=== PATIENT | male | born 1940 | race Caucasian/White ===

== ENCOUNTER → 2016-06-14 | Outpatient (CLI) | payer OTHER, BC ==
[~2016-06-14] MED LIST: ACET-749 PO; AFRIN; APIX1TAB3 PO; ATOR-22 PO; ATV5 PO; CHOL1000 PO; CLC100 PO; CRD60 PO; DILT-113 PO; DILT120C68 PO; FLEC100T21 PO; FURO-85 PO; GABA-112 PO; GEMF600T3 PO; HMLIS SC; INSDGI SQ; MAGNCAP3 PO; METO100T44 PO; MULT-1093 PO; MULTCAP33 PO; MULTTAB58 PO; POTA-331 PO; TMB100 PO; diltiazem PO
[2016-06-14 11:06] LABS: HEMATOCRIT 39.8 % (42-52); MEAN CELL VOLUME 96.6 fL (80-100); MEAN CORPUSCULAR HEMOGLOBIN 31.1 pg (25-34); MEAN CORPUSCULAR HGB CONC 32.2 g/dl (32-36); MEAN PLATELET VOLUME 11.5 fL (7.4-10.4); PLATELET COUNT 308 K/uL (130-400); RED BLOOD COUNT 4.12 M/uL (4.7-6.1)
[2016-06-14 11:14] LABS: URINE APPEARANCE CLEAR (CLEAR); URINE BILIRUBIN NEG (NEG); URINE COLOR YELLOW; URINE NITRITE NEG (NEG); URINE SPECIFIC GRAVITY 1.009 (1.000-1.030); UROBILINOGEN NEG (NEG)
[2016-06-14 11:17] LABS: MANUAL MICROSCOPIC REQUIRED? NO; REVIEW REQ? NO
[2016-06-14 11:19] LABS: ALT/SGPT 14 U/L (12-78); BLOOD UREA NITROGEN 36 mg/dl (7-18); BUN/CREATININE RATIO 17.1 (10-20); CALCIUM 9.1 mg/dl (8.5-10.1); CARBON DIOXIDE 27 mmol/L (21-32); CHLORIDE 107 mmol/L (98-107); GLUCOSE 161 mg/dl (70-99); POTASSIUM 4.6 mmol/L (3.5-5.1); SODIUM 144 mmol/L (136-145)
[2016-06-14 11:22] LABS: ALB/GLOB RATIO 0.8 (0.9-2); ALKALINE PHOSPHATASE 157 U/L (45-117); AST/SGOT 13 U/L (15-37)
[2016-06-14 11:32] LABS: URINE PROTIEN/CREAT RATIO 0.2 (0-0.2); URINE TOTAL PROTEIN 12.6 mg/dl (0-11.9)
== END | disposition home or self-care (01) ==
LOC: C.LAB1850 09:45
PROVIDERS: ATTEND Internal Medicine Nephrology
DX: I10 Essential (primary) hypertension (principal); E55.9 Vitamin D deficiency, unspecified; N18.3 Chronic kidney disease, stage 3 (moderate)

== ENCOUNTER → 2016-09-30 | Outpatient (CLI) | payer OTHER, BC ==
[~2016-09-30] MED LIST changes: -AFRIN; -DILT-113 PO; -DILT120C68 PO; -FLEC100T21 PO; -FURO-85 PO; -GABA-112 PO; -MULT-1093 PO; -diltiazem PO
[2016-09-30 10:46] LABS: HEMATOCRIT 42.7 % (42-52); MEAN CELL VOLUME 97.3 fL (80-100); MEAN CORPUSCULAR HEMOGLOBIN 31.7 pg (25-34); MEAN CORPUSCULAR HGB CONC 32.6 g/dl (32-36); MEAN PLATELET VOLUME 11.5 fL (7.4-10.4); PLATELET COUNT 295 K/uL (130-400); RED BLOOD COUNT 4.39 M/uL (4.7-6.1); WHITE BLOOD COUNT 6.18 K/uL (4.8-10.8)
[2016-09-30 10:56] LABS: URINE APPEARANCE CLEAR (CLEAR); URINE BILIRUBIN NEG (NEG); URINE COLOR YELLOW; URINE EPITHELIAL CELL AUTO 0-5 /lpf (0-5); URINE NITRITE NEG (NEG); URINE SPECIFIC GRAVITY 1.012 (1.000-1.030); UROBILINOGEN NEG (NEG)
[2016-09-30 11:20] LABS: ALT/SGPT 25 U/L (12-78); AST/SGOT 24 U/L (15-37); BLOOD UREA NITROGEN 39 mg/dl (7-18); BUN/CREATININE RATIO 19.7 (10-20); CALCIUM 8.8 mg/dl (8.5-10.1); CARBON DIOXIDE 29 mmol/L (21-32); CHLORIDE 106 mmol/L (98-107); GLUCOSE 191 mg/dl (70-99); POTASSIUM 4.5 mmol/L (3.5-5.1); SODIUM 142 mmol/L (136-145)
[2016-09-30 11:22] LABS: ESTIMATED AVERAGE GLUCOSE 157 mg/dl; HA1C FLAG Normal (Normal)
[2016-09-30 11:25] LABS: ALKALINE PHOSPHATASE 141 U/L (45-117); CHOLESTEROL 117 mg/dl (0-200); CHOLESTEROL/HDL RATIO 2.9; HDL CHOLESTEROL 40 mg/dl; LDL CHOLESTEROL CALCULATED 31 mg/dl; PHOSPHORUS 3.1 mg/dl (2.5-4.9); TRIGLYCERIDES 231 mg/dl (0-150); URINE PROTIEN/CREAT RATIO 0.2 (0-0.2); URINE TOTAL PROTEIN 12.4 mg/dl (0-11.9); VERY LOW DENSITY LIPOPROT CALC 46 mg/dl
[2016-09-30 11:27] LABS: MANUAL MICROSCOPIC REQUIRED? NO; REVIEW REQ? NO
== END | disposition home or self-care (01) ==
LOC: C.LAB1850 09:32
PROVIDERS: ATTEND Internal Medicine Nephrology
DX: E11.8 Type 2 diabetes mellitus with unspecified complications (principal); I10 Essential (primary) hypertension; E55.9 Vitamin D deficiency, unspecified; N18.3 Chronic kidney disease, stage 3 (moderate); E78.5 Hyperlipidemia, unspecified

== ENCOUNTER → 2016-10-12 | Outpatient (CLI) | payer OTHER, BC ==
[2016-10-12 14:48] LABS: URINE APPEARANCE CLEAR (CLEAR); URINE BILIRUBIN NEG (NEG); URINE COLOR YELLOW; URINE NITRITE NEG (NEG); URINE SPECIFIC GRAVITY 1.018 (1.000-1.030); UROBILINOGEN NEG (NEG)
[2016-10-12 14:54] LABS: MANUAL MICROSCOPIC REQUIRED? NO; REVIEW REQ? NO
== END | disposition home or self-care (01) ==
LOC: C.LAB 13:51
PROVIDERS: ATTEND Nurse Practitioner Family
DX: R31.9 Hematuria, unspecified (principal)

== ENCOUNTER → 2016-10-26 | Outpatient (CLI) | payer OTHER, BC ==
--- NOTE | 2016-10-26 11:39 | DIAGNOSTIC IMAGING REPORT ---
CHEST 2 VIEWS ROUTINE CLINICAL HISTORY: Acquired renal cyst, Dyspnea on exertion COMPARISON STUDY: 05/29/2016 FINDINGS: The heart is mildly enlarged. There is no failure. There is no focal pulmonary consolidation. There are no pleural effusions. Degenerative changes are present within the dorsal spine.[ IMPRESSION: No active disease in the chest. Electronically signed by: Aidan Lovell M.D. 10/26/2016 11:38 AM Dictated Date/Time: 10/26/2016 11:37 AM
== END | disposition home or self-care (01) ==
LOC: C.LABBC 11:09
PROVIDERS: ATTEND Physician Assistant Medical
DX: N28.1 Cyst of kidney, acquired (principal); R06.09 Other forms of dyspnea

== ENCOUNTER → 2016-11-21 | Outpatient (CLI) | payer OTHER, BC ==
[2016-11-21 10:55] LABS: ALT/SGPT 42 U/L (12-78); BLOOD UREA NITROGEN 34 mg/dl (7-18); BUN/CREATININE RATIO 16.8 (10-20); CARBON DIOXIDE 27 mmol/L (21-32); CHLORIDE 104 mmol/L (98-107); GLUCOSE 201 mg/dl (70-99); POTASSIUM 4.6 mmol/L (3.5-5.1); SODIUM 142 mmol/L (136-145)
[2016-11-21 11:00] LABS: ALB/GLOB RATIO 0.9 (0.9-2); ALKALINE PHOSPHATASE 130 U/L (45-117); AST/SGOT 37 U/L (15-37); PROSTATE SPECIFIC ANTIGEN 0.827 ng/ml (0.000-4.000)
[2016-11-21 11:12] LABS: CALCIUM 8.6 mg/dl (8.5-10.1)
--- NOTE | 2016-11-25 10:10 | CODING QUERY MEDICAL NECESSITY ---
SUPPORTING DIAGNOSIS NEEDED Dr. Laguerre, A supporting diagnosis is required for the test/procedure performed on this patient in order for us to be reimbursed by the patient's insurance. Please provide a supporting diagnosis for the following test/procedure listed below next to the test name along with your signature. *If there is no additional diagnosis for this patient that would support the following test/procedure please document that below next to the test/procedure. Test(s)/Procedure(s) that require a supporting diagnosis: * [id number] PSA DIAGNOSIS: DATE OF SERVICE: 11/21/16 Provider Signature: Date: Thank you Reggie Saini [facility] Information Management Once completed, please kindly fax back to [phone] For questions please call [phone]
== END | disposition home or self-care (01) ==
LOC: C.LAB 10:02
PROVIDERS: ATTEND Urology
DX: C64.9 Malignant neoplasm of unspecified kidney, except renal pelvis (principal); N40.0 Benign prostatic hyperplasia without lower urinary tract symptoms

== ENCOUNTER → 2016-12-05 | Outpatient (CLI) | payer OTHER, BC ==
[~2016-12-05] MED LIST changes: -ACET-749 PO
--- NOTE | 2016-12-05 13:36 | DIAGNOSTIC IMAGING REPORT ---
CT OF THE ABDOMEN AND PELVIS WITHOUT CONTRAST CLINICAL HISTORY: Clear cell carcinoma of kidney. COMPARISON STUDY: CT of the abdomen April 12, 2016 and MRI of the abdomen April 27, 2016. TECHNIQUE: Axial images of the abdomen and pelvis were obtained without IV contrast given renal insufficiency. Images were reviewed in the axial, sagittal, and coronal planes. FINDINGS: Evaluation of the abdomen and pelvis is suboptimal given the lack of IV contrast. Unenhanced images of liver, spleen, adrenal glands and pancreas are normal. A few small gallstones are noted. Several water attenuation left renal lesions are suboptimally assessed on this exam but were shown to represent cysts on prior MRI of April 27, 2016. There is also a 7.2 cm cyst arising from the upper pole of the right kidney. There are postsurgical findings within the mid to lower pole of the right kidney suggestive of a partial nephrectomy. There is a 4.2 x 3.9 cm hyperdense abnormality at the level of the partial nephrectomy with adjacent suture material. This is at the site of tumor shown on exam of April 27, 2016. The additional 1.7 cm lesion arising from the midpole the right kidney shown on prior exam is not visualized and is likely been resected. There is no lymphadenopathy. There is no bowel obstruction. There is a fat-containing right inguinal hernia. No suspicious osseous lesions are present. IMPRESSION: 1. 4.2 x 3.9 cm hyperdense round abnormality within the right partial nephrectomy bed, at site of tumor shown on MRI of April 27, 2016. This is suboptimally assessed on this unenhanced exam and could reflect postsurgical change with hemorrhage or recurrent tumor. 2. Nonvisualization of the additional 1.7 cm right renal lesion shown on prior exam which has likely been resected. 3. Numerous additional water attenuation bilateral renal lesions which were shown to represent cysts on prior MRI. Electronically signed by: Hawk Rodriguez M.D. 12/05/2016 1:35 PM Dictated Date/Time: 12/05/2016 11:21 AM
== END | disposition home or self-care (01) ==
LOC: C.CTS 10:04
PROVIDERS: ATTEND Urology
DX: C64.9 Malignant neoplasm of unspecified kidney, except renal pelvis (principal)

== ENCOUNTER → 2016-12-28 | Outpatient (CLI) | payer OTHER, BC ==
[~2016-12-28] MED LIST changes: -METO100T44 PO; +METO1TAB69 PO
[2016-12-28 16:37] LABS: HEMATOCRIT 37.3 % (42-52); MEAN CELL VOLUME 96.9 fL (80-100); MEAN CORPUSCULAR HEMOGLOBIN 31.7 pg (25-34); MEAN CORPUSCULAR HGB CONC 32.7 g/dl (32-36); MEAN PLATELET VOLUME 11.2 fL (7.4-10.4); PLATELET COUNT 237 K/uL (130-400); RED BLOOD COUNT 3.85 M/uL (4.7-6.1); WHITE BLOOD COUNT 7.35 K/uL (4.8-10.8)
[2016-12-28 16:40] LABS: URINE APPEARANCE CLEAR (CLEAR); URINE BILIRUBIN NEG (NEG); URINE COLOR YELLOW; URINE NITRITE NEG (NEG); URINE SPECIFIC GRAVITY 1.024 (1.000-1.030); UROBILINOGEN NEG (NEG)
[2016-12-28 16:41] LABS: MANUAL MICROSCOPIC REQUIRED? NO; REVIEW REQ? NO
[2016-12-28 16:56] LABS: URINE PROTIEN/CREAT RATIO 0.1 (0-0.2); URINE TOTAL PROTEIN 23.1 mg/dl (0-11.9)
[2016-12-28 16:56] LABS: BLOOD UREA NITROGEN 33 mg/dl (7-18); BUN/CREATININE RATIO 16.3 (10-20); CALCIUM 8.7 mg/dl (8.5-10.1); CARBON DIOXIDE 29 mmol/L (21-32); CHLORIDE 110 mmol/L (98-107); GLUCOSE 170 mg/dl (70-99); POTASSIUM 4.2 mmol/L (3.5-5.1); SODIUM 146 mmol/L (136-145)
[2016-12-28 16:58] LABS: PHOSPHORUS 3.7 mg/dl (2.5-4.9)
[2016-12-29 07:47] LABS: ESTIMATED AVERAGE GLUCOSE 157 mg/dl; HA1C FLAG Normal (Normal)
== END | disposition home or self-care (01) ==
LOC: C.LAB1850 15:06
PROVIDERS: ATTEND Internal Medicine Nephrology
DX: I10 Essential (primary) hypertension (principal); C67.9 Malignant neoplasm of bladder, unspecified; E55.9 Vitamin D deficiency, unspecified; N18.3 Chronic kidney disease, stage 3 (moderate); N40.0 Benign prostatic hyperplasia without lower urinary tract symptoms; E11.9 Type 2 diabetes mellitus without complications

== ENCOUNTER → 2017-02-01 | Outpatient (CLI) | payer OTHER, BC ==
[2017-02-01 13:55] LABS: ALT/SGPT 39 U/L (12-78); AST/SGOT 21 U/L (15-37); BLOOD UREA NITROGEN 33 mg/dl (7-18); BUN/CREATININE RATIO 16.3 (10-20); CALCIUM 8.7 mg/dl (8.5-10.1); CARBON DIOXIDE 29 mmol/L (21-32); CHLORIDE 108 mmol/L (98-107); GLUCOSE 170 mg/dl (70-99); POTASSIUM 4.5 mmol/L (3.5-5.1); SODIUM 141 mmol/L (136-145)
[2017-02-01 13:58] LABS: ALB/GLOB RATIO 0.9 (0.9-2); ALKALINE PHOSPHATASE 145 U/L (45-117)
== END | disposition home or self-care (01) ==
LOC: C.LABBC 10:29
PROVIDERS: ATTEND Urology
DX: C67.9 Malignant neoplasm of bladder, unspecified (principal); N28.89 Other specified disorders of kidney and ureter

== ENCOUNTER → 2017-02-27 | Outpatient (CLI) | payer OTHER, BC ==
[2017-02-27 13:13] LABS: HEMATOCRIT 40.7 % (42-52); MEAN CELL VOLUME 98.3 fL (80-100); MEAN CORPUSCULAR HEMOGLOBIN 31.4 pg (25-34); MEAN CORPUSCULAR HGB CONC 31.9 g/dl (32-36); MEAN PLATELET VOLUME 11.7 fL (7.4-10.4); PLATELET COUNT 263 K/uL (130-400); RED BLOOD COUNT 4.14 M/uL (4.7-6.1); WHITE BLOOD COUNT 7.98 K/uL (4.8-10.8)
[2017-02-27 13:50] LABS: BLOOD UREA NITROGEN 33 mg/dl (7-18); BUN/CREATININE RATIO 16.3 (10-20); CALCIUM 8.5 mg/dl (8.5-10.1); CARBON DIOXIDE 31 mmol/L (21-32); CHLORIDE 107 mmol/L (98-107); GLUCOSE 189 mg/dl (70-99); POTASSIUM 4.4 mmol/L (3.5-5.1); SODIUM 143 mmol/L (136-145)
[2017-02-27 14:53] LABS: URINE PROTIEN/CREAT RATIO 0.1 (0-0.2); URINE TOTAL PROTEIN 5.3 mg/dl (0-11.9)
[2017-02-27 15:10] LABS: URINE APPEARANCE CLEAR (CLEAR); URINE BILIRUBIN NEG (NEG); URINE COLOR YELLOW; URINE EPITHELIAL CELL AUTO 0-5 /lpf (0-5); URINE NITRITE NEG (NEG); URINE SPECIFIC GRAVITY 1.018 (1.000-1.030); UROBILINOGEN NEG (NEG)
[2017-02-27 15:11] LABS: MANUAL MICROSCOPIC REQUIRED? NO; REVIEW REQ? NO
== END | disposition home or self-care (01) ==
LOC: C.LAB1850 11:37
PROVIDERS: ATTEND Internal Medicine Nephrology
DX: I12.9 Hypertensive chronic kidney disease with stage 1 through stage 4 chronic kidney disease, or unspecified chronic kidney disease (principal); E55.9 Vitamin D deficiency, unspecified; N18.3 Chronic kidney disease, stage 3 (moderate); R31.9 Hematuria, unspecified; C64.9 Malignant neoplasm of unspecified kidney, except renal pelvis

== ENCOUNTER → 2017-03-09 | Outpatient (CLI) | payer OTHER, BC ==
--- NOTE | 2017-03-09 11:51 | DIAGNOSTIC IMAGING REPORT ---
(CHEST) THORAX WITHOUT CLINICAL HISTORY: Z87.891 Former [id number] Mixed restrictive and obstructive lung disease. COMPARISON STUDY: Chest x-ray dated 10/26/2016 CT DOSE: 584.25 mGycm TECHNIQUE: CT of the thorax was performed from the thoracic inlet to the lung bases. Images are reviewed in the axial, sagittal, and coronal planes. IV contrast was not administered for this examination. A dose lowering technique was utilized adhering to the principles of ALARA. FINDINGS: Thyroid: Imaged portions of the thyroid gland are normal in appearance. Thoracic aorta: The thoracic aorta is normal in course and caliber, noting standard 3 vessel arch anatomy. Heart: There are coronary artery calcifications present. Lungs and pleural spaces: No pleural effusions are visualized. There are mild dependent atelectatic changes. There is underlying pulmonary emphysema. There is no focal pulmonary consolidation. No pulmonary masses are evident. Mediastinum: There is no mediastinal lymphadenopathy. Norma: Clear. Axilla: Clear. Upper abdomen: Partially visualized upper abdominal viscera is within normal limits. Skeletal structures: There are no lytic or blastic osseous lesions. IMPRESSION: 1. Pulmonary emphysema 2. No evidence of pathologic adenopathy 3. No suspicious pulmonary masses Electronically signed by: Aidan Lovell M.D. 03/09/2017 11:49 AM Dictated Date/Time: 03/09/2017 11:44 AM
== END | disposition home or self-care (01) ==
LOC: C.CTS 11:06
PROVIDERS: ATTEND Physician Assistant
DX: J98.4 Other disorders of lung (principal); R09.02 Hypoxemia; Z87.891 Personal history of nicotine dependence; J43.9 Emphysema, unspecified

== ENCOUNTER 2017-05-22 23:09 | Observation (INO) | payer OTHER, BC ==
[~2017-05-22] VITALS: Ht 175.3 cm; Wt 117.0 kg
[~2017-05-22 23:09] MED LIST changes: -AFRIN; -DILT-113 PO; -DILT120C68 PO; -FLEC100T21 PO; -FURO-85 PO; -GABA-112 PO; -MULT-1093 PO; -diltiazem PO
[2017-05-22] MEDS ORDERED: OXYMETAZOLINE HCL 0.05% NA SPR 15 ML BTL ONE (23:22)
[2017-05-22] MEDS ORDERED: diltiazem PO (23:49)
--- NOTE | 2017-05-22 23:50 | EMERGENCY ROOM VISIT NOTE ---
History Report prepared by Patrick: Tara Marie Under the Supervision of: Dr. Apolinar Guerra M.D. First contact with patient: 23:15 Chief Complaint: NOSE BLEED (MINOR) Stated Complaint: SEVERE BLOODY NOSE History of Present Illness The patient is a 77 year old male who presents to the Emergency Room with complaints of an episode of a nose bleed starting this morning. The patient states that he normally wear oxygen at home, 2.5 L at rest and 4 L on exertion. He states that this morning he woke up and felt full of blood. He reports that when he sat up he had blood run out of his mouth and down his shirt. His states that she called the ambulance. She reports that he went to the doctor and they got it to stop. He reports shortly after getting home, it started again. He notes that he is on Eliquis for atrial fibrillation. The patient complains of chest pain on the left side. He reports that it was worse earlier this morning. The patient denies nausea, back pain, abdominal pain, and hematochezia. Source of History: patient, spouse/significant other Onset: this morning Position: nose Quality: other (bleeding) Timing: other (episode) Associated Symptoms: + chest pain, No nausea, No abdominal pain, No back pain, No hematochezia Review of Systems See HPI for pertinent positives & negatives. A total of 10 systems reviewed and were otherwise negative. Past Medical & Surgical Medical Problems: (1) Acute on chronic renal insufficiency (2) Asthma (3) Atrial flutter (4) Bladder cancer (5) CKD (chronic kidney disease), stage III (6) Diabetes (7) Hypertension (8) Ileus (9) Kidney disease (10) Renal mass, right Family History Diabetes mellitus FHx: stroke Heart disease Hypertension Social History Smoking Status: Never Smoker Smokeless Tobacco Use: No Alcohol Use: none Drug Use: none Marital Status: Housing Status: lives with family Occupation Status: retired Current/Historical Medications Scheduled Apixaban (Eliquis), 5 MG PO BID Atorvastatin (Lipitor), 20 MG PO QPM Cholecalciferol (Vitamin D3), 1 TAB PO QPM Diltiazem Hcl Ext Rel (Tiazac), 180 MG PO DAILY Flecainide (Tambocor), 100 MG PO BID Furosemide (Lasix), 20 MG PO DAILY Gabapentin (Neurontin), 100-200 MG PO HS Gemfibrozil (Lopid), 600 MG PO BID Insulin Glargine (Lantus), 40 UNITS SQ HS Insulin Glargine (Lantus), 35 UNIT SQ QAM Insulin Human Lispro (Humalog Kwikpen), SC UD Metoprolol Succ (Toprol Xl) (Toprol-Xl ), 100 MG PO QAM Multiple Vitamins W/ Minerals (Centrum Silver 50+Men), 1 TAB PO DAILY Allergies Coded Allergies: Adhesives (Verified Allergy, Unknown, PLASTIC TAPE-SKIN BLISTERS,RASH, IRRITATION, 05/23/17) Physical Exam Vital Signs Date Time Temp Pulse Resp B/P (MAP) Pulse Ox O2 Delivery O2 Flow Rate FiO2 05/23/17 00:06 60 18 139/65 94 Nasal Cannula 4.0 Humidified Oxygen 05/22/17 23:37 67 05/22/17 23:10 36.7 63 20 134/68 87 Room Air Physical Exam GENERAL: Patient is chronically unwell appearing and in minimal distress. HEENT: No acute trauma, normocephalic atraumatic, mucous membranes moist, no nasal congestion, no scleral icterus. Copious watery bleeding from the right nares. Bleed appears to be just out of reach of the anterior nose. NECK: No stridor, no adenopathy, no meningismus, trachea is midline. LUNGS: No dyspnea. Clear to auscultation and equal bilaterally. No wheeze, no rhonchi. HEART: Regular rate and rhythm. No murmurs, rubs, gallops appreciated. ABDOMEN: Soft, nontender, bowel sounds positive, no masses appreciated, no peritonitis. BACK: No midline tenderness, no CVA tenderness EXTREMITIES: Normal motion all extremities, no cyanosis, no edema. NEUROLOGIC: Alert and oriented, no acute motor or sensory deficits, no focal weakness, cranial nerves grossly intact. SKIN: No rash, no jaundice, no diaphoresis. Medical Decision & Procedures ER Provider Diagnostic Interpretation: Chest X-Ray 1 View: The results were interpreted by me. Poor inspiratory effort. Appears to be a new right pleural effusion compared to previous chest x- rays and cat scans. Enlarged heart with findings of congestive failure. Laboratory Results 05/22/17 23:41 Red Blood Count 4.19, Mean Corpuscular Volume 97.4, Mean Corpuscular Hemoglobin 32.2, Mean Corpuscular Hemoglobin Concent 33.1, Mean Platelet Volume 11.4, Neutrophils (%) (Auto) 60.2, Lymphocytes (%) (Auto) 27.2, Monocytes (%) (Auto) 10.1, Eosinophils (%) (Auto) 1.7, Basophils (%) (Auto) 0.2, Neutrophils # (Auto ) 5.06, Lymphocytes # (Auto) 2.29, Monocytes # (Auto) 0.85, Eosinophils # (Auto ) 0.14, Basophils # (Auto) 0.02 05/22/17 23:41 Test 05/22/17 23:41 White Blood Count 8.41 K/uL (4.8-10.8) Red Blood Count 4.19 M/uL (4.7-6.1) Hemoglobin 13.5 g/dL (14.0-18.0) Hematocrit 40.8 % (42-52) Mean Corpuscular Volume 97.4 fL (80-100) Mean Corpuscular Hemoglobin 32.2 pg (25-34) Mean Corpuscular Hemoglobin Concent 33.1 g/dl (32-36) Platelet Count 226 K/uL (130-400) Mean Platelet Volume 11.4 fL (7.4-10.4) Neutrophils (%) (Auto) 60.2 % Lymphocytes (%) (Auto) 27.2 % Monocytes (%) (Auto) 10.1 % Eosinophils (%) (Auto) 1.7 % Basophils (%) (Auto) 0.2 % Neutrophils # (Auto) 5.06 K/uL (1.4-6.5) Lymphocytes # (Auto) 2.29 K/uL (1.2-3.4) Monocytes # (Auto) 0.85 K/uL (0.11-0.59) Eosinophils # (Auto) 0.14 K/uL (0-0.5) Basophils # (Auto) 0.02 K/uL (0-0.2) RDW Standard Deviation 48.5 fL (36.4-46.3) RDW Coefficient of Variation 13.6 % (11.5-14.5) Immature Granulocyte % (Auto) 0.6 % Immature Granulocyte # (Auto) 0.05 K/uL (0.00-0.02) Prothrombin Time 11.0 SECONDS (9.0-12.0) Prothromb Time International Ratio 1.0 (0.9-1.1) Activated Partial Thromboplast Time 28.1 SECONDS (21.0-31.0) Partial Thromboplastin Ratio 1.1 Anion Gap 6.0 mmol/L (3-11) Est Creatinine Clear Calc Drug Dose 35.8 ml/min Estimated GFR () 33.0 Estimated GFR (Non- 28.4 BUN/Creatinine Ratio 19.5 (10-20) Calcium Level 8.9 mg/dl (8.5-10.1) Total Creatine Kinase 78 U/L (39-308) Creatine Kinase MB 0.8 ng/ml (0.5-3.6) Creatine Kinase MB Ratio 1.0 (0-3.0) Troponin I < 0.015 ng/ml (0-0.045) Chemistry Specimen Hemolysis Laboratory results as reviewed by me. Medications Administered Medications (Trade) Dose Ordered Sig/Jermaine Route Start Time Stop Time Status Last Admin Dose Admin Oxymetazoline HCl (Afrin 0.05% Nasal Moore) 75 sprays STK-MED ONCE .ROUTE 05/22/17 23:22 05/22/17 23:23 DC 05/22/17 23:26 75 SPRAYS Cephalexin Monohydrate (Keflex Cap) 500 mg NOW ONCE PO 05/23/17 00:30 05/23/17 00:31 DC 05/23/17 00:45 500 MG ECG Indication: chest pain Rate (beats per minute): 63 Rhythm: normal sinus Findings: no acute ischemic change, no ectopy ED Course 2318: The patient was evaluated in room B4B. A complete history and physical exam was performed. 2323: Ordered Oxymetazoline HCl 4 sprays .ROUTE. 0008: I reevaluated the patient and his nosebleed has essentially stopped. He still has some periodic oozing. He denies any further chest pain. He his agreeable to a hospitalist evaluation. 0023: Discussed the patient's case with Dr. Osei. The patient will be evaluated for further treatment and disposition. 0030: Ordered Keflex Cap 500 mg PO. Medical Decision Differential: Cardiac Ischemia (STEMI, NSTEMI, Unstable Angina, etc), Aortic Dissection, Arrhythmia, Pulmonary Embolism, Pneumonia, Pneumothorax, MSK, Infectious, Pericarditis/Myocarditis, Esophageal Rupture, Gastrointestinal, amongst other pathologies entertained. Pleasant 77 yr old male arrives for evaluation of right epistaxis though admits episodic left CP over the last day. EKG without evidence acute ischemia. Trop negative. CXR with new right pleural effusion. Suspect he has some coronary disease for which he is at high risk given history thus will need cardiac rule out. As already on Eliquis and he is having active bleeding I feel given ASA dose is contraindicated at this time. He will need to come in for cardiac rule out. Epistaxis right nares likely secondary to chronic NC O2 use and dry air from heat in house. Unable to see clear source of bleeding given how quickly blood is flowing. Thus felt option was right rapid rhino. Tolerated 4.5cm with cessation of bleeding after inflation, other than some mild oozing which is to be expected. Give Keflex as indwelling packing. I did discuss fact that with increased pressure in nose there can be some issues with tissue break down but he makes clear it is not very uncomfortable, and on exam there is no pallor of skin nor evidence of over inflation at this time. Medication Reconcilliation Current Medication List: was personally reviewed by me Blood Pressure Screening Patient's blood pressure: Normal blood pressure Blood pressure disposition: Did not require urgent referral Consults Time Called: 18 Consulting Physician: Dr. Osei- [facility] [place] Returned Call: 0023 Discussed the patient's case with Dr. Osei. The patient will be evaluated for further treatment and disposition. Impression Primary Impression: Left sided chest pain Additional Impressions: Pleural effusion, right Epistaxis Scribe Attestation The scribe's documentation has been prepared under my direction and personally reviewed by me in its entirety. I confirm that the note above accurately reflects all work, treatment, procedures, and medical decision making performed by me. Departure Information Dispostion Being Evaluated By Hospitalist Referrals Ethel Palomares P.A. (PCP) Patient Instructions [facility] Problem Qualifiers
[2017-05-22] MEDS ORDERED: DILT120C68 PO (23:51)
[2017-05-22] MEDS ORDERED: APIX1TAB3 PO (23:52)
[2017-05-22] MEDS ORDERED: FLEC100T21 PO (23:53)
[2017-05-22 23:54] LABS: BASO % 0.2 %; BASO ABS # 0.02 K/uL (0-0.2); COMPLETE YES; EOS % 1.7 %; HEMATOCRIT 40.8 % (42-52); IG% 0.6 %; LYMPH % 27.2 %; LYMPH ABS # 2.29 K/uL (1.2-3.4); MEAN CELL VOLUME 97.4 fL (80-100); MEAN CORPUSCULAR HEMOGLOBIN 32.2 pg (25-34); MEAN CORPUSCULAR HGB CONC 33.1 g/dl (32-36); MEAN PLATELET VOLUME 11.4 fL (7.4-10.4); MONO % 10.1 %; NEUT % 60.2 %; PLATELET COUNT 226 K/uL (130-400); RED BLOOD COUNT 4.19 M/uL (4.7-6.1); WHITE BLOOD COUNT 8.41 K/uL (4.8-10.8)
[2017-05-22] MEDS ORDERED: FURO-85 PO (23:54)
[2017-05-22] MEDS ORDERED: GABA-112 PO (23:55)
[2017-05-22] MEDS ORDERED: MULT-1093 PO (23:58)
[2017-05-23] VITALS (7 sets, daily range): BP systolic 140–157; BP diastolic 62–76; PULSE 56–67; TEMP 36.4–36.7; O2SAT 90–94; Ht 175.3 cm; Wt 117.0 kg
[2017-05-23] MEDS ORDERED: DILT-113 PO (00:01)
[2017-05-23 00:04] LABS: PARTIAL THROMBOPLASTIN RATIO 1.1
[2017-05-23 00:11] LABS: BLOOD UREA NITROGEN 42 mg/dl (7-18); BUN/CREATININE RATIO 19.5 (10-20); CALCIUM 8.9 mg/dl (8.5-10.1); CARBON DIOXIDE 29 mmol/L (21-32); CHLORIDE 105 mmol/L (98-107); CREATININE 2.15 mg/dl (0.60-1.40); GLUCOSE 217 mg/dl (70-99); POTASSIUM 4.5 mmol/L (3.5-5.1); SODIUM 141 mmol/L (136-145)
[2017-05-23] MEDS ORDERED: CEPHALEXIN MONOHYDRATE 250 MG CAP PO ONE (00:30)
[2017-05-23] MEDS ORDERED: MAGNESIUM HYDROXIDE SUSP 30 ML UDC PO PRN (01:15)
[2017-05-23] MEDS ORDERED: ALUMINUM/MAGNESIUM/SIMETH (MAALOX MAX) 30 ML UDC PO PRN (01:15)
[2017-05-23] MEDS ORDERED: ONDANSETRON INJ 2 MG/ML 2 ML VIAL IV PRN (01:15)
[2017-05-23] MEDS ORDERED: ACETAMINOPHEN 325 MG TAB PO PRN (01:15)
[2017-05-23] MEDS ORDERED: MoRPHine SULFATE 2 MG/ML CARP IV PRN (01:15)
[2017-05-23] MEDS ORDERED: NITROGLYCERIN 0.4 MG SL PER TAB CHARGE SL PRN (01:15)
[2017-05-23] MEDS ORDERED: LORAZEPAM 1 MG TAB PO PRN (01:30)
[2017-05-23] MEDS ORDERED: GLUCOSE 40% GEL 15 GM TUBE PO PRN (02:00)
[2017-05-23] MEDS ORDERED: GLUCOSE 10 TABS/TUBE PO PRN (02:00)
[2017-05-23] MEDS ORDERED: DEXTROSE 50% 50 ML SYR IV PRN (02:00)
[2017-05-23] MEDS ORDERED: GLUCAGON FOR INJ 1 MG VIAL SQ PRN (02:00)
--- NOTE | 2017-05-23 02:08 | History and Physical ---
History & Physical Date & Time of Service: May 23, 2017 at 01:51 Chief Complaint: Left Sided Chest Pain Primary Care Physician: Ethel Palomares P.AJessie History of Present Illness Source: patient, hospital records This is a 77 yo m with a history of PAF, DMII and HTN that is presenting to us after having recurring epistaxis on Eliqius. The patient states that late last night the patient suffered from a self limiting epistaxis and went to his PCP for evaluation. This was a non traumatic epistaxis. He was recommended by his PCP that he come to the ED for evaluation if this were to occur again. Overnight tonight the patient had another episode of epistaxis requiring placement of a Rhinocort. While the patient was in the ED he had mentioned that he has been suffering from intermittent left sided non radiating chest pain with a lot of exertion. He notes that it will resolve with rest. He is unsure how often this will occur as he has not counted it but it is not on a daily basis. He also has some shortness of breath with it but no dizziness/ nausea or diaphoresis. He has no history of ND. He is currently pain free. Follows Dr Terrell for PAF. Past Medical/Surgical History Medical Problems: (1) Atrial flutter Status: Chronic (2) Bladder cancer Status: Resolved (3) Diabetes Status: Chronic Family History Diabetes mellitus FHx: stroke Heart disease Hypertension Social History Smoking Status: Never Smoker Smokeless Tobacco Use: No Alcohol Use: none Drug Use: none Marital Status: Housing status: lives with family Occupational Status: retired Immunizations History of Influenza Vaccine: Unknown History of Tetanus Vaccine?: Unknown History of Pneumococcal: Unknown History of Hepatitis B Vaccine: Unknown Multi-Drug Resistant Organisms History of MDRO: No Allergies Coded Allergies: Adhesives (Verified Allergy, Unknown, PLASTIC TAPE-SKIN BLISTERS,RASH, IRRITATION, 05/23/17) Home Medications Scheduled Apixaban (Eliquis), 5 MG PO BID Atorvastatin (Lipitor), 20 MG PO QPM Cholecalciferol (Vitamin D3), 1 TAB PO QPM Diltiazem Hcl Ext Rel (Tiazac), 180 MG PO DAILY Flecainide (Tambocor), 100 MG PO BID Furosemide (Lasix), 20 MG PO DAILY Gabapentin (Neurontin), 100-200 MG PO HS Gemfibrozil (Lopid), 600 MG PO BID Insulin Glargine (Lantus), 40 UNITS SQ HS Insulin Glargine (Lantus), 35 UNIT SQ QAM Insulin Human Lispro (Humalog Kwikpen), SC UD Metoprolol Succ (Toprol Xl) (Toprol-Xl ), 100 MG PO QAM Multiple Vitamins W/ Minerals (Centrum Silver 50+Men), 1 TAB PO DAILY Review of Systems Constitutional: No fever, No chills, No sweats Eyes: No worsening of vision ENT: No hearing loss Respiratory: + dyspnea on exertion, No cough, No sputum, No wheezing, No shortness of breath, No dyspnea at rest Cardiovascular: + chest pain, No palpitations Abdomen: No pain, No nausea, No vomiting, No diarrhea, No constipation Musculoskeletal: No joint pain Genitourinary - Male: No hematuria, No dysuria Neurologic: No weakness, No numbness/tingling, No balance problems Psychiatric: No depression symptoms Endocrine: No fatigue Hematologic / Lymphatic: No abnormal bleeding/bruising Integumentary: No rash Physical Exam Vital Signs Date Time Temp Pulse Resp B/P (MAP) Pulse Ox O2 Delivery O2 Flow Rate FiO2 05/23/17 01:30 36.7 58 18 127/66 94 05/23/17 00:06 60 18 139/65 94 Nasal Cannula 4.0 Humidified Oxygen 05/22/17 23:37 67 05/22/17 23:10 36.7 63 20 134/68 87 Room Air General Appearance: no apparent distress, + obese Head: normocephalic, atraumatic Eyes: normal inspection, + pertinent finding ENT: hearing grossly normal, + pertinent finding (rhinocort in place in right nostril) Neck: supple Respiratory/Chest: normal breath sounds, no respiratory distress, no accessory muscle use, + decreased breath sounds (bilat bases) Cardiovascular: regular rate, rhythm, no murmur, normal peripheral pulses, + bradycardia Abdomen/GI: normal bowel sounds, non tender, soft, + distended (slightly), + pertinent finding (central obesity) Back: normal inspection Extremities/Musculoskelatal: no calf tenderness, + pedal edema (+1 bilat pedal edema, BL for patient from venous insuff) Neurologic/Psych: alert, normal mood/affect, oriented x 3 Skin: normal color, warm/dry, no rash Lymphatic: no adenopathy Diagnostics Laboratory Results Results Past 24 Hours Test 05/22/17 23:41 Range/Units White Blood Count 8.41 4.8-10.8 K/uL Red Blood Count 4.19 4.7-6.1 M/uL Hemoglobin 13.5 14.0-18.0 g/dL Hematocrit 40.8 42-52 % Mean Corpuscular Volume 97.4 80-100 fL Mean Corpuscular Hemoglobin 32.2 25-34 pg Mean Corpuscular Hemoglobin Concent 33.1 32-36 g/dl Platelet Count 226 130-400 K/uL Mean Platelet Volume 11.4 7.4-10.4 fL Neutrophils (%) (Auto) 60.2 % Lymphocytes (%) (Auto) 27.2 % Monocytes (%) (Auto) 10.1 % Eosinophils (%) (Auto) 1.7 % Basophils (%) (Auto) 0.2 % Neutrophils # (Auto) 5.06 1.4-6.5 K/uL Lymphocytes # (Auto) 2.29 1.2-3.4 K/uL Monocytes # (Auto) 0.85 0.11-0.59 K/uL Eosinophils # (Auto) 0.14 0-0.5 K/uL Basophils # (Auto) 0.02 0-0.2 K/uL RDW Standard Deviation 48.5 36.4-46.3 fL RDW Coefficient of Variation 13.6 11.5-14.5 % Immature Granulocyte % (Auto) 0.6 % Immature Granulocyte # (Auto) 0.05 0.00-0.02 K/uL Prothrombin Time 11.0 9.0-12.0 SECONDS Prothromb Time International Ratio 1.0 0.9-1.1 Activated Partial Thromboplast Time 28.1 21.0-31.0 SECONDS Partial Thromboplastin Ratio 1.1 Sodium Level 141 136-145 mmol/L Potassium Level 4.5 3.5-5.1 mmol/L Chloride Level 105 98-107 mmol/L Carbon Dioxide Level 29 21-32 mmol/L Anion Gap 6.0 3-11 mmol/L Blood Urea Nitrogen 42 7-18 mg/dl Creatinine 2.15 0.60-1.40 mg/dl Est Creatinine Clear Calc Drug Dose 35.8 ml/min Estimated GFR () 33.0 Estimated GFR (Non- 28.4 BUN/Creatinine Ratio 19.5 10-20 Random Glucose 217 70-99 mg/dl Calcium Level 8.9 8.5-10.1 mg/dl Total Creatine Kinase 78 39-308 U/L Creatine Kinase MB 0.8 0.5-3.6 ng/ml Creatine Kinase MB Ratio 1.0 0-3.0 Troponin I < 0.015 0-0.045 ng/ml Chemistry Specimen Hemolysis Diagnostic Radiology difficult to assess secondary to central obesity, possible bilat pleural effusions vs atelectasis, hypoventilation EKG NSR, sebastian, no acute ischemic changes or ectopy noted Impression Assessment and Plan This is a 77 yo m with a history of DMII, HTN, PAF suffering from severe, recurring epistaxis as well as intermittent left sided chest pain concerning for UA/ stable angina Chest pain NYD with a Heart score of 4 - Tele obs - NPO - troponin repeat in am, if negative patient may benefit from stress echo vs echo complete vs cath - repeat CXR PA/ lat upright for an improved view of the bases - echo 2016: * 1. Normal LV size. Mild concentric LVH. * 2. Normal LV function. LVEF 50-55%. Abnormal septal motion. * 3. Mildly dilated RV with mild RV dysfunction. Mild RA dilation. * 4. Grade II diastolic dysfunction * 5. Moderate PH. Estimated PASP 50-55mmHg, RA 8mmHg. * 6. No prior studies available for comparison. - patient may benefit from outpt sleep study based on body habitus/ pul htn and RV dil Epistaxis, recurrent; severe - consult ENT - monitor for S&S of bleeding PAF - NSR currently, with recent severe epistaxis will hold the am dose of Eliquis - cont Diltiazem 180 mg, Flecanide 100 mg bid, Toprol 100 mg qam HTN/ hyperlipidemia - Atorvastatin 20 mg and Gemfibrozil cont'd - antihypertensive as above DMII - continue home lantus regimen with insulin ISS DVT Prophylaxis SCD considering epistaxis Attending addendum: I have physically seen this patient, have supervised the medical residents activities, and agree with the H&P unless as otherwise noted. Assessment and Plan: Paroxysmal atrial fibrillation/hypertension/exertional chest pain-- The patient will be admitted to telemetry for serial cardiac enzymes, serial EKGs, cardiac rhythm monitoring and a 2-D echocardiogram with Dopplers. Continue current dosing of diltiazem, flecainide and metoprolol succinate. Hold Eliquis due to epistaxis Chest x-ray appearance due to posture Epistaxis/Rhino Rocket in right nares-- Consult ENT for treatment, as patient needs to be on anticoagulation due to A. fib Hyperlipidemia-- Continue atorvastatin and gemfibrozil Diabetes mellitus-- Continue Lantus insulin Place on Accu-Cheks before meals and at bedtime with NovoLog coverage per scale Level of Care Telemetry Advanced Directives Existing Advance Directive: No Existing Living Will: No Existing Power of Graphic Art Technician: No Resuscitation Status FULL RESUSCITATION VTE Prophylaxis VTE Risk Assessment Done? Y/N: Yes Risk Level: Moderate Given or contraindicated: Other Anticoagulation, SCD's Social Service Consult None Apply Note Total Time: Critical Care 30 - 74 minutes Additional Copies To Ethel PalomaresPJessieA.
--- NOTE | 2017-05-23 06:44 | DIAGNOSTIC IMAGING REPORT ---
CHEST ONE VIEW PORTABLE CLINICAL HISTORY: 77 years-old Male presenting with Chest Pain. TECHNIQUE: Portable upright AP view of the chest was obtained. COMPARISON: 10/26/2016. FINDINGS: Atherosclerosis of aortic arch. Cardiac silhouette is enlarged as on prior exam. Increased vague bibasilar opacities with slight decreased lung aeration. Prominence of the pulmonary vasculature. No pneumothorax. Pleural effusions may be present. Degenerative changes of the thoracic spine. Upper abdomen normal. IMPRESSION: 1. Cardiomegaly with pulmonary vascular prominence and vague bibasilar opacities. This could suggest early pulmonary edema. Less likely atelectasis or aspiration. Electronically signed by: Mario Patrick M.D. 05/23/2017 6:43 AM Dictated Date/Time: 05/23/2017 6:41 AM
--- NOTE | 2017-05-23 08:11 | DIAGNOSTIC IMAGING REPORT ---
CHEST 2 VIEWS ROUTINE HISTORY: 77 years-old Male improved view acute left-sided atypical chest pain COMPARISON: Chest radiograph 05/22/2017, CT chest 03/09/2017 TECHNIQUE: Portable PA view of the chest FINDINGS: Cardiac silhouette is again mildly enlarged, unchanged. Atherosclerosis of the aorta. Prominent epicardial fat pad again noted with minimal linear subsegmental opacities in seen suggesting areas of atelectasis/scarring. Mild hyperinflation with emphysema. Improved aeration of the lung bases from prior. No pneumothorax or pleural effusion. Bones of the chest appear grossly intact. IMPRESSION: 1. Cardiomegaly without overt pulmonary edema. 2. Prominent epicardial fat pad with minimal subsegmental bibasilar atelectasis/scarring. 3. Emphysema. The above report was generated using voice recognition software. It may contain grammatical, syntax or spelling errors. Electronically signed by: Tylor Carbajal M.D. 05/23/2017 8:09 AM Dictated Date/Time: 05/23/2017 8:06 AM
[2017-05-23] MEDS ORDERED: IV FLUIDS COMPLETED PRN (08:15)
[2017-05-23] MEDS: INSULIN ASPART 100 UNITS/ML 3 ML PEN SC SCH ×2 (08:22→11:00)
[2017-05-23] MEDS ORDERED: INSULIN GLARGINE SOLOSTAR 100 UNITS/ML 3 ML PEN SQ SCH ×2 (09:00→21:00)
[2017-05-23] MEDS ORDERED: DILTIAZEM HCL (TIAzac) 180 MG CAPCR PO SCH (09:00)
[2017-05-23] MEDS ORDERED: FUROSEMIDE 20 MG TAB PO SCH (09:00)
[2017-05-23] MEDS ORDERED: FLECAINIDE ACETATE 100 MG TAB PO SCH (09:00)
[2017-05-23] MEDS ORDERED: GEMFIBROZIL 600 MG TAB PO SCH (09:00)
[2017-05-23] MEDS ORDERED: METOPROLOL SUCC 50MG EXT REL TAB PO SCH (09:00)
[2017-05-23] MEDS ORDERED: CEROVITE ADV FORMULA TAB PO SCH (09:00)
[2017-05-23] MEDS ORDERED: DOBUTamine HCL 12.5 MG/ML 20 ML VIAL ONE (09:28)
[2017-05-23] MEDS ORDERED: ATROPINE SULFATE 0.1 MG/ML 5ML SYR ONE (09:29)
[2017-05-23] MEDS ORDERED: METOPROLOL TARTRATE 1 MG/ML VIAL ONE (09:29)
[2017-05-23 11:47] LABS: HEMATOCRIT 38.9 % (42-52); MEAN CORPUSCULAR HEMOGLOBIN 31.4 pg (25-34); MEAN CORPUSCULAR HGB CONC 32.4 g/dl (32-36); MEAN PLATELET VOLUME 11.4 fL (7.4-10.4); PLATELET COUNT 214 K/uL (130-400); RED BLOOD COUNT 4.01 M/uL (4.7-6.1); WHITE BLOOD COUNT 7.84 K/uL (4.8-10.8)
--- NOTE | 2017-05-23 13:55 | EXERCISE STRESS ECHO ---
*NOTICE TO RECEIVING [employer] This information is strictly Confidential and protected under [place] law. [place] law prohibits you from making any further disclosure of this information unless further disclosure is expressly permitted by the written consent of the person to whom it pertains or is authorized by law. A general authorization for the release of medical or other information is not sufficient for this purpose. Hospital accepts no responsibility if the information is made available to any other person, INCLUDING THE PATIENT. Interpretation Summary * Name: SHERIF QUILES Study Date: 05/23/2017 09:26 AM * Patient Location: .2T\S\S230\S\1 HR: 64 * : 1940 (M/d/yyyy) Gender: Male Height: 69 in * Age: 77 yrs Ethnicity: [place] Weight: 257 lb * Ordering Physician: Deandra Healy * Referring Physician: Self, Referred * Performed By: Jacinta Medel RDCS * * Reason For Study: Chest Pain * BSA: 2.3 m2 * -- Conclusions -- * Left ventricular systolic function is normal. * No regional wall motion abnormalities noted. * Ejection Fraction = 55-60%. * There is moderate concentric left ventricular hypertrophy. * Grade I diastolic dysfunction, (abnormal relaxation pattern). * There is mild tricuspid regurgitation. Procedure Details * ECHO DOPPLER, CPT #58618 * ECHO COLOR FLOW, CPT #13537 * The study was technically difficult with many images being suboptimal in quality. * A contrast injection of Definity was performed to improve assessment of LV function. * Contrast was injected into an intravenous site in the right arm. * One vial of Definity ultrasound contrast was diluted in normal saline to a total volume of 10 ml. A total of '2' ml of solution was administered during imaging. * Lot # [id number] of Definity utilized for procedure. * Expiration date . * The attending nurse who injected the contrast agent was BERNABE Pereyra. Left Ventricle * The left ventricle is grossly normal size. * There is moderate concentric left ventricular hypertrophy. * Ejection Fraction = 55-60%. * Left ventricular systolic function is normal. * No regional wall motion abnormalities noted. Right Ventricle * The right ventricle is grossly normal size. * The right ventricular systolic function is normal as assessed by tricuspid annular plane systolic excursion (TAPSE) (normal >1.5 cm). Atria * The left atrium is mildly dilated. * The right atrium is mildly dilated. * Interatrial septum not well visualized. Mitral Valve * The mitral valve is grossly normal. * There is no mitral valve stenosis. * Significant mitral regurgitation is absent. Tricuspid Valve * The tricuspid valve is not well visualized, but is grossly normal. * There is no tricuspid stenosis. * There is mild tricuspid regurgitation. Aortic Valve * The aortic valve is trileaflet. * The aortic valve opens well. * No hemodynamically significant valvular aortic stenosis. * No aortic regurgitation is present. Pulmonic Valve * The pulmonary valve is not well seen, but the Doppler examination is normal without significant regurgitation or stenosis. Great Vessels * Borderline aortic root dilatation. * The pulmonary is not well visualized. Pericardium * There is no pericardial effusion. Left Ventricular Diastolic Function * Grade I diastolic dysfunction, (abnormal relaxation pattern). MMode 2D Measurements and Calculations IVSd 1.2 cm IVSs 1.6 cm LVIDd 4.6 cm LVIDs 3.3 cm LVPWd 1.2 cm LVPWs 1.6 cm IVS/LVPW 1.0 FS 29.2 % EDV(Teich) 98.1 ml ESV(Teich) 43.1 ml EF(Teich) 56.1 % EDV(cubed) 98.3 ml ESV(cubed) 34.9 ml EF(cubed) 64.5 % % IVS thick 32.4 % % LVPW thick 31.3 % LV mass(C)d 208.1 grams LV mass(C)dI 90.6 grams/m\S\2 LV mass(C)s 195.3 grams LV mass(C)sI 85.0 grams/m\S\2 SV(Teich) 55.0 ml SI(Teich) 23.9 ml/m\S\2 SV(cubed) 63.4 ml SI(cubed) 27.6 ml/m\S\2 Ao root diam 3.2 cm Ao root area 8.1 cm\S\2 ACS 2.0 cm LA dimension 3.0 cm LA/Ao 0.95 LVAd ap4 27.0 cm\S\2 LVLd ap4 7.2 cm EDV(MOD-sp4) 85.6 ml EDV(sp4-el) 86.3 ml LVAs ap4 19.2 cm\S\2 LVLs ap4 7.5 cm ESV(MOD-sp4) 42.7 ml ESV(sp4-el) 41.7 ml EF(MOD-sp4) 50.1 % EF(sp4-el) 51.6 % LVAd ap2 29.1 cm\S\2 LVLd ap2 7.5 cm EDV(MOD-sp2) 96.0 ml EDV(sp2-el) 95.8 ml LVAs ap2 18.4 cm\S\2 LVLs ap2 7.2 cm ESV(MOD-sp2) 40.3 ml ESV(sp2-el) 40.1 ml EF(MOD-sp2) 58.0 % EF(sp2-el) 58.1 % LVLd %diff 4.2 % EDV(MOD-bp) 92.4 ml LVLs %diff -4.24 % ESV(MOD-bp) 41.6 ml EF(MOD-bp) 54.9 % SV(MOD-sp4) 42.9 ml SI(MOD-sp4) 18.7 ml/m\S\2 SV(MOD-sp2) 55.7 ml SI(MOD-sp2) 24.2 ml/m\S\2 SV(MOD-bp) 50.7 ml SI(MOD-bp) 22.1 ml/m\S\2 SV(sp4-el) 44.5 ml SI(sp4-el) 19.4 ml/m\S\2 SV(sp2-el) 55.7 ml SI(sp2-el) 24.2 ml/m\S\2 Doppler Measurements and Calculations MV E max jaime 69.4 cm/sec MV A max jaime 104.8 cm/sec MV E/A 0.66 MV dec time 0.19 sec Ao V2 max 131.5 cm/sec Ao max PG 6.9 mmHg Ao max PG (full) 4.5 mmHg LV V1 max PG 2.4 mmHg LV V1 max 77.1 cm/sec PA V2 max 108.6 cm/sec PA max PG 4.7 mmHg TR max jaime 256.5 cm/sec
[2017-05-23] MEDS ORDERED: AFRIN (15:28)
--- NOTE | 2017-05-23 15:38 | Discharge Instructions ---
Discharge Instructions Date of Service May 23, 2017. Admission Reason for Admission: Left Sided Chest Pain Discharge Discharge Diagnosis / Problem: Nosebleed and Chest Pain Discharge Goals Goal(s): Decrease discomfort, Improve function Activity Recommendations Activity Limitations: resume your previous activity . Instructions / Follow-Up Instructions / Follow-Up Mr. Severino, anish were admitted to [facility] due to recurrent nosebleeds as well as chest pain. Below are the medical problems that were addressed during your admission: Chest pain - your troponin level, which measures damage to your heart, was normal - your EKG (electrical tracing of your heart) was also normal - you also had an ECHO - ultrasound of the heart, which did not show any abnormalities in your heart's pumping function - we held your eliquis and advise you follow up with your PCP and Dr. Terrell to discuss restarting it or considering an alternative anticoagulant - please follow up with Dr. Terrell in the clinic to further discuss these episodes of chest pain Nosebleeds - You had a packing placed in your right nostril which should be removed after 3 -4 days. Please have a physician remove it and do not try pulling it out yourself. - As per Dr. Fischer, please also use the Afrin spray every 12 hours in your left nostril, but do not exceed three days of use - You will follow up with Dr. Fischer in the office to further discuss your nosebleeds Please continue to take your other home medications as prescribed Current Hospital Diet Patient's current hospital diet: AHA Diet (Heart Healthy), Diabetes Type 2 Diet Discharge Diet Recommended Diet: AHA Diet (Heart Healthy), Diabetes Type 2 Diet Pending Studies Studies pending at discharge: no Laboratory Results Hemoglobin A1c Test 05/22/17 15:29 Range/Units Estimated Average Glucose 171 mg/dl Hemoglobin A1c 7.6 H 4.5-5.6 % Medical Emergencies . Who to Call and When: Medical Emergencies: If at any time you feel your situation is an emergency, please call 911 immediately. . Non-Emergent Contact Non-Emergency issues call your: Primary Care Provider . . "Provider Documentation" section prepared by Deandra Healy. . VTE Core Measure Inpt VTE Proph given/why not?: Other Anticoagulation, SCD's
--- NOTE | 2017-05-23 15:49 | Discharge Summary ---
Discharge Summary Date of Service May 23, 2017. 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 Atherosclerosis of the aorta. Prominent epicardial fat pad again noted with minimal linear subsegmental opacities in seen suggesting areas of atelectasis/scarring. Mild hyperinflation with emphysema. Improved aeration of the lung bases from prior. No pneumothorax or pleural effusion. Bones of the chest appear grossly intact. IMPRESSION: 1. Cardiomegaly without overt pulmonary edema. 2. Prominent epicardial fat pad with minimal subsegmental bibasilar atelectasis/scarring. 3. Emphysema. ECHO - Left ventricular systolic function is normal. - No regional wall motion abnormalities noted. - Ejection Fraction = 55-60%. - There is moderate concentric left ventricular hypertrophy. - Grade I diastolic dysfunction, (abnormal relaxation pattern). - There is mild tricuspid regurgitation. Consultations: ENT - Dr. Fischer Medication Reconciliation New Medications: Oxymetazoline HCl (Afrin Nasal Boyd) 75 Sprays/15 Ml Boyd 2 SPRAYS NA Q12 for 2 Days, #1 BTL 2 Sprays in Left Nostril every 12 hours. Do not use for more than 3 days. Continued Medications: Atorvastatin (Lipitor) 20 Mg Tab 20 MG PO QPM, TAB Cholecalciferol (Vitamin D3) 1,000 Unit Tab 1 TAB PO QPM for 90 Days, TAB 3 Refills Diltiazem Hcl Ext Rel (Tiazac) 180 Mg Capcr 180 MG PO DAILY, CAP Flecainide (Tambocor) 100 Mg Tab 100 MG PO BID, TAB Furosemide (Lasix) 20 Mg Tab 20 MG PO DAILY, TAB Gabapentin (Neurontin) 100 Mg Cap 100-200 MG PO HS, CAP Gemfibrozil (Lopid) 600 Mg Tab 600 MG PO BID Insulin Glargine (Lantus) 100 Unit/Ml Inj 40 UNITS SQ HS Insulin Glargine (Lantus) 100 Unit/Ml Inj 35 UNIT SQ QAM Insulin Human Lispro (Humalog Kwikpen) 100 Units/Ml Inj SC UD SLIDING SCALE Metoprolol Succ (Toprol Xl) (Toprol-Xl ) 100 Mg Tabcr 100 MG PO QAM, TAB Multiple Vitamins W/ Minerals (Centrum Silver 50+Men) 1 Tab Tab 1 TAB PO DAILY Discontinued Medications: Apixaban (Eliquis) 5 Mg Tab 5 MG PO BID, TAB Discharge Exam Mr. Severino states he feels well today. He reports his right nostril has been trickling with blood all night, despite being packed, and had worsened when he leaned over to pick something up. He reports the bleeding slowed down during the day. With regards to his chest pain, he states it is left sided, 5/10 in severity, dull, and occurs when he walks the 50 feet from his house to his car and goes away once he sits down in his car and rests. He denies radiation, associated shortness of breath, and states it does not occur every time he walks to his car. Review of Systems: Constitutional: No fever, No chills, No sweats Respiratory: No cough, No sputum, No wheezing Cardiovascular: + chest pain, No palpitations Abdomen: No pain, No nausea, No vomiting, No diarrhea Physical Exam: General Appearance: WD/WN, no apparent distress ENT: + pertinent finding (right sided rhinocort packing, no active trickling of blood) Respiratory/Chest: chest non-tender, lungs clear, normal breath sounds, no respiratory distress, no accessory muscle use Cardiovascular: regular rate, rhythm, no edema, no gallop, no JVD, no murmur , normal peripheral pulses Abdomen / GI: normal bowel sounds, non tender, soft, no organomegaly, no pulsatile mass Hospital Course Mr. Severino is a 77 year old gentleman with a history of DMII, HTN, PAF suffering from severe, recurring epistaxis as well as intermittent left sided chest pain. Below is an outline of the medical problems addressed during his stay: Chest pain, Atypical - troponin and EKG negative - ECHO with no regional wall motion abnormality. - patient did not want to have dobutamine echo as he was concerned he would go back into afib - will follow up with Dr. Terrell in outpatient setting Epistaxis - As per Dr. Fischer, keep nasal packing in for 3-4 more days, use Afrin q12h in left nostril and use humidified oxygen to decrease likelihood of further incidents of nosebleeds - he will follow up with Dr. Fischer in clinic - may require transfer to [facility] for embolization if this is a recurrent problem PAF - NSR currently, with recent severe epistaxis will hold Eliquis and defer decision to restart/choose another anticoagulant to PCP/Dr. Terrell Total Time Spent: Less than 30 minutes This includes examination of the patient, discharge planning, medication reconciliation, and communication with other providers. Discharge Instructions Please refer to the electronic Patient Visit Report (Discharge Instructions) for additional information. Additional Copies To Pernell Fischer M.D.; Mario Anaya M.D.; Ethel Palomares,P.A.; Darell Terrell M.D. Resident Tracking Resident Involvement: Resident Care Provided Care Provided: Adult Hospital Medicine Reviewed: Pt Seen/Exam by Me History no further chest pain, shortness of breath. no more nose bleeding Constitutional: denies: fever Respiratory: negative: short of breath Cardiovascular: denies chest pain General Appearance: no apparent distress Respiratory: lungs clear, no respiratory distress Cardiovascular: regular rate, rhythm Neurologic/Psychiatric: alert, oriented x 3 Skin Characteristics: warm/dry Assessment/Plan Resident Physician Supervision Note: I independently interviewed and examined the patient and verified the kate history and physical, reviewed labs and image studies, discussed the case with the resident Dr. Healy and agree with the findings and care plan. Time spent in discharge 35 min
[2017-05-23] MEDS ORDERED: ATORVASTATIN 20 MG TAB PO SCH (21:00)
[2017-05-23] MEDS ORDERED: GABAPENTIN 100 MG CAP PO SCH (21:00)
[2017-05-23] MEDS ORDERED: CHOLECALCIFEROL 1000 INTER.UNIT TAB PO SCH (21:00)
[2017-05-23] MEDS ORDERED: OXYMETAZOLINE HCL 0.05% NA SPR 15 ML BTL SCH (21:00)
== END 2017-05-23 16:46 | disposition home or self-care (01) ==
LOC: C.EDB 23:10 → C.2T 05-23 01:14 → ENRESERV 05-23 01:22
PROVIDERS: ADMIT Student in an Organized Health Care Education/Training Program; ATTEND Family Medicine
DX: R04.0 Epistaxis (principal); R07.9 Chest pain, unspecified; E11.9 Type 2 diabetes mellitus without complications; I48.91 Unspecified atrial fibrillation; I10 Essential (primary) hypertension; Z90.5 Acquired absence of kidney; Z85.51 Personal history of malignant neoplasm of bladder; Z83.3 Family history of diabetes mellitus; Z82.49 Family history of ischemic heart disease and other diseases of the circulatory system; Z82.3 Family history of stroke; Z79.4 Long term (current) use of insulin; Z79.899 Other long term (current) drug therapy

== ENCOUNTER → 2017-05-22 | Outpatient (CLI) | payer OTHER, BC ==
[~2017-05-22] MED LIST changes: +AFRIN; +DILT-113 PO; +DILT120C68 PO; +FLEC100T21 PO; +FURO-85 PO; +GABA-112 PO; +METO100T44 PO; -METO1TAB69 PO; +MULT-1093 PO; +diltiazem PO
[2017-05-22 17:06] LABS: BASO % 0.4 %; BASO ABS # 0.03 K/uL (0-0.2); COMPLETE YES; HEMATOCRIT 41.4 % (42-52); IG% 0.4 %; LYMPH % 26.5 %; LYMPH ABS # 2.27 K/uL (1.2-3.4); MEAN CELL VOLUME 98.1 fL (80-100); MEAN CORPUSCULAR HGB CONC 32.6 g/dl (32-36); MEAN PLATELET VOLUME 11.6 fL (7.4-10.4); NEUT % 61.7 %; PLATELET COUNT 230 K/uL (130-400); RED BLOOD COUNT 4.22 M/uL (4.7-6.1); WHITE BLOOD COUNT 8.55 K/uL (4.8-10.8)
[2017-05-22 17:25] LABS: BLOOD UREA NITROGEN 38 mg/dl (7-18); BUN/CREATININE RATIO 18.4 (10-20); CARBON DIOXIDE 30 mmol/L (21-32); CHLORIDE 106 mmol/L (98-107); CREATININE 2.05 mg/dl (0.60-1.40); GLUCOSE 112 mg/dl (70-99); POTASSIUM 4.6 mmol/L (3.5-5.1); SODIUM 142 mmol/L (136-145)
[2017-05-23 07:26] LABS: ESTIMATED AVERAGE GLUCOSE 171 mg/dl; HA1C FLAG Normal (Normal)
== END | disposition home or self-care (01) ==
LOC: C.LABBC 15:27
PROVIDERS: ATTEND Physician Assistant Medical
DX: E11.9 Type 2 diabetes mellitus without complications (principal); R04.0 Epistaxis; I10 Essential (primary) hypertension

== ENCOUNTER → 2017-05-29 | Outpatient (CLI) | payer OTHER, BC ==
[~2017-05-29] MED LIST changes: -APIX1TAB3 PO; -ATV5 PO; -CLC100 PO; -CRD60 PO; +DILT-113 PO; +FLEC100T21 PO; +FURO-85 PO; +GABA-112 PO; -MAGNCAP3 PO; +MULT-1093 PO; -MULTCAP33 PO; -MULTTAB58 PO; -POTA-331 PO; -TMB100 PO
--- NOTE | 2017-05-29 16:07 | DIAGNOSTIC IMAGING REPORT ---
CT ABDOMEN NO IV/ORAL CONT (CT) CT DOSE: 1025.61 mGy.cm CLINICAL HISTORY: RENAL CA TECHNIQUE: Unenhanced images were obtained in a helical fashion through the upper abdomen. A dose lowering technique was utilized adhering to the principles of ALARA. COMPARISON STUDY: 12/05/2016 FINDINGS: The visualized portions of the lung bases reveal pulmonary emphysema. There is mild hepatic steatosis. No hepatic masses are visualized on this noncontrast study. There is a gallstone present within the gallbladder. There is no gallbladder distention. No splenic masses are visualized in this noncontrast study. No pancreatic masses are visualized. No adrenal masses are visualized. There is an 8 cm left renal cyst. There are 2 separate 18 mm upper pole left renal cysts area There is a 7.5 cm upper pole right renal cyst. There is a 5.7 cm mid pole right renal mass containing both fat and soft tissue elements. There is peripheral calcification. 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 Without contrast, it is not possible to assess for residual tumor viability. There is no evidence of abdominal aortic dilatation. There is no evidence of pathologic adenopathy. No destructive skeletal lesions are visualized.. IMPRESSION: 1. Bilateral renal cysts 2. 5.7 cm mid pole right renal mass containing both fat and soft tissue elements. 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 Without contrast is not possible to assess for residual tumor viability Electronically signed by: Aidan Lovell M.D. 05/29/2017 4:05 PM Dictated Date/Time: 05/29/2017 3:59 PM
== END | disposition home or self-care (01) ==
LOC: C.CTS 15:09
PROVIDERS: ATTEND Urology
DX: C64.9 Malignant neoplasm of unspecified kidney, except renal pelvis (principal)

== ENCOUNTER → 2017-07-17 | Outpatient (CLI) | payer OTHER ==
[2017-07-17 17:16] LABS: BASO % 0.3 %; BASO ABS # 0.02 K/uL (0-0.2); EOS % 1.8 %; EOS ABS # 0.13 K/uL (0-0.5); HEMATOCRIT 40.1 % (42-52); HEMOGLOBIN 12.9 g/dL (14.0-18.0); IG# 0.03 K/uL (0.00-0.02); LYMPH % 27.6 %; MEAN CELL VOLUME 97.8 fL (80-100); MEAN CORPUSCULAR HEMOGLOBIN 31.5 pg (25-34); MEAN CORPUSCULAR HGB CONC 32.2 g/dl (32-36); MEAN PLATELET VOLUME 11.4 fL (7.4-10.4); MONO % 10.1 %; MONO ABS # 0.73 K/uL (0.11-0.59); NEUT % 59.8 %; NEUT ABS # 4.34 K/uL (1.4-6.5); PLATELET COUNT 235 K/uL (130-400); RED CELL DISTRIBUTION WIDTH CV 13.4 % (11.5-14.5); RED CELL DISTRIBUTION WIDTH SD 47.5 fL (36.4-46.3); WHITE BLOOD COUNT 7.25 K/uL (4.8-10.8)
[2017-07-17 17:41] LABS: ALBUMIN 3.3 gm/dl (3.4-5.0); ALT/SGPT 49 U/L (12-78); BLOOD UREA NITROGEN 32 mg/dl (7-18); CALCIUM 8.5 mg/dl (8.5-10.1); CARBON DIOXIDE 33 mmol/L (21-32); GLUCOSE 88 mg/dl (70-99); POTASSIUM 4.1 mmol/L (3.5-5.1); SODIUM 143 mmol/L (136-145)
[2017-07-17 17:46] LABS: ALKALINE PHOSPHATASE 117 U/L (45-117); AST/SGOT 31 U/L (15-37); TOTAL PROTEIN 7.1 gm/dl (6.4-8.2)
== END | disposition home or self-care (01) ==
LOC: C.LAB1850 16:37
PROVIDERS: ATTEND Internal Medicine Nephrology
DX: N18.3 Chronic kidney disease, stage 3 (moderate) (principal); N28.1 Cyst of kidney, acquired; E55.9 Vitamin D deficiency, unspecified

== ENCOUNTER → 2017-08-21 | Outpatient (CLI) | payer OTHER ==
[2017-08-22 06:24] LABS: HEMOGLOBIN A1C 7.4 % (4.5-5.6)
== END | disposition home or self-care (01) ==
LOC: C.LAB1850 15:53
PROVIDERS: ATTEND Nurse Practitioner Family
DX: E11.9 Type 2 diabetes mellitus without complications (principal)

== ENCOUNTER → 2017-12-29 | Outpatient (CLI) | payer OTHER ==
[~2017-12-29] MED LIST changes: -CHOL1000 PO; +CHOL200010 PO; +LEVA45AE INH; +LORA-741 PO; +MULT-190 PO; +NITR0.2D3 EX; +OMEG10007 PO; +OMEGCAP2 PO; +OXGN; +OXYC-57 PO; +RIVA1.5T PO; +SPRIN INH
[2017-12-29 12:52] LABS: BASO % 0.3 %; BASO ABS # 0.02 K/uL (0-0.2); EOS % 1.8 %; EOS ABS # 0.13 K/uL (0-0.5); HEMATOCRIT 39.9 % (42-52); HEMOGLOBIN 12.8 g/dL (14.0-18.0); IG# 0.02 K/uL (0.00-0.02); LYMPH % 24.2 %; LYMPH ABS # 1.76 K/uL (1.2-3.4); MEAN CELL VOLUME 96.6 fL (80-100); MEAN CORPUSCULAR HGB CONC 32.1 g/dl (32-36); MEAN PLATELET VOLUME 11.3 fL (7.4-10.4); MONO % 10.3 %; MONO ABS # 0.75 K/uL (0.11-0.59); NEUT % 63.1 %; NEUT ABS # 4.58 K/uL (1.4-6.5); PLATELET COUNT 239 K/uL (130-400); RED CELL DISTRIBUTION WIDTH CV 13.8 % (11.5-14.5); RED CELL DISTRIBUTION WIDTH SD 48.5 fL (36.4-46.3); WHITE BLOOD COUNT 7.26 K/uL (4.8-10.8)
[2017-12-29 13:01] LABS: BLOOD UREA NITROGEN 45 mg/dl (7-18); CALCIUM 8.9 mg/dl (8.5-10.1); CARBON DIOXIDE 29 mmol/L (21-32); GLUCOSE 83 mg/dl (70-99); POTASSIUM 4.8 mmol/L (3.5-5.1); SODIUM 143 mmol/L (136-145)
== END | disposition home or self-care (01) ==
LOC: C.CPL 11:55
PROVIDERS: ATTEND Urology
DX: Z01.812 Encounter for preprocedural laboratory examination (principal)

== ENCOUNTER → 2018-01-05 | Outpatient (CLI) | payer OTHER ==
--- NOTE | 2018-01-05 12:44 | DIAGNOSTIC IMAGING REPORT ---
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 The cardiomediastinal silhouette is normal. The lungs are clear. The pulmonary vasculature is normal. IMPRESSION: Mild cardiomegaly. Otherwise negative chest. The above report was generated using voice recognition software. It may contain grammatical, syntax or spelling errors. Electronically signed by: Syed Jacobson M.D. 01/05/2018 12:42 PM Dictated Date/Time: 01/05/2018 12:41 PM
== END | disposition home or self-care (01) ==
LOC: C.RAD 11:58
PROVIDERS: ATTEND Internal Medicine Pulmonary Disease
DX: J43.9 Emphysema, unspecified (principal); J44.9 Chronic obstructive pulmonary disease, unspecified; J98.4 Other disorders of lung

== ENCOUNTER → 2018-01-09 | Day surgery (SDC) | payer OTHER ==
[2017-12-27 09:26] VITALS: BMI 37.0
--- NOTE | 2017-12-29 11:30 | PAT Medication Instructions ---
Service Date Dec 29, 2017. Current Home Medication List Atorvastatin (Lipitor), 20 MG PO QPM Cholecalciferol (Vitamin D), 1 CAP PO QAM Diltiazem Hcl Ext Rel (Tiazac), 180 MG PO QAM Fish Oil ([place]mont-3), 1 CAP PO QAM Flecainide (Tambocor), 100 MG PO BID Furosemide (Lasix), 20 MG PO BID Gabapentin (Neurontin), 300 MG PO HS Gemfibrozil (Lopid), 600 MG PO QPM Home O2 Therapy (Oxygen), 3-4 LITERS NA QD Insulin Glargine (Lantus), 40 UNITS SQ BID Insulin Human Lispro (Humalog Kwikpen), SC UD Levalbuterol Tartrate (Levalbuterol Tartrate Hfa), 1 PUFF INH QD PRN for Shortness of Breath Lorazepam (Ativan), 0.5 MG PO Q6H PRN for Anxiety/Agitation Metoprolol Succ (Toprol Xl) (Toprol-Xl ), 100 MG PO QAM Multiple Vitamins W/ Minerals (Centrum Silver 50+Men), 1 TAB PO QAM Nitroglycerin (Nitroglycerin Transdermal), 1 PATCH EX QD PRN for Chest Pain Ocuvite Preservision (Ocuvite Preservision), 1 TAB PO BID Piedmont-3 Fatty Acids (Fish Oil), 2 CAP PO QPM Rivaroxaban (Xarelto), 15 MG PO QAM Tiotropium [place] (Spiriva Handihaler), 1 PUFF INH QAM Medication Instructions For Your Scheduled Surgery - Check with surgeon and prescribing physician for instructions: Rivaroxaban (Xarelto), 15 MG PO QAM - Hold the following medications starting 12/29/17: P[place]mont-3 Fatty Acids (Fish Oil), 2 CAP PO QPM Fish Oil (Piedmont-3), 1 CAP PO QAM - Continue as directed: Home O2 Therapy (Oxygen), 3-4 LITERS NA QD - Hold the following medications the morning of surgery: Ocuvite Preservision (Ocuvite Preservision), 1 TAB PO BID Furosemide (Lasix), 20 MG PO BID Multiple Vitamins W/ Minerals (Centrum Silver 50+Men), 1 TAB PO QAM Insulin Human Lispro (Humalog Kwikpen), SC UD Cholecalciferol (Vitamin D), 1 CAP PO QAM - Take the following medications the morning of surgery with a sip of water: Diltiazem Hcl Ext Rel (Tiazac), 180 MG PO QAM Flecainide (Tambocor), 100 MG PO BID Levalbuterol Tartrate (Levalbuterol Tartrate Hfa), 1 PUFF INH QD PRN for Shortness of Breath (if needed) Lorazepam (Ativan), 0.5 MG PO Q6H PRN for Anxiety/Agitation (if needed) Metoprolol Succ (Toprol Xl) (Toprol-Xl ), 100 MG PO QAM Nitroglycerin (Nitroglycerin Transdermal), 1 PATCH EX QD PRN for Chest Pain (if needed) Tiotropium [place] (Spiriva Handihaler), 1 PUFF INH QAM - Hold the following medications the night prior to surgery: Gemfibrozil (Lopid), 600 MG PO QPM - Take the following medications as scheduled the night before surgery: Ocuvite Preservision (Ocuvite Preservision), 1 TAB PO BID Nitroglycerin (Nitroglycerin Transdermal), 1 PATCH EX QD PRN for Chest Pain (if needed) Levalbuterol Tartrate (Levalbuterol Tartrate Hfa), 1 PUFF INH QD PRN for Shortness of Breath (if needed) Lorazepam (Ativan), 0.5 MG PO Q6H PRN for Anxiety/Agitation (if needed) Insulin Human Lispro (Humalog Kwikpen), SC UD Insulin Glargine (Lantus), 40 UNITS SQ BID Furosemide (Lasix), 20 MG PO BID Gabapentin (Neurontin), 300 MG PO HS Flecainide (Tambocor), 100 MG PO BID Atorvastatin (Lipitor), 20 MG PO QPM - For Insulin Dependent Diabetic patients: Test blood sugar A.M. of surgery. - If Blood sugar greater than 150, take half of your regular dose of: Insulin Glargine (Lantus), take 20 units - If blood sugar less than 150, do not take any: Insulin Glargine (Lantus) If you have any questions please call us at [phone] or [phone] or [phone]
[2017-12-29 12:00] VITALS: BMI 38.0
[~2018-01-09] VITALS: Ht 175.3 cm; Wt 116.8 kg
[~2018-01-09] MED LIST changes: +ATROPINE SULFATE 0.1 MG/ML 5ML SYR IV PRN; +CIPROFLOXACIN / D5W 400 MG IV SCH; +DEXAMETHASONE SOD INJ 4 MG/ML VIAL ONE; +EpHEDrine SULFATE INJ 50 MG/ML AMP IV PRN; +FENTANYL CITRATE INJ 50 MCG/1 ML 2 ML VIAL IV PRN; +FENTANYL CITRATE INJ 50 MCG/1 ML 2 ML VIAL ONE; +LACTATED RINGER'S 1000ML 1,000 ML IV SCH; +LIDOCAINE HCL 2% 2 ML VIAL (20MG/ML) ONE; +MIDAZOLAM HCL 1 MG/ML 2ML VIAL ONE; +ONDANSETRON INJ 2 MG/ML 2 ML VIAL IV PRN; +ONDANSETRON INJ 2 MG/ML 2 ML VIAL ONE; +OXYCODONE/ACETAMINOPHEN 5-325 TAB PO PRN; +PHENYLEPHRINE HCL INJ 10 MG/ML VIAL ONE; +PROPOFOL IV EMULSION 10 MG/ML 20 ML VIAL ONE; +ROCURONIUM BROMIDE 10 MG/ML 5 ML VIAL ONE; +SUCCINYLCHOLINE CHLORIDE 20 MG/ML 10 ML VIAL IV ONE
--- NOTE | 2018-01-09 08:20 | History & Physical Bridge Note ---
H&P Re-Evaluation Bridge Note: I have examined the patient, reviewed the History & Physical and in the interval since the performance of the History & Physical I have noted the following changes of clinical significance: No changes noted
[2018-01-09 08:32] VITALS: BP 159/77; PULSE 76; TEMP 36.6; O2SAT 95; Ht 175.3 cm; Wt 116.8 kg
--- NOTE | 2018-01-09 09:38 | [facility] Operative Report ---
Operative Report Operative Date Jan 09, 2018. Pre-Operative Diagnosis Bladder Cancer Post-Operative Diagnosis Bladder Cancer Procedure(s) Performed Transurethral Resection Bladder Tumor Surgeon Dr. Ish Garcia Station Mechanic Surgeon(s) None Estimated Blood Loss 0 ml Findings Cystoscopic exam revealed a normal anterior urethra prostatic fossa was obstructing with kissing lateral lobes and a very elevated median lobe. Bladder showed a tumor at the bladder neck approximately 1:00 Specimens A: Bladder tumor Drains None Anesthesia Type General Complication(s) none Disposition yes Recovery Room / PACU Indications Patient is a 77-year-old white male who on routine surveillance cystoscopy for bladder cancer was found to have a recurrent tumor being brought in for resection Description of Procedure After the induction of an adequate general anesthetic and appropriate timeout patient was placed in the dorsolithotomy position. Lower abdomen and genitalia were prepped with Hibiclens draped in a sterile fashion. Using a 22 Congolese cystoscope routine cystoscopic exam was performed the above-noted findings with 30 and 70 lenses. Next using a 24 Congolese resection scope and bipolar loop the tumors resected the area was then fulgurated for hemostasis. Tumor fragments were then evacuated from the bladder. Bladder was reinspected there was no bleeding from the resection site. Patient's bladder was drained cystoscope and sheath removed. All needle sponge and instrument counts were correct at the end of the case. Patient tolerated the procedure well and was taken to the recovery room in stable condition I attest to the content of the Intraoperative Record and any orders documented therein. Any exceptions are noted below.
--- NOTE | 2018-01-09 09:40 | Discharge Instructions ---
Discharge Instructions Date of Service Jan 09, 2018. Visit Reason for Visit: Bladder Cancer Discharge Discharge Diagnosis / Problem: bladder tumor Discharge Goals Goal(s): Therapeutic intervention Activity Recommendations Activity Limitations: per Instructions/Follow-up section Exercise/Sports Limitations: rest today May Resume Sexual Activity: when tolerated Shower/Bathe: no limitations Driving or Machine Use: resume 1 day after discharge Anesthesia . Post Anesthesia Instructions: If you have had General Anesthesia or IV Sedation: * Do not drive today. * Resume driving when surgeon permits. * Do not make important decisions or sign legal documents today. * Call surgeon for: 1. Temperature elevations greater than 101 degrees F. 2. Uncontrollable pain. 3. Excessive bleeding. 4. Persistent nausea and vomiting. 5. Medication intolerance (nausea, vomiting or rash). * For nausea and vomiting use only clear liquids such as: tea, soda, bouillon until nausea subsides, then gradually increase diet as tolerated. * If you have any concerns or questions, call your surgeon's office. If physician is unavailable and it is an emergency, call 911 or go to the nearest emergency room. . Diet Recommendations Recommended Home Diet: resume previous diet Procedures Procedures Performed: Transurethral Resection Bladder Tumor Pending Studies Studies pending at discharge: no Medical Emergencies . Who to Call and When: Medical Emergencies: If at any time you feel your situation is an emergency, please call 911 immediately. . Non-Emergent Contact Non-Emergency issues call your: Urologist Call Non-Emergent contact if: temperature is above 101.5, your pain is not controlled . . "Provider Documentation" section prepared by Ish Garcia. . [place] Drug Monitoring Program Search Results: patient reviewed within database
--- NOTE | 2018-01-09 10:12 | Anesthesiology Progress Note ---
Anesthesia Post Op Note Date & Time Jan 09, 2018 at 10:12 Vital Signs Pain Intensity: 0 Vital Signs Past 12 Hours Date Time Temp Pulse Resp B/P (MAP) Pulse Ox O2 Delivery O2 Flow Rate FiO2 01/09/18 09:55 70 16 127/55 93 Nasal Cannula 4 Oxymask 01/09/18 09:50 73 14 139/62 93 Oxymask 10 01/09/18 09:45 74 19 124/62 92 Oxymask 10 01/09/18 09:35 73 22 128/54 93 Oxymask 10 01/09/18 09:29 36 73 14 155/71 93 Oxymask 10 01/09/18 08:32 36.6 76 20 159/77 (104) 95 Room Air 3 Notes Mental Status: alert / awake / arousable, participated in evaluation Pt Amnestic to Procedure: Yes Nausea / Vomiting: adequately controlled Pain: adequately controlled Airway Patency, RR, SpO2: stable & adequate BP & HR: stable & adequate Hydration State: stable & adequate Anesthetic Complications: no major complications apparent
[2018-01-09 10:30] VITALS: BP 122/58; PULSE 66; TEMP 37; O2SAT 97
[2018-01-09 11:00] VITALS: BP 140/71; PULSE 65; TEMP 37; O2SAT 94
== END | disposition home or self-care (01) ==
LOC: C.ACU 07:16
PROVIDERS: ATTEND Urology
DX: C67.9 Malignant neoplasm of bladder, unspecified (principal); J45.909 Unspecified asthma, uncomplicated; J44.9 Chronic obstructive pulmonary disease, unspecified; E11.22 Type 2 diabetes mellitus with diabetic chronic kidney disease; I48.0 Paroxysmal atrial fibrillation; I48.92 Unspecified atrial flutter; F41.9 Anxiety disorder, unspecified; E78.5 Hyperlipidemia, unspecified; I12.9 Hypertensive chronic kidney disease with stage 1 through stage 4 chronic kidney disease, or unspecified chronic kidney disease; N18.3 Chronic kidney disease, stage 3 (moderate); I25.10 Atherosclerotic heart disease of native coronary artery without angina pectoris; Z68.38 Body mass index [BMI] 38.0-38.9, adult; E66.9 Obesity, unspecified; Z87.891 Personal history of nicotine dependence; Z79.4 Long term (current) use of insulin; Z91.040 Latex allergy status; Z79.899 Other long term (current) drug therapy; Z79.01 Long term (current) use of anticoagulants

== ENCOUNTER → 2018-01-26 | Outpatient (CLI) | payer OTHER ==
[~2018-01-26] MED LIST changes: -ATROPINE SULFATE 0.1 MG/ML 5ML SYR IV PRN; -CIPROFLOXACIN / D5W 400 MG IV SCH; -DEXAMETHASONE SOD INJ 4 MG/ML VIAL ONE; -EpHEDrine SULFATE INJ 50 MG/ML AMP IV PRN; -FENTANYL CITRATE INJ 50 MCG/1 ML 2 ML VIAL IV PRN; -FENTANYL CITRATE INJ 50 MCG/1 ML 2 ML VIAL ONE; -GEMF600T3 PO; +GEMF600T5 PO; -LACTATED RINGER'S 1000ML 1,000 ML IV SCH; -LIDOCAINE HCL 2% 2 ML VIAL (20MG/ML) ONE; -MIDAZOLAM HCL 1 MG/ML 2ML VIAL ONE; -OMEGCAP2 PO; -ONDANSETRON INJ 2 MG/ML 2 ML VIAL IV PRN; -ONDANSETRON INJ 2 MG/ML 2 ML VIAL ONE; -OXYCODONE/ACETAMINOPHEN 5-325 TAB PO PRN; -PHENYLEPHRINE HCL INJ 10 MG/ML VIAL ONE; -PROPOFOL IV EMULSION 10 MG/ML 20 ML VIAL ONE; -ROCURONIUM BROMIDE 10 MG/ML 5 ML VIAL ONE; -SUCCINYLCHOLINE CHLORIDE 20 MG/ML 10 ML VIAL IV ONE
[2018-01-26 14:14] LABS: HEMATOCRIT 39.8 % (42-52); MEAN CELL VOLUME 95.4 fL (80-100); MEAN CORPUSCULAR HEMOGLOBIN 31.2 pg (25-34); MEAN CORPUSCULAR HGB CONC 32.7 g/dl (32-36); MEAN PLATELET VOLUME 11.4 fL (7.4-10.4); PLATELET COUNT 278 K/uL (130-400); RED CELL DISTRIBUTION WIDTH CV 13.6 % (11.5-14.5); RED CELL DISTRIBUTION WIDTH SD 47.5 fL (36.4-46.3); WHITE BLOOD COUNT 8.51 K/uL (4.8-10.8)
[2018-01-26 14:27] LABS: ALBUMIN 3.3 gm/dl (3.4-5.0); ALKALINE PHOSPHATASE 122 U/L (45-117); ALT/SGPT 39 U/L (12-78); AST/SGOT 29 U/L (15-37); BLOOD UREA NITROGEN 39 mg/dl (7-18); CALCIUM 8.9 mg/dl (8.5-10.1); CARBON DIOXIDE 31 mmol/L (21-32); CREATININE 1.97 mg/dl (0.60-1.40); GLUCOSE 117 mg/dl (70-99); POTASSIUM 4.5 mmol/L (3.5-5.1); SODIUM 141 mmol/L (136-145); TOTAL PROTEIN 7.6 gm/dl (6.4-8.2)
== END | disposition home or self-care (01) ==
LOC: C.LAB1850 12:19
PROVIDERS: ATTEND Internal Medicine Nephrology
DX: I12.9 Hypertensive chronic kidney disease with stage 1 through stage 4 chronic kidney disease, or unspecified chronic kidney disease (principal); N18.3 Chronic kidney disease, stage 3 (moderate); C64.9 Malignant neoplasm of unspecified kidney, except renal pelvis; R31.9 Hematuria, unspecified; R60.0 Localized edema

== ENCOUNTER 2022-06-05 15:12 | Observation (INO) ==
--- NOTE | 2022-06-05 15:29 | Emergency Department Note ---
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 Reports has been ill this past week with cough and cold symptoms. Did a 5-day course of antibiotic ( reports doxycycline) with initially some improvement but then declined. States he got very short of breath even walking to the bathroom today and noted his pulse ox dropped into the 80s on his normal 4 L of oxygen. Of his doctor who referred him here and ambulance was called. Reports a little bit of mid to right chest discomfort. Is on Xarelto for anticoagulation. Denies other chest pain. Reports feeling a bit shaky and chilled. Denies any abdominal pain or new swelling. Denies any nausea vomiting or diarrhea at this time. Reports some chronic sinus congestion maybe a bit worse with a good amount of phlegm coming up. was recently ill as well with cold symptoms. Patient thought he might be a little dry so skipped his dose of Lasix diuretic yesterday. Has some leg swelling. REVIEW OF SYSTEMS: A total of 10 review of systems was obtained and negative except as stated above in the HPI. PAST MEDICAL HISTORY: As noted above MEDICATIONS: Reviewed home medications SOCIAL HISTORY: and lives at home with PHYSICAL EXAM: GENERAL: alert and oriented in no acute distress on stretcher occasionally coughing, fatigued appearing Head: normocephalic and atraumatic EYES: No injection, discharge or icterus. NECK: Trachea midline. ENT: Mucous membranes pink and moist. LUNGS: Airway patent. No retractions. Breath sounds diminished particularly in the bases. Occasionally coughing HEART: Regular rate and rhythm. No chest wall tenderness ABDOMEN: Soft and non-tender, without guarding or rebound. SKIN: Acyanotic, warm, dry, without rashes EXTREMITIES: 2+ lower extremity edema. NEUROLOGICAL: No focal deficits. No aphasia. No facial droop or slurred speech. EK bpm normal sinus rhythm. Baseline artifact a left axis deviation is noted. No PVC or PAC. No acute ST segment elevation or depression of significance noted with a QTC of 427. CONTINUOUS CARDIAC MONITORING: was ordered and showed a heart rate of 70s-90s bpm in NSR Patient's laboratory studies and imaging reviewed. Differential includes Reactive airway disease, pneumonia, pneumothorax, COPD, CHF, infections, cardiac ischemia, pulmonary embolism, musculoskeletal, gastrointestinal, as well as other pathologies. IMPRESSION/MEDICAL DECISION MAKING: Patient with multiple medical morbidities but is on anticoagulation. This lowers my suspicion for acute VTE. Does have some leg swelling and again a history of CHF. Question with component of this could be infectious versus related to fluid overload. Has increased oxygen requirement compared to baseline particularly exertion. Reports some chills. Maybe a little bit of chest pain by report and EKG and troponin were sent lower suspicion for ACS. Stable to slightly improved moderate anemia. No leukocytosis on blood work. No severe electrolyte abnormalities with an elevated CO2 consistent with his underlying respiratory issue. Stable CKD. No transaminitis noted. Troponin not elevated. BNP not significantly elevated. Along with any chest discomfort and EKG with some artifact but no clear ST changes. Patient states his breathing is steady just above 4 L at rest now. X-ray not significantly changed with low lung volumes and atelectasis according to radiology report. Respiratory panel does return positive for COVID likely explaining symptomatologies. Given his worsening shortness of breath given a dose of dexamethasone. Discussed with him further care here at the hospital. DIAGNOSIS: Acute on chronic shortness of breath, COVID 19 DISPOSITION: Hospitalist will evaluate Patient was agreeable with this plan. Past Med/Surg History Medical History Acute on chronic renal insufficiency Bladder cancer Chronic hypoxemic respiratory failure CKD (chronic kidney disease), stage III Family history of transitional cell carcinoma of bladder Hemoptysis Hypertension Mixed restrictive and obstructive lung disease Pulmonary emphysema Renal mass, right Shortness of breath Shortness of breath Vitamin D deficiency Surgical History History of cystoscopy History of surgical removal of lesion History of umbilical hernia repair Family History Son Hodgkins disease Brother Throat cancer Other Diabetes Denies family history of Ovarian cancer Prostate cancer Kidney disease Myocardial infarction Breast cancer Lung cancer Colorectal cancer Stroke Social History Smoking Status: Former smoker Tobacco Type: Cigarettes Age Started Using Tobacco: 15; Age Quit Using Tobacco: 54; packs per day: 2; Second Hand Exposure: No; Hx Alcohol Use: No Hx Substance Use: No Preferred Language: [place] African Communication Ability: Effective Visual Impairment: Limited Hearing Ability: Use of Hearing Aid Web Publisher Required: No Beliefs That Will Affect Care: None marital status: Current Living Situation: Spouse current occupational status: retired How many Children do You have: 3 Feels Safe at Home: Yes Childhood Exposure to Second-Hand Smoke: No caffeine: No Dental Care, Regularly: No Physical Activity Frequency: Does not Exercise Physical Activity Frequency Comment: due to physical condition Seatbelt Use: sometimes Sunscreen Use: No (not in the sun) Assistive Devices: Denture - Upper, Denture - Lower, Glasses, Hearing Aid - Carlos ateral, Hearing Aid - Left, Hearing Aid - Right, Oxygen - Continuous and Walker Allergies Allergies Allergy/AdvReac Type Severity Reaction Status Date / Time adhesive Allergy Unknown PLASTIC Verified 05/19/22 11:06 TAPE-SKIN BLISTERS,RASH, IRRITATION latex Allergy Unknown Verified 05/19/22 11:06 sertraline AdvReac Intermediate palpitation Verified 05/19/22 11:06 s Home Meds Home Medications Medication Instructions Recorded Confirmed Oxygen Home #1 ea 01/18/19 05/19/22 lancets 30 gauge (OneTouch Delica #25 ea 01/18/19 05/19/22 Lancets) multivitamin (Daily Multi-Vitamin 1 tab PO DAILY 01/18/19 05/19/22 tablet) vitamins A,C,[id number]-[id number] 14,320 1 cap PO BID 01/18/19 05/19/22 unit-226 mg-200 unit capsule (PreserVision AREDS) blood sugar diagnostic (OneTouch #10 ea 05/29/19 05/19/22 Verio test strips) cholecalciferol (vitamin D3) 25 1,000 unit PO DAILY 01/27/20 05/19/22 mcg (1,000 unit) capsule docusate sodium [Stool Softener] 2 tab PO DAILY 01/27/20 05/19/22 omega-3 acid ethyl esters 1 gram 3 cap PO DAILY 12/08/20 05/19/22 capsule prednisone 5 mg tablet 5 mg PO DAILY 10/20/21 05/19/22 Oxygen Home 12/21/21 05/19/22 ferrous sulfate 325 mg (65 mg 325 mg PO DAILY 04/13/22 05/19/22 iron) tablet (FeroSul) mepolizumab 100 mg/mL subcutaneous mg subcut 04/13/22 05/19/22 auto-injector (Nucala) Previous Rx's Medication Instructions Recorded flash glucose sensor (FreeStyle #1 ea 05/28/20 Sharon 14 Day Sensor kit) levalbuterol HCl 0.63 mg/3 mL 0.63 mg (3 mL) inhalation Q4H PRN 09/07/20 solution for nebulization shortness of breath or wheezing #540 mL levalbuterol tartrate 45 2 inh inhalation Q4H PRN shortness 12/07/20 mcg/actuation aerosol inhaler of breath or wheezing #45 grams (Xopenex HFA) fluticasone fur. 100 mcg-umeclid 1 inh inhalation DAILY #3 Inhalers 03/22/21 62.5 mcg-vilant 25 mcg inhalat.powder (Trelegy Ellipta) gabapentin 100 mg capsule 100 - 300 mg PO HS PRN restless 06/25/21 leg(s) #270 caps rivaroxaban 15 mg tablet (Xarelto) See Rx Instructions .Route 07/19/21 .COMPLEX #90 tabs alfuzosin 10 mg tablet,extended 10 mg PO DAILY #90 tabs 10/19/21 release 24 hr cyanocobalamin (vitamin B-12) 2,500 mcg PO DAILY #30 tabs 10/21/21 2,500 mcg tablet Lantus Solostar U-100 Insulin 100 30 unit (0.3 mL) subcut DAILY 90 11/05/21 unit/mL (3 mL) subcutaneous pen days #30 mL (insulin glargine) Humalog KwikPen Insulin 100 30 unit (0.3 mL) subcut BID 12/24/21 unit/mL subcutaneous (insulin sliding scale 90 days #60 mL lispro) lorazepam 0.5 mg tablet 0.5 mg PO DAILY PRN anxiety #10 02/07/22 tabs BD Ultra-Fine Madhavi Pen Needle 32 #400 ea 02/10/22 gauge x 5/32" (pen needle, diabetic) atorvastatin 20 mg tablet 20 mg PO DAILY #90 tabs 03/28/22 diltiazem HCl 180 mg 180 mg PO DAILY #90 caps 03/28/22 capsule,extended release 24 hr furosemide 20 mg tablet 40 mg PO .COMPLEX edema #90 tabs 03/28/22 metoprolol succinate 100 mg 100 mg PO DAILY #90 tabs 03/28/22 tablet,extended release 24 hr semaglutide 0.25 mg or 0.5 mg (2 0.5 mg (0.4 mL) subcut Q7D #4.5 mL 05/02/22 mg/1.5 mL) subcutaneous pen injector (Ozempic) flecainide 100 mg tablet 100 mg PO Q12H #180 tabs 05/17/22 Results & Data (ED) Vital Signs Vital Signs - 24 hr 06/05/22 15:38 06/05/22 15:52 06/05/22 15:53 Temperature 37.4 C Temperature Source Oral Pulse Rate 80 Pulse Rate [Right Finger] Respiratory Rate 20 Blood Pressure 148/74 H Blood Pressure [Left Arm] Blood Pressure Mean 98 Blood Pressure Mean [Left Arm] Blood Pressure Position [Left Arm] Pulse Oximetry 94 94 Oxygen Delivery Method Nasal Cannula Nasal Cannula Nasal Cannula Oxygen Flow Rate 4 4 4 Sepsis Recent Fever Within 48 Hours No Sepsis New/Unexplained Change in Mental Status N/A Sepsis Action Taken by Nursing No Action Required 06/05/22 16:41 06/05/22 17:17 Temperature Temperature Source Pulse Rate 78 Pulse Rate [Right Finger] 78 Respiratory Rate 18 18 Blood Pressure Blood Pressure [Left Arm] 162/74 H Blood Pressure Mean Blood Pressure Mean [Left Arm] 103 Blood Pressure Position [Left Arm] Semi-fowlers Pulse Oximetry 95 96 Oxygen Delivery Method Nasal Cannula Nasal Cannula Oxygen Flow Rate 4 4 Sepsis Recent Fever Within 48 Hours Sepsis New/Unexplained Change in Mental Status Sepsis Action Taken by Nursing Laboratory Data Result diagrams: 06/05/22 15:30 06/05/22 15:30 Lab Results 06/05/22 06/05/22 06/05/22 Range/Units 15:18 15:30 15:30 WBC 9.88 (4.8-10.8) K/ul RBC 3.05 L (4.63-6.08) M/uL Hgb 10.1 L (14.0-18.0) g/dl Hct 31.6 L (40.1-51.0) % MCV 103.6 H (80.0-100.0) fL MCH 33.1 (25.0-34.0) pg MCHC 32.0 (32.0-36.0) g/dL RDW Std Deviation 48.3 H (36.4-46.3) fL RDW Coeff of Juancarlos 12.8 (11.5-14.5) % Plt Count 217 (130-400) K/uL MPV 11.2 (9.4-12.4) fL Immature Gran % (Auto) 0.7 % Neut % (Auto) 78.0 % Lymph % (Auto) 11.6 % [place] % (Auto) 9.4 % Eos % (Auto) 0.2 % Baso % (Auto) 0.1 % Neut # (Auto) 7.70 H (1.4-6.5) K/uL Lymph # (Auto) 1.15 L (1.2-3.4) K/uL [place] # (Auto) 0.93 H (0.24-0.82) K/uL Eos # (Auto) 0.02 (0-0.50) K/uL Baso # (Auto) 0.01 (0-0.2) K/uL Immature Gran # (Auto) 0.07 H (0.00-0.02) K/uL PT (9.0-12.0) Seconds INR (0.9-1.1) APTT (21.0-31.0) Seconds PTT Ratio Sodium (136-145) mmol/L Potassium (3.5-5.1) mmol/L Chloride (98-107) mmol/L Carbon Dioxide (21-32) mmol/L Anion Gap (3-11) BUN (6-23) mg/dl Creatinine (0.6-1.4) mg/dl Est Cr Clr Drug Dosing ml/min Est GFR ( Amer) ml/min Est GFR (Non-Af Amer) ml/min BUN/Creatinine Ratio (10-20) Glucose (70-99(Fasting)) mg/dl Calcium (8.5-10.1) mg/dl Magnesium (1.7-2.4) mg/dl Total Bilirubin (0.2-1.0) mg/dl AST (13-39) U/L ALT (7-52) U/L Alkaline Phosphatase (34-104) U/L Troponin I High Sens (0-20) pg/ml B-Natriuretic Peptide 87 (0-100) pg/ml Total Protein (6.0-8.3) gm/dl Albumin (3.4-5.0) gm/dl Globulin (2.5-4.0) gm/dl Albumin/Globulin Ratio (0.9-2) Urine Color Urine Appearance (Clear) Urine pH (4.5-7.5) Ur Specific [place] (1.000-1.030) Urine Protein (Negative) Urine Glucose (UA) (Negative) Urine Ketones (Negative) Urine Blood (Negative) Urine Nitrite (Negative) Urine Bilirubin (Negative) Urine Urobilinogen (Negative) Ur Leukocyte Esterase (Negative) Adenovirus (PCR) Not Detected (NotDetected) B. pertussis DNA (PCR) Not Detected (NotDetected) B.parapertussis DNA PCR Not Detected (NotDetected) C. pneumoniae DNA (PCR) Not Detected (NotDetected) Coronavirus OC43 (PCR) Not Detected (NotDetected) Coronavirus HKU1 (PCR) Not Detected (NotDetected) Coronavirus 229E (PCR) Not Detected (NotDetected) SARS-CoV-2 (PCR) DETECTED A* (NotDetected) Coronavirus NL63 (PCR) Not Detected (NotDetected) Human Metapneumovir PCR Not Detected (NotDetected) Influenza Type A (PCR) Not Detected (NotDetected) Influenza Type B (PCR) Not Detected (NotDetected) M. pneumoniae (PCR) Not Detected (NotDetected) Parainfluenza 1 (PCR) Not Detected (NotDetected) Parainfluenza 2 (PCR) Not Detected (NotDetected) Parainfluenza 3 (PCR) Not Detected (NotDetected) Parainfluenza 4 (PCR) Not Detected (NotDetected) RSV (PCR) Not Detected (NotDetected) Entero/Rhino (PCR) Not Detected (NotDetected) 06/05/22 06/05/22 06/05/22 Range/Units 15:30 15:30 16:35 WBC (4.8-10.8) K/ul RBC (4.63-6.08) M/uL Hgb (14.0-18.0) g/dl Hct (40.1-51.0) % MCV (80.0-100.0) fL MCH (25.0-34.0) pg MCHC (32.0-36.0) g/dL RDW Std Deviation (36.4-46.3) fL RDW Coeff of Juancarlos (11.5-14.5) % Plt Count (130-400) K/uL MPV (9.4-12.4) fL Immature Gran % (Auto) % Neut % (Auto) % Lymph % (Auto) % [place] % (Auto) % Eos % (Auto) % Baso % (Auto) % Neut # (Auto) (1.4-6.5) K/uL Lymph # (Auto) (1.2-3.4) K/uL [place] # (Auto) (0.24-0.82) K/uL Eos # (Auto) (0-0.50) K/uL Baso # (Auto) (0-0.2) K/uL Immature Gran # (Auto) (0.00-0.02) K/uL PT 11.5 (9.0-12.0) Seconds INR 1.1 (0.9-1.1) APTT 26.6 (21.0-31.0) Seconds PTT Ratio 1.0 Sodium 143 (136-145) mmol/L Potassium 4.4 (3.5-5.1) mmol/L Chloride 100 (98-107) mmol/L Carbon Dioxide 37 H (21-32) mmol/L Anion Gap 6 (3-11) BUN 35 H (6-23) mg/dl Creatinine 2.20 H (0.6-1.4) mg/dl Est Cr Clr Drug Dosing 31.3 ml/min Est GFR ( Amer) 31.0 ml/min Est GFR (Non-Af Amer) 26.7 ml/min BUN/Creatinine Ratio 15.9 (10-20) Glucose 169 H (70-99(Fasting)) mg/dl Calcium 9.4 (8.5-10.1) mg/dl Magnesium 2.1 (1.7-2.4) mg/dl Total Bilirubin 0.4 (0.2-1.0) mg/dl AST 14 (13-39) U/L ALT 12 (7-52) U/L Alkaline Phosphatase 76 (34-104) U/L Troponin I High Sens 18.2 (0-20) pg/ml B-Natriuretic Peptide (0-100) pg/ml Total Protein 6.9 (6.0-8.3) gm/dl Albumin 4.0 (3.4-5.0) gm/dl Globulin 2.9 (2.5-4.0) gm/dl Albumin/Globulin Ratio 1.4 (0.9-2) Urine Color Yellow Urine Appearance Clear (Clear) Urine pH 6.5 (4.5-7.5) Ur Specific [place] 1.011 (1.000-1.030) Urine Protein Negative (Negative) Urine Glucose (UA) Negative (Negative) Urine Ketones Negative (Negative) Urine Blood Negative (Negative) Urine Nitrite Negative (Negative) Urine Bilirubin Negative (Negative) Urine Urobilinogen Negative (Negative) Ur Leukocyte Esterase Negative (Negative) Adenovirus (PCR) (NotDetected) B. pertussis DNA (PCR) (NotDetected) B.parapertussis DNA PCR (NotDetected) C. pneumoniae DNA (PCR) (NotDetected) Coronavirus OC43 (PCR) (NotDetected) Coronavirus HKU1 (PCR) (NotDetected) Coronavirus 229E (PCR) (NotDetected) SARS-CoV-2 (PCR) (NotDetected) Coronavirus NL63 (PCR) (NotDetected) Human Metapneumovir PCR (NotDetected) Influenza Type A (PCR) (NotDetected) Influenza Type B (PCR) (NotDetected) M. pneumoniae (PCR) (NotDetected) Parainfluenza 1 (PCR) (NotDetected) Parainfluenza 2 (PCR) (NotDetected) Parainfluenza 3 (PCR) (NotDetected) Parainfluenza 4 (PCR) (NotDetected) RSV (PCR) (NotDetected) Entero/Rhino (PCR) (NotDetected) Administered Medications Discontinued Medications Dexamethasone Sodium Phosphate (DexamethasonePf 10 Mg/Ml Vial) 6 mg IV NOW ONE Stop: 06/05/22 16:58 Last Admin: 06/05/22 17:12 Dose: 6 mg Documented By: [facility] Imaging Data Radiologist's Impression: Chest X-Ray 06/05/22 15:23 XR chest 1V portable HISTORY: Dyspnea COMPARISON: Chest 01/17/2022. FINDINGS: No pneumothorax. No pleural effusions. The cardiac silhouette remains mildly enlarged. Left basilar linear densities persist and favor subsegmental atelectasis are scarring. Otherwise, no new focal lung consolidations to suggest a pneumonia. No evidence for pulmonary edema. There are low lung volumes again noted. IMPRESSION: No significant change compared to the prior study. No acute process. ACT 112: Negative or not required by law. Electronically signed by: Bin Mayfield M.D. 06/05/2022 4:30 PM Discharge Plan Visit Data Chief Complaint: Shortness of Breath/Dyspnea Stated Complaint: SOB, COLD SX ED Provider: William Andrew Discharge Problem: COVID-19, Chronic hypoxemic respiratory failure, CKD (chronic kidney disease), stage III, Breathlessness Patient Disposition: Being Evaluated by Hospitalist Forms Stand Alone Forms: My [facility] [address] [employer] Prescriptions Prescriptions: No Action levalbuterol HCl 0.63 mg/3 mL solution for nebulization 0.63 mg INH Q4H PRN (Reason: shortness of breath or wheezing) Qty: 540 1RF Trelegy Ellipta 100-62.5-25 mcg blister with device 1 inh inhalation DAILY Qty: 3 3RF gabapentin 100 mg capsule 100 - 300 mg PO HS PRN (Reason: restless leg(s)) Qty: 270 0RF Xarelto 15 mg tablet See Rx Instructions .ROUTE .COMPLEX Qty: 90 3RF Dose Instruction: TAKE 1 TABLET DAILY Rx Instructions: TAKE 1 TABLET DAILY alfuzosin 10 mg tablet extended release 24 hr 10 mg PO DAILY Qty: 90 3RF Rx Instructions: Take 1 tablet daily after supper. cyanocobalamin (vitamin B-12) 2,500 mcg tablet 2,500 mcg PO DAILY Qty: 30 8RF Lantus Solostar U-100 Insulin 100 unit/mL (3 mL) insulin pen 30 unit SQ DAILY 90 Days Qty: 30 1RF insulin lispro [Humalog KwikPen Insulin] 100 unit/mL insulin pen 30 unit subcut BID 90 Days Qty: 60 1RF lorazepam 0.5 mg tablet 0.5 mg PO DAILY PRN (Reason: anxiety) Qty: 10 0RF (DME) pen needle, diabetic [BD Ultra-Fine Madhavi Pen Needle] 32 gauge x 5/32" needle See Dose Instructions .ROUTE .MEDSUPPLY Qty: 400 3RF Dose Instruction: As directed Rx Instructions: Use 4 needles daily metoprolol succinate 100 mg tablet extended release 24 hr 100 mg PO DAILY Qty: 90 3RF diltiazem HCl 180 mg capsule,extended release 24hr 180 mg PO DAILY Qty: 90 3RF atorvastatin 20 mg tablet 20 mg PO DAILY Qty: 90 3RF furosemide 20 mg tablet 40 mg PO .COMPLEX Qty: 90 3RF Rx Instructions: 40 mg PO in am/20 mg pm; May increase to 40 mg BID as needed. Ozempic 0.25 mg or 0.5 mg(2 mg/1.5 mL) pen injector 0.5 mg subcut Q7D Qty: 4.5 1RF flecainide 100 mg tablet 100 mg PO Q12H Qty: 180 3RF (DME) lancets [OneTouch Delica Lancets] 30 gauge misc See Dose Instructions .ROUTE .MEDSUPPLY Qty: 25 Rx Instructions: As directed (DME) Oxygen Home Liters Per Minute See Dose Instructions .ROUTE .MEDSUPPLY Qty: 1 Rx Instructions: As directed multivitamin [Daily Multi-Vitamin] tablet 1 tab PO DAILY PreserVision AREDS [id number] [id number] capsule 1 cap PO BID omega-3 acid ethyl esters 1 gram capsule 3 cap PO DAILY (DME) OneTouch Verio test strips strip See Rx Instructions .ROUTE .MEDSUPPLY Qty: 10 Rx Instructions: test 1-2 times daily levalbuterol tartrate [Xopenex HFA] 45 mcg/actuation HFA aerosol inhaler 2 inh INH Q4H PRN (Reason: shortness of breath or wheezing) Qty: 45 3RF (DME) Oxygen Home Liters Per Minute See Rx Instructions .ROUTE .MEDSUPPLY Rx Instructions: INVOCARE PURFECTO 2 V5 CONCENTRATOR. 4L NC CONTINUOUS cholecalciferol (vitamin D3) 25 mcg (1,000 unit) capsule 1,000 unit PO DAILY docusate sodium 2 tab PO DAILY (DME) FreeStyle Sharon 14 Day Sensor Kit See Rx Instructions .ROUTE .MEDSUPPLY Qty: 1 0RF Rx Instructions: As directed Nucala 100 mg/mL auto-injector subcut ferrous sulfate [FeroSul] 325 mg (65 mg iron) tablet 325 mg PO DAILY prednisone 5 mg tablet 5 mg PO DAILY Referrals Referrals: Mario Anaya MD [Primary Care Provider] -
[2022-06-05 15:43] LABS: Basophils # (auto) 0.01 K/uL (0-0.2); Basophils % (auto) 0.1 %; Eosinophils # (auto) 0.02 K/uL (0-0.50); Eosinophils % (auto) 0.2 %; Hematocrit (blood only) 31.6 % (40.1-51.0); Hemoglobin 10.1 g/dl (14.0-18.0); Immature Granulocytes # (auto) 0.07 K/uL (0.00-0.02); Immature Granulocytes % (auto) 0.7 %; Lymphocytes # (auto) 1.15 K/uL (1.2-3.4); Lymphocytes % (auto) 11.6 %; Mean Corpuscular Hemoglobin 33.1 pg (25.0-34.0); Mean Corpuscular Volume 103.6 fL (80.0-100.0); Mean Platelet Volume 11.2 fL (9.4-12.4); Monocytes # (auto) 0.93 K/uL (0.24-0.82); Monocytes % (auto) 9.4 %; Platelet Count 217 K/uL (130-400); RDW Coefficient of Variation 12.8 % (11.5-14.5); RDW Standard Deviation 48.3 fL (36.4-46.3); Red Blood Count 3.05 M/uL (4.63-6.08); White Blood Count 9.88 K/ul (4.8-10.8)
[2022-06-05 15:54] LABS: INR 1.1 (0.9-1.1); Partial Thromboplastin Time 26.6 Seconds (21.0-31.0); Prothrombin Time 11.5 Seconds (9.0-12.0)
[2022-06-05 16:03] LABS: Albumin Globulin Ratio 1.4 (0.9-2); BUN Creatinine Ratio 15.9 (10-20); Bilirubin,Total 0.4 mg/dl (0.2-1.0); Calcium 9.4 mg/dl (8.5-10.1); Creatinine Clr Calc Pharmacy 31.3 ml/min; Est GFR (Non-African American) 26.7 ml/min; Globulin 2.9 gm/dl (2.5-4.0); Magnesium 2.1 mg/dl (1.7-2.4); Potassium 4.4 mmol/L (3.5-5.1); Total Protein 6.9 gm/dl (6.0-8.3)
[2022-06-05 16:09] LABS: Troponin I High Sensitivity 18.2 pg/ml (0-20)
--- NOTE | 2022-06-05 16:31 | XRay Report ---
XR chest 1V portable HISTORY: Dyspnea COMPARISON: Chest 01/17/2022. FINDINGS: No pneumothorax. No pleural effusions. The cardiac silhouette remains mildly enlarged. Left basilar linear densities persist and favor subsegmental atelectasis are scarring. Otherwise, no new focal lung consolidations to suggest a pneumonia. No evidence for pulmonary edema. There are low lung volumes again noted. IMPRESSION: No significant change compared to the prior study. No acute process. ACT 112: Negative or not required by law. Electronically signed by: Bin Mayfield M.D. 06/05/2022 4:30 PM
[2022-06-05 16:35] LABS: Adenovirus PCR Not Detected (NotDetected); Bordetella parapertussis PCR Not Detected (NotDetected); Bordetella pertussis PCR Not Detected (NotDetected); Chlamydia pneumoniae PCR Not Detected (NotDetected); Coronavirus 229E PCR Not Detected (NotDetected); Coronavirus HKU1 PCR Not Detected (NotDetected); Coronavirus NL63 PCR Not Detected (NotDetected); Coronavirus OC43PCR Not Detected (NotDetected); Human Metapneumovirus PCR Not Detected (NotDetected); Influenza A PCR Not Detected (NotDetected); Influenza B PCR Not Detected (NotDetected); Mycoplasma pneumoniae PCR Not Detected (NotDetected); Parainfluenza Virus 1 PCR Not Detected (NotDetected); Parainfluenza Virus 2 PCR Not Detected (NotDetected); Parainfluenza Virus 3 PCR Not Detected (NotDetected); Parainfluenza Virus 4 PCR Not Detected (NotDetected); Respiratory Syncytial VirusPCR Not Detected (NotDetected); Rhinovirus/Enterovirus PCR Not Detected (NotDetected)
[2022-06-05 16:38] LABS: Coronavirus CoV-2 (COVID19)PCR DETECTED (NotDetected)
[2022-06-05 16:55] LABS: Appearance Urine Clear (Clear); Bilirubin Urine Negative (Negative); Blood Urine Negative (Negative); Color Urine Yellow; Glucose Urine UA Negative (Negative); Ketones Urine Negative (Negative); Leukocyte Esterase Urine Negative (Negative); Nitrite Urine Negative (Negative); Protein Urine Negative (Negative); Specific Gravity Urine 1.011 (1.000-1.030); Urobilinogen Urine Negative (Negative); pH Urine 6.5 (4.5-7.5)
[2022-06-05] MEDS ORDERED: dexAMETHasone**PF** 10 MG/ML VIAL IV ONE (16:57)
--- NOTE | 2022-06-05 17:15 | History & Physical Report ---
Date of Service June 05, 2022 Assessment & Plan (1) COVID: Plan: Acute on chronic respiratory failure 2/2 COVID. History of steroid-dependent asthma with additional restriction 2/2 body habitus Patient with chronic restrictive lung disease followed by [facility]ology Continue xopenex, Trelegy. Patient on prednisone 5 mg p.o. daily at baseline, converted to dexamethasone for COVID increase to twice daily given underlying disease Baseline oxygen requirement 2-4 L, patient is on 4 L at rest but desaturates easily with exertion Due to CKD and duration of symptom remdesivir is not recommended/indicated at time of admissioncontinue dexamethasone 6 mg twice daily DuoNebs Oxygen titrate to goal greater than 88% No leukocytosis Pt on nucala fo runderlying severe steroid dependent asthma, q4w dosing Type II DM Hold home Ozempic/insulin Basal bolus based on 30 units baseline long-acting insulin Lantus 15 units twice daily, CF 25, carb ratio 9 Pharmacy glycemic consult placed for adjustments in the setting of steroid change Glucose checks AC/at bedtime, goal BSG [id number] No chest pain, BNP is not elevated, high-sensitivity troponin is normal on admission. UA negative PCR for COVID is positive CXR: No acute change, similar to prior CKD 3, 2/2 partial nephrectomy multifactorial 2/2 clear-cell CA, diabetic nephropathy, hypertension With history of renal cancer. 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 Continue metoprolol History of bladder cancer, status post TURBT 01/2018 Follows with urology as outpatient Further imaging of kidneys deferred due to patient not desiring surgical intervention further, claustrophobia limiting MRI, and CT avoided due to CKD Chronic anemia 2/2 CKD On iron supplement daily Pending follow-up iron studies prior to next nephrology visit Hemoglobin 10.1, MCV 103. Trend daily. No active bleeding CHF with preserved EF No volume overload on admitting exam Prefer slightly dry status, Lasix 20 mg as needed daily as needed to maintain slightly dry status Pulmonary hypertension group 2 Lasix adjusted for renal function, follows with cardiology DVT prophylaxis: Anticoagulated, continue doac Diet: DM 2, heart healthy Disposition: Medical telemetry CODE STATUS:Full (2) Chronic hypoxemic respiratory failure: (3) Kidney disease: (4) Restrictive lung disease: (5) Pulmonary hypertension: (6) Atrial flutter, paroxysmal: (7) CAD (coronary artery disease): (8) Chronic anticoagulation: (9) Type 2 diabetes mellitus with complications: (10) Hypertension: History of Present Illness Primary Care Provider: MD Ish Gaxiola Severino isz a 82yo chronically ill male hx afib on Xarelto, RLD followed in [facility] Pul[facility]ology on 3-4L baseline O2 who presents with 7-10 days of worsening shortness of breath on exertion and dry cough with COVID+ test who presents with AoC HRF and weakness. On 4L at rest which is his normal bas 1 day of chills, cough, shotness of breathness worsening overnight. Cough with clear/dark white mucous. No diarrhea or nausea. Appetite good. [place] e[place]ak 'could barely move' today after exertion due to SoB. No chest pain or chest pressure. Had nguyen dinner last night, had Iconfindery fried chicken bowls hommade version. Does not cook with extra salt at home, did not have extra salt in his dinner. Reports he does chronically have left greater than right leg swelling, legs appear normal/"actually pretty good "to him at time of assessment. At time of bedside assessment patient reports he feels 100% normal and not ill, but with exertion he quickly fatigues and becomes more short of breath than normal denies wheezing. Denies lightheadedness/dizziness. also has COVID - Does not know medications by heart well, gave a list to ER when he came in. Did take medications this morning. - Not on dupixent "made me feel terrible and nearly killed me". Taking nucala. Ozempic on Mondays. Medical History: Reviewed Medications: Reviewed Surgical History: Reviewed Allergies: Reviewed Social History: No tobacco, no alochol use. Code Status: Full code, discussed with patient family at bedside Allergies Allergy/AdvReac Type Severity Reaction Status Date / Time adhesive Allergy Unknown PLASTIC Verified 05/19/22 11:06 TAPE-SKIN BLISTERS,RASH, IRRITATION latex Allergy Unknown Verified 05/19/22 11:06 sertraline AdvReac Intermediate palpitation Verified 05/19/22 11:06 s Home Medications Medication Instructions Recorded Confirmed Type Oxygen Home #1 ea 01/18/19 05/19/22 History lancets 30 gauge (JaceyTouch Delica #25 ea 01/18/19 05/19/22 History Lancets) multivitamin (Daily Multi-Vitamin 1 tab PO DAILY 01/18/19 05/19/22 History tablet) vitamins A,C,D-lxyb-osuias 14,320 1 cap PO BID 01/18/19 05/19/22 History unit-226 mg-200 unit capsule (PreserVision AREDS) blood sugar diagnostic (JaceyTouch #10 ea 05/29/19 05/19/22 History Verio test strips) cholecalciferol (vitamin D3) 25 1,000 unit PO DAILY 01/27/20 05/19/22 History mcg (1,000 unit) capsule docusate sodium [Stool Softener] 2 tab PO DAILY 01/27/20 05/19/22 History flash glucose sensor (FreeStyle #1 ea 05/28/20 05/19/22 Rx Sharon 14 Day Sensor kit) levalbuterol HCl 0.63 mg/3 mL 0.63 mg (3 mL) inhalation Q4H PRN 09/07/20 05/19/22 Rx solution for nebulization shortness of breath or wheezing #540 mL levalbuterol tartrate 45 2 inh inhalation Q4H PRN shortness 12/07/20 05/19/22 Rx mcg/actuation aerosol inhaler of breath or wheezing #45 grams (Xopenex HFA) omega-3 acid ethyl esters 1 gram 3 cap PO DAILY 12/08/20 05/19/22 History capsule fluticasone fur. 100 mcg-umeclid 1 inh inhalation DAILY #3 Inhalers 03/22/21 05/19/22 Rx 62.5 mcg-vilant 25 mcg inhalat.powder (Trelegy Ellipta) gabapentin 100 mg capsule 100 - 300 mg PO HS PRN restless 06/25/21 05/19/22 Rx leg(s) #270 caps rivaroxaban 15 mg tablet (Xarelto) See Rx Instructions .Route 07/19/21 05/19/22 Rx .COMPLEX #90 tabs alfuzosin 10 mg tablet,extended 10 mg PO DAILY #90 tabs 10/19/21 05/19/22 Rx release 24 hr prednisone 5 mg tablet 5 mg PO DAILY 10/20/21 05/19/22 History cyanocobalamin (vitamin B-12) 2,500 mcg PO DAILY #30 tabs 10/21/21 05/19/22 Rx 2,500 mcg tablet Lantus Solostar U-100 Insulin 100 30 unit (0.3 mL) subcut DAILY 90 11/05/21 05/19/22 Rx unit/mL (3 mL) subcutaneous pen days #30 mL (insulin glargine) Oxygen Home 12/21/21 05/19/22 History Humalog KwikPen Insulin 100 30 unit (0.3 mL) subcut BID 12/24/21 05/19/22 Rx unit/mL subcutaneous (insulin sliding scale 90 days #60 mL lispro) lorazepam 0.5 mg tablet 0.5 mg PO DAILY PRN anxiety #10 02/07/22 05/19/22 Rx tabs BD Ultra-Fine Madhavi Pen Needle 32 #400 ea 02/10/22 05/19/22 Rx gauge x 5/32" (pen needle, diabetic) atorvastatin 20 mg tablet 20 mg PO DAILY #90 tabs 03/28/22 05/19/22 Rx diltiazem HCl 180 mg 180 mg PO DAILY #90 caps 03/28/22 05/19/22 Rx capsule,extended release 24 hr furosemide 20 mg tablet 40 mg PO .COMPLEX edema #90 tabs 03/28/22 05/19/22 Rx metoprolol succinate 100 mg 100 mg PO DAILY #90 tabs 03/28/22 05/19/22 Rx tablet,extended release 24 hr ferrous sulfate 325 mg (65 mg 325 mg PO DAILY 04/13/22 05/19/22 History iron) tablet (FeroSul) mepolizumab 100 mg/mL subcutaneous mg subcut 04/13/22 05/19/22 History auto-injector (Nucala) semaglutide 0.25 mg or 0.5 mg (2 0.5 mg (0.4 mL) subcut Q7D #4.5 mL 05/02/22 05/19/22 Rx mg/1.5 mL) subcutaneous pen injector (Ozempic) flecainide 100 mg tablet 100 mg PO Q12H #180 tabs 05/17/22 05/19/22 Rx Past Med/Surg History Medical History Acute on chronic renal insufficiency Bladder cancer Chronic hypoxemic respiratory failure CKD (chronic kidney disease), stage III Family history of transitional cell carcinoma of bladder Hemoptysis Hypertension Mixed restrictive and obstructive lung disease Pulmonary emphysema Renal mass, right Shortness of breath Shortness of breath Vitamin D deficiency Surgical History History of cystoscopy History of surgical removal of lesion History of umbilical hernia repair Family History Son Hodgkins disease Brother Throat cancer Other Diabetes Denies family history of Ovarian cancer Prostate cancer Kidney disease Myocardial infarction Breast cancer Lung cancer Colorectal cancer Stroke Social History Smoking Status: Former smoker Tobacco Type: Cigarettes Age Started Using Tobacco: 15; Age Quit Using Tobacco: 54; packs per day: 2; Second Hand Exposure: No; Hx Alcohol Use: No Hx Substance Use: No Preferred Language: Swiss Communication Ability: Effective Visual Impairment: Limited Hearing Ability: Use of Hearing Aid Automotive Title Clerk Required: No Beliefs That Will Affect Care: None marital status: Current Living Situation: Spouse current occupational status: retired How many Children do You have: 3 Feels Safe at Home: Yes Childhood Exposure to Second-Hand Smoke: No caffeine: No Dental Care, Regularly: No Physical Activity Frequency: Does not Exercise Physical Activity Frequency Comment: due to physical condition Seatbelt Use: sometimes Sunscreen Use: No (not in the sun) Assistive Devices: Denture - Upper, Denture - Lower, Glasses, Hearing Aid - Bilateral, Hearing Aid - Left, Hearing Aid - Right, Oxygen - Continuous and Walker Review of Systems Review of Systems: All systems reviewed & are unremarkable except as noted in HPI & below Physical Exam Physical Exam: General: A&Ox3. NAD. Cooperative. HEENT: Atraumatic, normocephalic. Vision/hearing grossly intact Pulm: Diminished, otherwise CTAB A&P. -wheezes, -rales, -rhonchi. Symmetrical chest rise. No increase in work of breathing. No respiratory distress. On 4 L nasal cannula Cardiac: RRR, -mrg. Radial pulses intact and symmetrical. Abdominal: Nontender, nondistended, soft. BS present. Extremities: Warm, dry. Pitting edema of the lower extremities bilaterally, trace. Sensation intact in hands and feet. Moving all extremities equally Results & Data Results & Data ([facility]) Vital Signs (Past 12 Hours) Vital Signs Temp Pulse Resp BP Pulse Ox O2 Del Method O2 Flow Rate 06/05/22 16:41 78 18 95 Nasal Cannula 4 06/05/22 15:53 Nasal Cannula 4 06/05/22 15:52 94 Nasal Cannula 4 06/05/22 15:38 37.4 C 80 20 148/74 H 94 Nasal Cannula 4 PG Care Time/CCT Total # of Minutes Spent Total Time Spent with Patient: Total time spent is greater than 50% in coordination of care (as documented) at patient's floor/unit and/or counseling patient: Coding Level of Care Code 90920 Initial Inpt Care Lvl 2 Diagnoses COVID U07.1 Chronic hypoxemic respiratory failure J96.11 Kidney disease N28.9 Restrictive lung disease J98.4 Pulmonary hypertension I27.20 Atrial flutter, paroxysmal I48.92 CAD (coronary artery disease) I25.10 Coronary Disease-Associated Artery/Lesion type: [place] artery [place] vs. transplanted heart: [place] heart Associated angina: without angina Chronic anticoagulation Z79.01 Type 2 diabetes mellitus with complications E11.8 Hypertension I10 Hypertension type: essential hypertension (1) CAD (coronary artery disease) Coronary Disease-Associated Artery/Lesion type: [place] artery [place] vs. transplanted heart: [place] heart Associated angina: without angina Qualified Code(s): I25.10 - Atherosclerotic heart disease of [place] coronary artery without angina pectoris (2) Hypertension Hypertension type: essential hypertension Qualified Code(s): I10 - Essential (primary) hypertension
[2022-06-05] MEDS ORDERED: LORazepam 0.5 MG TAB PO PRN (20:30)
[2022-06-05] MEDS ORDERED: CARBOHYDRATES FOR HYPOGLYCEMIA PO PRN (20:30)
[2022-06-05] MEDS ORDERED: GLUCOSE 40% GEL 15 GM TUBE PO PRN (20:30)
[2022-06-05] MEDS ORDERED: DEXTROSE 50% 50 ML SYRINGE IV PRN (20:30)
[2022-06-05] MEDS ORDERED: PHARMACY GLYCEMIC MGMT CONSULT PRN (20:30)
[2022-06-05] MEDS ORDERED: GLUCOSE 10 TAB/TUBE PO PRN (20:30)
[2022-06-05] MEDS ORDERED: LEVALBUTEROL HCL 0.63 MG/3 ML NEB INH PRN (20:30)
[2022-06-05] MEDS ORDERED: GLUCAGON FOR INJ 1 MG VIAL SQ PRN (20:30)
[2022-06-05] MEDS ORDERED: GABAPENTIN 100 MG CAP PO PRN (20:30)
[2022-06-05] MEDS ORDERED: LANTUS PER UNIT CHARGE SQ SCH (21:00)
[2022-06-05] MEDS ORDERED: dexAMETHasone 4 MG in SYRINGE 0 ML IV ONE (21:00)
[2022-06-05] MEDS: INSULIN ASPART PER UNIT SC SCH (23:23)
[2022-06-06] MEDS: FLECAINIDE ACETATE 100 MG TABLET PO SCH ×3 (00:04→21:24)
[2022-06-06] MEDS: FUROSEMIDE 20 MG TAB PO SCH ×2 (00:04→21:24)
[2022-06-06 06:26] LABS: Hematocrit (blood only) 29.5 % (40.1-51.0); Hemoglobin 9.5 g/dl (14.0-18.0); Immature Granulocytes # (auto) 0.07 K/uL (0.00-0.02); Lymphocytes % (auto) 8.4 %; Mean Corpuscular Hemoglobin 32.6 pg (25.0-34.0); Mean Corpuscular Hgb Conc 32.2 g/dL (32.0-36.0); Mean Corpuscular Volume 101.4 fL (80.0-100.0); Mean Platelet Volume 11.5 fL (9.4-12.4); Monocytes # (auto) 0.21 K/uL (0.24-0.82); Monocytes % (auto) 2.9 %; Neutrophils # (auto) 6.28 K/uL (1.4-6.5); Neutrophils % (auto) 87.7 %; Platelet Count 207 K/uL (130-400); RDW Coefficient of Variation 12.5 % (11.5-14.5); RDW Standard Deviation 46.6 fL (36.4-46.3); Red Blood Count 2.91 M/uL (4.63-6.08); White Blood Count 7.16 K/ul (4.8-10.8)
[2022-06-06 06:52] LABS: BUN Creatinine Ratio 17.8 (10-20); C Reactive Protein 3.64 mg/dl (0-0.5); Calcium 8.8 mg/dl (8.5-10.1); Creatinine Clr Calc Pharmacy 33.1 ml/min; Est GFR (African American) 33.1 ml/min; Est GFR (Non-African American) 28.6 ml/min; Potassium 4.8 mmol/L (3.5-5.1)
[2022-06-06 07:28] LABS: Estimated Average Glucose 114 mg/dl; Hemoglobin A1C 5.6 % (4.5-5.6)
[2022-06-06] MEDS: dexAMETHasone 6 MG in SYRINGE 0 ML IV SCH ×2 (07:41→21:24)
[2022-06-06] MEDS: ATORVASTATIN 20 MG TAB PO SCH (07:42)
[2022-06-06] MEDS: dilTIAZem HCL 180 MG CAPCR PO SCH (07:42)
[2022-06-06] MEDS: RIVAROXABAN 15 MG TAB PO SCH (07:43)
[2022-06-06] MEDS: METOPROLOL SUCC 50MG EXT REL TAB PO SCH (07:43)
[2022-06-06] MEDS: FUROSEMIDE 40 MG TAB PO SCH (07:44)
[2022-06-06] MEDS: FLUTICASONE FUROATE 100MCG 14 PUFFS/INHALER INH SCH (07:45)
[2022-06-06] MEDS: UMECLIDINIUM/VILANTEROL 62.5/25MCG 7 PUFFS/INHALER INH SCH (07:45)
[2022-06-06] MEDS ORDERED: NON-FORMULARY MEDICATION (Fluticasone-Umeclidin-Vilanter [Trelegy Ellipta] 100-62.5-25 mcg INH SCH (09:00)
[2022-06-06] MEDS: INSULIN ASPART PER UNIT SC SCH ×4 (09:29→21:21)
[2022-06-06] MEDS ORDERED: LANTUS PER UNIT CHARGE SQ SCH ×2 (10:00→21:00)
--- NOTE | 2022-06-06 10:49 | Pharmacy Report ---
Pharmacy Glycemic Short Note 2 - Date of Service June 06, 2022 - Glycemic Short BSG Results (Last 24 hours): 06/05/22 06/05/22 06/06/22 15:30 21:33 05:53 Glucose 169 H 211 H POC Glucose 211 H 06/06/22 09:21 Glucose POC Glucose 203 H OUTPATIENT ANTIDIABETIC REGIMEN: * Lantus 20 units SC daily * Humalog 22 units SC BIDM (holds if BSGs low however) * Ozempic 0.75 mg SC every week * HbA1c: 5.6% (06/06/22) ASSESSMENT: * 82 yo M admitted last evening secondary to COVID-19. Pharmacy was consulted to assist with inpatient glycemic management. A1c shows excellent outpatient control of T2DM. Ordered and tolerating a type 2 diabetic diet. Received 6 mg of IV dexamethasone around 1700 in the ED yesterday followed by another 4 mg IV around midnight. Now started on Dexamethasone 6 mg IV BID. * Was started on 15 mg of Lantus BID last night and Novolog based on weight/stress of 1-2. BSGs were: 169-211 mg/dL. * Fasting BSG this AM was 203 mg/dL. Hyperglycemia likely related to steroids. * Tightening Novolog parameters this AM to reflect weight/stress of 3. * Will give 30 units of Lantus this AM which is a 50% increase in the patient's home basal dose. Will add a scaled HS dose to provide extra basal coverage, if necessary. PLAN FOR INPATIENT GLYCEMIC CONTROL: * Basal insulin * Lantus 30 units SC daily * Lantus 0-15 units SC HS (see eMAR for more details) * Bolus insulin * NovoLog per scale ACHS or Q6hrs while NPO * Goal Range: Low 110 mg/dL - High 140 mg/dL * Correction Factor: 15 mg/dL/unit * Nutritional / Prandial insulin per carb ratio of 1 unit per 5 grams CHO consumed
--- NOTE | 2022-06-06 11:50 | Hospitalist Progress Note ---
Date of Service June 06, 2022 Assessment & Plan (1) COVID: Plan: Acute on chronic respiratory failure 2/2 COVID. History of steroid-dependent asthma with additional restriction 2/2 body habitus Patient with chronic restrictive lung disease followed by [place] pulmonology Continue xopenex, Trelegy. Patient on prednisone 5 mg p.o. daily at baseline, converted to dexamethasone for COVID increase to twice daily given underlying disease Baseline oxygen requirement 2-4 L, patient is on 4 L at rest but desaturates easily with exertion Due to CKD and duration of symptom remdesivir is not recommended/indicated at time of admission continue dexamethasone 6 mg twice daily DuoNebs Oxygen titrate to goal greater than 88% No leukocytosis Pt on nucala fo runderlying severe steroid dependent asthma, q4w dosing Moderately elevated CRP of 3.64, continue to follow oxygen requirements PT/OT pending. Patient is maintaining oxygen saturation on 4 L which is the maximum of his baseline requirements, does still desaturate easily. Would progress towards post hospital planning whether that is placement versus home once he is able to ambulate with PT and maintain saturation greater than 88% on no more than 4 L. Continue steroids at this time. Type II DM Hold home Ozempic/insulin Basal bolus based on 30 units baseline long-acting insulin Lantus 15 units twice daily, CF 25, carb ratio 9 Pharmacy glycemic consult placed for adjustments in the setting of steroid change Glucose checks AC/at bedtime, goal BSG [id number] No chest pain, BNP is not elevated, high-sensitivity troponin is normal on admission. UA negative PCR for COVID is positive CXR: No acute change, similar to prior CKD 3, 2/2 partial nephrectomy multifactorial 2/2 clear-cell CA, diabetic nephropathy, hypertension With history of renal cancer. 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 Continue metoprolol History of bladder cancer, status post TURBT 01/2018 Follows with urology as outpatient Further imaging of kidneys deferred due to patient not desiring surgical intervention further, claustrophobia limiting MRI, and CT avoided due to CKD Chronic anemia 2/2 CKD On iron supplement daily. Can switch to every other day as outpatient, generally no therapeutic difference and less constipation. Pending follow-up iron studies prior to next nephrology visit Hemoglobin stable, 10.1 on admission 9.5 on recheck with no signs of bleeding CHF with preserved EF No volume overload on admitting exam Prefer slightly dry status, continue Lasix 40 twice daily and spot increase as needed to maintain slightly dry status Pulmonary hypertension group 2 Lasix adjusted for renal function, follows with cardiology DVT prophylaxis: Anticoagulated, continue doac Diet: DM 2, heart healthy Disposition: Medical telemetry CODE STATUS:Full (2) Chronic hypoxemic respiratory failure: (3) Kidney disease: (4) Restrictive lung disease: (5) Pulmonary hypertension: (6) Atrial flutter, paroxysmal: (7) CAD (coronary artery disease): (8) Chronic anticoagulation: (9) Type 2 diabetes mellitus with complications: (10) Hypertension: Admission and Anticipated Discharge Date Admission Date: June 05, 2022 Subjective Seen at the bedside, sitting up comfortably. He is somewhat frustrated as his breakfast was cold bloodiness feels like he is doing better. He notes his oxygen still fluctuates much more than normal, and he desaturates into the mid 80s easily but has no shortness of breath at rest and oxygen levels are greater than 90% on 4 L oxygen at rest. Denies chest pain, chest pressure, fever, chills, sweats, lightheadedness, dizziness at time of assessment. No sputum production. Review of Systems Review of Systems: All systems reviewed & are unremarkable except as noted in HPI & below Physical Exam Physical Exam: General: A&Ox3. NAD. Cooperative. HEENT: Atraumatic, normocephalic. Vision/hearing grossly intact Pulm: Diminished, otherwise CTAB A&P. -wheezes, -rales, -rhonchi. Symmetrical chest rise. No increase in work of breathing. No respiratory distress. On 4 L nasal cannula, sitting up in chair assessment Cardiac: RRR, -mrg. Radial pulses intact and symmetrical. Abdominal: Nontender, nondistended, soft. BS present. Extremities: Warm, dry. Pitting edema of the lower extremities bilaterally, trace. Sensation intact in hands and feet. Moving all extremities equally Results & Data Results & Data ([facility]) Vital Signs (Past 12 Hours) Vital Signs Pulse Resp BP Pulse Ox O2 Del Method O2 Flow Rate 06/06/22 07:54 87 18 139/70 97 Nasal Cannula 4 PG Care Time/CCT Total # of Minutes Spent Total Time Spent with Patient: Total time spent is greater than 50% in coordination of care (as documented) at patient's floor/unit and/or counseling patient: Coding Level of Care Code 59459 Subseq Hosp Care Lvl 2 Diagnoses COVID U07.1 Chronic hypoxemic respiratory failure J96.11 Kidney disease N28.9 Restrictive lung disease J98.4 Pulmonary hypertension I27.20 Atrial flutter, paroxysmal I48.92 CAD (coronary artery disease) I25.10 Coronary Disease-Associated Artery/Lesion type: [place] artery [place] vs. transplanted heart: [place] heart Associated angina: without angina Chronic anticoagulation Z79.01 Type 2 diabetes mellitus with complications E11.8 Hypertension I10 Hypertension type: essential hypertension (1) CAD (coronary artery disease) Coronary Disease-Associated Artery/Lesion type: [place] artery [place] vs. transplanted heart: [place] heart Associated angina: without angina Qualified Code(s): I25.10 - Atherosclerotic heart disease of [place] coronary artery without angina pectoris (2) Hypertension Hypertension type: essential hypertension Qualified Code(s): I10 - Essential (primary) hypertension
--- NOTE | 2022-06-06 12:14 | Electrocardiogram Report ---
Test Reason : Blood Pressure : / mmHG Vent. Rate : 083 BPM Atrial Rate : 083 BPM P-R Int : 192 ms QRS Dur : 104 ms QT Int : 364 ms P-R-T Axes : 054 -43 004 degrees QTc Int : 427 ms Poor data quality, interpretation may be adversely affected Normal sinus rhythm Left axis deviation Moderate voltage criteria for LVH, may be normal variant Nonspecific T wave abnormality Abnormal ECG When compared with ECG of 23-MAY-2017 06:30, Nonspecific T wave abnormality now evident in Anterior leads Confirmed by Hal Tarango ([id number]) on 06/06/2022 12:14:09 PM Referred By: Confirmed By:Hal Tarango
[2022-06-07] MEDS: FUROSEMIDE 40 MG TAB PO SCH (08:21)
[2022-06-07] MEDS: RIVAROXABAN 15 MG TAB PO SCH (08:21)
[2022-06-07] MEDS: dilTIAZem HCL 180 MG CAPCR PO SCH (08:21)
[2022-06-07] MEDS: METOPROLOL SUCC 50MG EXT REL TAB PO SCH (08:21)
[2022-06-07] MEDS: FLUTICASONE FUROATE 100MCG 14 PUFFS/INHALER INH SCH (08:22)
[2022-06-07] MEDS: dexAMETHasone 6 MG in SYRINGE 0 ML IV SCH ×2 (08:22→21:22)
[2022-06-07] MEDS: UMECLIDINIUM/VILANTEROL 62.5/25MCG 7 PUFFS/INHALER INH SCH (08:22)
[2022-06-07] MEDS: FLECAINIDE ACETATE 100 MG TABLET PO SCH ×2 (08:22→19:29)
[2022-06-07] MEDS: ATORVASTATIN 20 MG TAB PO SCH (08:22)
[2022-06-07] MEDS: INSULIN ASPART PER UNIT SC SCH ×4 (09:51→21:33)
--- NOTE | 2022-06-07 10:07 | Pharmacy Report ---
Pharmacy Glycemic Short Note 2 - Date of Service June 07, 2022 - Glycemic Short BSG Results (Last 24 hours): 06/06/22 06/06/22 06/06/22 12:42 18:36 21:12 POC Glucose 286 H 209 H 256 H 06/07/22 09:16 POC Glucose 225 H OUTPATIENT ANTIDIABETIC REGIMEN: * Lantus 20 units SC daily * Humalog 22 units SC BIDM (holds if BSGs low however) * Ozempic 0.75 mg SC every week * HbA1c: 5.6% (06/06/22) ASSESSMENT: 06/07: * Ish received a total of 94 units of insulin yesterday, 45 units basal + 49 units bolus. BSGs were elevated all day: 700-627-501-256 mg/dL. * Fasting BSG this AM has increased to 225 mg/dL. Remains on Dexamethasone 6 mg IV BID as of now. Would like to increase total daily dose from yesterday by about 30% (~120 units/day). * Increase basal by 30% today. * Tightening Novolog parameters this AM as well. 06/06: * 82 yo M admitted last evening secondary to COVID-19. Pharmacy was consulted to assist with inpatient glycemic management. A1c shows excellent outpatient control of T2DM. Ordered and tolerating a type 2 diabetic diet. Received 6 mg of IV dexamethasone around 1700 in the ED yesterday followed by another 4 mg IV around midnight. Now started on Dexamethasone 6 mg IV BID. * Was started on 15 mg of Lantus BID last night and Novolog based on weight/stress of 1-2. BSGs were: 169-211 mg/dL. * Fasting BSG this AM was 203 mg/dL. Hyperglycemia likely related to steroids. * Tightening Novolog parameters this AM to reflect weight/stress of 3. * Will give 30 units of Lantus this AM which is a 50% increase in the patient's home basal dose. Will add a scaled HS dose to provide extra basal coverage, if necessary. PLAN FOR INPATIENT GLYCEMIC CONTROL: * Basal insulin * Lantus 30 units SC BID * Bolus insulin * NovoLog per scale ACHS or Q6hrs while NPO * Goal Range: Low 110 mg/dL - High 140 mg/dL * Correction Factor: 10 mg/dL/unit * Nutritional / Prandial insulin per carb ratio of 1 unit per 3 grams CHO consumed
[2022-06-07 10:11] LABS: Basophils # (auto) 0.01 K/uL (0-0.2); Basophils % (auto) 0.1 %; Hematocrit (blood only) 29.6 % (40.1-51.0); Hemoglobin 9.9 g/dl (14.0-18.0); Immature Granulocytes # (auto) 0.08 K/uL (0.00-0.02); Immature Granulocytes % (auto) 0.8 %; Lymphocytes # (auto) 0.76 K/uL (1.2-3.4); Lymphocytes % (auto) 7.6 %; Mean Corpuscular Hemoglobin 33.4 pg (25.0-34.0); Mean Corpuscular Hgb Conc 33.4 g/dL (32.0-36.0); Mean Platelet Volume 11.4 fL (9.4-12.4); Monocytes # (auto) 0.61 K/uL (0.24-0.82); Monocytes % (auto) 6.1 %; Neutrophils # (auto) 8.56 K/uL (1.4-6.5); Neutrophils % (auto) 85.4 %; Platelet Count 216 K/uL (130-400); RDW Coefficient of Variation 12.7 % (11.5-14.5); RDW Standard Deviation 46.7 fL (36.4-46.3); Red Blood Count 2.96 M/uL (4.63-6.08); White Blood Count 10.02 K/ul (4.8-10.8)
[2022-06-07 10:50] LABS: Ferritin 47.5 ng/ml (8-388)
[2022-06-07 10:59] LABS: C Reactive Protein 2.61 mg/dl (0-0.5); Calcium 8.6 mg/dl (8.5-10.1); Creatinine Clr Calc Pharmacy 28.1 ml/min; Est GFR (African American) 27.2 ml/min; Est GFR (Non-African American) 23.5 ml/min; Magnesium 2.2 mg/dl (1.7-2.4); Potassium 4.9 mmol/L (3.5-5.1)
[2022-06-07] MEDS: LANTUS PER UNIT CHARGE SQ SCH ×2 (11:58→21:33)
[2022-06-07] MEDS: ACETAMINOPHEN 325 MG TAB PO PRN ×2 (12:47→19:29)
[2022-06-07] MEDS: FUROSEMIDE 20 MG TAB PO SCH (19:13)
--- NOTE | 2022-06-07 22:46 | Hospitalist Progress Note ---
Date of Service June 07, 2022 Assessment & Plan (1) COVID: Plan: Acute on chronic respiratory failure 2/2 COVID pneumonitis. History of steroid-dependent asthma with additional restriction 2/2 body habitus Patient with chronic restrictive lung disease followed by [place] pulmonology Improving since admission with IV steroids. Is on baseline O2 of 4LNC at rest, not retested with exertion yet but feels better Continue xopenex, Raullegy. Patient on prednisone 5 mg p.o. daily at baseline, converted to dexamethasone for COVID increase to twice daily given underlying disease at 6mg IV bid Baseline oxygen requirement 2-4 L, patient is on 4 L at rest but desaturates easily with exertion Due to CKD and duration of symptom remdesivir is not recommended DuoNebs Oxygen titrate to goal greater than 88% Pt on nucala for underlying severe steroid dependent asthma, q4w dosing Moderately elevated CRP of 3.64, continue to follow oxygen requirements PT/OT pending. Patient is maintaining oxygen saturation on 4 L which is the maximum of his baseline requirements, does still desaturate easily. Would progress towards post hospital planning whether that is placement versus home once he is able to ambulate with PT and maintain saturation greater than 88% on no more than 4 L. Continue steroids at this time. 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 Creatinine baseline 2.02.4, 2.2 on admission Creatinine up to 2.4 today Follows with [facility] and nephrology Avoid NSAIDs Continue baseline Lasix 40 mg qAM and 20 in PM -watch BMP in AM (4) Restrictive lung disease: Plan: as above (5) Pulmonary hypertension: Plan: CHF with preserved EF does have pitting edema on legs continue Lasix 40 twice daily Pulmonary hypertension group 2 Lasix adjusted for renal function, follows with cardiology (6) Atrial flutter, paroxysmal: Plan: Paroxysmal atrial flutter/fibrillation No recent symptomatic episodes, is in sinus rhythm here Continue flecainide, continue Xarelto Dobutamine stress test 2020 with negative stress echo and negative EKG, normal LV function. 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: Plan: Type II DM Hold home Ozempic/insulin continue basal and bolus insulin based on pharmacy recs while on steroids Pharmacy glycemic consult placed for adjustments in the setting of steroid change (8) Hypertension: Plan: BPs controlled continue home metoprolol, lasix, diltiazem (9) Bladder cancer: Plan: History of bladder cancer, status post TURBT 01/2018 Follows with urology as outpatient Further imaging of kidneys deferred due to patient not desiring surgical intervention further, claustrophobia limiting MRI, and CT avoided due to CKD (10) Anemia: Plan: Chronic anemia 2/2 CKD On iron supplement daily. Can switch to every other day as outpatient, generally no therapeutic difference and less constipation. Pending follow-up iron studies prior to next nephrology visit Hemoglobin stable, 10.1 on admission 9.5 on recheck with no signs of bleeding (11) Hip pain: Plan: add on tramadol prn moderate-severe pain chronic Plan DVT prophylaxis: Anticoagulated, continue doac Diet: DM 2, heart healthy Disposition: Medical telemetry-continued stay, needs PT/OT evals due to hip pain and weakness generalized CODE STATUS:Full Admission and Anticipated Discharge Date Admission Date: June 05, 2022 Subjective Pt reports feeling better. Not as SOB. Is on his home usual 4LNC O2. Having pain in his bilat hips from the hard bed and now in the recliner chair trying to sleep. Tylenol not helping, requests something stronger. Is eating. Is moving bowels, no diarrhea. Review of Systems Review of Systems: All systems reviewed & are unremarkable except as noted in HPI & below Physical Exam Constitutional: WD/WN, vitals as above + obese Eyes: + anicteric sclerae ENMT: external ear and nose normal, oropharynx normal Neck: trachea midline, no thyromegaly Respiratory: normal respiratory effort and + cough Auscultation: + diminished lung sounds (throughout); no crackles, no rhonchi and no wheezes Cardiovascular: Rate/Rhythm: regular rate and regular rhythm Heart Sounds: no murmur Extremities: + edema (2+ pitting edema bilat legs) Chest (Breasts): Chest: normal inspection of chest Gastrointestinal (Abdomen): normal bowel sounds, soft, nontender, no hepatosplenomegaly Musculoskeletal: Extremities: extremities normal to inspection; no cyanosis and no clubbing Skin: no rashes, warm and dry Neurologic: moves all extremities and awake; no focal motor deficits Psychiatric: A+Ox3, euthymic affect Results & Data Results & Data ([facility]) Vital Signs (Past 12 Hours) Vital Signs Pulse Resp BP Pulse Ox Pulse Ox Pulse Ox Pulse Ox 06/07/22 16:23 68 16 114/70 94 06/07/22 13:46 94 100 87 L O2 Del Method O2 Flow Rate O2 Flow Rate O2 Flow Rate 06/07/22 16:23 Room Air 06/07/22 13:46 4 4 4 Laboratory Results labs reviewed PG Care Time/CCT Total # of Minutes Spent Total Time Spent with Patient: Total time spent is greater than 50% in coordination of care (as documented) at patient's floor/unit and/or counseling patient: Coding Level of Care Code 84198 Subseq Hosp Care Lvl 3 Diagnoses COVID U07.1 Chronic hypoxemic respiratory failure J96.11 Kidney disease N28.9 Restrictive lung disease J98.4 Pulmonary hypertension I27.20 Atrial flutter, paroxysmal I48.92 Type 2 diabetes mellitus with complications E11.8 Hypertension I10 Hypertension type: essential hypertension Bladder cancer C67.9 Anemia D64.9 Hip pain M25.559 (1) Hypertension Hypertension type: essential hypertension Qualified Code(s): I10 - Essential (primary) hypertension
[2022-06-07] MEDS ORDERED: traMADol HCL 50 MG TABLET PO PRN (23:07)
[2022-06-07] MEDS ORDERED: DOCUSATE SODIUM/SENNA 50/8.6MG TAB PO STA (23:09)
[2022-06-08 05:18] LABS: BUN Creatinine Ratio 25.1 (10-20); C Reactive Protein 1.62 mg/dl (0-0.5); Calcium 8.4 mg/dl (8.5-10.1); Creatinine Clr Calc Pharmacy 25.8 ml/min; Est GFR (African American) 24.5 ml/min; Est GFR (Non-African American) 21.1 ml/min; Potassium 4.8 mmol/L (3.5-5.1)
[2022-06-08] MEDS ORDERED: LANTUS PER UNIT CHARGE SQ SCH (09:00)
[2022-06-08] MEDS: INSULIN ASPART PER UNIT SC SCH ×4 (09:44→21:20)
[2022-06-08] MEDS ORDERED: DEXAMETHASONE SOD INJ 4 MG/ML VIAL ONE (09:48)
[2022-06-08] MEDS: FLECAINIDE ACETATE 100 MG TABLET PO SCH ×2 (09:55→21:23)
[2022-06-08] MEDS: RIVAROXABAN 15 MG TAB PO SCH (09:56)
[2022-06-08] MEDS: METOPROLOL SUCC 50MG EXT REL TAB PO SCH (09:56)
[2022-06-08] MEDS: DOCUSATE SODIUM/SENNA 50/8.6MG TAB PO SCH (09:56)
[2022-06-08] MEDS: FUROSEMIDE 40 MG TAB PO SCH (09:57)
[2022-06-08] MEDS: FLUTICASONE FUROATE 100MCG 14 PUFFS/INHALER INH SCH (09:57)
[2022-06-08] MEDS: UMECLIDINIUM/VILANTEROL 62.5/25MCG 7 PUFFS/INHALER INH SCH (09:57)
[2022-06-08] MEDS: dilTIAZem HCL 180 MG CAPCR PO SCH (09:57)
[2022-06-08] MEDS: dexAMETHasone 6 MG in SYRINGE 0 ML IV SCH ×2 (10:01→21:33)
[2022-06-08] MEDS: ATORVASTATIN 20 MG TAB PO SCH (10:01)
[2022-06-08] MEDS: ACETAMINOPHEN 325 MG TAB PO PRN (10:16)
[2022-06-08] MEDS ORDERED: bisacodyL 10 MG SUPP PR PRN (20:04)
[2022-06-08] MEDS ORDERED: bisacodyL 5 MG TABEC PO ONE (20:04)
--- NOTE | 2022-06-08 20:15 | Hospitalist Progress Note ---
Date of Service June 08, 2022 Assessment & Plan (1) COVID: Plan: Acute on chronic respiratory failure 2/2 COVID pneumonitis. Was desaturating with exertion on his usual 4LNC on admission History of steroid-dependent asthma with additional restriction 2/2 body habitus Patient with chronic restrictive lung disease followed by [place] pulmonology Much improved since admission with IV steroids. Is on baseline O2 of 4LNC at rest, not retested with exertion yet but feels better No further DOMINGUEZ Continue xopenex, Trelegy. Patient on prednisone 5 mg p.o. 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 Creatinine baseline 2.02.4, 2.2 on admission Creatinine up further to 2.6 today [place] [facility] [place] Avoid NSAIDs hold home lasix -watch BMP in AM (4) Restrictive lung disease: Plan: as above (5) Pulmonary hypertension: Plan: CHF with preserved EF does have pitting edema on legs chronically hold lasix for rising green marketer -continue supplemental O2 Pulmonary hypertension group 2 (6) Atrial flutter, paroxysmal: Plan: Paroxysmal atrial flutter/fibrillation No recent symptomatic episodes, is in sinus rhythm here with some SB to the 40-50s at times,asymptomatic Continue flecainide, continue Xarelto Dobutamine stress test 2020 with negative stress echo and negative EKG, normal LV function. 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: Plan: Type II DM Hold home Ozempic/insulin continue basal and bolus insulin based on pharmacy recs while on steroids Pharmacy glycemic consult placed for adjustments in the setting of steroid change (8) Hypertension: Plan: BPs controlled continue home metoprolol, diltiazem lasix on hold (9) Bladder cancer: Plan: History of bladder cancer, status post TURBT 01/2018 Follows with urology as outpatient Further imaging of kidneys deferred due to patient not desiring surgical intervention further, claustrophobia limiting MRI, and CT avoided due to CKD (10) Anemia: Plan: Chronic anemia 2/2 CKD On iron supplement daily. Can switch to every other day as outpatient, generally no therapeutic difference and less constipation. Hemoglobin stable, 10.1 on admission 9.5 on recheck with no signs of bleeding (11) Hip pain: Plan: added on tramadol prn moderate-severe pain chronic Plan DVT prophylaxis: Anticoagulated, continue doac Diet: DM 2, heart healthy Disposition: Medical telemetry-continued stay, awaiting PT eval but OT says home with home health Likely dc to home tomorrow if green marketer improved/stable CODE STATUS:Full Admission and Anticipated Discharge Date Admission Date: June 05, 2022 Subjective Pt feeling much better. Denies SOB, CP. Still no BM and feels very bloated and requesting another laxative or an enema. Is worried that his heart monitor watch is telling him his HR is in the 40s-50s sometimes. Tele with NSR and SB 40-60s Review of Systems Review of Systems: All systems reviewed & are unremarkable except as noted in HPI & below Physical Exam Constitutional: WD/WN, vitals as above + obese Eyes: + anicteric sclerae Neck: trachea midline, no thyromegaly Respiratory: normal respiratory effort; no cough Auscultation: + diminished lung sounds (throughout); no crackles, no rhonchi and no wheezes Cardiovascular: Rate/Rhythm: regular rate and regular rhythm Heart Sounds: no murmur Extremities: + edema (2+ pitting edema bilat legs) Chest (Breasts): Chest: normal inspection of chest Gastrointestinal (Abdomen): normal bowel sounds, soft, nontender, no hepatosplenomegaly Musculoskeletal: Extremities: extremities normal to inspection; no cyanosis and no clubbing Skin: no rashes, warm and dry Neurologic: moves all extremities and awake; no focal motor deficits Psychiatric: A+Ox3, euthymic affect Results & Data Results & Data ([facility]) Vital Signs (Past 12 Hours) Vital Signs Pulse Resp BP Pulse Ox O2 Del Method O2 Flow Rate 06/08/22 16:36 58 L 20 137/65 92 Nasal Cannula 4 06/08/22 12:37 57 L 18 133/69 98 Room Air 4 06/08/22 08:33 56 L 18 134/72 99 Nasal Cannula 4 Laboratory Results 06/08/22 06/08/22 06/08/22 Range/Units 19:03 12:59 09:10 Sodium (136-145) mmol/L Potassium (3.5-5.1) mmol/L Chloride (98-107) mmol/L Carbon Dioxide (21-32) mmol/L Anion Gap (3-11) BUN (6-23) mg/dl Creatinine (0.6-1.4) mg/dl Est Cr Clr Drug Dosing ml/min Est GFR ( Amer) ml/min Est GFR (Non-Af Amer) ml/min BUN/Creatinine Ratio (10-20) Glucose (70-99(Fasting)) mg/dl POC Glucose 169 H 121 H 173 H (70-99) mg/dl Calcium (8.5-10.1) mg/dl C-Reactive Protein (0-0.5) mg/dl 06/08/22 06/07/22 Range/Units 04:40 21:25 Sodium 139 (136-145) mmol/L Potassium 4.8 (3.5-5.1) mmol/L Chloride 98 (98-107) mmol/L Carbon Dioxide 33 H (21-32) mmol/L Anion Gap 8 (3-11) BUN 67 H (6-23) mg/dl Creatinine 2.67 H (0.6-1.4) mg/dl Est Cr Clr Drug Dosing 25.8 ml/min Est GFR ( Amer) 24.5 ml/min Est GFR (Non-Af Amer) 21.1 ml/min BUN/Creatinine Ratio 25.1 H (10-20) Glucose 192 H (70-99(Fasting)) mg/dl POC Glucose 224 H (70-99) mg/dl Calcium 8.4 L (8.5-10.1) mg/dl C-Reactive Protein 1.62 H (0-0.5) mg/dl PG Care Time/CCT Total # of Minutes Spent Total Time Spent with Patient: Total time spent is greater than 50% in coordination of care (as documented) at patient's floor/unit and/or counseling patient: Coding Level of Care Code 22032 Subseq Hosp Care Lvl 3 Diagnoses COVID U07.1 Chronic hypoxemic respiratory failure J96.11 Kidney disease N28.9 Restrictive lung disease J98.4 Pulmonary hypertension I27.20 Atrial flutter, paroxysmal I48.92 Type 2 diabetes mellitus with complications E11.8 Hypertension I10 Hypertension type: essential hypertension Bladder cancer C67.9 Anemia D64.9 Hip pain M25.559 (1) Hypertension Hypertension type: essential hypertension Qualified Code(s): I10 - Essential (primary) hypertension
[2022-06-08] MEDS ORDERED: LANTUS PER UNIT CHARGE SQ ONE (21:00)
[2022-06-09] MEDS: RIVAROXABAN 15 MG TAB PO SCH (08:37)
[2022-06-09] MEDS: METOPROLOL SUCC 50MG EXT REL TAB PO SCH (08:37)
[2022-06-09] MEDS: dexAMETHasone 6 MG in SYRINGE 0 ML IV SCH (08:38)
[2022-06-09] MEDS: dilTIAZem HCL 180 MG CAPCR PO SCH (08:38)
[2022-06-09] MEDS: FLECAINIDE ACETATE 100 MG TABLET PO SCH (08:38)
[2022-06-09] MEDS: ATORVASTATIN 20 MG TAB PO SCH (08:38)
[2022-06-09] MEDS: DOCUSATE SODIUM/SENNA 50/8.6MG TAB PO SCH (08:38)
[2022-06-09] MEDS: FLUTICASONE FUROATE 100MCG 14 PUFFS/INHALER INH SCH (08:39)
[2022-06-09] MEDS: UMECLIDINIUM/VILANTEROL 62.5/25MCG 7 PUFFS/INHALER INH SCH (08:39)
[2022-06-09] MEDS ORDERED: LANTUS PER UNIT CHARGE SQ SCH (09:00)
[2022-06-09 09:01] LABS: BUN Creatinine Ratio 28.4 (10-20); Calcium 8.4 mg/dl (8.5-10.1); Creatinine Clr Calc Pharmacy 26.4 ml/min; Est GFR (African American) 25.2 ml/min; Est GFR (Non-African American) 21.7 ml/min; Potassium 5.1 mmol/L (3.5-5.1)
[2022-06-09] MEDS: INSULIN ASPART PER UNIT SC SCH (09:55)
--- NOTE | 2022-06-09 11:56 | Discharge Summary ---
Date of Service June 09, 2022 Admission HPI Per Admitting Provider Ish Severino isz a 82yo chronically ill male hx afib on Xarelto, RLD followed in [facility] Pulmonology on 3-4L baseline O2 who presents with 7-10 days of worsening shortness of breath on exertion and dry cough with COVID+ test who presents with AoC HRF and weakness. On 4L at rest which is his normal bas 1 day of chills, cough, shotness of breathness worsening overnight. Cough with clear/dark white mucous. No diarrhea or nausea. Appetite good. Winston ewak 'could barely move' today after exertion due to SoB. No chest pain or chest pressure. Had nguyen dinner last night, had [place] fried chicken bowls hommade version. Does not cook with extra salt at home, did not have extra salt in his dinner. Reports he does chronically have left greater than right leg swelling, legs appear normal/"actually pretty good "to him at time of assessment. At time of bedside assessment patient reports he feels 100% normal and not ill, but with exertion he quickly fatigues and becomes more short of breath than normal denies wheezing. Denies lightheadedness/dizziness. also has COVID - Does not know medications by heart well, gave a list to ER when he came in. Did take medications this morning. - Not on dupixent "made me feel terrible and nearly killed me". Taking nucala. Ozempic on Mondays. Medical History: Reviewed Medications: Reviewed Surgical History: Reviewed Allergies: Reviewed Social History: No tobacco, no alochol use. Code Status: Full code, discussed with patient family at bedside Principal Diagnosis COVID-19 pneumonitis, Acute on chronic hypoxic respiratory failure, VIOLA on CKD stage 4 Discharge Exam Constitutional WD/WN, vitals as above + obese Eyes + anicteric sclerae Neck trachea midline, no thyromegaly Respiratory normal respiratory effort; no cough Auscultation: + diminished lung sounds (throughout); no crackles, no rhonchi and no wheezes Cardiovascular Rate/Rhythm: regular rate and regular rhythm Heart Sounds: no murmur Extremities: + edema (1+ pitting edema bilat legs) Chest (Breasts) Chest: normal inspection of chest Gastrointestinal (Abdomen) normal bowel sounds, soft, nontender, no hepatosplenomegaly Musculoskeletal Extremities: extremities normal to inspection; no cyanosis and no clubbing Skin no rashes, warm and dry Neurologic moves all extremities and awake; no focal motor deficits Psychiatric A+Ox3, euthymic affect Discharge Data Allergies Allergy/AdvReac Type Severity Reaction Status Date / Time adhesive Allergy Unknown PLASTIC Verified 05/19/22 11:06 TAPE-SKIN BLISTERS,RASH, IRRITATION latex Allergy Unknown Verified 05/19/22 11:06 sertraline AdvReac Intermediate palpitation Verified 05/19/22 11:06 s Consultations 06/05/22 17:08 ED Decision to Admit Stat Hospital Course (1) COVID: Acute on chronic respiratory failure 2/2 COVID pneumonitis. Was desaturating with exertion on his usual 4LNC on admission History of steroid-dependent asthma with additional restriction 2/2 body habitus Patient with chronic restrictive lung disease followed by [place] pulmonology Much improved since admission with IV steroids. Is on baseline O2 of 4LNC at rest and with exertion, DOMINGUEZ resolved Continue xopenex, Trelegy. Patient on prednisone 5 mg p.o. 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 Creatinine baseline 2.02.4, 2.2 on admission Creatinine up to 2.6 and stable from yesterday holdign lasix again today and restart at lower dose tomrorow at home of 40mg daily check BMP on Mon-Monday with results sent to his [facility] clinic, PCP for review [place] [facility] [place] (4) Restrictive lung disease: as above (5) Pulmonary hypertension: CHF with preserved EF does have pitting edema on legs chronically hold lasix for rising superintendent transmission and restart tomorrow -continue supplemental O2 Pulmonary hypertension group 2 (6) Atrial flutter, paroxysmal: Paroxysmal atrial flutter/fibrillation No recent symptomatic episodes, is in sinus rhythm here with some SB to the 40-60s at times,asymptomatic Continue flecainide, continue Xarelto Dobutamine stress test 2020 with negative stress echo and negative EKG, normal LV function. 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 Can switch to every other day as outpatient, generally no therapeutic difference and less constipation. Hemoglobin stable, 10.1 on admission 9.5 on recheck with no signs of bleeding (11) Hip pain: added on tramadol prn moderate-severe pain chronic Plan DVT prophylaxis: Anticoagulated, continue doac Diet: DM 2, heart healthy Disposition: dc to home with home health today, much improved CODE STATUS:Full Total Time Total Time Spent Total Time Spent (In Minutes): 35 min Discharge Plan Discharge Items Patient Disposition: Home - Home Health Services Reason For Visit: COVID, AOC HRF Discharge Diagnosis: COVID-19, Hypoxia, Acute kidney injury Condition on Discharge: Fair Activity: As commented below Lifting: Gradually increase as tolerated Exercise/Sports: Gradually increase as tolerated Non-emergency contact: Primary Care Provider Call non-emergency contact if: you have any medication questions and your symptoms worsen Follow-up/Referrals: Mario Anaya MD [Primary Care Provider] - (Follow up within 1 week.) Diet: Carb Consistent or DM2 and Low Sodium (2gm) Ambulatory Orders: Basic Metabolic Panel (Routine) Timeframe: 3 Days Location: Determined by Patient Ordered By: Milady Nguyen Addtl Attending Provider Instructions: Please continue on the dexamethasone 6mg daily x 7 more days and then revert back to your usual prednisone dosing each day. Your kidney function is down slightly from your usual. Please reduce your lasix to once daily starting 06/10/22 and have blood work checked at your home with home health to include a basic metabolic panel on Monday or Monday of next week. The results will get sent to Ms. Christa Reese of the CHF clinic for review. Please continue to watch your weight daily and watch for weight gain and worsening swelling with being on a reduced dose of lasix. You will need to continue on your usual 4L of oxygen daily. Pending Studies at Discharge: No Stand-Alone Forms: My [facility] [employer] [employer] Smoking Cessation Medications and DC Order Prescriptions: New dexamethasone 6 mg tablet 6 mg PO DAILY Qty: 7 0RF Continued levalbuterol HCl 0.63 mg/3 mL solution for nebulization 0.63 mg INH Q4H PRN (Reason: shortness of breath or wheezing) Qty: 540 1RF Trelegy Ellipta 100-62.5-25 mcg blister with device 1 inh inhalation DAILY Qty: 3 3RF gabapentin 100 mg capsule 100 - 300 mg PO HS PRN (Reason: restless leg(s)) Qty: 270 0RF Xarelto 15 mg tablet See Rx Instructions .ROUTE .COMPLEX Qty: 90 3RF Dose Instruction: TAKE 1 TABLET DAILY Rx Instructions: TAKE 1 TABLET DAILY alfuzosin 10 mg tablet extended release 24 hr 10 mg PO DAILY Qty: 90 3RF Rx Instructions: Take 1 tablet daily after supper. cyanocobalamin (vitamin B-12) 2,500 mcg tablet 2,500 mcg PO DAILY Qty: 30 8RF lorazepam 0.5 mg tablet 0.5 mg PO DAILY PRN (Reason: anxiety) Qty: 10 0RF metoprolol succinate 100 mg tablet extended release 24 hr 100 mg PO DAILY Qty: 90 3RF diltiazem HCl 180 mg capsule,extended release 24hr 180 mg PO DAILY Qty: 90 3RF atorvastatin 20 mg tablet 20 mg PO DAILY Qty: 90 3RF Ozempic 0.25 mg or 0.5 mg(2 mg/1.5 mL) pen injector 0.5 mg subcut Q7D Qty: 4.5 1RF flecainide 100 mg tablet 100 mg PO Q12H Qty: 180 3RF multivitamin [Daily Multi-Vitamin] tablet 1 tab PO DAILY PreserVision AREDS [id number] capsule 1 cap PO BID omega-3 acid ethyl esters 1 gram capsule 3 cap PO DAILY levalbuterol tartrate [Xopenex HFA] 45 mcg/actuation HFA aerosol inhaler 2 inh INH Q4H PRN (Reason: shortness of breath or wheezing) Qty: 45 3RF cholecalciferol (vitamin D3) 25 mcg (1,000 unit) capsule 1,000 unit PO DAILY Nucala 100 mg/mL auto-injector 100 mg subcut .[id number] ferrous sulfate [FeroSul] 325 mg (65 mg iron) tablet 325 mg PO DAILY prednisone 5 mg tablet 5 mg PO DAILY docusate sodium 100 mg Capsule 200 mg PO DAILY insulin lispro [Humalog KwikPen Insulin] 100 unit/mL insulin pen 22 unit subcut DAILY Rx Instructions: this dose was stated by pt. insulin glargine [Lantus Solostar U-100 Insulin] 100 unit/mL (3 mL) insulin pen 20 unit SQ DAILY Rx Instructions: Per patient Changed furosemide 20 mg tablet 40 mg PO QAM Qty: 90 3RF Discharge Orders: Discharge Order (Routine); Ordered 06/09/22 Ordered By: Milady Nguyen Admission Data Admit Date/Time: 06/05/22 18:02 Attending Provider: Milady Nguyen Admit Provider: Mario Ruiz Primary Care Provider: Mario Anaya Other Providers: Mario Ruiz Coding Level of Care Code D/C DAY MANAGEMENT >30 MINS Diagnoses COVID U07.1 Chronic hypoxemic respiratory failure J96.11 Kidney disease N28.9 Restrictive lung disease J98.4 Pulmonary hypertension I27.20 Atrial flutter, paroxysmal I48.92 Type 2 diabetes mellitus with complications E11.8 Hypertension I10 Hypertension type: essential hypertension Bladder cancer C67.9 Anemia D64.9 Hip pain M25.559
== END 2022-06-09 12:44 | disposition home health service (06) ==
LOC: ED 15:12 → INTOOBSV 18:02 → SUATTDRO 18:02 → EDINP 18:02

== ENCOUNTER 2022-07-09 10:42 | Inpatient (IN) ==
[2022-07-09] MEDS ORDERED: SODIUM CHLORIDE 0.9% 1000ML 500 ML IV ONE (10:52)
--- NOTE | 2022-07-09 10:54 | Emergency Department Note ---
Impression & Plan Pneumonia, Acute and chronic respiratory failure, Ambulatory dysfunction, Acute dehydration ED Provider Note Name: SHERIF QUILES Age: 82 Sex: M Arrives Via: Ambulance Informant: Patient, , EMS ED Provider: Apolinar Guerra MD Chief Complaint: Shortness of breath Impression: As per impression above Medical Decision Makin-year-old gentleman who was hospitalized about 1 month ago for COVID 19 and initially at home was doing well but has progressively worsened over the last few days. He does have a history of COPD and uses 4 to 6 L nasal cannula at all times. He has extensive other medical issues including diabetes, atrial fibrillation, CAD, renal cell carcinoma, CKD amongst others. On arrival patient is quite dyspneic a bit tachycardic and clearly dehydrated appearing. He does not have significant swelling of his legs and his lung exam is not consistent with fluid overload. He does have a bit of wheezing though this does not appear to be a COPD exacerbation either at this time. Initial chest x-ray is unremarkable. Extensive laboratory testing was obtained. Unfortunately the labs took quite some time given the lab chemistry machine failure. Initial work-up reveals mild bump in his chronic kidney disease. Initial glucose is elevated above 300 but bedside checks are coming down to the 230s after some IV hydration. He actually looks much better after fluids. He is however unable to even ambulate across the room without severe shortness of breath and dropping his sats. He was sent to CT for CT scan of the chest without contrast. This did reveal multiple areas of pneumonia throughout the right lung. I suspect he is a post COVID pneumonia versus aspiration. He was given Unasyn IV. He did receive blood cultures and lactic acid earlier today. At this point he is not septic shock or severe sepsis. His sats are doing okay at rest but patient and his note he is unable to even ambulate in the house. His is to the point where she needs to put him in a wheelchair and even just go across the room. He is too short of breath and his oxygen drops too quickly to send home at this point. Hospitalist was consulted for further management. Patient is anticoagulated for his A. fib I feel that he is at risk of PE given the anticoagulated state. At this point is in sinus tachycardia and not A. fib as the cause of his tachycardia. Patient is COVID-positive. He was COVID- positive 1 month ago. I suspect this is a remaining positive rather than a recurrence of COVID at this time Prior Medical Record and Triage/Nursing Notes reviewed by Me Additional history obtained from review of hospital chart including recent hos pitalization and discharge at the end of May Differentials: Pneumonia, CHF, COPD exacerbation, COVID, electrolyte imbalance, ACS, PE, dissection, anemia, amongst many other differentials Vital Signs: reviewed and remarkable for mild tachycardia Interventions: Normal saline bolus 1 L IV, Unasyn 3 g IV Labs:Reviewed and remarkable for mild elevated creatinine, anemia Imagin view chest x-ray interpreted by me mild congestive findings no overt lobar infiltrate, cardiomegaly or other concerning findings EKG: As per my interpretation. Indication shortness of breath. Sinus tachycardia at 107 bpm with a QTC of 472. There is no ectopy nor ischemia. Poor baseline. When compared to EKG of June 05, 2022 there is no significant change. Consults:Dr Nina LOMAX Hospitalist Plan: Disposition:Hospitalization. Condition: fair History of Present Illness:82-year-old male arrives for evaluation of illness. Patient states for the last 4 to 5 days increasing shortness of breath congestion and weakness. Notes the last few days increasing weakness fatigue and hypoxia with ambulation. He does use 4 L nasal cannula at all times due to COPD but states that his breathing is worse than usual. Noted today increasing weakness and increasing heart rate. Heart rate was up to 120 at home. Due to worsening breathing and tachycardia called 911. EMS notes his oxygen saturation was in the low 80s on his typical 4 L. Oxygen did start coming back up as they came into the ER. No medicines prior to arrival. Patient states at rest he feels okay. He denies any increase in his leg swelling in fact his legs are much improved than typical. Denies any productive cough, fevers, chest pain, abdominal pain, back pain, syncope, bloody stools, headache, rashes or other concerning signs or symptoms he is not any recent nausea or vomiting. Patient does note that he has chronic black stools but that he has not noticed any blood in it but he feels this is due to his iron use Past History:See Below Home Medications:See Below Allergies:sertraline, latex, adhesive Vitals:Blood Pressure: 123/65, Pulse 105, RR 27, T 36.8C, O2 95% on RA Physical Exam: GENERAL: Patient is tired appearing and in mild distress. Dehydrated appearing. EYES: No scleral icterus, unremarkable pupils. ENT: Mucous membranes dry, no nasal congestion. RESPIRATORY: Tachypneic with just some mild crackles at bases otherwise clear throughout. CARDIOVASCULAR: Mildly tacky.No murmurs, rubs, gallops appreciated. GASTROINTESTINAL: Abdomen soft, non-tender, no peritonitis.Bowel sounds positive.No masses appreciated. EXTREMITIES: Normal motion all extremities, no cyanosis, trace edema bilaterally. NEUROLOGIC: Alert and oriented, no focal neurologic deficits SKIN: No rash, no jaundice, no diaphoresis. PSYCH: Appropriate GCS: 15 ED Course: Times/Reassessments: Patient's heart rate has come down slightly he is too short of breath even move about bed let alone at home Apolinar Guerra MD Past Med/Surg History Medical History (Updated 07/09/22 @ 15:39 by Apolinar Guerra MD) Acute on chronic renal insufficiency Anemia Bladder cancer Chronic hypoxemic respiratory failure CKD (chronic kidney disease), stage III Family history of transitional cell carcinoma of bladder Hemoptysis Hypertension Mixed restrictive and obstructive lung disease Pulmonary emphysema Renal mass, right Shortness of breath Shortness of breath Vitamin D deficiency Surgical History History of cystoscopy History of surgical removal of lesion History of umbilical hernia repair Family History Son Hodgkins disease Brother Throat cancer Other Diabetes Denies family history of Ovarian cancer Prostate cancer Kidney disease Myocardial infarction Breast cancer Lung cancer Colorectal cancer Stroke Social History Smoking Status: Former smoker Tobacco Type: Cigarettes Age Started Using Tobacco: 15; Age Quit Using Tobacco: 54; packs per day: 2; Second Hand Exposure: No; Hx Alcohol Use: No Hx Substance Use: No Preferred Language: Sinhala Communication Ability: Effective Visual Impairment: Limited Hearing Ability: Use of Hearing Aid Portfolio Specialist Required: No Beliefs That Will Affect Care: None marital status: Current Living Situation: Spouse current occupational status: retired How many Children do You have: 3 Feels Safe at Home: Yes Childhood Exposure to Second-Hand Smoke: No caffeine: No Dental Care, Regularly: No Physical Activity Frequency: Does not Exercise Physical Activity Frequency Comment: due to physical condition Seatbelt Use: sometimes Sunscreen Use: No (not in the sun) Assistive Devices: Oxygen - Continuous and Walker Allergies Allergies Allergy/AdvReac Type Severity Reaction Status Date / Time adhesive Allergy Unknown PLASTIC Verified 05/19/22 11:06 TAPE-SKIN BLISTERS,RASH, IRRITATION latex Allergy Unknown Verified 05/19/22 11:06 sertraline AdvReac Intermediate palpitation Verified 05/19/22 11:06 s Home Meds Home Medications Medication Instructions Recorded Confirmed multivitamin (Daily Multi-Vitamin 1 tab PO DAILY 01/18/19 07/09/22 tablet) vitamins A,C,[id number]-gakl-iwdvdp 14,320 1 cap PO BID 01/18/19 07/09/22 unit-226 mg-200 unit capsule (PreserVision AREDS) cholecalciferol (vitamin D3) 25 1,000 unit PO DAILY 01/27/20 07/09/22 mcg (1,000 unit) capsule omega-3 acid ethyl esters 1 gram 3 cap PO DAILY 12/08/20 07/09/22 capsule prednisone 5 mg tablet 5 mg PO DAILY 10/20/21 07/09/22 ferrous sulfate 325 mg (65 mg 325 mg PO DAILY 04/13/22 07/09/22 iron) tablet (FeroSul) mepolizumab 100 mg/mL subcutaneous 100 mg subcut .[id number] 04/13/22 07/09/22 auto-injector (Nucala) docusate sodium 100 mg capsule 200 mg PO DAILY 06/05/22 07/09/22 insulin lispro 100 unit/mL 22 unit subcut DAILY sliding scale 06/05/22 07/09/22 subcutaneous pen (Humalog KwikPen (U-100) Insulin) Previous Rx's Medication Instructions Recorded fluticasone fur. 100 mcg-umeclid 1 inh inhalation DAILY #3 Inhalers 03/22/21 62.5 mcg-vilant 25 mcg inhalat.powder (Trelegy Ellipta) gabapentin 100 mg capsule 100 - 300 mg PO HS PRN restless 06/25/21 leg(s) #270 caps rivaroxaban 15 mg tablet (Xarelto) See Rx Instructions .Route 07/19/21 .COMPLEX #90 tabs alfuzosin 10 mg tablet,extended 10 mg PO DAILY #90 tabs 10/19/21 release 24 hr cyanocobalamin (vitamin B-12) 2,500 mcg PO DAILY #30 tabs 10/21/21 2,500 mcg tablet atorvastatin 20 mg tablet 20 mg PO DAILY #90 tabs 03/28/22 diltiazem HCl 180 mg 180 mg PO DAILY #90 caps 03/28/22 capsule,extended release 24 hr metoprolol succinate 100 mg 100 mg PO DAILY #90 tabs 03/28/22 tablet,extended release 24 hr semaglutide 0.25 mg or 0.5 mg (2 0.5 mg (0.4 mL) subcut Q7D #4.5 mL 05/02/22 mg/1.5 mL) subcutaneous pen injector (Ozempic) flecainide 100 mg tablet 100 mg PO Q12H #180 tabs 05/17/22 dexamethasone 6 mg tablet 6 mg PO DAILY #7 tabs 06/09/22 furosemide 20 mg tablet 40 mg PO QAM edema #90 tabs 06/09/22 levalbuterol HCl 0.63 mg/3 mL 0.63 mg (3 mL) inhalation Q4H PRN 06/13/22 solution for nebulization shortness of breath or wheezing #540 mL levalbuterol tartrate 45 2 inh inhalation Q4H PRN shortness 06/13/22 mcg/actuation aerosol inhaler of breath or wheezing #45 grams (Xopenex HFA) metolazone 5 mg tablet 5 mg PO DAILY PRN SOB, weight 06/20/22 gain, dyspnea. #30 tabs insulin glargine 100 unit/mL (3 20 unit (0.2 mL) subcut BID #45 mL 06/28/22 mL) subcutaneous pen (Lantus Solostar U-100 Insulin) lorazepam 0.5 mg tablet 0.5 mg PO DAILY PRN anxiety #10 07/04/22 tabs Results & Data (ED) Vital Signs Vital Signs - 24 hr 07/09/22 10:32 07/09/22 12:09 07/09/22 12:35 Temperature 36.8 C Temperature Source Oral Pulse Rate 105 H 105 H Pulse Rate [Right Finger] Pulse Rate from SpO2 Sensor 105 H Pulse Rhythm [Right Finger] Respiratory Rate 25 H 27 H Respiratory Effort / Characteristics Respiratory Depth Respiratory Pattern Blood Pressure 127/72 123/65 Blood Pressure [Right Arm] Blood Pressure Mean 90 84 Blood Pressure Mean [Right Arm] Pulse Oximetry 96 96 95 Oxygen Delivery Method Nasal Cannula Nasal Cannula Oxygen Flow Rate 6 6 4 Sepsis Recent Fever Within 48 Hours No Sepsis New/Unexplained Change in Mental Status No Sepsis Action Taken by Nursing Physician Notified Oxygen Flow Rate - Titration 4 Pulse Oximetry Post Tiitration 94 07/09/22 15:06 Temperature Temperature Source Pulse Rate Pulse Rate [Right Finger] 106 H Pulse Rate from SpO2 Sensor Pulse Rhythm [Right Finger] Regular Respiratory Rate 22 Respiratory Effort / Characteristics SOB on Exertion Respiratory Depth Normal Respiratory Pattern Tachypnea Blood Pressure Blood Pressure [Right Arm] 134/71 Blood Pressure Mean Blood Pressure Mean [Right Arm] 92 Pulse Oximetry 95 Oxygen Delivery Method Nasal Cannula Oxygen Flow Rate 4 Sepsis Recent Fever Within 48 Hours Sepsis New/Unexplained Change in Mental Status Sepsis Action Taken by Nursing Oxygen Flow Rate - Titration Pulse Oximetry Post Tiitration Laboratory Data 07/09/22 11:32 07/09/22 11:32 Lab Results 07/09/22 07/09/22 07/09/22 Range/Units 11:32 11:32 11:32 WBC 6.48 (4.8-10.8) K/ul RBC 2.59 L (4.70-6.10) M/uL Hgb 8.3 L (14.0-18.0) g/dl Hct 26.5 L (42.0-52.0) % MCV 102.3 H (80.0-100.0) fL MCH 32.0 (25.0-34.0) pg MCHC 31.3 L (32.0-36.0) g/dL RDW Std Deviation 47.4 H (36.4-46.3) fL RDW Coeff of Juancarlos 12.7 (11.5-14.5) % Plt Count 251 (130-400) K/uL MPV 10.9 (9.4-12.4) fL Immature Gran % (Auto) 1.5 % Neut % (Auto) 66.8 % Lymph % (Auto) 16.5 % [place] % (Auto) 14.7 % Eos % (Auto) 0.3 % Baso % (Auto) 0.2 % Neut # (Auto) 4.33 (1.40-6.50) K/uL Lymph # (Auto) 1.07 L (1.2-3.4) K/uL [place] # (Auto) 0.95 H (0.11-0.59) K/uL Eos # (Auto) 0.02 (0-0.50) K/uL Baso # (Auto) 0.01 (0-0.2) K/uL Immature Gran # (Auto) 0.10 (0.01-0.20) K/uL PT 13.3 H (9.0-12.0) Seconds INR 1.3 H (0.9-1.1) APTT 39.0 H (21.0-31.0) Seconds PTT Ratio 1.4 Sodium 140 (136-145) mmol/L Potassium 4.0 (3.5-5.1) mmol/L Chloride 98 (98-107) mmol/L Carbon Dioxide 37 H (21-32) mmol/L Anion Gap 5 (3-11) BUN 35 H (6-23) mg/dl Creatinine 2.37 H (0.6-1.4) mg/dl Est Cr Clr Drug Dosing 29.8 ml/min Est GFR ( Amer) 28.3 ml/min Est GFR (Non-Af Amer) 24.4 ml/min BUN/Creatinine Ratio 14.8 (10-20) Glucose 303 H* (70-99(Fasting)) mg/dl Lactate (0.4-2.0) mmol/L Calcium 8.6 (8.5-10.1) mg/dl Magnesium 1.8 (1.7-2.4) mg/dl Total Bilirubin 0.3 (0.2-1.0) mg/dl Direct Bilirubin 0.0 (0-0.2) mg/dl AST 10 L (13-39) U/L ALT 11 (7-52) U/L Alkaline Phosphatase 62 (34-104) U/L Troponin I High Sens 26.0 H (0-20) pg/ml Total Protein 5.5 L (6.0-8.3) gm/dl Albumin 3.0 L (3.4-5.0) gm/dl Procalcitonin (0-0.5) ng/ml SARS-CoV-2 (PCR) (Negative) Influenza Type A (PCR) (Neg) Influenza Type B (PCR) (Neg) RSV (RT-PCR) (Neg) 07/09/22 07/09/22 07/09/22 Range/Units 11:32 11:37 11:40 WBC (4.8-10.8) K/ul RBC (4.70-6.10) M/uL Hgb (14.0-18.0) g/dl Hct (42.0-52.0) % MCV (80.0-100.0) fL MCH (25.0-34.0) pg MCHC (32.0-36.0) g/dL RDW Std Deviation (36.4-46.3) fL RDW Coeff of Juancarlos (11.5-14.5) % Plt Count (130-400) K/uL MPV (9.4-12.4) fL Immature Gran % (Auto) % Neut % (Auto) % Lymph % (Auto) % [place] % (Auto) % Eos % (Auto) % Baso % (Auto) % Neut # (Auto) (1.40-6.50) K/uL Lymph # (Auto) (1.2-3.4) K/uL [place] # (Auto) (0.11-0.59) K/uL Eos # (Auto) (0-0.50) K/uL Baso # (Auto) (0-0.2) K/uL Immature Gran # (Auto) (0.01-0.20) K/uL PT (9.0-12.0) Seconds INR (0.9-1.1) APTT (21.0-31.0) Seconds PTT Ratio Sodium (136-145) mmol/L Potassium (3.5-5.1) mmol/L Chloride (98-107) mmol/L Carbon Dioxide (21-32) mmol/L Anion Gap (3-11) BUN (6-23) mg/dl Creatinine (0.6-1.4) mg/dl Est Cr Clr Drug Dosing ml/min Est GFR ( Amer) ml/min Est GFR (Non-Af Amer) ml/min BUN/Creatinine Ratio (10-20) Glucose (70-99(Fasting)) mg/dl Lactate 1.2 (0.4-2.0) mmol/L Calcium (8.5-10.1) mg/dl Magnesium (1.7-2.4) mg/dl Total Bilirubin (0.2-1.0) mg/dl Direct Bilirubin (0-0.2) mg/dl AST (13-39) U/L ALT (7-52) U/L Alkaline Phosphatase (34-104) U/L Troponin I High Sens (0-20) pg/ml Total Protein (6.0-8.3) gm/dl Albumin (3.4-5.0) gm/dl Procalcitonin 0.14 (0-0.5) ng/ml SARS-CoV-2 (PCR) POSITIVE A* (Negative) Influenza Type A (PCR) Negative (Neg) Influenza Type B (PCR) Negative (Neg) RSV (RT-PCR) Negative (Neg) Administered Medications Discontinued Medications Azithromycin (Azithromycin 250 Mg Tab) 500 mg PO NOW ONE Stop: 07/09/22 14:47 Last Admin: 07/09/22 15:08 Dose: 500 mg Documented By: MT Dexamethasone Sodium Phosphate (DexamethasonePf 10 Mg/Ml Vial) 10 mg IV NOW ONE Stop: 07/09/22 14:34 Last Admin: 07/09/22 15:08 Dose: 10 mg Documented By: MT Sodium Chloride (Nss 1000ml) 500 mls @ 999 mls/hr IV .Q31M ONE Stop: 07/09/22 11:22 Last Infusion: 07/09/22 12:39 Dose: 0 mls/hr Documented By: Admin: 07/09/22 12:06 Dose: 999 mls/hr Documented By: MT Ampicillin Sodium/Sulbactam Sodium 3,000 mg/ Sodium Chloride 108 mls @ 200 mls/hr IV NOW STA; Protocol Stop: 07/09/22 15:03 Last Admin: 07/09/22 15:08 Dose: 200 mls/hr Documented By: MT Lorazepam (Lorazepam 0.5 Mg Tab) 0.5 mg PO NOW STA Stop: 07/09/22 12:32 Last Admin: 07/09/22 12:35 Dose: 0.5 mg Documented By: MT Imaging Data Radiologist's Impression: Chest X-Ray 07/09/22 10:53 XR chest 1V portable HISTORY: shortness of breath COMPARISON: Chest 06/05/2022. FINDINGS: No pneumothorax. No pleural effusion is. The heart remains mildly enlarged. Left basilar scarlike densities remain stable. Slight progression of the interstitial/vascular thickening suggestive of developing congestive change. Emphysema again noted. IMPRESSION: Cardiomegaly with progression of the interstitial/vascular thickening suggestive of developing congestive change. ACT 112: Negative or not required by law. Electronically signed by: Bin Mayfield M.D. 07/09/2022 11:[address] 07/09/22 13:40 CT chest diagnostic wo con CT DOSE: 686.81 mGy.cm HISTORY: Shortness of breath TECHNIQUE: Multiaxial CT images of the chest were performed without contrast. A dose lowering technique was utilized adhering to the principles of ALARA. COMPARISON: Chest CT 08/02/2021. FINDINGS: Mild bronchial wall thickening and moderate emphysema again noted. No pneumothorax. There is a new 5 mm nodule within the left lower lobe on image 193. A few bibasilar linear densities favor subsegmental atelectasis. Patchy groundglass densities within the right upper and lower lobe posteriorly are new from the prior study and could represent a low-grade pneumonitis. No suspicious lytic or blastic osseous lesions. Normal thyroid gland. No mediastinal or hilar lymphadenopathy. The heart is normal in size. The visualized unenhanced liver, spleen, and adrenal glands are unremarkable. Partially visualized large right renal cyst again noted. Normal esophagus. IMPRESSION: 1. Small patchy groundglass densities within the right upper and lower lobe posteriorly which are new from the prior study and may represent a low-grade pneumonitis. 2. Moderate emphysema. 3. A new 5 mm indeterminate pulmonary nodule within the left lower lobe. Please refer to below summary of Fleischner criteria recommendations for follow- up of incidental CT nodules (Jun Harp, Guidelines for management of small pulmonary nodules detected on CT scans: A statement from the Fleischner Society, Radiology 237: [phone].) SOLID NODULES Solitary nodule size: <6 mm * Low risk patients: no follow-up needed * high risk patients: optional CT at 12 months Solitary nodule size: 6-8 mm * Low risk patients: follow-up at 6-12 months, then consider further follow-up at 18-24 months * high risk patients: initial follow-up CT at 6-12 months and then at 18-24 months if no change Solitary nodule size: >8 mm * either low or high risk patients - consider follow-up CT at 3 months, and/or CT-PET, and/or biopsy Multiple nodules size: <6 mm * Low risk patients: no routine follow-up * high risk patients: optional CT at 12 months Multiple nodules size: 6-8 mm * Low risk patients: follow-up at 3-6 months, then consider further follow-up at 18-24 months * high risk patients: follow-up at 3-6 months, then at 18-24 months if no change Multiple nodules size: >8 mm * Low risk patients: follow-up at 3-6 months, then consider further follow-up at 18-24 months * high risk patients: follow-up at 3-6 months, then at 18-24 months if no change Note: newly detected indeterminate nodule in persons 35 years of age or older. * Low risk patients: minimal or absent history of smoking and/or other known risk factors * high risk patients: history of smoking or of other known risk factors (e.g. first degree relative with lung cancer, or exposure to asbestos, radon, uranium) * if a nodule up to 8 mm is partly solid or is ground glass further follow-up is required after 24 months to exclude possible slow growing adenocarcinoma (LEE) SUBSOLID NODULES Solitary pure ground-glass nodule * nodule size <6 mm - no CT follow-up required * nodule size >=6 mm - follow-up CT at 6-12 months, then every 2 years until 5 years Solitary part-solid nodule * nodule size <6 mm - no CT follow-up required * nodule size >=6 mm - follow-up CT at 3-6 months. If unchanged, and solid component remains <6 mm, then annual follow-up for 5 years Multiple subsolid nodules * nodule size <6 mm - follow-up CT at 3-6 months, consider further follow-up at 2 and 4 years if stable * nodule size >=6 mm - follow-up CT at 3-6 months, subsequent management based on the most suspicious nodule(s) ACT 112: Positive. There are findings on this exam that require communication between the performing entity and the patient following Patient Test Result Information Act ([place] Act 112) guidelines. Electronically signed by: Bin Mayfield M.D. 07/09/2022 2:25 PM Discharge Plan Visit Data Chief Complaint: Weakness ED Provider: Apolinar Guerra Discharge Problem: Pneumonia, Acute and chronic respiratory failure, Ambulatory dysfunction, Acute dehydration Forms Stand Alone Forms: [facility] Prescriptions Prescriptions: No Action Trelejeffy Ellipta 100-62.5-25 mcg blister with device 1 inh inhalation DAILY Qty: 3 3RF gabapentin 100 mg capsule 100 - 300 mg PO HS PRN (Reason: restless leg(s)) Qty: 270 0RF Xarelto 15 mg tablet See Rx Instructions .ROUTE .COMPLEX Qty: 90 3RF Dose Instruction: TAKE 1 TABLET DAILY Rx Instructions: TAKE 1 TABLET DAILY alfuzosin 10 mg tablet extended release 24 hr 10 mg PO DAILY Qty: 90 3RF Rx Instructions: Take 1 tablet daily after supper. cyanocobalamin (vitamin B-12) 2,500 mcg tablet 2,500 mcg PO DAILY Qty: 30 8RF metoprolol succinate 100 mg tablet extended release 24 hr 100 mg PO DAILY Qty: 90 3RF diltiazem HCl 180 mg capsule,extended release 24hr 180 mg PO DAILY Qty: 90 3RF atorvastatin 20 mg tablet 20 mg PO DAILY Qty: 90 3RF Ozempic 0.25 mg or 0.5 mg(2 mg/1.5 mL) pen injector 0.5 mg subcut Q7D Qty: 4.5 1RF flecainide 100 mg tablet 100 mg PO Q12H Qty: 180 3RF levalbuterol tartrate [Xopenex HFA] 45 mcg/actuation HFA aerosol inhaler 2 inh INH Q4H PRN (Reason: shortness of breath or wheezing) Qty: 45 3RF levalbuterol HCl 0.63 mg/3 mL solution for nebulization 0.63 mg INH Q4H PRN (Reason: shortness of breath or wheezing) Qty: 540 1RF metolazone 5 mg tablet 5 mg PO DAILY PRN (Reason: SOB, weight gain, dyspnea.) Qty: 30 0RF Rx Instructions: Take as directed by the heart failure program. insulin glargine [Lantus Solostar U-100 Insulin] 100 unit/mL (3 mL) insulin pen 20 unit SQ BID Qty: 45 3RF Rx Instructions: Per patient lorazepam 0.5 mg tablet 0.5 mg PO DAILY PRN (Reason: anxiety) Qty: 10 0RF multivitamin [Daily Multi-Vitamin] tablet 1 tab PO DAILY PreserVision AREDS [id number] [id number] capsule 1 cap PO BID omega-3 acid ethyl esters 1 gram capsule 3 cap PO DAILY cholecalciferol (vitamin D3) 25 mcg (1,000 unit) capsule 1,000 unit PO DAILY Nucala 100 mg/mL auto-injector 100 mg subcut .[id number] ferrous sulfate [FeroSul] 325 mg (65 mg iron) tablet 325 mg PO DAILY prednisone 5 mg tablet 5 mg PO DAILY docusate sodium 100 mg Capsule 200 mg PO DAILY insulin lispro [Humalog KwikPen Insulin] 100 unit/mL insulin pen 22 unit subcut DAILY Rx Instructions: this dose was stated by pt. dexamethasone 6 mg tablet 6 mg PO DAILY Qty: 7 0RF furosemide 20 mg tablet 40 mg PO QAM Qty: 90 3RF Referrals Referrals: Mario Anaya MD [Primary Care Provider] - : Pneumonia Qualifiers: Pneumonia type: due to unspecified organism Laterality: right Lung location: upper lobe of lung Qualified Code(s): J18.9 - Pneumonia, unspecified organism Acute and chronic respiratory failure Qualifiers: Respiratory failure complication: hypoxia Qualified Code(s): J96.21 - Acute and chronic respiratory failure with hypoxia
--- NOTE | 2022-07-09 11:17 | XRay Report ---
XR chest 1V portable HISTORY: shortness of breath COMPARISON: Chest 06/05/2022. FINDINGS: No pneumothorax. No pleural effusion is. The heart remains mildly enlarged. Left basilar sc arlike densities remain stable. Slight progression of the interstitial/vascular thickening suggestive of developing congestive change. Emphysema again noted. IMPRESSION: Cardiomegaly with progression of the interstitial/vascular thickening suggestive of developing conges tive change. ACT 112: Negative or not required by law. Electronically signed by: Bin Mayfield M.D. 07/09/2022 11:16 AM
[2022-07-09 12:00] LABS: Basophils # (auto) 0.01 K/uL (0-0.2); Basophils % (auto) 0.2 %; Eosinophils # (auto) 0.02 K/uL (0-0.50); Eosinophils % (auto) 0.3 %; Hematocrit (blood only) 26.5 % (42.0-52.0); Hemoglobin 8.3 g/dl (14.0-18.0); Immature Granulocytes % (auto) 1.5 %; Lymphocytes # (auto) 1.07 K/uL (1.2-3.4); Lymphocytes % (auto) 16.5 %; Mean Corpuscular Hgb Conc 31.3 g/dL (32.0-36.0); Mean Corpuscular Volume 102.3 fL (80.0-100.0); Mean Platelet Volume 10.9 fL (9.4-12.4); Monocytes # (auto) 0.95 K/uL (0.11-0.59); Monocytes % (auto) 14.7 %; Neutrophils # (auto) 4.33 K/uL (1.40-6.50); Neutrophils % (auto) 66.8 %; Platelet Count 251 K/uL (130-400); RDW Coefficient of Variation 12.7 % (11.5-14.5); RDW Standard Deviation 47.4 fL (36.4-46.3); Red Blood Count 2.59 M/uL (4.70-6.10); White Blood Count 6.48 K/ul (4.8-10.8)
[2022-07-09 12:22] LABS: INR 1.3 (0.9-1.1); Partial Thromboplastin Ratio 1.4; Prothrombin Time 13.3 Seconds (9.0-12.0)
[2022-07-09] MEDS ORDERED: LORazepam 0.5 MG TAB PO STA (12:31)
[2022-07-09 12:57] LABS: Influenza A virus by PCR Negative (Neg); Influenza B virus by PCR Negative (Neg); RSV by PCR Negative (Neg)
[2022-07-09 13:00] LABS: SARS CoV2 RNA(COVID-19) Ceph POSITIVE (Negative)
[2022-07-09 13:02] LABS: Bilirubin,Total 0.3 mg/dl (0.2-1.0); Calcium 8.6 mg/dl (8.5-10.1); Magnesium 1.8 mg/dl (1.7-2.4)
[2022-07-09 13:18] LABS: BUN Creatinine Ratio 14.8 (10-20); Creatinine Clr Calc Pharmacy 29.8 ml/min; Est GFR (African American) 28.3 ml/min; Est GFR (Non-African American) 24.4 ml/min; Total Protein 5.5 gm/dl (6.0-8.3)
--- NOTE | 2022-07-09 14:27 | CT Scan Report ---
CT chest diagnostic wo con CT DOSE: 686.81 mGy.cm HISTORY: Shortness of breath TECHNIQUE: Multiaxial CT images of the chest were performed without contrast. A dose lowering techni que was utilized adhering to the principles of ALARA. COMPARISON: Chest CT 08/02/2021. FINDINGS: Mild bronchial wall thickening and moderate emphysema again noted. No pneumothorax. There i s a new 5 mm nodule within the left lower lobe on image 193. A few bibasilar linear densities favor s ubsegmental atelectasis. Patchy groundglass densities within the right upper and lower lobe posterior ly are new from the prior study and could represent a low-grade pneumonitis. No suspicious lytic or b lastic osseous lesions. Normal thyroid gland. No mediastinal or hilar lymphadenopathy. The heart is n ormal in size. The visualized unenhanced liver, spleen, and adrenal glands are unremarkable. Partiall y visualized large right renal cyst again noted. Normal esophagus. IMPRESSION: 1. Small patchy groundglass densities within the right upper and lower lobe posteriorly which are new from the prior study and may represent a low-grade pneumonitis. 2. Moderate emphysema. 3. A new 5 mm indeterminate pulmonary nodule within the left lower lobe. Please refer to below summary of Fleischner criteria recommendations for follow-up of incidental CT n odules (Jun Harp, Guidelines for management of small pulmonary nodules detected on CT scans: A sta tement from the Fleischner Society, Radiology 237: [phone].) SOLID NODULES Solitary nodule size: <6 mm * Low risk patients: no follow-up needed * high risk patients: optional CT at 12 months Solitary nodule size: 6-8 mm * Low risk patients: follow-up at 6-12 months, then consider further follow-up at 18-24 months * high risk patients: initial follow-up CT at 6-12 months and then at 18-24 months if no change Solitary nodule size: >8 mm * either low or high risk patients - consider follow-up CT at 3 months, and/or CT-PET, and/or biopsy Multiple nodules size: <6 mm * Low risk patients: no routine follow-up * high risk patients: optional CT at 12 months Multiple nodules size: 6-8 mm * Low risk patients: follow-up at 3-6 months, then consider further follow-up at 18-24 months * high risk patients: follow-up at 3-6 months, then at 18-24 months if no change Multiple nodules size: >8 mm * Low risk patients: follow-up at 3-6 months, then consider further follow-up at 18-24 months * high risk patients: follow-up at 3-6 months, then at 18-24 months if no change Note: newly detected indeterminate nodule in persons 35 years of age or older. * Low risk patients: minimal or absent history of smoking and/or other known risk factors * high risk patients: history of smoking or of other known risk factors (e.g. first degree relative with lung cancer, or exposure to asbestos, radon, uranium) * if a nodule up to 8 mm is partly solid or is ground glass further follow-up is required after 24 m onths to exclude possible slow growing adenocarcinoma (LEE) SUBSOLID NODULES Solitary pure ground-glass nodule * nodule size <6 mm - no CT follow-up required * nodule size >=6 mm - follow-up CT at 6-12 months, then every 2 years until 5 years Solitary part-solid nodule * nodule size <6 mm - no CT follow-up required * nodule size >=6 mm - follow-up CT at 3-6 months. If unchanged, and solid component remains <6 mm, then annual follow-up for 5 years Multiple subsolid nodules * nodule size <6 mm - follow-up CT at 3-6 months, consider further follow-up at 2 and 4 years if sta ble * nodule size >=6 mm - follow-up CT at 3-6 months, subsequent management based on the most suspiciou s nodule(s) ACT 112: Positive. There are findings on this exam that require communication between the performing entity and the patient following Patient Test Result Information Act ([place] Act 112) guidelines. Electronically signed by: Bin Mayfield M.D. 07/09/2022 2:25 PM
[2022-07-09] MEDS ORDERED: AMPICILLIN/SULBACTAM SOD 3,000 MG in 0.9 % SODIUM CHLORIDE 100 ML IV STA (14:31)
[2022-07-09] MEDS ORDERED: dexAMETHasone**PF** 10 MG/ML VIAL IV ONE (14:33)
[2022-07-09] MEDS ORDERED: AZITHROMYCIN 250 MG TAB PO ONE (14:46)
--- NOTE | 2022-07-09 15:07 | History & Physical Report ---
Date of Service July 09, 2022 Assessment & Plan (1) Pneumonia: Plan: SARS-CoV-2 positive however suspect lingering positive test from previous infection rather than new acute infection given lack of new acute symptoms Procalcitonin negative however some consolidation on CT chest and worsening hypoxia therefore will treat with Unasyn and azithromycin (2) Asthma exacerbation: Plan: Emphysematous changes on CT Previous improvement on prednisone therefore will retreat with Solu-medrol 40mg IV BID and levalbuterol/ipratropium nebs QID Pt takes chronic prednisone, mepolizumab (3) Acute and chronic respiratory failure: Plan: Aim O2 sats 88-92% Given tachycardia and increased oxygen requirement with recent COVID infection will get CT for PE despite CKD and Xarelto (4) Pulmonary hypertension: (5) Type 2 diabetes mellitus, with long-term current use of insulin: Plan: HbA1C 5.6 in May Continue Ozempic if able to bring in on Monday Continue Lantus 20 units BID Switch Humalog to Novolog: --Goal BSG Range: Low 110_mg/dL, High 140_mg/dL --Correction Factor: 10 mg/dL/unit --Carbohydrate ratio = 3 g/unit --BSGs ACHS if eating, q6h if npo (6) Hypertension: Plan: Continue furosemide (will switch to IV for some extra diuresis) Continue metoprolol and diltiazem home dosing (7) Chronic kidney disease, stage IV (severe): Plan: Continue to monitor BMP with Lasix 40mg IV (8) Atrial flutter, paroxysmal: Plan: Continue anticoagulation with Xarelto Continue rhythm control with flecainide. Continue rate control with diltiazem and metorpolol (9) Vitamin B12 deficiency: Plan: Continue vitamin B-12 supplementation (10) Ambulatory dysfunction: Plan: PT/OT Plan VTE Prophylaxis - Xarelto Diet - low Na, T2DM Disposition - admit to med/surg Admission and Anticipated Discharge Date Admission Date: July 09, 2022 History of Present Illness Chief Complaint: Shortness of breath and weakness Primary Care Provider: Mario Anaya MD Ish Severino is an 82 year old male who presents to the ER with increasing weakness over the last 3 days. He was diagnosed with COVID-19 in May and hospitalized from 06/05 - 06/09. He reports never fully recovering since then but was ambulatory on discharge and was discharged home. Due to ongoing shortness of breath he was given prednisone and doxycycline course for 5 days on June 21 with some improvement but since stopping the steroids has been on a progressive decline with worsening hypoxia on exertion and increased heart rate. The last 3 days his has had to place him in a wheelchair around the house given his worsening ambulatory dysfunction. He denies any fever, chills, chest pain, sore throat, sinus pain, abdominal pain or diarrhea. Allergies Allergy/AdvReac Type Severity Reaction Status Date / Time adhesive Allergy Unknown PLASTIC Verified 05/19/22 11:06 TAPE-SKIN BLISTERS,RASH, IRRITATION latex Allergy Unknown Verified 05/19/22 11:06 sertraline AdvReac Intermediate palpitation Verified 05/19/22 11:06 s Home Medications Medication Instructions Recorded Confirmed Type multivitamin (Daily Multi-Vitamin 1 tab PO DAILY 01/18/19 07/09/22 History tablet) vitamins A,C,[id number] 14,320 1 cap PO BID 01/18/19 07/09/22 History unit-226 mg-200 unit capsule (PreserVision AREDS) cholecalciferol (vitamin D3) 25 1,000 unit PO DAILY 01/27/20 07/09/22 History mcg (1,000 unit) capsule omega-3 acid ethyl esters 1 gram 3 cap PO DAILY 12/08/20 07/09/22 History capsule fluticasone fur. 100 mcg-umeclid 1 inh inhalation DAILY #3 Inhalers 03/22/21 07/09/22 Rx 62.5 mcg-vilant 25 mcg inhalat.powder (Trelegy Ellipta) gabapentin 100 mg capsule 100 - 300 mg PO HS PRN restless 06/25/21 07/09/22 Rx leg(s) #270 caps rivaroxaban 15 mg tablet (Xarelto) See Rx Instructions .Route 07/19/21 07/09/22 Rx .COMPLEX #90 tabs alfuzosin 10 mg tablet,extended 10 mg PO DAILY #90 tabs 10/19/21 07/09/22 Rx release 24 hr prednisone 5 mg tablet 5 mg PO DAILY 10/20/21 07/09/22 History cyanocobalamin (vitamin B-12) 2,500 mcg PO DAILY #30 tabs 10/21/21 07/09/22 Rx 2,500 mcg tablet atorvastatin 20 mg tablet 20 mg PO DAILY #90 tabs 03/28/22 07/09/22 Rx diltiazem HCl 180 mg 180 mg PO DAILY #90 caps 03/28/22 07/09/22 Rx capsule,extended release 24 hr metoprolol succinate 100 mg 100 mg PO DAILY #90 tabs 03/28/22 07/09/22 Rx tablet,extended release 24 hr ferrous sulfate 325 mg (65 mg 325 mg PO DAILY 04/13/22 07/09/22 History iron) tablet (FeroSul) mepolizumab 100 mg/mL subcutaneous 100 mg subcut .[id number] 04/13/22 07/09/22 History auto-injector (Nucala) semaglutide 0.25 mg or 0.5 mg (2 0.5 mg (0.4 mL) subcut Q7D #4.5 mL 05/02/22 07/09/22 Rx mg/1.5 mL) subcutaneous pen injector (Ozempic) flecainide 100 mg tablet 100 mg PO Q12H #180 tabs 05/17/22 07/09/22 Rx docusate sodium 100 mg capsule 200 mg PO DAILY 06/05/22 07/09/22 History insulin lispro 100 unit/mL 22 unit subcut DAILY sliding scale 06/05/22 07/09/22 History subcutaneous pen (Humalog KwikPen (U-100) Insulin) dexamethasone 6 mg tablet 6 mg PO DAILY #7 tabs 06/09/22 07/09/22 Rx furosemide 20 mg tablet 40 mg PO QAM edema #90 tabs 06/09/22 07/09/22 Rx levalbuterol HCl 0.63 mg/3 mL 0.63 mg (3 mL) inhalation Q4H PRN 06/13/22 0 07/09/22 Rx solution for nebulization shortness of breath or wheezing #540 mL levalbuterol tartrate 45 2 inh inhalation Q4H PRN shortness 06/13/22 07/09/22 Rx mcg/actuation aerosol inhaler of breath or wheezing #45 grams (Xopenex HFA) metolazone 5 mg tablet 5 mg PO DAILY PRN SOB, weight 06/20/22 07/09/22 Rx gain, dyspnea. #30 tabs insulin glargine 100 unit/mL (3 20 unit (0.2 mL) subcut BID #45 mL 06/28/22 07/09/22 Rx mL) subcutaneous pen (Lantus Solostar U-100 Insulin) lorazepam 0.5 mg tablet 0.5 mg PO DAILY PRN anxiety #10 07/04/22 07/09/22 Rx tabs food supplemt, lactose-reduced 1 ea PO BID 07/09/22 07/09/22 History Past Med/Surg History Medical History (Updated 07/10/22 @ 03:13 by Gerard Wood MD) Acute on chronic renal insufficiency Anemia Bladder cancer Chronic hypoxemic respiratory failure CKD (chronic kidney disease), stage III Family history of transitional cell carcinoma of bladder Hemoptysis Hypertension Mixed restrictive and obstructive lung disease Pulmonary emphysema Renal mass, right Shortness of breath Shortness of breath Vitamin D deficiency Surgical History History of cystoscopy History of surgical removal of lesion History of umbilical hernia repair Family History Son Hodgkins disease Brother Throat cancer Other Diabetes Denies family history of Ovarian cancer Prostate cancer Kidney disease Myocardial infarction Breast cancer Lung cancer Colorectal cancer Stroke Social History Smoking Status: Former smoker Tobacco Type: Cigarettes Age Started Using Tobacco: 15; Age Quit Using Tobacco: 54; packs per day: 2; Second Hand Exposure: No; Hx Alcohol Use: No Hx Substance Use: No Preferred Language: Romansh Communication Ability: Effective Visual Impairment: Limited Hearing Ability: Use of Hearing Aid Log Chain Worker Required: No Beliefs That Will Affect Care: None marital status: Current Living Situation: Family current occupational status: retired How many Children do You have: 3 Other Information That Helps Us Care for You: No Feels Safe at Home: Yes Safety Concerns: Feels Safe At This Time Childhood Exposure to Second-Hand Smoke: No caffeine: No Dental Care, Regularly: No Physical Activity Frequency: Does not Exercise Physical Activity Frequency Comment: due to physical condition Seatbelt Use: sometimes Sunscreen Use: No (not in the sun) Assistive Devices: Oxygen - Continuous and Walker Review of Systems Review of Systems: All systems reviewed & are unremarkable except as noted in HPI & below Physical Exam Constitutional: well developed and + acute distress (respiratory); + not well nourished Eyes: + anicteric sclerae; normal pupil size Respiratory: normal respiratory effort, + labored breathing, + uses accessory muscles, able to speak in complete sentences and + prolonged expiratory phase Auscultation: + diminished lung sounds (throughout); no crackles, no rales and no wheezes Cardiovascular: Rate/Rhythm: regular rate and regular rhythm Heart Sounds: no murmur Extremities: normal capillary refill and + pedal edema (1+ b/l pitting edema); no calf tenderness Gastrointestinal (Abdomen): Inspection/Auscultation: + abdomen distended Percussion/Palpation: abdomen soft; abdomen nontender Musculoskeletal: no cyanosis or clubbing, extremities motor strength 5/5 Skin: no rashes, warm and dry Neurologic: moves all extremities and awake; not confused Psychiatric: A+Ox3, euthymic affect Results & Data Results & Data ([facility]) Vital Signs (Past 12 Hours) Vital Signs Temp Pulse Resp BP Pulse Ox O2 Del Method O2 Flow Rate 07/09/22 12:35 105 H 27 H 123/65 95 4 07/09/22 12:09 96 Nasal Cannula 6 07/09/22 10:32 36.8 C 105 H 25 H 127/72 96 Nasal Cannula 6 Laboratory Results Abnormal lab results 07/09/22 07/09/22 07/09/22 Range/Units 11:32 11:32 11:32 RBC 2.59 L (4.70-6.10) M/uL Hgb 8.3 L (14.0-18.0) g/dl Hct 26.5 L (42.0-52.0) % MCV 102.3 H (80.0-100.0) fL MCHC 31.3 L (32.0-36.0) g/dL RDW Std Deviation 47.4 H (36.4-46.3) fL Lymph # (Auto) 1.07 L (1.2-3.4) K/uL [place] # (Auto) 0.95 H (0.11-0.59) K/uL PT 13.3 H (9.0-12.0) Seconds INR 1.3 H (0.9-1.1) APTT 39.0 H (21.0-31.0) Seconds Carbon Dioxide 37 H (21-32) mmol/L BUN 35 H (6-23) mg/dl Creatinine 2.37 H (0.6-1.4) mg/dl Glucose 303 H* (70-99(Fasting)) mg/dl POC Glucose (70-99) mg/dl AST 10 L (13-39) U/L Troponin I High Sens 26.0 H (0-20) pg/ml C-Reactive Protein (0-0.5) mg/dl Total Protein 5.5 L (6.0-8.3) gm/dl Albumin 3.0 L (3.4-5.0) gm/dl SARS-CoV-2 (PCR) (Negative) 07/09/22 07/09/22 07/09/22 Range/Units 11:32 11:40 17:52 RBC (4.70-6.10) M/uL Hgb (14.0-18.0) g/dl Hct (42.0-52.0) % MCV (80.0-100.0) fL MCHC (32.0-36.0) g/dL RDW Std Deviation (36.4-46.3) fL Lymph # (Auto) (1.2-3.4) K/uL [place] # (Auto) (0.11-0.59) K/uL PT (9.0-12.0) Seconds INR (0.9-1.1) APTT (21.0-31.0) Seconds Carbon Dioxide (21-32) mmol/L BUN (6-23) mg/dl Creatinine (0.6-1.4) mg/dl Glucose (70-99(Fasting)) mg/dl POC Glucose 328 H* (70-99) mg/dl AST (13-39) U/L Troponin I High Sens (0-20) pg/ml C-Reactive Protein 8.49 H (0-0.5) mg/dl Total Protein (6.0-8.3) gm/dl Albumin (3.4-5.0) gm/dl SARS-CoV-2 (PCR) POSITIVE A* (Negative) 07/09/22 07/09/22 07/09/22 Range/Units 20:58 21:00 23:57 RBC (4.70-6.10) M/uL Hgb (14.0-18.0) g/dl Hct (42.0-52.0) % MCV (80.0-100.0) fL MCHC (32.0-36.0) g/dL RDW Std Deviation (36.4-46.3) fL Lymph # (Auto) (1.2-3.4) K/uL [place] # (Auto) (0.11-0.59) K/uL PT (9.0-12.0) Seconds INR (0.9-1.1) APTT (21.0-31.0) Seconds Carbon Dioxide (21-32) mmol/L BUN (6-23) mg/dl Creatinine (0.6-1.4) mg/dl Glucose (70-99(Fasting)) mg/dl POC Glucose 352 H* 345 H* 320 H* (70-99) mg/dl AST (13-39) U/L Troponin I High Sens (0-20) pg/ml C-Reactive Protein (0-0.5) mg/dl Total Protein (6.0-8.3) gm/dl Albumin (3.4-5.0) gm/dl SARS-CoV-2 (PCR) (Negative) Diagnostic Findings XR chest 1V portable HISTORY: shortness of breath COMPARISON: Chest 06/05/2022. FINDINGS: No pneumothorax. No pleural effusion is. The heart remains mildly enlarged. Left basilar scarlike densities remain stable. Slight progression of the interstitial/vascular thickening suggestive of developing congestive change. Emphysema again noted. IMPRESSION: Cardiomegaly with progression of the interstitial/vascular thickening suggestive of developing congestive change. CT chest diagnostic wo con CT DOSE: 686.81 mGy.cm HISTORY: Shortness of breath TECHNIQUE: Multiaxial CT images of the chest were performed without contrast. A dose lowering technique was utilized adhering to the principles of ALARA. COMPARISON: Chest CT 08/02/2021. FINDINGS: Mild bronchial wall thickening and moderate emphysema again noted. No pneumothorax. There is a new 5 mm nodule within the left lower lobe on image 193. A few bibasilar linear densities favor subsegmental atelectasis. Patchy groundglass densities within the right upper and lower lobe posteriorly are new from the prior study and could represent a low-grade pneumonitis. No suspicious lytic or blastic osseous lesions. Normal thyroid gland. No mediastinal or hilar lymphadenopathy. The heart is normal in size. The visualized unenhanced liver, spleen, and adrenal glands are unremarkable. Partially visualized large right renal cyst again noted. Normal esophagus. IMPRESSION: 1. Small patchy groundglass densities within the right upper and lower lobe posteriorly which are new from the prior study and may represent a low-grade pneumonitis. 2. Moderate emphysema. 3. A new 5 mm indeterminate pulmonary nodule within the left lower lobe. Medications Administered ER Medications Given: NSS 500ml bolus Lorazepam 0.5mg PO Unasyn 3g IV Dexamethasone 10mg IV ECG Indication: SOB/dyspnea Rate (beats per minute): 107 Rhythm: sinus tachycardia Findings: + left axis deviation Comparison ECG Date: from (jun 05, 2022) Change: no significant change Code Status & VTE Plan Code Status DNR/DNI VTE Prophylaxis Plan VTE Prophylaxis will be ordered: Yes PG Care Time/CCT Total # of Minutes Spent Total Time Spent with Patient: Total time spent is greater than 50% in coordination of care (as documented) at patient's floor/unit and/or counseling patient: Coding Level of Care Code 74401 INT INP/OBS CARE 2/55MIN Diagnoses Pneumonia J18.9 Laterality: right Lung location: upper lobe of lung Pneumonia type: due to unspecified organism Asthma exacerbation J45.901 Acute and chronic respiratory failure J96.21 Respiratory failure complication: hypoxia Pulmonary hypertension I27.20 Type 2 diabetes mellitus, with long-term current use of insulin E11.9; Z79.4 Hypertension I10 Hypertension type: essential hypertension Chronic kidney disease, stage IV (severe) N18.4 Atrial flutter, paroxysmal I48.92 Vitamin B12 deficiency E53.8 Ambulatory dysfunction R26.2 (1) Acute and chronic respiratory failure Respiratory failure complication: hypoxia Qualified Code(s): J96.21 - Acute and chronic respiratory failure with hypoxia (2) Hypertension Hypertension type: essential hypertension Qualified Code(s): I10 - Essential (primary) hypertension (3) Pneumonia Laterality: right Lung location: upper lobe of lung Pneumonia type: due to unspecified organism Qualified Code(s): J18.9 - Pneumonia, unspecified organism
[2022-07-09] MEDS ORDERED: METOPROLOL SUCC 50MG EXT REL TAB PO STA (16:02)
[2022-07-09] MEDS ORDERED: ALBUT/IPRATROP 3MG/0.5MG NEB 3 ML VIAL NEB STA (16:04)
[2022-07-09] MEDS ORDERED: FLECAINIDE ACETATE 100 MG TABLET PO STA (16:10)
[2022-07-09] MEDS ORDERED: dilTIAZem HCL 180 MG CAPCR PO STA (16:12)
[2022-07-09] MEDS ORDERED: OPTIRAY 320 500ml IV ONE (16:15)
--- NOTE | 2022-07-09 16:28 | CT Scan Report ---
CT ANGIOGRAPHY OF THE CHEST, PULMONARY EMBOLUS PROTOCOL CLINICAL HISTORY: Shortness of breath. Evaluate for pulmonary embolus. COMPARISON STUDY: Chest CT and chest radiograph performed earlier today. Chest CT August 02, 2021. TECHNIQUE: Following IV administration of 98 mL of Optiray, helical axial images of the chest were ob tained utilizing the pulmonary embolus protocol. Maximal intensity projections and sagittal and gemma nal reformats were viewed on an independent 3D workstation. IV contrast was administered without com plication. Automated exposure control was utilized for the study. A dose lowering technique was uti lized adhering to the principles of ALARA. CT DOSE: 724.88 mGy.cm FINDINGS: No pulmonary emboli are identified. There is no thoracic aortic dissection. Mild cardiomeg janiya and moderate coronary artery calcification is present. There is no pneumothorax or pleural effusi on. Moderate emphysema. Patchy subpleural opacities within the right lung are noted. These favor an i nfectious process. 5 mm left lower lobe nodule on axial image 66 of 248 is new since chest CT of Febr 2021. No fractures within the bony thorax. A right renal cyst is partially imaged on this ex am. A mildly enlarged subcarinal lymph node measures 1 cm in short axis diameter. This is noted on ax ial image 110 of 248. This is increased in size since CT of August 02, 2021. IMPRESSION: 1. No pulmonary emboli identified. 2. Patchy subpleural right lung opacities which favor an infectious process. 3. Mildly enlarged subcarinal lymph node. This may be reactive. Follow-up chest CT in 6 months to ens ure resolution is recommended. 4. 5 mm left lower lobe nodule which is new since CT of August 02, 2021. This can be assessed on fo llow-up CT. ACT 112: Negative or not required by law. Electronically signed by: Hawk Rodriguez M.D. 07/09/2022 4:26 PM
[2022-07-09] MEDS ORDERED: DEXTROSE 50% 50 ML SYRINGE IV PRN (17:11)
[2022-07-09] MEDS ORDERED: GLUCOSE 40% GEL 15 GM TUBE PO PRN (17:11)
[2022-07-09] MEDS ORDERED: CARBOHYDRATES FOR HYPOGLYCEMIA PO PRN (17:11)
[2022-07-09] MEDS ORDERED: GLUCOSE 10 TAB/TUBE PO PRN (17:11)
[2022-07-09] MEDS ORDERED: PHARMACY GLYCEMIC MGMT CONSULT PRN (17:11)
[2022-07-09] MEDS ORDERED: GLUCAGON FOR INJ 1 MG VIAL SQ PRN (17:11)
[2022-07-09] MEDS ORDERED: LORazepam 0.5 MG TAB PO PRN (17:54)
[2022-07-09] MEDS ORDERED: ACETAMINOPHEN 325 MG TAB PO PRN (17:54)
[2022-07-09] MEDS: INSULIN ASPART PER UNIT SC SCH ×2 (18:29→21:10)
[2022-07-09] MEDS: RIVAROXABAN 15 MG TAB PO SCH (18:41)
[2022-07-09] MEDS: IPRATROPIUM BROMIDE NEB SOLN 0.02% 2.5 ML VIAL INH SCH (19:42)
[2022-07-09] MEDS: LEVALBUTEROL HCL 0.63 MG/3 ML NEB NEB SCH (19:43)
[2022-07-09] MEDS ORDERED: LANTUS PER UNIT CHARGE SQ ONE (20:00)
[2022-07-09] MEDS ORDERED: LANTUS PER UNIT CHARGE SQ SCH (21:00)
[2022-07-09] MEDS ORDERED: XOPENEX/ATROVENT 0.63mg/0.5MG NEB COMBO NEB SCH (21:00)
[2022-07-09] MEDS ORDERED: INSULIN ASPART PER UNIT SC SCH (21:00)
[2022-07-09] MEDS ORDERED: NON-FORMULARY MEDICATION (Vitamins A,C,E-Zinc-Copper [Preservision Areds] 14,320-226-200 u PO SCH (21:00)
[2022-07-09] MEDS: FLECAINIDE ACETATE 100 MG TABLET PO SCH (21:13)
[2022-07-09] MEDS: GABAPENTIN 100 MG CAP PO PRN (21:47)
[2022-07-10] MEDS: INSULIN ASPART PER UNIT SC SCH ×6 (00:06→20:56)
[2022-07-10] MEDS: AMPICILLIN/SULBACTAM SOD 3,000 MG in 0.9 % SODIUM CHLORIDE 100 ML IV SCH ×3 (04:15→19:41)
[2022-07-10] MEDS: IPRATROPIUM BROMIDE NEB SOLN 0.02% 2.5 ML VIAL INH SCH ×5 (06:07→19:52)
[2022-07-10] MEDS: LEVALBUTEROL HCL 0.63 MG/3 ML NEB NEB SCH ×5 (06:07→19:51)
[2022-07-10 07:03] LABS: Basophils # (auto) 0.01 K/uL (0-0.2); Basophils % (auto) 0.1 %; Hematocrit (blood only) 25.2 % (42.0-52.0); Hemoglobin 8.1 g/dl (14.0-18.0); Immature Granulocytes % (auto) 1.5 %; Lymphocytes # (auto) 0.81 K/uL (1.2-3.4); Mean Corpuscular Hemoglobin 32.3 pg (25.0-34.0); Mean Corpuscular Hgb Conc 32.1 g/dL (32.0-36.0); Mean Corpuscular Volume 100.4 fL (80.0-100.0); Mean Platelet Volume 10.9 fL (9.4-12.4); Monocytes # (auto) 0.45 K/uL (0.11-0.59); Monocytes % (auto) 6.7 %; Neutrophils # (auto) 5.37 K/uL (1.40-6.50); Neutrophils % (auto) 79.7 %; Nucleated RBC # (auto) 0.02 K/uL (0-0.12); Nucleated RBC % (auto) 0.3 %; Platelet Count 281 K/uL (130-400); RDW Coefficient of Variation 12.4 % (11.5-14.5); RDW Standard Deviation 45.5 fL (36.4-46.3); Red Blood Count 2.51 M/uL (4.70-6.10); White Blood Count 6.74 K/ul (4.8-10.8)
[2022-07-10 07:28] LABS: Calcium 8.5 mg/dl (8.5-10.1); Potassium 4.7 mmol/L (3.5-5.1)
--- NOTE | 2022-07-10 07:28 | Electrocardiogram Report ---
Test Reason : Blood Pressure : / mmHG Vent. Rate : 107 BPM Atrial Rate : 107 BPM P-R Int : 180 ms QRS Dur : 098 ms QT Int : 354 ms P-R-T Axes : 011 -51 073 degrees QTc Int : 472 ms Poor data quality, interpretation may be adversely affected Sinus tachycardia Left axis deviation Minimal voltage criteria for LVH, may be normal variant Poor R wave progression, consider anterior TX vs. lead placement vs. LVH Abnormal ECG When compared with ECG of 05-JUN-2022 15:25, Nonspecific T wave abnormality no longer evident in Inferior leads Confirmed by Merritt Call ([id number]) on 07/10/2022 7:28:17 AM Referred By: REFERRED SELF Confirmed By:Wes Call
[2022-07-10 07:34] LABS: BUN Creatinine Ratio 14.9 (10-20); Creatinine Clr Calc Pharmacy 29.2 ml/min; Est GFR (African American) 27.6 ml/min; Est GFR (Non-African American) 23.8 ml/min
[2022-07-10] MEDS ORDERED: FUROSEMIDE 40 MG TAB PO SCH (09:00)
[2022-07-10] MEDS ORDERED: NON-FORMULARY MEDICATION (Fluticasone-Umeclidin-Vilanter [Trelegy Ellipta] 100-62.5-25 mcg INH SCH (09:00)
[2022-07-10] MEDS: UMECLIDINIUM BROMIDE 62.5MCG/BLISTER 7 PUFFS/INHALER INH SCH (09:13)
[2022-07-10] MEDS: FLUTICASONE/VILANTEROL 100/25MCG 14 PUFFS/INHALER INH SCH (09:13)
[2022-07-10] MEDS: FERROUS SULFATE 325 MG TAB PO SCH (09:14)
[2022-07-10] MEDS: CHOLECALCIFEROL 1,000 UNITS 25 MCG TAB PO SCH (09:14)
[2022-07-10] MEDS: DOCUSATE SODIUM 100 MG CAP PO SCH (09:14)
[2022-07-10] MEDS: CYANOCOBALAMIN (B-12) 2,500 MCG TABLET SL SCH (09:14)
[2022-07-10] MEDS: AZITHROMYCIN 250 MG TAB PO SCH (09:15)
[2022-07-10] MEDS: METOPROLOL SUCC 50MG EXT REL TAB PO SCH (09:15)
[2022-07-10] MEDS: ALFUZOSIN HCL 10 MG TAB PO SCH (09:15)
[2022-07-10] MEDS: FLECAINIDE ACETATE 100 MG TABLET PO SCH ×2 (09:16→20:19)
[2022-07-10] MEDS: dilTIAZem HCL 180 MG CAPCR PO SCH (09:16)
[2022-07-10] MEDS: ATORVASTATIN 20 MG TAB PO SCH (09:16)
[2022-07-10] MEDS: methylPREDNISolone 40 MG in SYRINGE 0 ML IV SCH ×2 (09:17→20:19)
[2022-07-10] MEDS: FUROSEMIDE 40 MG/4 ML VIAL IV SCH (09:17)
[2022-07-10] MEDS: LANTUS PER UNIT CHARGE SQ SCH ×2 (09:18→20:56)
[2022-07-10] MEDS ORDERED: INSULIN HUMAN REGULAR IV BOLUS 10 UNITS in SYRINGE 0 ML IV ONE (12:45)
--- NOTE | 2022-07-10 13:57 | Pharmacy Report ---
Pharmacy Glycemic Short Note 2 - Date of Service July 10, 2022 - Glycemic Short BSG Results (Last 24 hours): 07/09/22 07/09/22 07/09/22 17:52 20:58 21:00 Glucose POC Glucose 328 H* 352 H* 345 H* 07/09/22 07/10/22 07/10/22 23:57 04:01 06:16 Glucose 253 H POC Glucose 320 H* 248 H 07/10/22 07/10/22 07/10/22 08:09 12:14 12:16 Glucose POC Glucose 255 H 386 H* 384 H* OUTPATIENT ANTIDIABETIC REGIMEN: * Ozempic 0.5 mg SQ weekly * Lantus 20 units BID * Humalog * HbA1C = 5.6% 06/06/22 ASSESSMENT: * Mr Severino is an 82 y/o M with a PMH of T2DM who presents with pneumonia. Patient was given dexamethasone 10 mg IV in ER then started on Solu-Medrol 40 mg IV BID today. * BSGs yesterday were 328-345 and overnight were 320-248 mg/dL. * Patient received Lantus 30 units yesterday plus Novolog 39 units (between dinner and HS). Overnight patient received an additional 39 units. * Start Lantus 30 units BID. Based upon previous admission in May, this will place the fasting under 200 mg/dL. Adjust as appropriate. * Will start extremely tight Novolog - this is also based upon previous admission with steroids. * Lunch BSG extremely elevated - given 10 units IV bolus. PLAN FOR INPATIENT GLYCEMIC CONTROL: * Hold outpatient oral diabetes medications * Basal insulin * Lantus 30 units SQ BID * Bolus insulin * NovoLog per scale ACHS or Q6hrs while NPO * Goal Range: Low 110 mg/dL - High 140 mg/dL * Correction Factor: 8 mg/dL/unit * Nutritional / Prandial insulin per carb ratio of 1 unit per 1.5 grams CHO consumed
[2022-07-10] MEDS ORDERED: MODERATE STRESS LEVEL ONE (17:57)
[2022-07-10] MEDS ORDERED: INSULIN PROTOCOL GOAL RANGE ONE (17:57)
[2022-07-10] MEDS ORDERED: STAT IV STA ×2 (17:57→17:59)
[2022-07-10] MEDS: RIVAROXABAN 15 MG TAB PO SCH (18:00)
[2022-07-10] MEDS ORDERED: INSULIN REGULAR 250 UNITS in SODIUM CHLORIDE 0.9% 247.5 ML IV SCH (18:00)
[2022-07-10] MEDS ORDERED: INSULIN HUMAN REGULAR IV BOLUS 3 UNITS in SYRINGE 0 ML IV ONE (18:15)
[2022-07-10 20:27] LABS: Appearance Urine Clear (Clear); Bacteria Urine Automated Negative (Negative); Bilirubin Urine Negative (Negative); Blood Urine Negative (Negative); Color Urine Yellow; Epithelial Cell Urine Auto 20-30 /lpf (0-5); Glucose Urine UA 1+ (Negative); Ketones Urine Trace (Negative); Leukocyte Esterase Urine Negative (Negative); Nitrite Urine Negative (Negative); Protein Urine Trace (Negative); RBC Urine Automated 0-4 /hpf (0-4); Specific Gravity Urine 1.031 (1.000-1.030); Urobilinogen Urine Negative (Negative)
[2022-07-10] MEDS: GABAPENTIN 100 MG CAP PO PRN (21:31)
--- NOTE | 2022-07-10 23:09 | Hospitalist Progress Note ---
Date of Service July 10, 2022 Assessment & Plan (1) Pneumonia: Plan: SARS-CoV-2 positive however suspect lingering positive test from previous infection rather than new acute infection given lack of new acute symptoms Procalcitonin negative however some consolidation on CT chest and worsening hypoxia therefore will treat with Unasyn and azithromycin will repeat chest xr in AM (2) Asthma exacerbation: Plan: Emphysematous changes on CT Previous improvement on prednisone therefore will retreat with Solu-medrol 40mg IV BID and levalbuterol/ipratropium nebs QID Pt takes chronic prednisone, mepolizumab (3) Acute and chronic respiratory failure: Plan: Aim O2 sats 88-92% Given tachycardia and increased oxygen requirement with recent COVID infection will get CT for PE despite CKD and Xarelto (4) Pulmonary hypertension: (5) Type 2 diabetes mellitus, with long-term current use of insulin: Plan: HbA1C 5.6 in May Continue Ozempic if able to bring in on Monday Continue Lantus 20 units BID Switch Humalog to Novolog: --Goal BSG Range: Low 110_mg/dL, High 140_mg/dL --Correction Factor: 10 mg/dL/unit --Carbohydrate ratio = 3 g/unit --BSGs ACHS if eating, q6h if npo (6) Hypertension: Plan: Continue furosemide (will switch to IV for some extra diuresis) Continue metoprolol and diltiazem home dosing (7) Chronic kidney disease, stage IV (severe): Plan: Continue to monitor BMP with Lasix 40mg IV (8) Atrial flutter, paroxysmal: Plan: Continue anticoagulation with Xarelto Continue rhythm control with flecainide. Continue rate control with diltiazem and metorpolol (9) Vitamin B12 deficiency: Plan: Continue vitamin B-12 supplementation (10) Ambulatory dysfunction: Plan: PT/OT Plan VTE Prophylaxis - Xarelto Diet - low Na, T2DM Disposition - admit to med/surg Admission and Anticipated Discharge Date Admission Date: July 09, 2022 Subjective 82 yo male reports feeling better today. Still feeling weak. Review of Systems Review of Systems: All systems reviewed & are unremarkable except as noted in HPI & below Physical Exam Physical Exam: Constitutional: well developed and + acute distress (respiratory); + not well nourished Eyes: + anicteric sclerae; normal pupil size Respiratory: normal respiratory effort, able to speak in complete sentences and + prolonged expiratory phase Auscultation: + diminished lung sounds (throughout); no crackles, no rales and no wheezes Cardiovascular: Rate/Rhythm: regular rate and regular rhythm Heart Sounds: no murmur Extremities: normal capillary refill and + pedal edema (1+ b/l pitting edema); no calf tenderness Gastrointestinal (Abdomen): Inspection/Auscultation: + abdomen distended Percussion/Palpation: abdomen soft; abdomen nontender Musculoskeletal: no cyanosis or clubbing, extremities motor strength 5/5 Skin: no rashes, warm and dry Neurologic: moves all extremities and awake; not confused Psychiatric: A+Ox3, euthymic affect Results & Data Results & Data ([facility]) Vital Signs (Past 12 Hours) Vital Signs Temp Pulse Resp BP Pulse Ox Pulse Ox Pulse Ox 07/10/22 19:25 07/10/22 21:41 36.5 C 80 18 112/67 95 07/10/22 19:52 79 18 94 07/10/22 15:54 36.5 C 76 16 115/56 L 96 07/10/22 12:57 93 07/10/22 12:02 94 92 07/10/22 11:09 77 18 96 Pulse Ox O2 Del Method O2 Flow Rate O2 Flow Rate O2 Flow Rate O2 Flow Rate 07/10/22 19:25 Nasal Cannula 4 07/10/22 21:41 Nasal Cannula 4 07/10/22 19:52 Nasal Cannula 4 07/10/22 15:54 Nasal Cannula 4 07/10/22 12:57 07/10/22 12:02 88 L 4 4 4 07/10/22 11:09 Nasal Cannula 4 PG Care Time/CCT Total # of Minutes Spent Total Time Spent with Patient: Total time spent is greater than 50% in coordination of care (as documented) at patient's floor/unit and/or counseling patient: Coding Level of Care Code 88847 SUB INP/OBS CARE 235MIN Diagnoses Pneumonia J18.9 Laterality: right Lung location: upper lobe of lung Pneumonia type: due to unspecified organism Asthma exacerbation J45.901 Acute and chronic respiratory failure J96.21 Respiratory failure complication: hypoxia Pulmonary hypertension I27.20 Type 2 diabetes mellitus, with long-term current use of insulin E11.9; Z79.4 Hypertension I10 Hypertension type: essential hypertension Chronic kidney disease, stage IV (severe) N18.4 Atrial flutter, paroxysmal I48.92 Vitamin B12 deficiency E53.8 Ambulatory dysfunction R26.2 (1) Pneumonia Laterality: right Lung location: upper lobe of lung Pneumonia type: due to unspecified organism Qualified Code(s): J18.9 - Pneumonia, unspecified organism (2) Acute and chronic respiratory failure Respiratory failure complication: hypoxia Qualified Code(s): J96.21 - Acute and chronic respiratory failure with hypoxia (3) Hypertension Hypertension type: essential hypertension Qualified Code(s): I10 - Essential (primary) hypertension
[2022-07-11] MEDS ORDERED: INSULIN ASPART PER UNIT SC SCH
[2022-07-11] MEDS: AMPICILLIN/SULBACTAM SOD 3,000 MG in 0.9 % SODIUM CHLORIDE 100 ML IV SCH ×2 (03:03→16:15)
[2022-07-11] MEDS: LEVALBUTEROL HCL 0.63 MG/3 ML NEB NEB SCH ×3 (07:07→11:36)
[2022-07-11] MEDS: IPRATROPIUM BROMIDE NEB SOLN 0.02% 2.5 ML VIAL INH SCH ×3 (07:07→11:36)
[2022-07-11] MEDS ORDERED: LANTUS PER UNIT CHARGE SQ ONE (07:35)
[2022-07-11] MEDS: FERROUS SULFATE 325 MG TAB PO SCH (08:42)
[2022-07-11] MEDS: ATORVASTATIN 20 MG TAB PO SCH (08:43)
[2022-07-11] MEDS: METOPROLOL SUCC 50MG EXT REL TAB PO SCH (08:43)
[2022-07-11] MEDS: dilTIAZem HCL 180 MG CAPCR PO SCH (08:44)
[2022-07-11] MEDS: DOCUSATE SODIUM 100 MG CAP PO SCH (08:44)
[2022-07-11] MEDS: CYANOCOBALAMIN (B-12) 2,500 MCG TABLET SL SCH (08:45)
[2022-07-11] MEDS: AZITHROMYCIN 250 MG TAB PO SCH (08:45)
[2022-07-11] MEDS: CHOLECALCIFEROL 1,000 UNITS 25 MCG TAB PO SCH (08:45)
[2022-07-11] MEDS: ALFUZOSIN HCL 10 MG TAB PO SCH (08:45)
[2022-07-11] MEDS: FLECAINIDE ACETATE 100 MG TABLET PO SCH ×2 (08:45→19:53)
[2022-07-11] MEDS: FUROSEMIDE 40 MG/4 ML VIAL IV SCH (08:46)
[2022-07-11] MEDS: methylPREDNISolone 40 MG in SYRINGE 0 ML IV SCH ×2 (08:46→19:53)
[2022-07-11] MEDS: UMECLIDINIUM BROMIDE 62.5MCG/BLISTER 7 PUFFS/INHALER INH SCH (08:47)
[2022-07-11] MEDS: FLUTICASONE/VILANTEROL 100/25MCG 14 PUFFS/INHALER INH SCH (08:47)
[2022-07-11] MEDS: INSULIN ASPART PER UNIT SC SCH ×6 (09:11→23:47)
--- NOTE | 2022-07-11 10:25 | Pharmacy Report ---
Pharmacy Glycemic Short Note 2 - Date of Service July 11, 2022 - Glycemic Short BSG Results (Last 24 hours): 07/10/22 07/10/22 07/10/22 12:14 12:16 17:09 POC Glucose 386 H* 384 H* 384 H* 07/10/22 07/10/22 07/10/22 17:12 19:39 20:34 POC Glucose 391 H* 337 H* 324 H* 07/10/22 07/10/22 07/10/22 21:36 22:36 23:47 POC Glucose 274 H 239 H 221 H 07/11/22 07/11/22 07/11/22 00:32 01:42 02:34 POC Glucose 196 H 208 H 200 H 07/11/22 07/11/22 07/11/22 03:30 04:49 05:36 POC Glucose 211 H 210 H 201 H 07/11/22 07/11/22 07/11/22 06:28 07:38 08:29 POC Glucose 206 H 198 H 167 H OUTPATIENT ANTIDIABETIC REGIMEN: * Ozempic 0.5 mg SQ weekly * Lantus 20 units BID * Humalog * HbA1C = 5.6% 06/06/22 ASSESSMENT: * Mr Severino is an 82 y/o M with a PMH of T2DM who presents with pneumonia. Patient was given dexamethasone 10 mg IV in ER then started on Solu-Medrol 40 mg IV BID. * Patient had BSGs in the 300's yesterday (likely due to steroid induced hypergl ycemia) and was started on an insulin drip. * BSGs started trending down the morning of 07/11/22: 198 and 167 mg/dL. * Insulin drip discontinued on 07/11/22 and transitioned to basal and bolus insulin. PLAN FOR INPATIENT GLYCEMIC CONTROL: * Hold outpatient oral diabetes medications * Basal insulin * 60 units once on 07/11/22 at 0900 * Scale for evening dose (BSG less than 140 mg/dL = 0 units, BSG 140-200 mg/dL = 10 units, BSG greater than 200 mg/dL = 20 units) * Bolus insulin * NovoLog per scale ACHS or Q6hrs while NPO * Goal Range: Low 110 mg/dL - High 140 mg/dL * Correction Factor: 6 mg/dL/unit * Nutritional / Prandial insulin per carb ratio of 1 unit per 1.5 grams CHO consumed
[2022-07-11] MEDS ORDERED: LEVALBUTEROL HCL 0.63 MG/3 ML NEB NEB PRN (11:45)
[2022-07-11] MEDS ORDERED: IPRATROPIUM BROMIDE NEB SOLN 0.02% 2.5 ML VIAL INH PRN (11:45)
[2022-07-11] MEDS: RIVAROXABAN 15 MG TAB PO SCH (16:20)
--- NOTE | 2022-07-11 16:36 | Hospitalist Progress Note ---
Date of Service July 11, 2022 Assessment & Plan (1) Pneumonia: Plan: SARS-CoV-2 positive however suspect lingering positive test from previous infection rather than new acute infection given lack of new acute symptoms Procalcitonin negative however some consolidation on CT chest and worsening hypoxia therefore will treat with Unasyn and azithromycin Blood culutres are negative. will order flutter valve and obtain sputum culture. will continue above antibiotics. may consider speech eval. (2) Asthma exacerbation: Plan: Emphysematous changes on CT Previous improvement on prednisone therefore will retreat with Solu-medrol 40mg IV BID and levalbuterol/ipratropium nebs QID Pt takes chronic prednisone, mepolizumab (3) Acute and chronic respiratory failure: Plan: Aim O2 sats 88-92% Given tachycardia and increased oxygen requirement with recent COVID infection will get CT for PE despite CKD and Xarelto (4) Pulmonary hypertension: (5) Type 2 diabetes mellitus, with long-term current use of insulin: Plan: HbA1C 5.6 in May Continue Ozempic if able to bring in on Monday Continue Lantus 20 units BID Switch Humalog to Novolog: --Goal BSG Range: Low 110_mg/dL, High 140_mg/dL --Correction Factor: 10 mg/dL/unit --Carbohydrate ratio = 3 g/unit --BSGs ACHS if eating, q6h if npo (6) Hypertension: Plan: Continue furosemide (will switch to IV for some extra diuresis) Continue metoprolol and diltiazem home dosing (7) Chronic kidney disease, stage IV (severe): Plan: Continue to monitor BMP with Lasix 40mg IV (8) Atrial flutter, paroxysmal: Plan: Continue anticoagulation with Xarelto Continue rhythm control with flecainide. Continue rate control with diltiazem and metorpolol (9) Vitamin B12 deficiency: Plan: Continue vitamin B-12 supplementation (10) Ambulatory dysfunction: Plan: PT/OT Plan VTE Prophylaxis - Xarelto Diet - low Na, T2DM Disposition - admit to med/surg Admission and Anticipated Discharge Date Admission Date: July 09, 2022 Subjective 82 yo male reports feeling slightly improved. He had multiple questions but thankfully family was at bedside and were kind enough to help as he is hard of hearing. Patient reports he is looking to participate with physical therapy. Review of Systems Review of Systems: All systems reviewed & are unremarkable except as noted in HPI & below Physical Exam Physical Exam: Patient is resting comfortably. Patient is not using accesory muscles to breath. Patient is able to talk in full sentences. Results & Data Results & Data ([facility]) Vital Signs (Past 12 Hours) Vital Signs Temp Pulse Resp BP Pulse Ox O2 Del Method O2 Flow Rate 07/11/22 14:58 36.5 C 73 16 126/66 95 Nasal Cannula 4 07/11/22 07:51 Nasal Cannula 4 07/11/22 08:50 70 122/66 97 Nasal Cannula 4 07/11/22 07:29 65 16 104/62 97 Room Air PG Care Time/CCT Total # of Minutes Spent Total Time Spent with Patient: Total time spent is greater than 50% in coordination of care (as documented) at patient's floor/unit and/or counseling patient: Coding Level of Care Code 40362 SUB INP/OBS CARE 2/35MIN Diagnoses Pneumonia J18.9 Laterality: right Lung location: upper lobe of lung Pneumonia type: due to unspecified organism Asthma exacerbation J45.901 Acute and chronic respiratory failure J96.21 Respiratory failure complication: hypoxia Pulmonary hypertension I27.20 Type 2 diabetes mellitus, with long-term current use of insulin E11.9; Z79.4 Hypertension I10 Hypertension type: essential hypertension Chronic kidney disease, stage IV (severe) N18.4 Atrial flutter, paroxysmal I48.92 Vitamin B12 deficiency E53.8 Ambulatory dysfunction R26.2 (1) Pneumonia Laterality: right Lung location: upper lobe of lung Pneumonia type: due to unspecified organism Qualified Code(s): J18.9 - Pneumonia, unspecified organism (2) Acute and chronic respiratory failure Respiratory failure complication: hypoxia Qualified Code(s): J96.21 - Acute and chronic respiratory failure with hypoxia (3) Hypertension Hypertension type: essential hypertension Qualified Code(s): I10 - Essential (primary) hypertension
[2022-07-11 16:40] LABS: Basophils # (auto) 0.01 K/uL (0-0.2); Basophils % (auto) 0.1 %; Hematocrit (blood only) 25.9 % (42.0-52.0); Hemoglobin 8.6 g/dl (14.0-18.0); Immature Granulocytes # (auto) 0.18 K/uL (0.01-0.20); Immature Granulocytes % (auto) 1.7 %; Lymphocytes # (auto) 0.69 K/uL (1.2-3.4); Lymphocytes % (auto) 6.5 %; Mean Corpuscular Hgb Conc 33.2 g/dL (32.0-36.0); Mean Corpuscular Volume 99.2 fL (80.0-100.0); Monocytes # (auto) 0.74 K/uL (0.11-0.59); Monocytes % (auto) 6.9 %; Neutrophils # (auto) 9.04 K/uL (1.40-6.50); Neutrophils % (auto) 84.8 %; Platelet Count 287 K/uL (130-400); RDW Coefficient of Variation 12.8 % (11.5-14.5); RDW Standard Deviation 45.5 fL (36.4-46.3); Red Blood Count 2.61 M/uL (4.70-6.10); White Blood Count 10.66 K/ul (4.8-10.8)
[2022-07-11 19:53] LABS: BUN Creatinine Ratio 17.9 (10-20); C Reactive Protein 2.93 mg/dl (0-0.5); Calcium 8.2 mg/dl (8.5-10.1); Creatinine Clr Calc Pharmacy 20.7 ml/min; Est GFR (African American) 18.2 ml/min; Est GFR (Non-African American) 15.7 ml/min; Potassium 4.9 mmol/L (3.5-5.1)
[2022-07-11] MEDS: GABAPENTIN 100 MG CAP PO SCH (19:54)
[2022-07-11] MEDS ORDERED: LANTUS PER UNIT CHARGE SQ SCH (21:00)
[2022-07-12] MEDS: AMPICILLIN/SULBACTAM SOD 3,000 MG in 0.9 % SODIUM CHLORIDE 100 ML IV SCH ×2 (03:49→16:01)
[2022-07-12] MEDS: INSULIN ASPART PER UNIT SC SCH ×5 (03:57→21:18)
[2022-07-12 06:32] LABS: Hematocrit (blood only) 26.7 % (42.0-52.0); Hemoglobin 8.9 g/dl (14.0-18.0); Mean Corpuscular Hemoglobin 32.6 pg (25.0-34.0); Mean Corpuscular Hgb Conc 33.3 g/dL (32.0-36.0); Mean Corpuscular Volume 97.8 fL (80.0-100.0); Nucleated RBC # (auto) 0.02 K/uL (0-0.12); Nucleated RBC % (auto) 0.2 %; Platelet Count 286 K/uL (130-400); RDW Coefficient of Variation 12.8 % (11.5-14.5); RDW Standard Deviation 45.1 fL (36.4-46.3); Red Blood Count 2.73 M/uL (4.70-6.10); White Blood Count 10.63 K/ul (4.8-10.8)
[2022-07-12 06:41] LABS: BUN Creatinine Ratio 20.9 (10-20); C Reactive Protein 2.11 mg/dl (0-0.5); Calcium 8.2 mg/dl (8.5-10.1); Creatinine Clr Calc Pharmacy 21.4 ml/min; Est GFR (Non-African American) 16.4 ml/min; Potassium 4.7 mmol/L (3.5-5.1)
[2022-07-12] MEDS: FERROUS SULFATE 325 MG TAB PO SCH (08:16)
[2022-07-12] MEDS: CHOLECALCIFEROL 1,000 UNITS 25 MCG TAB PO SCH (08:16)
[2022-07-12] MEDS: DOCUSATE SODIUM 100 MG CAP PO SCH (08:16)
[2022-07-12] MEDS: AZITHROMYCIN 250 MG TAB PO SCH (08:17)
[2022-07-12] MEDS: CYANOCOBALAMIN (B-12) 2,500 MCG TABLET SL SCH (08:17)
[2022-07-12] MEDS: ALFUZOSIN HCL 10 MG TAB PO SCH (08:18)
[2022-07-12] MEDS: ATORVASTATIN 20 MG TAB PO SCH (08:18)
[2022-07-12] MEDS: dilTIAZem HCL 180 MG CAPCR PO SCH (08:19)
[2022-07-12] MEDS: METOPROLOL SUCC 50MG EXT REL TAB PO SCH (08:19)
[2022-07-12] MEDS: FLUTICASONE/VILANTEROL 100/25MCG 14 PUFFS/INHALER INH SCH (08:20)
[2022-07-12] MEDS: FLECAINIDE ACETATE 100 MG TABLET PO SCH ×2 (08:20→21:19)
[2022-07-12] MEDS: methylPREDNISolone 40 MG in SYRINGE 0 ML IV SCH (08:20)
[2022-07-12] MEDS: UMECLIDINIUM BROMIDE 62.5MCG/BLISTER 7 PUFFS/INHALER INH SCH (08:20)
[2022-07-12] MEDS ORDERED: LANTUS PER UNIT CHARGE SQ SCH (09:00)
[2022-07-12] MEDS ORDERED: GLYCERIN ADULT 12 SUPP/BOX SUPP PR ONE (09:58)
--- NOTE | 2022-07-12 10:08 | Pharmacy Report ---
Pharmacy Glycemic Short Note 2 - Date of Service July 12, 2022 - Glycemic Short BSG Results (Last 24 hours): 07/11/22 07/11/22 07/11/22 11:42 15:46 17:16 Glucose 210 H POC Glucose 288 H 196 H 07/11/22 07/11/22 07/12/22 20:32 23:39 03:53 Glucose POC Glucose 156 H 138 H 210 H 07/12/22 07/12/22 05:50 08:17 Glucose 153 H POC Glucose 188 H OUTPATIENT ANTIDIABETIC REGIMEN: * Ozempic 0.5 mg SQ weekly * Lantus 20 units BID * Humalog * HbA1C = 5.6% 06/06/22 ASSESSMENT: * Mr Severino is an 82 y/o M with a PMH of T2DM who presents with pneumonia. Patient was given dexamethasone 10 mg IV in ER then started on Solu-Medrol 40 mg IV BID. * Patient had BSGs in the 300's on 07/10/22 (likely due to steroid induced hyperglycemia) and was started on an insulin drip. * BSGs started trending down the morning of 07/11/22: 198 and 167 mg/dL. * Insulin drip discontinued on 07/11/22 and transitioned to basal and bolus insulin. * Solu-Medrol dose decreased to 40 mg IV daily today (07/12/22); decreasing basal insulin and will likely loosen bolus insulin parameters tomorrow. * Added midnight BSG check with Novolog coverage as patient is requesting midnight snack per diabetes care and marketing education teacher. PLAN FOR INPATIENT GLYCEMIC CONTROL: * Hold outpatient oral diabetes medications * Starting patient's own Ozempic 0.5 mg SQ weekly starting today (07/12/22) * Patient usually takes on Mondays; did not receive dose of Ozempic yesterday (07/11/22) * Basal insulin * Lantus 40 units daily * Lantus scale for PM basal insulin this evening (BSG less than 140 mg/dL = HOLD, BSG 140-200 mg/dL = 10 units, BSG greater than 200 = 20 units) * Bolus insulin * NovoLog per scale ACHS or Q6hrs while NPO * Goal Range: Low 110 mg/dL - High 140 mg/dL * Correction Factor: 6 mg/dL/unit * Nutritional / Prandial insulin per carb ratio of 1 unit per 1.5 grams CHO consumed
--- NOTE | 2022-07-12 12:39 | XRay Report ---
KUB CLINICAL HISTORY: abdominal distention/ constipation COMPARISON STUDY: CT of the abdomen and pelvis December 05, 2016. Abdominal series May 21, 2016. FINDINGS: Prominent epicardial fat pad is noted. This accounts for the density within the left lower hemithorax. The bowel gas pattern is normal. There is no evidence for a bowel obstruction. Exam is co mpromised given suboptimal penetration. Mild to moderate amount of stool within the colon and rectum. IMPRESSION: 1. No evidence for a bowel obstruction. 2. Mild to moderate amount of stool within the colon and rectum. ACT 112: Negative or not required by law. Electronically signed by: Hawk Rodriguez M.D. 07/12/2022 12:38 PM
--- NOTE | 2022-07-12 12:47 | XRay Report ---
XR chest 1V portable HISTORY: 82 years-old Male hypoxia acute hypoxia COMPARISON: CTA chest and chest radiograph studies 07/09/2022 TECHNIQUE: AP view of the chest FINDINGS: Cardiac silhouette is enlarged. The patient is mildly rotated towards the left. Emphysema with chroni c interstitial coarsening. Pulmonary vascular congestion. Mild left basilar densities favoring atelec tasis versus scarring. Degenerative changes of the shoulders and spine. IMPRESSION: 1. Cardiomegaly with pulmonary vascular congestion. 3. Emphysema. ACT 112: Negative or not required by law. The above report was generated using voice recognition software. It may contain grammatical, syntax o r spelling errors. Electronically signed by: Ashok Carbajal M.D. 07/12/2022 12:46 PM
[2022-07-12] MEDS: POLYETHYLENE (MIRALAX) 17 GM PACK PO SCH ×2 (14:10→21:20)
[2022-07-12] MEDS: SEMAGLUTIDE INJ SQ SCH (14:11)
[2022-07-12 14:39] LABS: A calco-baum cmplx NotReported Not Detected (NotDetected); Bact fragilis Not Reported Not Detected (NotDetected); C auris Not Reported Not Detected (NotDetected); Calbicans Not Reported Not Detected (NotDetected); Candida glabrata Not Reported Not Detected (NotDetected); Candida krusei Not Reported Not Detected (NotDetected); Cneoformans/gatti Not Reported Not Detected (NotDetected); Cparapsilosis Not Reported Not Detected (NotDetected); Ctropicalis Not Reported Not Detected (NotDetected); E cloacae compx Not Reported Not Detected (NotDetected); Efaecalis Not Reported Not Detected (NotDetected); Efaecium Not Reported Not Detected (NotDetected); Enterobacterales Not Reported Not Detected (NotDetected); Escherichia coli Not Reported Not Detected (NotDetected); H influenzae Not Reported Not Detected (NotDetected); K aerogenes Not Reported Not Detected (NotDetected); Koxytoca Not Reported Not Detected (NotDetected); Kpneumoniae grp Not Reported Not Detected (NotDetected); Lmonocyt Not Reported Not Detected (NotDetected); N meningitidis Not Reported Not Detected (NotDetected); P aeruginosa Not Reported Not Detected (NotDetected); Proteus spp Not Reported Not Detected (NotDetected); Salmonella spp Not Reported Not Detected (NotDetected); Smarcescens Not Reported Not Detected (NotDetected); Staph lugdunensis Not Reported Not Detected (NotDetected); Staph spp. Not Reported Not Detected (NotDetected); Staphaureus Not Reported Not Detected (NotDetected); Staphepi Not Reported Not Detected (NotDetected); Stenmaltophilia Not Reported Not Detected (NotDetected); Strep agal(GrpB) Not Reported Not Detected (NotDetected); Strep pneum Not Reported Not Detected (NotDetected); Strep pyog (GrpA) Not Reported Not Detected (NotDetected); Strep spp Not Reported Not Detected (NotDetected)
[2022-07-12] MEDS: RIVAROXABAN 15 MG TAB PO SCH (17:43)
--- NOTE | 2022-07-12 20:43 | Hospitalist Progress Note ---
Date of Service July 12, 2022 Assessment & Plan (1) Pneumonia: Plan: SARS-CoV-2 positive however suspect lingering positive test from previous infection rather than new acute infection given lack of new acute symptoms Procalcitonin negative however some consolidation on CT chest and worsening hypoxia therefore will treat with Unasyn and azithromycin Blood culutres are negative. will order flutter valve and obtain sputum culture. will continue above antibiotics. may consider speech eval. will titrate corticosteroids. (2) Asthma exacerbation: Plan: Emphysematous changes on CT Previous improvement on prednisone therefore will retreat with Solu-medrol 40mg IV BID and levalbuterol/ipratropium nebs QID Pt takes chronic prednisone, mepolizumab (3) Acute and chronic respiratory failure: Plan: Aim O2 sats 88-92% Given tachycardia and increased oxygen requirement with recent COVID infection will get CT for PE despite CKD and Xarelto (4) Pulmonary hypertension: (5) Type 2 diabetes mellitus, with long-term current use of insulin: Plan: HbA1C 5.6 in May Continue Ozempic if able to bring in on Monday Continue Lantus 20 units BID Switch Humalog to Novolog: --Goal BSG Range: Low 110_mg/dL, High 140_mg/dL --Correction Factor: 10 mg/dL/unit --Carbohydrate ratio = 3 g/unit --BSGs ACHS if eating, q6h if npo (6) Hypertension: Plan: Continue furosemide (will switch to IV for some extra diuresis) Continue metoprolol and diltiazem home dosing (7) Chronic kidney disease, stage IV (severe): Plan: Continue to monitor BMP with Lasix 40mg IV (8) Atrial flutter, paroxysmal: Plan: Continue anticoagulation with Xarelto Continue rhythm control with flecainide. Continue rate control with diltiazem and metorpolol (9) Vitamin B12 deficiency: Plan: Continue vitamin B-12 supplementation (10) Ambulatory dysfunction: Plan: PT/OT Plan VTE Prophylaxis - Xarelto Diet - low Na, T2DM Disposition - admit to med/surg Admission and Anticipated Discharge Date Admission Date: July 09, 2022 Subjective 82 yo male reports feeling weak. Patient have abdominal distention. Patient able to get from bed to chair. Review of Systems Review of Systems: All systems reviewed & are unremarkable except as noted in HPI & below Physical Exam Physical Exam: Constitutional: well developed and in no acute distress; + not well nourished Eyes: + anicteric sclerae; normal pupil size Respiratory: normal respiratory effort, no longer using accesory muscles to breath, able to talk in full sentences Cardiovascular: Rate/Rhythm: regular rate and regular rhythm Heart Sounds: no murmur Extremities: normal capillary refill and + pedal edema (1+ b/l pitting edema); no calf tenderness Gastrointestinal (Abdomen): Inspection/Auscultation: + abdomen distended Percussion/Palpation: abdomen soft; abdomen nontender Musculoskeletal: no cyanosis or clubbing, extremities motor strength 5/5 Skin: no rashes, warm and dry Neurologic: moves all extremities and awake; not confused Psychiatric: A+Ox3, euthymic affect Results & Data Results & Data ([facility]) Vital Signs (Past 12 Hours) Vital Signs Temp Pulse Resp BP BP Pulse Ox O2 Del Method 07/12/22 15:08 36.6 C 65 16 166/79 H 97 Room Air 07/12/22 10:33 75 120/62 93 Nasal Cannula O2 Flow Rate 07/12/22 15:08 07/12/22 10:33 4 PG Care Time/CCT Total # of Minutes Spent Total Time Spent with Patient: Total time spent is greater than 50% in coordination of care (as documented) at patient's floor/unit and/or counseling patient: Coding Level of Care Code 41323 SUB INP/OBS CARE 2/35MIN Diagnoses Pneumonia J18.9 Laterality: right Lung location: upper lobe of lung Pneumonia type: due to unspecified organism Asthma exacerbation J45.901 Acute and chronic respiratory failure J96.21 Respiratory failure complication: hypoxia Pulmonary hypertension I27.20 Type 2 diabetes mellitus, with long-term current use of insulin E11.9; Z79.4 Hypertension I10 Hypertension type: essential hypertension Chronic kidney disease, stage IV (severe) N18.4 Atrial flutter, paroxysmal I48.92 Vitamin B12 deficiency E53.8 Ambulatory dysfunction R26.2 (1) Pneumonia Laterality: right Lung location: upper lobe of lung Pneumonia type: due to unspecified organism Qualified Code(s): J18.9 - Pneumonia, unspecified organism (2) Acute and chronic respiratory failure Respiratory failure complication: hypoxia Qualified Code(s): J96.21 - Acute and chronic respiratory failure with hypoxia (3) Hypertension Hypertension type: essential hypertension Qualified Code(s): I10 - Essential (primary) hypertension
[2022-07-12] MEDS ORDERED: LANTUS PER UNIT CHARGE SQ ONE (21:00)
[2022-07-12] MEDS: GABAPENTIN 100 MG CAP PO SCH (21:19)
[2022-07-13] MEDS: INSULIN ASPART PER UNIT SC SCH ×5 (00:30→21:09)
[2022-07-13] MEDS: AMPICILLIN/SULBACTAM SOD 3,000 MG in 0.9 % SODIUM CHLORIDE 100 ML IV SCH ×2 (04:01→16:46)
[2022-07-13 06:16] LABS: BUN Creatinine Ratio 21.6 (10-20); C Reactive Protein 1.22 mg/dl (0-0.5); Calcium 8.2 mg/dl (8.5-10.1); Creatinine Clr Calc Pharmacy 19.5 ml/min; Est GFR (African American) 16.7 ml/min; Est GFR (Non-African American) 14.4 ml/min; Potassium 5.2 mmol/L (3.5-5.1)
[2022-07-13 06:36] LABS: Hematocrit (blood only) 30.8 % (42.0-52.0); Hemoglobin 10.1 g/dl (14.0-18.0); Mean Corpuscular Hemoglobin 32.7 pg (25.0-34.0); Mean Corpuscular Hgb Conc 32.8 g/dL (32.0-36.0); Mean Corpuscular Volume 99.7 fL (80.0-100.0); Mean Platelet Volume 10.9 fL (9.4-12.4); Nucleated RBC # (auto) 0.05 K/uL (0-0.12); Nucleated RBC % (auto) 0.4 %; Platelet Count 318 K/uL (130-400); RDW Coefficient of Variation 13.1 % (11.5-14.5); RDW Standard Deviation 46.6 fL (36.4-46.3); Red Blood Count 3.09 M/uL (4.70-6.10); White Blood Count 12.82 K/ul (4.8-10.8)
[2022-07-13] MEDS: POLYETHYLENE (MIRALAX) 17 GM PACK PO SCH ×2 (08:03→21:03)
[2022-07-13] MEDS: CYANOCOBALAMIN (B-12) 2,500 MCG TABLET SL SCH (08:47)
[2022-07-13] MEDS: METOPROLOL SUCC 50MG EXT REL TAB PO SCH (08:47)
[2022-07-13] MEDS: FERROUS SULFATE 325 MG TAB PO SCH (08:47)
[2022-07-13] MEDS: CHOLECALCIFEROL 1,000 UNITS 25 MCG TAB PO SCH (08:47)
[2022-07-13] MEDS: AZITHROMYCIN 250 MG TAB PO SCH (08:48)
[2022-07-13] MEDS: dilTIAZem HCL 180 MG CAPCR PO SCH (08:48)
[2022-07-13] MEDS: DOCUSATE SODIUM 100 MG CAP PO SCH (08:48)
[2022-07-13] MEDS: ATORVASTATIN 20 MG TAB PO SCH (08:48)
[2022-07-13] MEDS: FLECAINIDE ACETATE 100 MG TABLET PO SCH ×2 (08:48→21:04)
[2022-07-13] MEDS: methylPREDNISolone 40 MG in SYRINGE 0 ML IV SCH (08:49)
[2022-07-13] MEDS: FLUTICASONE/VILANTEROL 100/25MCG 14 PUFFS/INHALER INH SCH (08:49)
[2022-07-13] MEDS: UMECLIDINIUM BROMIDE 62.5MCG/BLISTER 7 PUFFS/INHALER INH SCH (08:50)
[2022-07-13] MEDS ORDERED: LANTUS PER UNIT CHARGE SQ SCH (09:00)
[2022-07-13] MEDS: ALFUZOSIN HCL 10 MG TAB PO SCH ×2 (09:50→17:50)
--- NOTE | 2022-07-13 11:04 | Pharmacy Report ---
Pharmacy Glycemic Short Note 2 - Date of Service July 13, 2022 - Glycemic Short BSG Results (Last 24 hours): 07/12/22 07/12/22 07/12/22 11:51 12:04 17:11 Glucose POC Glucose 248 H 232 H 144 H 07/12/22 07/13/22 07/13/22 21:03 00:04 05:45 Glucose 94 POC Glucose 143 H 158 H 07/13/22 08:07 Glucose POC Glucose 112 H OUTPATIENT ANTIDIABETIC REGIMEN: * Ozempic 0.5 mg SQ weekly * Lantus 20 units BID * Humalog * HbA1C = 5.6% 06/06/22 ASSESSMENT: * Mr Severino is an 82 y/o M with a PMH of T2DM who presents with pneumonia. Patient was given dexamethasone 10 mg IV in ER then started on Solu-Medrol 40 mg IV BID. * Patient had BSGs in the 300's on 07/10/22 (likely due to steroid induced hyperglycemia) and was started on an insulin drip. * BSGs started trending down the morning of 07/11/22: 198 and 167 mg/dL. * Insulin drip discontinued on 07/11/22 and transitioned to basal and bolus insulin. * Solu-Medrol dose decreased to 40 mg IV daily on 07/12/22 and basal insulin was decreased. * Added midnight BSG check with Novolog coverage as patient is requesting midnight snack per diabetes care and adult remedial education instructor. PLAN FOR INPATIENT GLYCEMIC CONTROL: * Hold outpatient oral diabetes medications * Started patient's own Ozempic 0.5 mg SQ weekly on 07/12/22 * Patient usually takes on Mondays, but did not receive dose of Ozempic on Monday07/11/22 * Basal insulin * Lantus 35 units daily * Bolus insulin * NovoLog per scale ACHS or Q6hrs while NPO * Goal Range: Low 110 mg/dL - High 140 mg/dL * Correction Factor: 8 mg/dL/unit * Nutritional / Prandial insulin per carb ratio of 1 unit per 2 grams CHO consumed
[2022-07-13] MEDS ORDERED: FUROSEMIDE 40 MG/4 ML VIAL IV ONE (14:30)
--- NOTE | 2022-07-13 15:17 | XRay Report ---
XR chest 1V portable HISTORY: Shortness of breath. COMPARISON: Chest 07/12/2022. FINDINGS: No pneumothorax. The cardiac lead remains enlarged. Mild pulmonary vascular congestion pers ists. Emphysema is again noted. No new focal lung consolidations. Left basilar densities favor scarri ng/atelectasis. There are low lung volumes. IMPRESSION: No significant change in the cardiomegaly and mild interstitial pulmonary edema. ACT 112: Negative or not required by law. Electronically signed by: Bin Mayfield M.D. 07/13/2022 3:15 PM
--- NOTE | 2022-07-13 16:43 | Ultrasound Report ---
US abdomen ltd ascites CLINICAL HISTORY: Abdominal distention. Evaluate for ascites. COMPARISON STUDY: CT of the abdomen November 13, 2017. TECHNIQUE: Sonography of the 4 quadrants was performed to assess for ascites. FINDINGS: No ascites was noted within the abdomen or pelvis. Renal cysts were incidentally noted. IMPRESSION: No ascites. ACT 112: Negative or not required by law. Electronically signed by: Hawk Rodriguez M.D. 07/13/2022 4:42 PM
[2022-07-13] MEDS: RIVAROXABAN 15 MG TAB PO SCH (17:28)
--- NOTE | 2022-07-13 18:01 | Nephrology Consultation ---
Date of Consultation July 13, 2022 Assessment & Plan (1) Acute kidney injury: Non-oliguric. No emergent indication for dialysis. s/p furosemide today. Document strict I/O's. Repeat metabolic profile tomorrow AM. VIOLA in the setting of recent CTA consistent with contrast nephropathy. Suspect a prerenal component and ATN. Goals of care reviewed. Medications appropriately dosed for kidney dysfunction. (2) Chronic kidney disease, stage IV (severe): Baseline creatinine ~2.0-2.3 mg/dL. Followed by Dr. Chaney. Limited understanding regarding [employer]. (3) Hyperkalemia: Low potassium diet. Furosemide provided to encourage urine output. (4) Anemia: Hgb up from 8.9 to 10.1 this AM. I suspect this is lab error. Overall, chronic/stable. Update iron profile with AM labs. (5) Pneumonia: If kidney function continues to decline, consideration could be given to once daily dosing of Unasyn. History of Present Illness Reason for Consultation: acute on chronic kidney injury Requesting Physician: Taqueria Rebolledo Attending Physician: Taqueria Rebolledo History of Present Illness Mr. Ish Severino is a 82 year-old male with chronic kidney disease admitted to [facility] with persistent weakness and shortness of breath. Nephrology consultation requested for acute on chronic kidney disease. History reviewed from Dr. Rebolledo. Ish is followed in the outpatient nephrology clinic by Dr. Chaney. He has CKD 3b A3. CKD attributed to DKD, hypertension, and a history of right lower pole nephrectomy. Baseline creatinine has been 2.0-2.3 mg/dL. Ish was admitted to [facility] in May with VIOLA/CKD in the setting of COVID pneumonitis. Creatinine peaked at 2.67 mg/dL on June 08 and improved o 2.4 mg/dL. He was admitted to [facility] on June 08 with a serum creatinine of 2.4 mg/dL. However, since admission creatinine has steadily risen to 3.66 mg/dL. Metabolic profile also notable for mild hyperkalemia at 5.2 mmol/L. Ish is non-oliguric. Diuretics had been held on admission. A single dose of furosemide 40 mg IV was provided today. He is being treated for suspected superimposed multifocal pneumonia and post-COVID pneumonitis with solu-medrol, Unasyn+azithromycin. A abdominal US demonstrated unobstructed kidneys. Urine microscopy on admission was notable for hyaline casts but otherwise acellular. CTA was completed on admission to rule-out PE. 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 Ish had declined surveillance imaging in the past. He also follows with urology regarding a history of bladder cancer. This was treated with TURBT in 2018. Ish has AODM, hypertension, morbid obesity. He has RLD associated with obesity and a history of asthma. Following hospitalization in May, he was discharged home with dexamethasone and adjustment in diuretics. Home health care with nursing provided. Due to progressive fluid retention diuretics were increased over the next few weeks to furosemide 40 mg BID. Allergies Allergy/AdvReac Type Severity Reaction Status Date / Time adhesive Allergy Unknown PLASTIC Verified 05/19/22 11:06 TAPE-SKIN BLISTERS,RASH, IRRITATION latex Allergy Unknown Verified 05/19/22 11:06 sertraline AdvReac Intermediate palpitation Verified 05/19/22 11:06 s Home Medications Medication Instructions Recorded Confirmed Type multivitamin (Daily Multi-Vitamin 1 tab PO DAILY 01/18/19 07/09/22 History tablet) vitamins A,C,J-mjor-ktbmol 14,320 1 cap PO BID 01/18/19 07/09/22 History unit-226 mg-200 unit capsule (PreserVision AREDS) cholecalciferol (vitamin D3) 25 1,000 unit PO DAILY 01/27/20 07/09/22 History mcg (1,000 unit) capsule omega-3 acid ethyl esters 1 gram 3 cap PO DAILY 12/08/20 07/09/22 History capsule fluticasone fur. 100 mcg-umeclid 1 inh inhalation DAILY #3 Inhalers 03/22/21 07/09/22 Rx 62.5 mcg-vilant 25 mcg inhalat.powder (Trelegy Ellipta) gabapentin 100 mg capsule 100 - 300 mg PO HS PRN restless 06/25/21 07/09/22 Rx leg(s) #270 caps rivaroxaban 15 mg tablet (Xarelto) See Rx Instructions .Route 07/19/21 07/09/22 Rx .COMPLEX #90 tabs alfuzosin 10 mg tablet,extended 10 mg PO DAILY #90 tabs 10/19/21 07/09/22 Rx release 24 hr prednisone 5 mg tablet 5 mg PO DAILY 10/20/21 07/09/22 History cyanocobalamin (vitamin B-12) 2,500 mcg PO DAILY #30 tabs 10/21/21 07/09/22 Rx 2,500 mcg tablet atorvastatin 20 mg tablet 20 mg PO DAILY #90 tabs 03/28/22 07/09/22 Rx diltiazem HCl 180 mg 180 mg PO DAILY #90 caps 03/28/22 07/09/22 Rx capsule,extended release 24 hr metoprolol succinate 100 mg 100 mg PO DAILY #90 tabs 03/28/22 07/09/22 Rx tablet,extended release 24 hr ferrous sulfate 325 mg (65 mg 325 mg PO DAILY 04/13/22 07/09/22 History iron) tablet (FeroSul) mepolizumab 100 mg/mL subcutaneous 100 mg subcut .[id number] 04/13/22 07/09/22 History auto-injector (Nucala) semaglutide 0.25 mg or 0.5 mg (2 0.5 mg (0.4 mL) subcut Q7D #4.5 mL 05/02/22 07/09/22 Rx mg/1.5 mL) subcutaneous pen injector (Ozempic) flecainide 100 mg tablet 100 mg PO Q12H #180 tabs 05/17/22 07/09/22 Rx docusate sodium 100 mg capsule 200 mg PO DAILY 06/05/22 07/09/22 History insulin lispro 100 unit/mL 22 unit subcut DAILY sliding scale 06/05/22 07/09/22 History subcutaneous pen (Humalog KwikPen (U-100) Insulin) dexamethasone 6 mg tablet 6 mg PO DAILY #7 tabs 06/09/22 07/09/22 Rx furosemide 20 mg tablet 40 mg PO QAM edema #90 tabs 06/09/22 07/09/22 Rx levalbuterol HCl 0.63 mg/3 mL 0.63 mg (3 mL) inhalation Q4H PRN 06/13/22 07/09/22 Rx solution for nebulization shortness of breath or wheezing #540 mL levalbuterol tartrate 45 2 inh inhalation Q4H PRN shortness 06/13/22 07/09/22 Rx mcg/actuation aerosol inhaler of breath or wheezing #45 grams (Xopenex HFA) metolazone 5 mg tablet 5 mg PO DAILY PRN SOB, weight 06/20/22 07/09/22 Rx gain, dyspnea. #30 tabs insulin glargine 100 unit/mL (3 20 unit (0.2 mL) subcut BID #45 mL 06/28/22 07/09/22 Rx mL) subcutaneous pen (Lantus Solostar U-100 Insulin) lorazepam 0.5 mg tablet 0.5 mg PO DAILY PRN anxiety #10 07/04/22 07/09/22 Rx tabs food supplemt, lactose-reduced 1 ea PO BID 07/09/22 07/09/22 History Patient History Medical History (Updated 07/13/22 @ 18:15 by Shelton Chowdhury DO) Acute on chronic renal insufficiency Anemia Bladder cancer Chronic hypoxemic respiratory failure CKD (chronic kidney disease), stage III Family history of transitional cell carcinoma of bladder Hemoptysis Hypertension Mixed restrictive and obstructive lung disease Pulmonary emphysema Renal mass, right Shortness of breath Shortness of breath Vitamin D deficiency Surgical History History of cystoscopy History of surgical removal of lesion History of umbilical hernia repair Family History Son Hodgkins disease Brother Throat cancer Other Diabetes Denies family history of Ovarian cancer Prostate cancer Kidney disease Myocardial infarction Breast cancer Lung cancer Colorectal cancer Stroke Social History Smoking Status: Former smoker Tobacco Type: Cigarettes Age Started Using Tobacco: 15; Age Quit Using Tobacco: 54; packs per day: 2; Second Hand Exposure: No; Hx Alcohol Use: No Hx Substance Use: No Preferred Language: Wolof Communication Ability: Effective Visual Impairment: Limited Hearing Ability: Use of Hearing Aid Store Promoter Required: No Beliefs That Will Affect Care: None marital status: Current Living Situation: Family current occupational status: retired How many Children do You have: 3 Feels Safe at Home: Yes Childhood Exposure to Second-Hand Smoke: No caffeine: No Dental Care, Regularly: No Physical Activity Frequency: Does not Exercise Physical Activity Frequency Comment: due to physical condition Seatbelt Use: sometimes Sunscreen Use: No (not in the sun) Assistive Devices: None Review of Systems Review of Systems: All systems reviewed & are unremarkable except as noted in HPI & below Constitutional: + fatigue and + weakness; no fever and no chills Respiratory: + cough and + dyspnea; no hemoptysis, no pain on inspiration, no sputum production and no wheezing Cardiovascular: no palpitations, no lightheadedness and no edema Hematologic / Lymphatic: + easy bruising Physical Exam Constitutional: + ill appearing and + morbidly obese; no acute distress Eyes: + anicteric sclerae; pupils not irregular ENMT: Mouth: + dry oral mucous membranes; no oral mucosal abnormality Neck: normal visual inspection, trachea midline and + thick neck Respiratory: + tachypneic; no respiratory distress and does not use accessory muscles Auscultation: + diminished lung sounds and + rales Cardiovascular: Rate/Rhythm: regular rate and + bradycardic Heart Sounds: normal S1, normal S2 and + murmur Extremities: + edema Musculoskeletal: Extremities: no cyanosis and no clubbing Skin: + turgor decreased; no jaundice Neurologic: Motor/Sensory: no tremor and no asterixis Psychiatric: Orientation: alert and oriented x 3 Results & Data ([facility]) Vital Signs (Past 12 Hours) Vital Signs Temp Pulse Pulse Resp BP BP Pulse Ox 07/13/22 15:23 36.6 C 65 18 127/73 95 07/13/22 07:45 07/13/22 07:36 36.4 C L 63 16 154/74 H 97 O2 Del Method O2 Flow Rate 07/13/22 15:23 Nasal Cannula 4 07/13/22 07:45 Nasal Cannula 4 07/13/22 07:36 Nasal Cannula 4 Laboratory Results Laboratory Results - last 24 hr 07/12/22 07/13/22 07/13/22 21:03 00:04 05:45 WBC 12.82 H RBC 3.09 L Hgb 10.1 L Hct 30.8 L MCV 99.7 MCH 32.7 MCHC 32.8 RDW Std Deviation 46.6 H RDW Coeff of Juancarlos 13.1 Plt Count 318 MPV 10.9 Absolute Nucleated RBC 0.05 Nucleated RBC % (auto) 0.4 Sodium Potassium Chloride Carbon Dioxide Anion Gap BUN Creatinine Est Cr Clr Drug Dosing Est GFR ( Amer) Est GFR (Non-Af Amer) BUN/Creatinine Ratio Glucose POC Glucose 143 H 158 H Calcium C-Reactive Protein B-Natriuretic Peptide 07/13/22 07/13/22 07/13/22 05:45 05:45 08:07 WBC RBC Hgb Hct MCV MCH MCHC RDW Std Deviation RDW Coeff of Juancarlos Plt Count MPV Absolute Nucleated RBC Nucleated RBC % (auto) Sodium 144 Potassium 5.2 H Chloride 105 Carbon Dioxide 32 Anion Gap 7 BUN 79 H Creatinine 3.66 H D Est Cr Clr Drug Dosing 19.5 Est GFR ( Amer) 16.7 Est GFR (Non-Af Amer) 14.4 BUN/Creatinine Ratio 21.6 H Glucose 94 POC Glucose 112 H Calcium 8.2 L C-Reactive Protein 1.22 H B-Natriuretic Peptide 324 H 07/13/22 07/13/22 12:08 17:09 WBC RBC Hgb Hct MCV MCH MCHC RDW Std Deviation RDW Coeff of Juancarlos Plt Count MPV Absolute Nucleated RBC Nucleated RBC % (auto) Sodium Potassium Chloride Carbon Dioxide Anion Gap BUN Creatinine Est Cr Clr Drug Dosing Est GFR ( Amer) Est GFR (Non-Af Amer) BUN/Creatinine Ratio Glucose POC Glucose 182 H 177 H Calcium C-Reactive Protein B-Natriuretic Peptide Diagnostic Findings CT ANGIOGRAPHY OF THE CHEST, PULMONARY EMBOLUS PROTOCOL: FINDINGS: No pulmonary emboli are identified. There is no thoracic aortic dissection. Mild cardiomegaly and moderate coronary artery calcification is present. There is no pneumothorax or pleural effusion. Moderate emphysema. Patchy subpleural opacities within the right lung are noted. These favor an infectious process. 5 mm left lower lobe nodule on axial image 66 of 248 is new since chest CT of August 02, 2021. No fractures within the bony thorax. A right renal cyst is partially imaged on this exam. A mildly enlarged subcarinal lymph node measures 1 cm in short axis diameter. This is noted on axial image 110 of 248. This is increased in size since CT of August 02, 2021. IMPRESSION: 1. No pulmonary emboli identified. 2. Patchy subpleural right lung opacities which favor an infectious process. 3. Mildly enlarged subcarinal lymph node. This may be reactive. Follow-up chest CT in 6 months to ensure resolution is recommended. 4. 5 mm left lower lobe nodule which is new since CT of August 02, 2021. This can be assessed on follow-up CT. XR chest 1V portable: FINDINGS: No pneumothorax. The cardiac lead remains enlarged. Mild pulmonary vascular congestion persists. Emphysema is again noted. No new focal lung consolidations. Left basilar densities favor scarring/atelectasis. There are low lung volumes. IMPRESSION: No significant change in the cardiomegaly and mild interstitial pulmonary edema. US abdomen ltd ascites: FINDINGS: No ascites was noted within the abdomen or pelvis. Renal cysts were incidentally noted. IMPRESSION: No ascites. PG Care Time/CCT Total # of Minutes Spent Total Time Spent with Patient: Total time spent is greater than 50% in coordination of care (as documented) at patient's floor/unit and/or counseling patient: Coding Level of Care Code INP/OBS CONSULT LVL 4, 60 MIN Diagnoses Acute kidney injury N17.9 Chronic kidney disease, stage IV (severe) N18.4 Hyperkalemia E87.5 Anemia D64.9 Pneumonia J18.9 Laterality: right Lung location: upper lobe of lung Pneumonia type: due to unspecified organism (1) Pneumonia Laterality: right Lung location: upper lobe of lung Pneumonia type: due to unspecified organism Qualified Code(s): J18.9 - Pneumonia, unspecified organism
--- NOTE | 2022-07-13 21:01 | Hospitalist Progress Note ---
Date of Service July 13, 2022 Assessment & Plan (1) Pneumonia: Plan: SARS-CoV-2 positive however suspect lingering positive test from previous infection rather than new acute infection given lack of new acute symptoms Procalcitonin negative however some consolidation on CT chest and worsening hypoxia therefore will treat with Unasyn and azithromycin Blood culutres are negative. will order flutter valve and obtain sputum culture. will continue above antibiotics. consult speech eval. will titrate corticosteroids to daily. (2) Asthma exacerbation: Plan: Emphysematous changes on CT Previous improvement on prednisone therefore will retreat with Solu-medrol 40mg IV BID and levalbuterol/ipratropium nebs QID Pt takes chronic prednisone, mepolizumab (3) Acute and chronic respiratory failure: Plan: Aim O2 sats 88-92% Given tachycardia and increased oxygen requirement with recent COVID infection will get CT for PE despite CKD and Xarelto SOB appears to be multifactorial: mainly COPD with some CHF. Will place on lasix on 07/13 one dose as creatinine is elevated, and patient does not appear to be dry at this moment. Will repeat levels in AM (4) Pulmonary hypertension: (5) Type 2 diabetes mellitus, with long-term current use of insulin: Plan: HbA1C 5.6 in May Continue Ozempic if able to bring in on Monday Continue Lantus 20 units BID Switch Humalog to Novolog: --Goal BSG Range: Low 110_mg/dL, High 140_mg/dL --Correction Factor: 10 mg/dL/unit --Carbohydrate ratio = 3 g/unit --BSGs ACHS if eating, q6h if npo (6) Hypertension: Plan: Continue furosemide (will switch to IV for some extra diuresis) Continue metoprolol and diltiazem home dosing (7) Chronic kidney disease, stage IV (severe): Plan: Continue to monitor BMP with Lasix 40mg IV contuled Nephrology. (8) Atrial flutter, paroxysmal: Plan: Continue anticoagulation with Xarelto Continue rhythm control with flecainide. Continue rate control with diltiazem and metorpolol (9) Vitamin B12 deficiency: Plan: Continue vitamin B-12 supplementation (10) Ambulatory dysfunction: Plan: PT/OT Plan VTE Prophylaxis - Xarelto Diet - low Na, T2DM Disposition - admit to med/surg Admission and Anticipated Discharge Date Admission Date: July 09, 2022 Subjective 82 yo male reports his main complaint is his abdominal distention. He states he has not had a good BM. However his nurse reports multiple BMs Review of Systems Review of Systems: All systems reviewed & are unremarkable except as noted in HPI & below Physical Exam Physical Exam: Constitutional: well developed and in no acute distress; + not well nourished Eyes: + anicteric sclerae; normal pupil size Respiratory: normal respiratory effort, no longer using accesory muscles to breath, able to talk in full sentences, crackles at bases Cardiovascular: Rate/Rhythm: regular rate and regular rhythm Heart Sounds: no murmur Extremities: normal capillary refill and + pedal edema (1+ b/l pitting edema); no calf tenderness Gastrointestinal (Abdomen): Inspection/Auscultation: + abdomen distended Percussion/Palpation: abdomen soft; abdomen nontender Musculoskeletal: no cyanosis or clubbing, extremities motor strength 5/5 Skin: no rashes, warm and dry Neurologic: moves all extremities and awake; not confused Psychiatric: A+Ox3, euthymic affect Results & Data Results & Data ([facility]) Vital Signs (Past 12 Hours) Vital Signs Temp Pulse Resp BP Pulse Ox O2 Del Method O2 Flow Rate 07/13/22 15:23 36.6 C 65 18 127/73 95 Nasal Cannula 4 PG Care Time/CCT Total # of Minutes Spent Total Time Spent with Patient: Total time spent is greater than 50% in coordination of care (as documented) at patient's floor/unit and/or counseling patient: Coding Level of Care Code 86979 SUB INP/OBS CARE 2/35MIN Diagnoses Pneumonia J18.9 Laterality: right Lung location: upper lobe of lung Pneumonia type: due to unspecified organism Asthma exacerbation J45.901 Acute and chronic respiratory failure J96.21 Respiratory failure complication: hypoxia Pulmonary hypertension I27.20 Type 2 diabetes mellitus, with long-term current use of insulin E11.9; Z79.4 Hypertension I10 Hypertension type: essential hypertension Chronic kidney disease, stage IV (severe) N18.4 Atrial flutter, paroxysmal I48.92 Vitamin B12 deficiency E53.8 Ambulatory dysfunction R26.2 (1) Acute and chronic respiratory failure Respiratory failure complication: hypoxia Qualified Code(s): J96.21 - Acute and chronic respiratory failure with hypoxia (2) Hypertension Hypertension type: essential hypertension Qualified Code(s): I10 - Essential (primary) hypertension (3) Pneumonia Laterality: right Lung location: upper lobe of lung Pneumonia type: due to unspecified organism Qualified Code(s): J18.9 - Pneumonia, unspecified organism
[2022-07-13] MEDS: GABAPENTIN 100 MG CAP PO SCH (21:03)
[2022-07-14] MEDS: INSULIN ASPART PER UNIT SC SCH ×5 (00:34→20:38)
[2022-07-14] MEDS: LORazepam 0.5 MG TAB PO PRN (02:09)
[2022-07-14] MEDS: AMPICILLIN/SULBACTAM SOD 3,000 MG in 0.9 % SODIUM CHLORIDE 100 ML IV SCH ×2 (03:54→16:57)
[2022-07-14 06:24] LABS: Hematocrit (blood only) 26.8 % (42.0-52.0); Hemoglobin 8.7 g/dl (14.0-18.0); Mean Corpuscular Hemoglobin 32.6 pg (25.0-34.0); Mean Corpuscular Hgb Conc 32.5 g/dL (32.0-36.0); Mean Corpuscular Volume 100.4 fL (80.0-100.0); Mean Platelet Volume 10.8 fL (9.4-12.4); Nucleated RBC # (auto) 0.08 K/uL (0-0.12); Nucleated RBC % (auto) 0.7 %; Platelet Count 255 K/uL (130-400); RDW Standard Deviation 47.2 fL (36.4-46.3); Red Blood Count 2.67 M/uL (4.70-6.10); White Blood Count 11.06 K/ul (4.8-10.8)
[2022-07-14 06:39] LABS: Iron 97 mcg/dl (35-175); Total Iron Binding Cap Calc 250 mcg/dl (250-450); Transferrin (FE) Percent Satur 39 % (20-50); Unsaturated Iron Binding Cap 153 mcg/dl (155-355)
[2022-07-14 06:49] LABS: Albumin Level 2.9 gm/dl (3.4-5.0); BUN Creatinine Ratio 25.8 (10-20); Calcium 7.8 mg/dl (8.5-10.1); Creatinine Clr Calc Pharmacy 21.2 ml/min; Est GFR (African American) 18.5 ml/min; Potassium 5.3 mmol/L (3.5-5.1)
[2022-07-14 07:03] LABS: Ferritin 53.2 ng/ml (8-388)
[2022-07-14] MEDS ORDERED: LANTUS PER UNIT CHARGE SQ SCH (09:00)
[2022-07-14] MEDS: FLUTICASONE/VILANTEROL 100/25MCG 14 PUFFS/INHALER INH SCH (09:18)
[2022-07-14] MEDS: UMECLIDINIUM BROMIDE 62.5MCG/BLISTER 7 PUFFS/INHALER INH SCH (09:19)
[2022-07-14] MEDS: FLECAINIDE ACETATE 100 MG TABLET PO SCH ×2 (09:20→20:39)
[2022-07-14] MEDS: FERROUS SULFATE 325 MG TAB PO SCH (09:20)
[2022-07-14] MEDS: METOPROLOL SUCC 50MG EXT REL TAB PO SCH (09:20)
[2022-07-14] MEDS: dilTIAZem HCL 180 MG CAPCR PO SCH (09:20)
[2022-07-14] MEDS: ATORVASTATIN 20 MG TAB PO SCH (09:20)
[2022-07-14] MEDS: AZITHROMYCIN 250 MG TAB PO SCH (09:20)
[2022-07-14] MEDS: CYANOCOBALAMIN (B-12) 2,500 MCG TABLET SL SCH (09:20)
[2022-07-14] MEDS: CHOLECALCIFEROL 1,000 UNITS 25 MCG TAB PO SCH (09:20)
[2022-07-14] MEDS: DOCUSATE SODIUM 100 MG CAP PO SCH (09:20)
[2022-07-14] MEDS: methylPREDNISolone 40 MG in SYRINGE 0 ML IV SCH (09:21)
[2022-07-14] MEDS: POLYETHYLENE (MIRALAX) 17 GM PACK PO SCH ×2 (09:21→20:39)
--- NOTE | 2022-07-14 10:33 | Nephrology Progress Note ---
Date of Service July 14, 2022 Assessment & Plan (1) Acute kidney injury: Plan: Non-oliguric. No emergent indication for dialysis. s/p furosemide yesterday with good response. Net negative fluid balance well tolerated. Creatinine slightly improved. Diuretics held this AM. Document strict I/O's. Repeat metabolic profile tomorrow AM. VIOLA in the setting of recent CTA consistent with contrast nephropathy. Suspect a prerenal component and ATN. Goals of care reviewed. Medications appropriately dosed for kidney dysfunction. (5) Pneumonia: If kidney function continues to decline, consideration could be given to once daily dosing of Unasyn. (2) Hyperkalemia: Plan: Low potassium diet. Furosemide provided yesterday to encourage urine output. (3) Chronic kidney disease, stage IV (severe): Plan: Baseline creatinine ~2.0-2.3 mg/dL. Followed by Dr. Chaney. (4) Chronic heart failure with preserved ejection fraction: Plan: I discussed the plan of care with Christa Reese PA-C from cardiology today. Goal will be to maintain even to slightly negative daily fluid balance. (5) Anemia: Plan: Hgb fluctuating daily from 8.7 to 10.1. I suspect this is lab error. Similar variations noted in multiple other patients. Overall, chronic/stable. Update iron profile with AM labs. Tsat 39, ferritin 53. Will provide Epogen [id number] x 1 dose today. Admission and Anticipated Discharge Date Admission Date: July 09, 2022 Subjective No acute events overnight. No complaints this AM. Reports improvement overnight. good urine output. Breathing comfortably. Review of Systems Review of Systems: All systems reviewed & are unremarkable except as noted in HPI & below Physical Exam Constitutional: + morbidly obese; no acute distress Eyes: + anicteric sclerae; pupils not irregular ENMT: Mouth: + dry oral mucous membranes; no oral mucosal abnormality Neck: normal visual inspection, trachea midline and + thick neck Respiratory: + tachypneic; no respiratory distress and does not use accessory muscles Auscultation: + diminished lung sounds and + rales Cardiovascular: Rate/Rhythm: regular rate and + bradycardic Heart Sounds: normal S1, normal S2 and + murmur Extremities: + edema Musculoskeletal: Extremities: no cyanosis and no clubbing Skin: + turgor decreased; no jaundice Neurologic: Motor/Sensory: no tremor and no asterixis Psychiatric: Orientation: alert and oriented x 3 Results & Data ([facility]) Vital Signs (Past 12 Hours) Vital Signs Temp Pulse Resp BP Pulse Ox O2 Del Method O2 Flow Rate 07/14/22 07:42 36.5 C 66 16 138/73 99 Nasal Cannula 4 Laboratory Results Laboratory Results - last 24 hr 07/13/22 07/13/22 07/13/22 12:08 17:09 20:36 WBC RBC Hgb Hct MCV MCH MCHC RDW Std Deviation RDW Coeff of Juancarlos Plt Count MPV Absolute Nucleated RBC Nucleated RBC % (auto) Sodium Potassium Chloride Carbon Dioxide Anion Gap BUN Creatinine Est Cr Clr Drug Dosing Est GFR ( Amer) Est GFR (Non-Af Amer) BUN/Creatinine Ratio Glucose POC Glucose 182 H 177 H 208 H Calcium Phosphorus Iron TIBC Unsaturated IBC Transferrin % Sat Ferritin Albumin 07/14/22 07/14/22 07/14/22 00:03 05:42 05:42 WBC 11.06 H RBC 2.67 L Hgb 8.7 L Hct 26.8 L MCV 100.4 H MCH 32.6 MCHC 32.5 RDW Std Deviation 47.2 H RDW Coeff of Juancarlos 13.0 Plt Count 255 MPV 10.8 Absolute Nucleated RBC 0.08 Nucleated RBC % (auto) 0.7 Sodium 143 Potassium 5.3 H Chloride 105 Carbon Dioxide 31 Anion Gap 7 BUN 87 H Creatinine 3.37 H Est Cr Clr Drug Dosing 21.2 Est GFR ( Amer) 18.5 Est GFR (Non-Af Amer) 16.0 BUN/Creatinine Ratio 25.8 H Glucose 142 H POC Glucose 158 H Calcium 7.8 L Phosphorus 5.0 H Iron TIBC Unsaturated IBC Transferrin % Sat Ferritin 53.2 Albumin 2.9 L 07/14/22 07/14/22 05:42 08:05 WBC RBC Hgb Hct MCV MCH MCHC RDW Std Deviation RDW Coeff of Juancarlos Plt Count MPV Absolute Nucleated RBC Nucleated RBC % (auto) Sodium Potassium Chloride Carbon Dioxide Anion Gap BUN Creatinine Est Cr Clr Drug Dosing Est GFR ( Amer) Est GFR (Non-Af Amer) BUN/Creatinine Ratio Glucose POC Glucose 159 H Calcium Phosphorus Iron 97 TIBC 250 Unsaturated IBC 153 L Transferrin % Sat 39 Ferritin Albumin PG Care Time/CCT Total # of Minutes Spent Total Time Spent with Patient: Total time spent is greater than 50% in coordination of care (as documented) at patient's floor/unit and/or counseling patient: Coding Level of Care Code 54502 SUB INP/OBS CARE 350MIN Diagnoses Acute kidney injury N17.9 Hyperkalemia E87.5 Chronic kidney disease, stage IV (severe) N18.4 Chronic heart failure with preserved ejection fraction I50.32 Anemia D64.9
[2022-07-14] MEDS ORDERED: EPOETIN ALFA 10,000 UNITS/ML VIAL SQ ONE (10:45)
--- NOTE | 2022-07-14 13:54 | Heart Failure Consultation ---
Date of Consultation July 14, 2022 Assessment & Plan (1) Chronic heart failure with preserved ejection fraction: (2) Atrial flutter, paroxysmal: (3) Pulmonary hypertension: (4) Pneumonia: (5) Obesity: (6) Restrictive lung disease: (7) Chronic kidney disease, stage IV (severe): (8) Chronic anticoagulation: Plan Chronic HFpEF: NYHA Class III. Patient appears near euvolemic on exam.CXR with mild pulmonary edema. No ascites on abdominal US. BNP above his baseline at 324. He responded well to Lasix 40 mg IV yesterday. Kidney function above baseline but slightly improved today. Nephrology on board. Would continue to encourage negative fluid balance. Can likely resume his home regimen of 40 mg BID tomorrow if labs stable. Daily standing weights recommended. Dry weight 245 lb. He has been trending up as an outpatient so unclear if this is still accurate. Notify HF program of 2+ lb weight gain overnight or 5+ lb in 1 week. Resume low sodium diet, less than 2,000 mg daily. They are familiar with this and have done so in the past.Strict I&Os while inpatient. Paroxysmal atrial flutter and fibrillation: Asymptomatic. Rate well controlled. Continue anticoagulation. Anticoagulation: He should remain on anticoagulation, he seems to be doing well on Xarelto and is on the correct dose.. Hypertension: Today his blood pressure is well controlled. Continue current regimen. Edema of both legs: He has longstanding edema which may be multifactorial including possibly pulmonary hypertension, CHF, venous disease. Continue diuretics as recommended above, elevation, and compression. Pulmonary hypertension: Right heart cath in March 2021 consistent with pulmonary hypertension, possibly from left heart failure. Sleep study negative for GIOVANNY. Continue diuretics. CKD: Follows with Dr. Chaney as outpatient. Asthma/COPD/chronic resp failure: Moderate restriction. Follows with [facility] lung center- Dr. Ewing. Noncompliant with Trelegy. Disposition: Continue close follow up with the heart failure program- within 7 days of discharge. Follow up with Dr. Terrell as scheduled in August. History of Present Illness Attending Physician: Vishal Smith MD History of Present Illness This is an 81-year-old gentleman with a history of diabetes mellitus, hypertension, atrial flutter, hyperlipidemia but no known coronary artery disease. Dr. 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 Recent cardiac studies: 1. 09/30/20 Dobutamine stress test: Negative stress echo. Negative ECG. No chest pain. Normal LV function. 2. 12/25/20 PFTs: Severe restriction. DLCO severely reduced. 3.04/05/21 Right heart cath: Pulmonary capillary wedge pressure: V wave 26 with a mean of 22 mmHg. PA pressure: 59/18 with a mean of 32 mmHg. Right ventricular pressure: 59/19 with RVEDP 10 mmHg. Right atrial pressure: A wave 20; V wave 17; mean 14 mmHg. Cardiac output via thermodilution was 6.13 L/min with a cardiac index of 2.26 L/min/m. PVR 1.63 Wood units. 4. 04/19/21 Sleep study: No evidence of sleep apnea, limited study. Mean saturation 94% on 4 L. He had a nuclear stress test in March 2014 which was negative for ischemia, however he was having dyspnea on exertion on 01/14/2014 when he was observed by Dr. Mock to have a heart rate of 150 bpm and the diagnosis of atrial flutter with 2-1 AV conduction was made. He was seen in the emergency room, started on diltiazem drip and converted spontaneously to sinus rhythm. He takes his blood pressure regularly and he had observed in the past that his heart rate was 150 bpm at times. He was recently evaluated in February 2021 for increasing dyspnea. PFTs demonstrate severe restriction. He was evaluated by pulmonology who recommended right heart catheterization to evaluate for pulmonary hypertension as well as a sleep study. Right heart catheterization was performed by Dr. Escobar on 04/05/21. Cardiac output was normal. Pulmonary hypertension noted, possibly due to left heart failure give elevated PCWP. Patient was discharged but agreeable to outpatient follow up with the heart failure program. He was evaluated initially with the heart failure program on 04/09/21. He was slightly hypervolemic. Lasix was increased to 80 mg BID for 2-3 days. Patient reported significant improvement after several days. Weight 258 lb. Slightly azotemic on labs therefore reduced back to 40 mg BID on 04/19/21. Interestingly, BNP only 88. He was most recently evaluated on 04/21/22 with the heart failure program. He was euvolemic. Dry weight 245 lb. CXR negative for congestion. BNP 134. He continued Lasix 40 mg am/20 mg pm. Defer to pulm ([facility]) for additional recommendations. He is currently admitted for pneumonia. He presented with weakness and a mbulatory dysfunction. He was hospitalized in May for COVID and felt like he never fully recovered. Treated with Prednisone and Doxycycline as outpatient prior to admission. Patient had also increased outpatient diuretic regimen without relief. He was COVID+ on admission but suspect this residual from his previous infection. Procalcitonin negative but consolidation noted on CT scan. He was treated with Unasyn and Azithromycin. CTA negative for PE. Also treated with Solumedrol and nebs. He was felt to be volume overloaded and was given Lasix 40 mg IV on 07/10, 07/11, and 07/13. He had a good response. Creatinine bump on 07/13 suspected due contrast nephropathy. This is improved today. Patient reports he's feeling slightly improved today. He's able to move around easier in bed and is feeling stronger. He is having intermittent episodes of shortness of breath. He's on O2 4L. His lower extremity edema is improving. He denies chest pain, lightheadedness, or palpitations. He is essentially net neutral for fluid balance for the admission. Weight is 264 lb per bed scale. Home dry weight is 245 lb. SocHx: Patient lives in [place] with his , 1 story. 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 He quit smoking 25 years ago. He denies alcohol use. They have children separately. Allergies Allergy/AdvReac Type Severity Reaction Status Date / Time adhesive Allergy Unknown PLASTIC Verified 05/19/22 11:06 TAPE-SKIN BLISTERS,RASH, IRRITATION latex Allergy Unknown Verified 05/19/22 11:06 sertraline AdvReac Intermediate palpitation Verified 05/19/22 11:06 s Home Medications Medication Instructions Recorded Confirmed Type multivitamin (Daily Multi-Vitamin 1 tab PO DAILY 01/18/19 07/09/22 History tablet) vitamins A,C,J-aavf-zrknln 4,296 1 cap PO BID 01/18/19 07/09/22 History mcg-226 mg-90 mg capsule (PreserVision AREDS) cholecalciferol (vitamin D3) 25 1,000 unit PO DAILY 01/27/20 07/09/22 History mcg (1,000 unit) capsule omega-3 acid ethyl esters 1 gram 3 cap PO DAILY 12/08/20 07/09/22 History capsule fluticasone fur. 100 mcg-umeclid 1 inh inhalation DAILY #3 Inhalers 03/22/21 07/09/22 Rx 62.5 mcg-vilant 25 mcg inhalat.powder (Trelegy Ellipta) gabapentin 100 mg capsule 100 - 300 mg PO HS PRN restless 06/25/21 07/09/22 Rx leg(s) #270 caps rivaroxaban 15 mg tablet (Xarelto) See Rx Instructions .Route 07/19/21 07/09/22 Rx .COMPLEX #90 tabs alfuzosin 10 mg tablet,extended 10 mg PO DAILY #90 tabs 10/19/21 07/09/22 Rx release 24 hr prednisone 5 mg tablet 5 mg PO DAILY 10/20/21 07/09/22 History cyanocobalamin (vitamin B-12) 2,500 mcg PO DAILY #30 tabs 10/21/21 07/09/22 Rx 2,500 mcg tablet atorvastatin 20 mg tablet 20 mg PO DAILY #90 tabs 03/28/22 07/09/22 Rx diltiazem HCl 180 mg 180 mg PO DAILY #90 caps 03/28/22 07/09/22 Rx capsule,extended release 24 hr metoprolol succinate 100 mg 100 mg PO DAILY #90 tabs 03/28/22 07/09/22 Rx tablet,extended release 24 hr ferrous sulfate 325 mg (65 mg 325 mg PO DAILY 04/13/22 07/09/22 History iron) tablet (FeroSul) mepolizumab 100 mg/mL subcutaneous 100 mg subcut .[id number] 04/13/22 07/09/22 History auto-injector (Nucala) semaglutide 0.25 mg or 0.5 mg (2 0.5 mg (0.4 mL) subcut Q7D #4.5 mL 05/02/22 07/09/22 Rx mg/1.5 mL) subcutaneous pen injector (Ozempic) flecainide 100 mg tablet 100 mg PO Q12H #180 tabs 05/17/22 07/09/22 Rx docusate sodium 100 mg capsule 200 mg PO DAILY 06/05/22 07/09/22 History insulin lispro 100 unit/mL 22 unit subcut DAILY sliding scale 06/05/22 07/09/22 History subcutaneous pen (Humalog KwikPen (U-100) Insulin) dexamethasone 6 mg tablet 6 mg PO DAILY #7 tabs 06/09/22 07/09/22 Rx furosemide 20 mg tablet 40 mg PO QAM edema #90 tabs 06/09/22 07/09/22 Rx levalbuterol HCl 0.63 mg/3 mL 0.63 mg (3 mL) inhalation Q4H PRN 06/13/22 07/09/22 Rx solution for nebulization shortness of breath or wheezing #540 mL levalbuterol tartrate 45 2 inh inhalation Q4H PRN shortness 06/13/22 07/09/22 Rx mcg/actuation aerosol inhaler of breath or wheezing #45 grams (Xopenex HFA) metolazone 5 mg tablet 5 mg PO DAILY PRN SOB, weight 06/20/22 07/09/22 Rx gain, dyspnea. #30 tabs insulin glargine 100 unit/mL (3 20 unit (0.2 mL) subcut BID #45 mL 06/28/22 07/09/22 Rx mL) subcutaneous pen (Lantus Solostar U-100 Insulin) lorazepam 0.5 mg tablet 0.5 mg PO DAILY PRN anxiety #10 07/04/22 07/09/22 Rx tabs food supplemt, lactose-reduced 1 ea PO BID 07/09/22 07/09/22 History Patient History Medical History (Updated 07/13/22 @ 18:15 by Shelton Chowdhury DO) Acute on chronic renal insufficiency Anemia Bladder cancer Chronic hypoxemic respiratory failure CKD (chronic kidney disease), stage III Family history of transitional cell carcinoma of bladder Hemoptysis Hypertension Mixed restrictive and obstructive lung disease Pulmonary emphysema Renal mass, right Shortness of breath Shortness of breath Vitamin D deficiency Surgical History History of cystoscopy History of surgical removal of lesion History of umbilical hernia repair Family History Son Hodgkins disease Brother Throat cancer Other Diabetes Denies family history of Ovarian cancer Prostate cancer Kidney disease Myocardial infarction Breast cancer Lung cancer Colorectal cancer Stroke Social History Smoking Status: Former smoker Tobacco Type: Cigarettes Age Started Using Tobacco: 15; Age Quit Using Tobacco: 54; packs per day: 2; Second Hand Exposure: No; Hx Alcohol Use: No Hx Substance Use: No Preferred Language: Iraqi Communication Ability: Effective Visual Impairment: Limited Hearing Ability: Use of Hearing Aid Sock Ironer Required: No Beliefs That Will Affect Care: None marital status: Current Living Situation: Family current occupational status: retired How many Children do You have: 3 Feels Safe at Home: Yes Childhood Exposure to Second-Hand Smoke: No caffeine: No Dental Care, Regularly: No Physical Activity Frequency: Does not Exercise Physical Activity Frequency Comment: due to physical condition Seatbelt Use: sometimes Sunscreen Use: No (not in the sun) Assistive Devices: None Physical Exam Physical Exam: Gen.: No acute distress. Alert and oriented. Supplemental O2, 4 L HEENT: Anicteric sclera. Mucous membranes dry Neck: No JVD. No HJR. Difficult exam. Cardiac: Regular rate and rhythm. No murmurs. Pulmonary: Normal respiratory effort. Lungs clear to auscultation, no wheezes/crackles. Abdomen: Soft, mildly distended. Obese. Extremities: 1+ bilateral lower extremity edema at the ankles L>R. 2+ pedal edema. No cyanosis. Psychiatric: Affect appears appropriate. Results & Data ([facility]) Vital Signs (Past 12 Hours) Vital Signs Temp Pulse Resp BP Pulse Ox O2 Del Method O2 Flow Rate 07/14/22 07:50 Nasal Cannula 4 07/14/22 07:42 97.7 F 66 16 138/73 99 Nasal Cannula 4 Coding Level of Care Code 96451 INT INP/OBS CARE 3/75MIN Diagnoses Chronic heart failure with preserved ejection fraction I50.32 Atrial flutter, paroxysmal I48.92 Pulmonary hypertension I27.20 Pneumonia J18.9 Laterality: right Lung location: upper lobe of lung Pneumonia type: due to unspecified organism Obesity E66.9 Restrictive lung disease J98.4 Chronic kidney disease, stage IV (severe) N18.4 Chronic anticoagulation Z79.01 (1) Pneumonia Laterality: right Lung location: upper lobe of lung Pneumonia type: due to unspecified organism Qualified Code(s): J18.9 - Pneumonia, unspecified organism
[2022-07-14] MEDS ORDERED: FUROSEMIDE 40 MG TAB PO ONE (17:21)
[2022-07-14] MEDS: RIVAROXABAN 15 MG TAB PO SCH (17:41)
[2022-07-14] MEDS: ALFUZOSIN HCL 10 MG TAB PO SCH (18:15)
[2022-07-14] MEDS: GABAPENTIN 100 MG CAP PO SCH (20:39)
--- NOTE | 2022-07-15 00:02 | Hospitalist Progress Note ---
Date of Service July 15, 2022 Assessment & Plan (1) Pneumonia: Plan: SARS-CoV-2 positive however suspect lingering positive test from previous infection rather than new acute infection given lack of new acute symptoms Procalcitonin negative however some consolidation on CT chest and worsening hypoxia therefore will treat with Unasyn and azithromycin Blood culutres are negative. will order flutter valve and obtain sputum culture. will continue above antibiotics. consult speech eval. will titrate corticosteroids to daily. (2) Asthma exacerbation: Plan: Emphysematous changes on CT Previous improvement on prednisone therefore will retreat with Solu-medrol 40mg IV BID and levalbuterol/ipratropium nebs QID Pt takes chronic prednisone, mepolizumab (3) Acute and chronic respiratory failure: Plan: Aim O2 sats 88-92% Given tachycardia and increased oxygen requirement with recent COVID infection will get CT for PE despite CKD and Xarelto SOB appears to be multifactorial: mainly COPD with some CHF. Will place on lasix on 07/13 one dose as creatinine is elevated, and patient does not appear to be dry at this moment. Will repeat levels in AM (4) Pulmonary hypertension: (5) Type 2 diabetes mellitus, with long-term current use of insulin: Plan: HbA1C 5.6 in May Continue Ozempic if able to bring in on Monday Continue Lantus 20 units BID Switch Humalog to Novolog: --Goal BSG Range: Low 110_mg/dL, High 140_mg/dL --Correction Factor: 10 mg/dL/unit --Carbohydrate ratio = 3 g/unit --BSGs ACHS if eating, q6h if npo (6) Hypertension: Plan: Continue furosemide (will switch to IV for some extra diuresis) Continue metoprolol and diltiazem home dosing (7) Chronic kidney disease, stage IV (severe): Plan: Continue to monitor BMP with Lasix 40mg IV contuled Nephrology. (8) Atrial flutter, paroxysmal: Plan: Continue anticoagulation with Xarelto Continue rhythm control with flecainide. Continue rate control with diltiazem and metorpolol (9) Vitamin B12 deficiency: Plan: Continue vitamin B-12 supplementation (10) Ambulatory dysfunction: Plan: PT/OT Plan VTE Prophylaxis - Xarelto Diet - low Na, T2DM Disposition - admit to med/surg Admission and Anticipated Discharge Date Admission Date: July 09, 2022 Subjective Patient reports slight improvement in his breathing No fevers or chills Physical Exam Physical Exam: Head and ENT no thyroid enlargement trachea midline Cardiovascular S1-S2 are normal no S3 Lungs bilateral air entry fair no wheezing Abdomen soft nondistended positive bowel sounds Extremity shows trace edema Neurologically no focal deficits Skin shows no rash no cyanosis Results & Data Results & Data ([facility]) Vital Signs (Past 12 Hours) Vital Signs Temp Pulse Resp BP Pulse Ox O2 Del Method O2 Flow Rate 07/14/22 20:45 Nasal Cannula 4 07/14/22 20:45 36.5 C 68 18 126/76 96 Nasal Cannula 4 07/14/22 14:42 36.4 C L 63 18 123/68 93 Nasal Cannula 4 Laboratory Results Short CBC 07/14/22 Range/Units 05:42 WBC 11.06 H (4.8-10.8) K/ul Hgb 8.7 L (14.0-18.0) g/dl Hct 26.8 L (42.0-52.0) % Plt Count 255 (130-400) K/uL BMP 07/14/22 05:42 Sodium 143 Potassium 5.3 H Chloride 105 Carbon Dioxide 31 BUN 87 H Creatinine 3.37 H Glucose 142 H Calcium 7.8 L Liver Function 07/14/22 Range/Units 05:42 Albumin 2.9 L (3.4-5.0) gm/dl PG Care Time/CCT Total # of Minutes Spent Total Time Spent with Patient: Total time spent is greater than 50% in coordination of care (as documented) at patient's floor/unit and/or counseling patient: Coding Level of Care Code 93548 SUB INP/OBS CARE 25MIN Diagnoses Pneumonia J18.9 Laterality: right Lung location: upper lobe of lung Pneumonia type: due to unspecified organism Asthma exacerbation J45.901 Acute and chronic respiratory failure J96.21 Respiratory failure complication: hypoxia Pulmonary hypertension I27.20 Type 2 diabetes mellitus, with long-term current use of insulin E11.9; Z79.4 Hypertension I10 Hypertension type: essential hypertension Chronic kidney disease, stage IV (severe) N18.4 Atrial flutter, paroxysmal I48.92 Vitamin B12 deficiency E53.8 Ambulatory dysfunction R26.2 (1) Pneumonia Laterality: right Lung location: upper lobe of lung Pneumonia type: due to unspecified organism Qualified Code(s): J18.9 - Pneumonia, unspecified organism (2) Acute and chronic respiratory failure Respiratory failure complication: hypoxia Qualified Code(s): J96.21 - Acute and chronic respiratory failure with hypoxia (3) Hypertension Hypertension type: essential hypertension Qualified Code(s): I10 - Essential (primary) hypertension
[2022-07-15] MEDS: INSULIN ASPART PER UNIT SC SCH ×5 (00:12→20:54)
[2022-07-15] MEDS: AMPICILLIN/SULBACTAM SOD 3,000 MG in 0.9 % SODIUM CHLORIDE 100 ML IV SCH ×2 (04:28→15:33)
[2022-07-15] MEDS: LORazepam 0.5 MG TAB PO PRN (04:32)
[2022-07-15 07:31] LABS: Hematocrit (blood only) 28.5 % (42.0-52.0); Hemoglobin 9.2 g/dl (14.0-18.0); Mean Corpuscular Hemoglobin 31.9 pg (25.0-34.0); Mean Corpuscular Hgb Conc 32.3 g/dL (32.0-36.0); Mean Platelet Volume 10.9 fL (9.4-12.4); Nucleated RBC # (auto) 0.06 K/uL (0-0.12); Nucleated RBC % (auto) 0.5 %; Platelet Count 270 K/uL (130-400); RDW Standard Deviation 46.3 fL (36.4-46.3); Red Blood Count 2.88 M/uL (4.70-6.10)
[2022-07-15] MEDS: dilTIAZem HCL 180 MG CAPCR PO SCH (07:43)
[2022-07-15] MEDS: CHOLECALCIFEROL 1,000 UNITS 25 MCG TAB PO SCH (07:44)
[2022-07-15] MEDS: METOPROLOL SUCC 50MG EXT REL TAB PO SCH (07:44)
[2022-07-15] MEDS: AZITHROMYCIN 250 MG TAB PO SCH (07:44)
[2022-07-15] MEDS: FERROUS SULFATE 325 MG TAB PO SCH (07:44)
[2022-07-15] MEDS: ATORVASTATIN 20 MG TAB PO SCH (07:44)
[2022-07-15] MEDS: FLUTICASONE/VILANTEROL 100/25MCG 14 PUFFS/INHALER INH SCH (07:44)
[2022-07-15] MEDS: CYANOCOBALAMIN (B-12) 2,500 MCG TABLET SL SCH (07:44)
[2022-07-15] MEDS: DOCUSATE SODIUM 100 MG CAP PO SCH (07:44)
[2022-07-15] MEDS: FLECAINIDE ACETATE 100 MG TABLET PO SCH ×2 (07:45→20:48)
[2022-07-15] MEDS: methylPREDNISolone 40 MG in SYRINGE 0 ML IV SCH (07:45)
[2022-07-15] MEDS: POLYETHYLENE (MIRALAX) 17 GM PACK PO SCH ×2 (07:45→20:55)
[2022-07-15 08:25] LABS: Creatinine Clr Calc Pharmacy 22.9 ml/min; Potassium 5.1 mmol/L (3.5-5.1)
[2022-07-15] MEDS: LANTUS PER UNIT CHARGE SQ SCH (08:35)
[2022-07-15 08:37] LABS: BUN Creatinine Ratio 27.1 (10-20); Calcium 8.3 mg/dl (8.5-10.1); Est GFR (African American) 17.8 ml/min; Est GFR (Non-African American) 15.4 ml/min
--- NOTE | 2022-07-15 08:39 | Pharmacy Report ---
Pharmacy Glycemic Short Note 2 - Date of Service July 15, 2022 - Glycemic Short BSG Results (Last 24 hours): 07/14/22 07/14/22 07/14/22 12:00 17:11 20:35 Glucose POC Glucose 174 H 167 H 137 H 07/15/22 07/15/22 07/15/22 00:07 06:53 08:07 Glucose 149 H POC Glucose 136 H 186 H OUTPATIENT ANTIDIABETIC REGIMEN: * Ozempic 0.5 mg SQ weekly * Lantus 20 units BID * Humalog SSI * HbA1C = 5.6% 06/06/22 ASSESSMENT: 07/15/22 * BSGs much improved since steroids were tapered to once daily, ranging 137-174 mg/dL yesterday * Received 149 units of insulin (45 units of basal and 104 units of prandi al/correctional bolus) * Fasting BSG trending up at 186 mg/dL today - will increase Lantus to 50 units this morning * Continue current Novolog parameters, which seem to be appropriate at this time * Surprisingly, BSG of 303 mg/dL at lunchtime, perhaps uncovered carbs at breakfast/snack? Will not overreact to this anomalous value 07/13/22 * Mr Maycol is an 82 y/o M with a PMH of T2DM who presents with pneumonia. Patient was given dexamethasone 10 mg IV in ER then started on Solu-Medrol 40 mg IV BID. * Patient had BSGs in the 300's on 07/10/22 (likely due to steroid induced hyperglycemia) and was started on an insulin drip. * BSGs started trending down the morning of 07/11/22: 198 and 167 mg/dL. * Insulin drip discontinued on 07/11/22 and transitioned to basal and bolus insulin. * Solu-Medrol dose decreased to 40 mg IV daily on 07/12/22 and basal insulin was decreased. * Added midnight BSG check with Novolog coverage as patient is requesting midnight snack per diabetes care and financial services education consultant. PLAN FOR INPATIENT GLYCEMIC CONTROL: * Started patient's own Ozempic 0.5 mg SQ weekly (dose given 07/12/22) * Patient usually takes on Mondays, but did not receive dose of Ozempic on Monday07/11/22 * Basal insulin * Lantus 50 units daily (given with IV Solu-medrol) * Low-dose Lantus scale this evening to provide 0-10 units (see EHR for details) * Bolus insulin * NovoLog per scale ACHS or Q6hrs while NPO * Goal Range: Low 110 mg/dL - High 140 mg/dL * Correction Factor: 8 mg/dL/unit * Nutritional / Prandial insulin per carb ratio of 1 unit per 1.5 grams CHO consumed
[2022-07-15] MEDS: UMECLIDINIUM BROMIDE 62.5MCG/BLISTER 7 PUFFS/INHALER INH SCH (08:54)
--- NOTE | 2022-07-15 14:38 | Nephrology Progress Note ---
Date of Service July 15, 2022 Assessment & Plan (1) Acute kidney injury: Plan: Non-oliguric. No emergent indication for dialysis. s/p furosemide yesterday with good response. Creatinine stable. VIOLA in the setting of recent CTA consistent with contrast nephropathy. Suspect a prerenal component and ATN. Goal at this time is to use diuretics to maintain even or slightly negative fluid balance. Furosemide held this AM. Document strict I/O's while inpatient and monitor metabolic profile daily. Medications appropriately dosed for kidney dysfunction. If kidney function declines, consider once daily dosing of Unasyn. (2) Hyperkalemia: Plan: Low potassium diet. Furosemide provided yesterday to encourage slightly negative fluid balance. (3) Chronic kidney disease, stage IV (severe): Plan: Baseline creatinine ~2.0-2.3 mg/dL. Followed by Dr. Chaney. (4) Chronic heart failure with preserved ejection fraction: Plan: I discussed the plan of care with Christa Reese PA-C from cardiology. Goal will be to maintain even to slightly negative daily fluid balance. (5) Anemia: Plan: Tsat 39, ferritin 53. Epogen [id number] x 1 dose yesterday. Admission and Anticipated Discharge Date Admission Date: July 09, 2022 Subjective No acute events overnight. Ish felt well this morning. Denies any fluid retention or edema. Reports robust urine output with furosemide 40 mg PO yesterday. Breathing comfortably. Review of Systems Review of Systems: All systems reviewed & are unremarkable except as noted in HPI & below Physical Exam Constitutional: + morbidly obese; no acute distress Eyes: + anicteric sclerae; pupils not irregular ENMT: Mouth: + dry oral mucous membranes; no oral mucosal abnormality Neck: normal visual inspection, trachea midline and + thick neck Respiratory: + tachypneic; no respiratory distress and does not use accessory muscles Auscultation: + diminished lung sounds and + rales Cardiovascular: Rate/Rhythm: regular rate and + bradycardic Heart Sounds: normal S1, normal S2 and + murmur Extremities: + edema Musculoskeletal: Extremities: no cyanosis and no clubbing Skin: + turgor decreased; no jaundice Neurologic: Motor/Sensory: no tremor and no asterixis Psychiatric: Orientation: alert and oriented x 3 Results & Data ([facility]) Vital Signs (Past 12 Hours) Vital Signs Temp Pulse Resp BP Pulse Ox O2 Del Method O2 Flow Rate 07/15/22 07:30 Nasal Cannula 4 07/15/22 07:09 36.5 C 64 16 123/76 97 Nasal Cannula 4 Laboratory Results Laboratory Results - last 24 hr 07/14/22 07/14/22 07/15/22 17:11 20:35 00:07 WBC RBC Hgb Hct MCV MCH MCHC RDW Std Deviation RDW Coeff of Juancarlos Plt Count MPV Absolute Nucleated RBC Nucleated RBC % (auto) Sodium Potassium Chloride Carbon Dioxide Anion Gap BUN Creatinine Est Cr Clr Drug Dosing Est GFR ( Amer) Est GFR (Non-Af Amer) BUN/Creatinine Ratio Glucose POC Glucose 167 H 137 H 136 H Calcium 07/15/22 07/15/22 07/15/22 06:53 06:53 08:07 WBC 11.60 H RBC 2.88 L Hgb 9.2 L Hct 28.5 L MCV 99.0 MCH 31.9 MCHC 32.3 RDW Std Deviation 46.3 RDW Coeff of Juancarlos 13.0 Plt Count 270 MPV 10.9 Absolute Nucleated RBC 0.06 Nucleated RBC % (auto) 0.5 Sodium 143 Potassium 5.1 Chloride 106 Carbon Dioxide 30 Anion Gap 7 BUN 94 H Creatinine 3.47 H Est Cr Clr Drug Dosing 22.9 Est GFR ( Amer) 17.8 Est GFR (Non-Af Amer) 15.4 BUN/Creatinine Ratio 27.1 H Glucose 149 H POC Glucose 186 H Calcium 8.3 L 07/15/22 07/15/22 12:01 12:02 WBC RBC Hgb Hct MCV MCH MCHC RDW Std Deviation RDW Coeff of Juancarlos Plt Count MPV Absolute Nucleated RBC Nucleated RBC % (auto) Sodium Potassium Chloride Carbon Dioxide Anion Gap BUN Creatinine Est Cr Clr Drug Dosing Est GFR ( Amer) Est GFR (Non-Af Amer) BUN/Creatinine Ratio Glucose POC Glucose 301 H* 303 H* Calcium PG Care Time/CCT Total # of Minutes Spent Total Time Spent with Patient: Total time spent is greater than 50% in coordination of care (as documented) at patient's floor/unit and/or counseling patient: Coding Level of Care Code 58761 SUB INP/OBS CARE 3/50MIN Diagnoses Acute kidney injury N17.9 Hyperkalemia E87.5 Chronic kidney disease, stage IV (severe) N18.4 Chronic heart failure with preserved ejection fraction I50.32 Anemia D64.9
--- NOTE | 2022-07-15 16:03 | Heart Failure Progress Note ---
Date of Service July 15, 2022 Assessment & Plan (1) Chronic heart failure with preserved ejection fraction: (2) Atrial flutter, paroxysmal: (3) CKD (chronic kidney disease), stage III: (4) Pulmonary hypertension: (5) Restrictive lung disease: (6) Pneumonia: Plan Chronic HFpEF: NYHA Class III. Patient appears near euvolemic, possibly slightly hypervolemic on exam.CXR with mild pulmonary edema. No ascites on abdominal US. BNP above his baseline at 324. He responded well to Lasix 40 mg PO yesterday. Kidney function above baseline but but stable the past few days. Nephrology on board. Would continue to encourage negative fluid balance. Would recommend Lasix 40 mg this afternoon. Can likely resume his home regimen of 40 mg PO daily tomorrow if labs stable. Dailystandingweights recommended. Outpatient dry weight previously 245 lb. He has been trending up as an outpatient so unclear if this is still accurate. Notify HF program of 2+ lb weight gain overnight or 5+ lb in 1 week. Resume low sodium diet, less than 2,000 mg daily. They are fa miliar with this and have done so in the past.Strict I&Os while inpatient. Paroxysmal atrial flutter and fibrillation: Asymptomatic. Rate well controlled. Continue anticoagulation. Anticoagulation: He should remain on anticoagulation, he seems to be doing well on Xarelto and is on the correct dose.. Hypertension: Blood pressure is well controlled. Continue current regimen. Edema of both legs: He has longstanding edema which may be multifactorial including possibly pulmonary hypertension, CHF, venous disease. Continue diuretics as recommended above, elevation, and compression. Pulmonary hypertension: Right heart cath in March 2021 consistent with pulmonary hypertension, possibly from left heart failure. Sleep study negative for GIOVANNY. Continue diuretics. CKD: Follows with Dr. Chaney as outpatient. Asthma/COPD/chronic resp failure: Moderate restriction. Follows with [facility] lung center- Dr. Ewing. Noncompliant with Trelegy. Disposition: Continue close follow up with the heart failure program- within 7 days of discharge. Follow up with Dr. Terrell as scheduled in August. Admission and Anticipated Discharge Date Admission Date: July 09, 2022 Subjective Patient resting comfortably during rounds this afternoon. Easily arousable, answers all questions appropriately. Reports he feels well today. No concerns with his breathing. Still having generalized weakness. Lower extremity edema is noted. He had a dose of Lasix yesterday afternoon with good response. Weight is 264 lb on the standing scale today. Denies chest pain, cough, palpitations. Physical Exam Physical Exam: Gen.: No acute distress. Alert and oriented. Supplemental O2, 4 L HEENT: Anicteric sclera. Mucous membranes dry Neck: No JVD. No HJR. Difficult exam. Cardiac: Regular rate and rhythm. No murmurs. Pulmonary: Normal respiratory effort. Lungs clear to auscultation, no wheezes/crackles. Abdomen: Soft, mildly distended. Obese. Extremities: 2+ bilateral lower extremity edema at the ankles L>R. 2+ pedal edema. No cyanosis. Psychiatric: Affect appears appropriate. Results & Data ([facility]) Vital Signs (Past 12 Hours) Vital Signs Temp Pulse Resp BP Pulse Ox O2 Del Method O2 Flow Rate 07/15/22 15:36 97.9 F 71 16 146/68 H 95 Nasal Cannula 4 07/15/22 07:30 Nasal Cannula 4 07/15/22 07:09 97.7 F 64 16 123/76 97 Nasal Cannula 4 PG Care Time/CCT Total # of Minutes Spent Total Time Spent with Patient: Total time spent is greater than 50% in coordination of care (as documented) at patient's floor/unit and/or counseling patient: Coding Level of Care Code 16637 SUB INP/OBS CARE 3/50MIN Diagnoses Chronic heart failure with preserved ejection fraction I50.32 Atrial flutter, paroxysmal I48.92 CKD (chronic kidney disease), stage III N18.3 Pulmonary hypertension I27.20 Restrictive lung disease J98.4 Pneumonia J18.9 Laterality: right Lung location: upper lobe of lung Pneumonia type: due to unspecified organism (1) Pneumonia Laterality: right Lung location: upper lobe of lung Pneumonia type: due to unspecified organism Qualified Code(s): J18.9 - Pneumonia, unspecified organism
[2022-07-15] MEDS ORDERED: FUROSEMIDE 40 MG TAB PO ONE (16:15)
[2022-07-15] MEDS: RIVAROXABAN 15 MG TAB PO SCH (16:37)
[2022-07-15] MEDS: ALFUZOSIN HCL 10 MG TAB PO SCH (16:37)
[2022-07-15] MEDS ORDERED: LANTUS PER UNIT CHARGE SQ SCH (21:00)
--- NOTE | 2022-07-16 00:07 | Hospitalist Progress Note ---
Date of Service July 16, 2022 Assessment & Plan (1) Pneumonia: Plan: SARS-CoV-2 positive however suspect lingering positive test from previous infection rather than new acute infection given lack of new acute symptoms Procalcitonin negative however some consolidation on CT chest and worsening hypoxia therefore will treat with Unasyn and azithromycin Blood culutres are negative. will order flutter valve and obtain sputum culture. will continue above antibiotics. consult speech eval. will titrate corticosteroids to daily. 2/3 Lasix 40 mg p.o. added to promote diuresis Heart failure follow-up appreciated Chronic HFpEF: NYHA Class III. Patient appears near euvolemic, possibly slightly hypervolemic on exam.CXR with mild pulmonary edema. No ascites on abdominal US. BNP above his baseline at 324. He responded well to Lasix 40 mg PO yesterday. Kidney function above baseline but but stable the past few days. Nephrology on board. Would continue to encourage negative fluid balance. Would recommend Lasix 40 mg this afternoon. Can likely resume his home regimen of 40 mg PO daily tomorrow if labs stable. Paroxysmal atrial flutter and fibrillation: Asymptomatic. Rate well controlled. Continue anticoagulation. Anticoagulation: He should remain on anticoagulation, he seems to be doing well on Xarelto and is on the correct dose.. Hypertension: Blood pressure is well controlled. Continue current regimen. Edema of both legs: He has longstanding edema which may be multifactorial including possibly pulmonary hypertension, CHF, venous disease. Continue diuretics as recommended above, elevation, and compression. Pulmonary hypertension: Right heart cath in March 2021 consistent with pulmonary hypertension, possibly from left heart failure. Sleep study negative for GIOVANNY. Continue diuretics. (2) Asthma exacerbation: Plan: Emphysematous changes on CT Previous improvement on prednisone therefore will retreat with Solu-medrol 40mg IV BID and levalbuterol/ipratropium nebs QID Pt takes chronic prednisone, mepolizumab (3) Acute and chronic respiratory failure: Plan: Aim O2 sats 88-92% Given tachycardia and increased oxygen requirement with recent COVID infection will get CT for PE despite CKD and Xarelto SOB appears to be multifactorial: mainly COPD with some CHF. Will place on lasix on 07/13 one dose as creatinine is elevated, and patient does not appear to be dry at this moment. Will repeat levels in AM (4) Pulmonary hypertension: (5) Type 2 diabetes mellitus, with long-term current use of insulin: Plan: HbA1C 5.6 in May Continue Ozempic if able to bring in on Monday Continue Lantus 20 units BID Switch Humalog to Novolog: --Goal BSG Range: Low 110_mg/dL, High 140_mg/dL --Correction Factor: 10 mg/dL/unit --Carbohydrate ratio = 3 g/unit --BSGs ACHS if eating, q6h if npo (6) Hypertension: Plan: Continue furosemide (will switch to IV for some extra diuresis) Continue metoprolol and diltiazem home dosing (7) Chronic kidney disease, stage IV (severe): Plan: Continue to monitor BMP with Lasix 40mg IV contuled Nephrology. (8) Atrial flutter, paroxysmal: Plan: Continue anticoagulation with Xarelto Continue rhythm control with flecainide. Continue rate control with diltiazem and metorpolol (9) Vitamin B12 deficiency: Plan: Continue vitamin B-12 supplementation (10) Ambulatory dysfunction: Plan: PT/OT Plan Admission and Anticipated Discharge Date Admission Date: July 09, 2022 Subjective Patient seen and examined Reports some generalized weakness and edema improving . Denies chest pain, cough, palpitations. Physical Exam Physical Exam: Head and ENT no thyroid enlargement trachea midline Cardiovascular S1-S2 are normal no S3 Lungs bilateral air entry fair no wheezing Abdomen soft nondistended positive bowel sounds Extremity shows 1+ edema Neurologically no focal deficits Skin shows no rash no cyanosis Results & Data Results & Data ([facility]) Vital Signs (Past 12 Hours) Vital Signs Temp Pulse Resp BP Pulse Ox O2 Del Method O2 Flow Rate 07/15/22 20:45 Nasal Cannula 4 07/15/22 20:46 36.4 C L 68 18 130/73 97 Nasal Cannula 4 07/15/22 15:36 36.6 C 71 16 146/68 H 95 Nasal Cannula 4 Laboratory Results Short CBC 07/15/22 Range/Units 06:53 WBC 11.60 H (4.8-10.8) K/ul Hgb 9.2 L (14.0-18.0) g/dl Hct 28.5 L (42.0-52.0) % Plt Count 270 (130-400) K/uL BMP 07/15/22 06:53 Sodium 143 Potassium 5.1 Chloride 106 Carbon Dioxide 30 BUN 94 H Creatinine 3.47 H Glucose 149 H Calcium 8.3 L PG Care Time/CCT Total # of Minutes Spent Total Time Spent with Patient: Total time spent is greater than 50% in coordination of care (as documented) at patient's floor/unit and/or counseling patient: Coding Level of Care Code 16558 SUB INP/OBS CARE 2/35MIN Diagnoses Pneumonia J18.9 Laterality: right Lung location: upper lobe of lung Pneumonia type: due to unspecified organism Asthma exacerbation J45.901 Acute and chronic respiratory failure J96.21 Respiratory failure complication: hypoxia Pulmonary hypertension I27.20 Type 2 diabetes mellitus, with long-term current use of insulin E11.9; Z79.4 Hypertension I10 Hypertension type: essential hypertension Chronic kidney disease, stage IV (severe) N18.4 Atrial flutter, paroxysmal I48.92 Vitamin B12 deficiency E53.8 Ambulatory dysfunction R26.2 (1) Pneumonia Laterality: right Lung location: upper lobe of lung Pneumonia type: due to unspecified organism Qualified Code(s): J18.9 - Pneumonia, unspecified organism (2) Acute and chronic respiratory failure Respiratory failure complication: hypoxia Qualified Code(s): J96.21 - Acute and chronic respiratory failure with hypoxia (3) Hypertension Hypertension type: essential hypertension Qualified Code(s): I10 - Essential (primary) hypertension
[2022-07-16] MEDS: GABAPENTIN 100 MG CAP PO SCH (00:40)
[2022-07-16] MEDS: INSULIN ASPART PER UNIT SC SCH ×5 (00:40→20:45)
[2022-07-16 06:52] LABS: Hematocrit (blood only) 27.5 % (42.0-52.0); Mean Corpuscular Hemoglobin 32.8 pg (25.0-34.0); Mean Corpuscular Hgb Conc 32.7 g/dL (32.0-36.0); Mean Corpuscular Volume 100.4 fL (80.0-100.0); Mean Platelet Volume 11.1 fL (9.4-12.4); Nucleated RBC # (auto) 0.11 K/uL (0-0.12); Nucleated RBC % (auto) 0.8 %; Platelet Count 267 K/uL (130-400); RDW Coefficient of Variation 13.2 % (11.5-14.5); RDW Standard Deviation 47.2 fL (36.4-46.3); Red Blood Count 2.74 M/uL (4.70-6.10)
[2022-07-16 07:21] LABS: BUN Creatinine Ratio 27.8 (10-20); Calcium 8.1 mg/dl (8.5-10.1); Creatinine Clr Calc Pharmacy 20.9 ml/min; Est GFR (African American) 18.2 ml/min; Est GFR (Non-African American) 15.7 ml/min
[2022-07-16] MEDS: methylPREDNISolone 40 MG in SYRINGE 0 ML IV SCH (08:25)
[2022-07-16] MEDS: FLECAINIDE ACETATE 100 MG TABLET PO SCH ×2 (08:26→19:39)
[2022-07-16] MEDS: FERROUS SULFATE 325 MG TAB PO SCH (08:26)
[2022-07-16] MEDS: DOCUSATE SODIUM 100 MG CAP PO SCH (08:27)
[2022-07-16] MEDS: ATORVASTATIN 20 MG TAB PO SCH (08:27)
[2022-07-16] MEDS: CYANOCOBALAMIN (B-12) 2,500 MCG TABLET SL SCH (08:28)
[2022-07-16] MEDS: dilTIAZem HCL 180 MG CAPCR PO SCH (08:28)
[2022-07-16] MEDS: METOPROLOL SUCC 50MG EXT REL TAB PO SCH (08:29)
[2022-07-16] MEDS: POLYETHYLENE (MIRALAX) 17 GM PACK PO SCH ×2 (08:29→19:40)
[2022-07-16] MEDS: CHOLECALCIFEROL 1,000 UNITS 25 MCG TAB PO SCH (08:29)
[2022-07-16] MEDS: UMECLIDINIUM BROMIDE 62.5MCG/BLISTER 7 PUFFS/INHALER INH SCH (08:30)
[2022-07-16] MEDS: FLUTICASONE/VILANTEROL 100/25MCG 14 PUFFS/INHALER INH SCH (08:31)
--- NOTE | 2022-07-16 09:22 | Nephrology Progress Note ---
Date of Service July 16, 2022 Assessment & Plan (1) Acute kidney injury: Plan: * Nonoliguric VIOLA likely due to URIEL (CTA) * Cr stable at 3.4, electrolyte balance is acceptable * Change Furosemide to 40 mg po daily PRN dyspnea, progressive LE swelling * Monitor PRP * If discharge is anticipated, please have patient follow up in my office in 7 - 14 days (2) Chronic kidney disease, stage IV (severe): Plan: * Baseline creatinine ~2.0-2.3 mg/dL (3) Hyperkalemia: Plan: * Resolved. Continue low K diet (4) Anemia: Plan: * Tsat 39, ferritin 53 * Epogen 10,000 units x1 administered 07/15/22 Admission and Anticipated Discharge Date Admission Date: July 09, 2022 Subjective Mr. Severino was evaluated in his hospital room this morning. He reports that his dyspnea is much improved. He has chronic LE swelling and wears compression stockings. Mr. Severino hopes to return home following discharge from the hospital Review of Systems Constitutional: no fever Eyes: no problem reported Ear, Nose, Mouth, Throat: no problem reported Respiratory: no cough and no dyspnea Cardiovascular: no chest pain Gastrointestinal: no abdominal pain Genitourinary: no urinary hesitancy Physical Exam Constitutional: not in distress Eyes: PERRL, conjunctivae normal, anicteric sclerae ENMT: external ear and nose normal, oropharynx normal Neck: trachea midline, no thyromegaly Respiratory: normal respiratory effort, lungs clear to auscultation Cardiovascular: Rate/Rhythm: regular rate and regular rhythm Extremities: + edema (3+ pretibial edema) Gastrointestinal (Abdomen): normal bowel sounds, soft, nontender, no hepatosplenomegaly Neurologic: not confused Speech / Cognition: normal speech and normal cognition Results & Data ([facility]) Vital Signs (Past 12 Hours) Vital Signs Temp Pulse Resp BP BP Pulse Ox O2 Del Method 07/16/22 08:33 63 143/71 H 97 Nasal Cannula 07/16/22 07:20 Nasal Cannula 07/16/22 07:13 36.5 C 65 16 125/69 98 Nasal Cannula O2 Flow Rate 07/16/22 08:33 4 07/16/22 07:20 4 07/16/22 07:13 4 Laboratory Results Laboratory Tests 07/16/22 07/16/22 06:13 06:13 WBC 13.10 H Hgb 9.0 L Hct 27.5 L Plt Count 267 Sodium 144 Potassium 5.0 Chloride 107 Carbon Dioxide 35 H BUN 95 H Creatinine 3.42 H Glucose 106 H Calcium 8.1 L PG Care Time/CCT Total # of Minutes Spent Total Time Spent with Patient: Total time spent is greater than 50% in coordination of care (as documented) at patient's floor/unit and/or counseling patient: Coding Level of Care Code 46781 SUB INP/OBS CARE 3/50MIN Diagnoses Acute kidney injury N17.9 Chronic kidney disease, stage IV (severe) N18.4 Hyperkalemia E87.5 Anemia D64.9
[2022-07-16] MEDS: LANTUS PER UNIT CHARGE SQ SCH (11:25)
[2022-07-16] MEDS: ALFUZOSIN HCL 10 MG TAB PO SCH (17:54)
[2022-07-16] MEDS: RIVAROXABAN 15 MG TAB PO SCH (17:54)
--- NOTE | 2022-07-16 23:07 | Hospitalist Progress Note ---
Date of Service July 16, 2022 Assessment & Plan (1) Pneumonia: Plan: SARS-CoV-2 positive however suspect lingering positive test from previous infection rather than new acute infection given lack of new acute symptoms Procalcitonin negative however some consolidation on CT chest and worsening hypoxia therefore will treat with Unasyn and azithromycin Blood culutres are negative. will order flutter valve and obtain sputum culture. will continue above antibiotics. consult speech eval. will titrate corticosteroids to daily. 2/3 Lasix 40 mg p.o. added to promote diuresis Heart failure follow-up appreciated 2-White count elevated at 13 Unasyn azithromycin completed Continue diuretics monitor I's and O's Patient continues to improve over the next 24 hours we will plan for discharge in 1 to 2 days Chronic HFpEF: NYHA Class III. Patient appears near euvolemic, possibly slightly hypervolemic on exam.CXR with mild pulmonary edema. No ascites on abdominal US. BNP above his baseline at 324. He responded well to Lasix 40 mg PO yesterday. Kidney function above baseline but but stable the past few days. Nephrology on board. Would continue to encourage negative fluid balance. Would recommend Lasix 40 mg this afternoon. Can likely resume his home regimen of 40 mg PO daily tomorrow if labs stable. Paroxysmal atrial flutter and fibrillation: Asymptomatic. Rate well controlled. Continue anticoagulation. Anticoagulation: He should remain on anticoagulation, he seems to be doing well on Xarelto and is on the correct dose.. Hypertension: Blood pressure is well controlled. Continue current regimen. Edema of both legs: He has longstanding edema which may be multifactorial including possibly pulmonary hypertension, CHF, venous disease. Continue diuretics as recommended above, elevation, and compression. Pulmonary hypertension: Right heart cath in March 2021 consistent with pulmonary hypertension, possibly from left heart failure. Sleep study negative for GIOVANNY. Continue diuretics. (2) Asthma exacerbation: Plan: Emphysematous changes on CT Previous improvement on prednisone therefore will retreat with Solu-medrol 40mg IV BID and levalbuterol/ipratropium nebs QID Pt takes chronic prednisone, mepolizumab (3) Acute and chronic respiratory failure: Plan: Aim O2 sats 88-92% Given tachycardia and increased oxygen requirement with recent COVID infection will get CT for PE despite CKD and Xarelto SOB appears to be multifactorial: mainly COPD with some CHF. Will place on lasix on 07/13 one dose as creatinine is elevated, and patient does not appear to be dry at this moment. Will repeat levels in AM (4) Pulmonary hypertension: (5) Type 2 diabetes mellitus, with long-term current use of insulin: Plan: HbA1C 5.6 in May Continue Ozempic if able to bring in on Monday Continue Lantus 20 units BID Switch Humalog to Novolog: --Goal BSG Range: Low 110_mg/dL, High 140_mg/dL --Correction Factor: 10 mg/dL/unit --Carbohydrate ratio = 3 g/unit --BSGs ACHS if eating, q6h if npo (6) Hypertension: Plan: Continue furosemide (will switch to IV for some extra diuresis) Continue metoprolol and diltiazem home dosing (7) Chronic kidney disease, stage IV (severe): Plan: Continue to monitor BMP with Lasix 40mg IV contuled Nephrology. (8) Atrial flutter, paroxysmal: Plan: Continue anticoagulation with Xarelto Continue rhythm control with flecainide. Continue rate control with diltiazem and metorpolol (9) Vitamin B12 deficiency: Plan: Continue vitamin B-12 supplementation (10) Ambulatory dysfunction: Plan: PT/OT Plan Admission and Anticipated Discharge Date Admission Date: July 09, 2022 Subjective Patient reports slight improvement in his dyspnea Lower extremity swelling still present and patient still feels weak when he gets out of chair No chest pain reported Physical Exam Physical Exam: Head and ENT no thyroid enlargement trachea midline Cardiovascular S1-S2 are normal no S3 Lungs bilateral air entry fair no wheezing Abdomen soft nondistended positive bowel sounds Extremity shows 1+ edema improving Neurologically no focal deficits Skin shows no rash no cyanosis Results & Data Results & Data ([facility]) Vital Signs (Past 12 Hours) Vital Signs Temp Pulse Pulse Resp BP BP Pulse Ox 07/16/22 19:38 36.5 C 68 16 136/70 95 07/16/22 17:27 65 94 07/16/22 16:04 36.4 C L 66 18 147/71 H 97 O2 Del Method O2 Flow Rate 07/16/22 19:38 Nasal Cannula 2 07/16/22 17:27 Nasal Cannula 2 07/16/22 16:04 Nasal Cannula 4 Laboratory Results Short CBC 07/16/22 Range/Units 06:13 WBC 13.10 H (4.8-10.8) K/ul Hgb 9.0 L (14.0-18.0) g/dl Hct 27.5 L (42.0-52.0) % Plt Count 267 (130-400) K/uL [facility] 07/16/22 06:13 Sodium 144 Potassium 5.0 Chloride 107 Carbon Dioxide 35 H BUN 95 H Creatinine 3.42 H Glucose 106 H Calcium 8.1 L PG Care Time/CCT Total # of Minutes Spent Total Time Spent with Patient: Total time spent is greater than 50% in coordination of care (as documented) at patient's floor/unit and/or counseling patient: Coding Level of Care Code 28863 SUB INP/OBS CARE 2MIN Diagnoses Pneumonia J18.9 Laterality: right Lung location: upper lobe of lung Pneumonia type: due to unspecified organism Asthma exacerbation J45.901 Acute and chronic respiratory failure J96.21 Respiratory failure complication: hypoxia Pulmonary hypertension I27.20 Type 2 diabetes mellitus, with long-term current use of insulin E11.9; Z79.4 Hypertension I10 Hypertension type: essential hypertension Chronic kidney disease, stage IV (severe) N18.4 Atrial flutter, paroxysmal I48.92 Vitamin B12 deficiency E53.8 Ambulatory dysfunction R26.2 (1) Pneumonia Laterality: right Lung location: upper lobe of lung Pneumonia type: due to unspecified organism Qualified Code(s): J18.9 - Pneumonia, unspecified organism (2) Acute and chronic respiratory failure Respiratory failure complication: hypoxia Qualified Code(s): J96.21 - Acute and chronic respiratory failure with hypoxia (3) Hypertension Hypertension type: essential hypertension Qualified Code(s): I10 - Essential (primary) hypertension
[2022-07-17] MEDS: INSULIN ASPART PER UNIT SC SCH ×5 (00:02→21:25)
[2022-07-17] MEDS: GABAPENTIN 100 MG CAP PO SCH ×4 (01:35→22:06)
[2022-07-17 05:43] LABS: Hematocrit (blood only) 27.4 % (42.0-52.0); Hemoglobin 8.8 g/dl (14.0-18.0); Mean Corpuscular Hemoglobin 32.1 pg (25.0-34.0); Mean Corpuscular Hgb Conc 32.1 g/dL (32.0-36.0); Mean Platelet Volume 10.8 fL (9.4-12.4); Nucleated RBC # (auto) 0.06 K/uL (0-0.12); Nucleated RBC % (auto) 0.5 %; Platelet Count 248 K/uL (130-400); RDW Coefficient of Variation 13.4 % (11.5-14.5); RDW Standard Deviation 48.7 fL (36.4-46.3); Red Blood Count 2.74 M/uL (4.70-6.10); White Blood Count 12.38 K/ul (4.8-10.8)
[2022-07-17 06:06] LABS: Calcium 7.8 mg/dl (8.5-10.1); Creatinine Clr Calc Pharmacy 25.4 ml/min; Est GFR (African American) 22.9 ml/min; Est GFR (Non-African American) 19.8 ml/min; Potassium 5.3 mmol/L (3.5-5.1)
[2022-07-17] MEDS: FLUTICASONE/VILANTEROL 100/25MCG 14 PUFFS/INHALER INH SCH (08:35)
[2022-07-17] MEDS: UMECLIDINIUM BROMIDE 62.5MCG/BLISTER 7 PUFFS/INHALER INH SCH (08:35)
[2022-07-17] MEDS: methylPREDNISolone 40 MG in SYRINGE 0 ML IV SCH (08:36)
[2022-07-17] MEDS: FLECAINIDE ACETATE 100 MG TABLET PO SCH ×2 (08:36→19:48)
[2022-07-17] MEDS: METOPROLOL SUCC 50MG EXT REL TAB PO SCH (08:37)
[2022-07-17] MEDS: dilTIAZem HCL 180 MG CAPCR PO SCH (08:37)
[2022-07-17] MEDS: ATORVASTATIN 20 MG TAB PO SCH (08:38)
[2022-07-17] MEDS: FERROUS SULFATE 325 MG TAB PO SCH (08:38)
[2022-07-17] MEDS: CHOLECALCIFEROL 1,000 UNITS 25 MCG TAB PO SCH (08:38)
[2022-07-17] MEDS: CYANOCOBALAMIN (B-12) 2,500 MCG TABLET SL SCH (08:39)
[2022-07-17] MEDS: DOCUSATE SODIUM 100 MG CAP PO SCH (08:40)
--- NOTE | 2022-07-17 08:56 | Nephrology Progress Note ---
Date of Service July 17, 2022 Assessment & Plan (1) Acute kidney injury: Plan: * Nonoliguric VIOLA likely due to URIEL (CTA) * Cr improved to 2.8 * Mild hyperkalemia. Will provide one dose of Lokelma and resume outpatient diuretic regimen of Furosemide 40 mg po daily. Follow up PRP at 1400 hrs * Monitor PRP * If discharge is anticipated, please have patient follow up in my office in 7 - 14 days. Please inform patient that I have placed orders in outpatient EMR for PRP to be completed 24 hours prior to office visit (2) Chronic kidney disease, stage IV (severe): Plan: * Baseline creatinine ~2.0-2.3 mg/dL (3) Hyperkalemia: Plan: * Resolved. Continue low K diet (4) Anemia: Plan: * Tsat 39, ferritin 53 * Epogen 10,000 units x1 administered 07/15/22 Admission and Anticipated Discharge Date Admission Date: July 09, 2022 Subjective Mr. Severino was evaluated in his hospital room this morning. He was breathing comfortably on 2 L/min NC. He voiced no new medical concerns Review of Systems Constitutional: no fever Eyes: no problem reported Ear, Nose, Mouth, Throat: no problem reported Respiratory: no cough and no dyspnea Cardiovascular: no chest pain Gastrointestinal: no abdominal pain Genitourinary: no urinary hesitancy Physical Exam Constitutional: not in distress Eyes: PERRL, conjunctivae normal, anicteric sclerae ENMT: external ear and nose normal, oropharynx normal Neck: trachea midline, no thyromegaly Respiratory: normal respiratory effort, lungs clear to auscultation Cardiovascular: Rate/Rhythm: regular rate and regular rhythm Extremities: + edema (3+ pretibial edema) wearing compression stockings this morning Gastrointestinal (Abdomen): normal bowel sounds, soft, nontender, no hepatosplenomegaly Neurologic: not confused Speech / Cognition: normal speech and normal cognition Results & Data ([facility]) Vital Signs (Past 12 Hours) Vital Signs Temp Pulse Resp BP Pulse Ox O2 Del Method O2 Flow Rate 07/17/22 08:00 36.4 C L 62 18 122/68 96 Nasal Cannula 2 07/17/22 07:40 Nasal Cannula 2 07/16/22 23:14 Nasal Cannula 2 Laboratory Results Laboratory Tests 07/17/22 07/17/22 05:30 05:30 WBC 12.38 H Hgb 8.8 L Hct 27.4 L Plt Count 248 Sodium 144 Potassium 5.3 H Chloride 109 H Carbon Dioxide 32 BUN 79 H Creatinine 2.82 H D Glucose 171 H PG Care Time/CCT Total # of Minutes Spent Total Time Spent with Patient: Total time spent is greater than 50% in coordination of care (as documented) at patient's floor/unit and/or counseling patient: Coding Level of Care Code 56251 SUB INP/OBS CARE 3/50MIN Diagnoses Acute kidney injury N17.9 Chronic kidney disease, stage IV (severe) N18.4 Hyperkalemia E87.5 Anemia D64.9
[2022-07-17] MEDS: POLYETHYLENE (MIRALAX) 17 GM PACK PO SCH ×2 (08:57→19:48)
[2022-07-17] MEDS: LANTUS PER UNIT CHARGE SQ SCH (09:05)
[2022-07-17] MEDS ORDERED: SODIUM ZIRCONIUM CYCLOSILICATE 10 GM PACKET PO ONE (09:15)
[2022-07-17] MEDS: FUROSEMIDE 40 MG TAB PO SCH (10:09)
--- NOTE | 2022-07-17 11:04 | Pharmacy Report ---
Pharmacy Glycemic Short Note 2 - Date of Service July 17, 2022 - Glycemic Short BSG Results (Last 24 hours): 07/16/22 07/16/22 07/16/22 12:11 17:12 20:28 Glucose POC Glucose 132 H 117 H 134 H 07/16/22 07/17/22 07/17/22 23:57 05:30 08:10 Glucose 171 H POC Glucose 88 155 H OUTPATIENT ANTIDIABETIC REGIMEN: * Ozempic 0.5 mg SQ weekly * Lantus 20 units BID * Humalog SSI * HbA1C = 5.6% 06/06/22 ASSESSMENT: 07/17/22 * Patient received total of 140 units of insulin yesterday, of which 50 units were basal insulin * Fasting BSG trending upward, will increase slightly to 55 units daily * Had loosened CR yesterday due to improvement seen with BSGS, will monitor today and potentially loosen more if BSGs trending down 07/15/22 * BSGs much improved since steroids were tapered to once daily, ranging 137-174 mg/dL yesterday * Received 149 units of insulin (45 units of basal and 104 units of prandial/correctional bolus) * Fasting BSG trending up at 186 mg/dL today - will increase Lantus to 50 units this morning * Continue current Novolog parameters, which seem to be appropriate at this time * Surprisingly, BSG of 303 mg/dL at lunchtime, perhaps uncovered carbs at breakfast/snack? Will not overreact to this anomalous value 07/13/22 * Mr Severino is an 82 y/o M with a PMH of T2DM who presents with pneumonia. Patient was given dexamethasone 10 mg IV in ER then started on Solu-Medrol 40 mg IV BID. * Patient had BSGs in the 300's on 07/10/22 (likely due to steroid induced hyperglycemia) and was started on an insulin drip. * BSGs started trending down the morning of 07/11/22: 198 and 167 mg/dL. * Insulin drip discontinued on 07/11/22 and transitioned to basal and bolus insulin. * Solu-Medrol dose decreased to 40 mg IV daily on 07/12/22 and basal insulin was decreased. 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 PLAN FOR INPATIENT GLYCEMIC CONTROL: * Started patient's own Ozempic 0.5 mg SQ weekly (dose given 07/12/22) * Patient usually takes on Mondays, but did not receive dose of Ozempic on Monday07/11/22 * Basal insulin * Lantus 55 units daily (given with IV Solu-medrol) * Bolus insulin * NovoLog per scale ACHS or Q6hrs while NPO * Goal Range: Low 110 mg/dL - High 140 mg/dL * Correction Factor: 8 mg/dL/unit * Nutritional / Prandial insulin per carb ratio of 1 unit per 2 grams CHO consumed
[2022-07-17 14:41] LABS: Calcium 7.7 mg/dl (8.5-10.1); Est GFR (African American) 23.5 ml/min; Est GFR (Non-African American) 20.3 ml/min; Potassium 4.9 mmol/L (3.5-5.1)
[2022-07-17] MEDS: ALFUZOSIN HCL 10 MG TAB PO SCH (17:41)
[2022-07-17] MEDS: RIVAROXABAN 15 MG TAB PO SCH (17:41)
--- NOTE | 2022-07-17 18:27 | Hospitalist Progress Note ---
Date of Service July 17, 2022 Assessment & Plan (1) Pneumonia: Plan: SARS-CoV-2 positive however suspect lingering positive test from previous infection rather than new acute infection given lack of new acute symptoms Procalcitonin negative however some consolidation on CT chest and worsening hypoxia therefore will treat with Unasyn and azithromycin Blood culutres are negative. will order flutter valve and obtain sputum culture. will continue above antibiotics. consult speech eval. will titrate corticosteroids to daily. 2/3 Lasix 40 mg p.o. added to promote diuresis Heart failure follow-up appreciated 07/16-White count elevated at 13 Unasyn azithromycin completed Continue diuretics monitor I's and O's Patient continues to improve over the next 24 hours we will plan for discharge in 1 to 2 days 07/17-patient serum creatinine is improved from 3.4-2.7 Patient likely has a cardiorenal component and is being closely followed by nephrology Continue Lasix 40 as per nephrology Patient will also have need for two-step study for oxygen requirement planning discharge Chronic HFpEF: NYHA Class III. Patient appears near euvolemic, possibly slightly hypervolemic on exam.CXR with mild pulmonary edema. No ascites on abdominal US. BNP above his baseline at 324. He responded well to Lasix 40 mg PO yesterday. Kidney function above baseline but but stable the past few days. Nephrology on board. Would continue to encourage negative fluid balance. Would recommend Lasix 40 mg this afternoon. Can likely resume his home regimen of 40 mg PO daily tomorrow if labs stable. Paroxysmal atrial flutter and fibrillation: Asymptomatic. Rate well controlled. Continue anticoagulation. Anticoagulation: He should remain on anticoagulation, he seems to be doing well on Xarelto and is on the correct dose.. Hypertension: Blood pressure is well controlled. Continue current regimen. Edema of both legs: He has longstanding edema which may be multifactorial including possibly pulmonary hypertension, CHF, venous disease. Continue diuretics as recommended above, elevation, and compression. Pulmonary hypertension: Right heart cath in March 2021 consistent with pulmonary hypertension, possibly from left heart failure. Sleep study negative for GIOVANNY. Continue diuretics. (2) Asthma exacerbation: Plan: Emphysematous changes on CT Previous improvement on prednisone therefore will retreat with Solu-medrol 40mg IV BID and levalbuterol/ipratropium nebs QID Pt takes chronic prednisone, mepolizumab (3) Acute and chronic respiratory failure: Plan: Aim O2 sats 88-92% Given tachycardia and increased oxygen requirement with recent COVID infection will get CT for PE despite CKD and Xarelto SOB appears to be multifactorial: mainly COPD with some CHF. Will place on lasix on 07/13 one dose as creatinine is elevated, and patient does not appear to be dry at this moment. Will repeat levels in AM (4) Pulmonary hypertension: (5) Type 2 diabetes mellitus, with long-term current use of insulin: Plan: HbA1C 5.6 in May Continue Ozempic if able to bring in on Monday Continue Lantus 20 units BID Switch Humalog to Novolog: --Goal BSG Range: Low 110_mg/dL, High 140_mg/dL --Correction Factor: 10 mg/dL/unit --Carbohydrate ratio = 3 g/unit --BSGs ACHS if eating, q6h if npo (6) Hypertension: Plan: Continue furosemide (will switch to IV for some extra diuresis) Continue metoprolol and diltiazem home dosing (7) Chronic kidney disease, stage IV (severe): Plan: Continue to monitor BMP with Lasix 40mg IV contuled Nephrology. (8) Atrial flutter, paroxysmal: Plan: Continue anticoagulation with Xarelto Continue rhythm control with flecainide. Continue rate control with diltiazem and metorpolol (9) Vitamin B12 deficiency: Plan: Continue vitamin B-12 supplementation (10) Ambulatory dysfunction: Plan: PT/OT Plan Admission and Anticipated Discharge Date Admission Date: July 09, 2022 Subjective Patient seen and examined Patient reports his lower extremity edema improving Patient reports improvement in his low back pain as well Continues to require oxygen supplementation of 2 L/min at rest but with increased when he ambulates No chest pain noted Physical Exam Physical Exam: Head and ENT no thyroid enlargement trachea midline Cardiovascular S1-S2 are normal no S3 Lungs bilateral air entry fair no wheezing Abdomen soft nondistended positive bowel sounds Extremity shows 1+ edema improving Neurologically no focal deficits Skin shows no rash no cyanosis Results & Data Results & Data ([facility]) Vital Signs (Past 12 Hours) Vital Signs Temp Pulse Pulse Resp BP Pulse Ox O2 Del Method 07/17/22 15:00 36.7 C 65 16 141/64 H 94 Nasal Cannula 02/05/23 08:00 36.4 C L 62 18 122/68 96 Nasal Cannula 07/17/22 07:40 Nasal Cannula O2 Flow Rate 07/17/22 15:00 2 07/17/22 08:00 2 07/17/22 07:40 2 PG Care Time/CCT Total # of Minutes Spent Total Time Spent with Patient: Total time spent is greater than 50% in coordination of care (as documented) at patient's floor/unit and/or counseling patient: Coding Level of Care Code 69918 SUB INP/OBS CARE 2MIN Diagnoses Pneumonia J18.9 Laterality: right Lung location: upper lobe of lung Pneumonia type: due to unspecified organism Asthma exacerbation J45.901 Acute and chronic respiratory failure J96.21 Respiratory failure complication: hypoxia Pulmonary hypertension I27.20 Type 2 diabetes mellitus, with long-term current use of insulin E11.9; Z79.4 Hypertension I10 Hypertension type: essential hypertension Chronic kidney disease, stage IV (severe) N18.4 Atrial flutter, paroxysmal I48.92 Vitamin B12 deficiency E53.8 Ambulatory dysfunction R26.2 (1) Pneumonia Laterality: right Lung location: upper lobe of lung Pneumonia type: due to unspecified organism Qualified Code(s): J18.9 - Pneumonia, unspecified organism (2) Acute and chronic respiratory failure Respiratory failure complication: hypoxia Qualified Code(s): J96.21 - Acute and chronic respiratory failure with hypoxia (3) Hypertension Hypertension type: essential hypertension Qualified Code(s): I10 - Essential (primary) hypertension
[2022-07-18 06:13] LABS: Hematocrit (blood only) 27.2 % (42.0-52.0); Hemoglobin 8.7 g/dl (14.0-18.0); Mean Corpuscular Hemoglobin 32.6 pg (25.0-34.0); Mean Corpuscular Volume 101.9 fL (80.0-100.0); Mean Platelet Volume 11.2 fL (9.4-12.4); Nucleated RBC # (auto) 0.06 K/uL (0-0.12); Nucleated RBC % (auto) 0.5 %; Platelet Count 223 K/uL (130-400); RDW Coefficient of Variation 13.5 % (11.5-14.5); RDW Standard Deviation 49.5 fL (36.4-46.3); Red Blood Count 2.67 M/uL (4.70-6.10)
[2022-07-18 06:38] LABS: BUN Creatinine Ratio 27.1 (10-20); Calcium 7.6 mg/dl (8.5-10.1); Creatinine Clr Calc Pharmacy 25.7 ml/min; Est GFR (African American) 23.1 ml/min; Potassium 4.9 mmol/L (3.5-5.1)
[2022-07-18] MEDS: INSULIN ASPART PER UNIT SC SCH ×4 (08:41→20:32)
[2022-07-18] MEDS: LANTUS PER UNIT CHARGE SQ SCH (08:45)
[2022-07-18] MEDS: FLUTICASONE/VILANTEROL 100/25MCG 14 PUFFS/INHALER INH SCH (08:46)
[2022-07-18] MEDS: UMECLIDINIUM BROMIDE 62.5MCG/BLISTER 7 PUFFS/INHALER INH SCH (08:46)
[2022-07-18] MEDS: methylPREDNISolone 40 MG in SYRINGE 0 ML IV SCH (08:46)
[2022-07-18] MEDS: FUROSEMIDE 40 MG TAB PO SCH (08:47)
[2022-07-18] MEDS: ATORVASTATIN 20 MG TAB PO SCH (08:47)
[2022-07-18] MEDS: DOCUSATE SODIUM 100 MG CAP PO SCH (08:47)
[2022-07-18] MEDS: METOPROLOL SUCC 50MG EXT REL TAB PO SCH (08:47)
[2022-07-18] MEDS: FERROUS SULFATE 325 MG TAB PO SCH (08:47)
[2022-07-18] MEDS: CHOLECALCIFEROL 1,000 UNITS 25 MCG TAB PO SCH (08:47)
[2022-07-18] MEDS: CYANOCOBALAMIN (B-12) 2,500 MCG TABLET SL SCH (08:47)
[2022-07-18] MEDS: FLECAINIDE ACETATE 100 MG TABLET PO SCH ×2 (08:47→20:31)
[2022-07-18] MEDS: dilTIAZem HCL 180 MG CAPCR PO SCH (08:47)
[2022-07-18] MEDS: POLYETHYLENE (MIRALAX) 17 GM PACK PO SCH ×2 (08:48→20:32)
--- NOTE | 2022-07-18 08:58 | Nephrology Progress Note ---
Date of Service July 18, 2022 Assessment & Plan (1) Acute kidney injury: Plan: * Nonoliguric VIOLA likely due to URIEL (CTA) * Cr improved to 2.8 * Continue Furosemide 40 mg po daily * Monitor PRP * If discharge is anticipated, please have patient follow up in my office in 7 - 14 days. Please inform patient that I have placed orders in outpatient EMR for PRP to be completed 24 hours prior to office visit (2) Chronic kidney disease, stage IV (severe): Plan: * Baseline creatinine ~2.0-2.3 mg/dL (3) Hyperkalemia: Plan: * Resolved. Continue low K diet (4) Anemia: Plan: * Tsat 39, ferritin 53 * Epogen 10,000 units x1 administered 07/15/22 Admission and Anticipated Discharge Date Admission Date: July 09, 2022 Subjective Mr. Severino was evaluated in his hospital room this morning. He was breathing comfortably on 2 L/min NC. He voiced no new medical concerns Review of Systems Constitutional: no fever Eyes: no problem reported Ear, Nose, Mouth, Throat: no problem reported Respiratory: no cough and no dyspnea Cardiovascular: no chest pain Gastrointestinal: no abdominal pain Genitourinary: no urinary hesitancy Physical Exam Constitutional: not in distress Eyes: PERRL, conjunctivae normal, anicteric sclerae ENMT: external ear and nose normal, oropharynx normal Neck: trachea midline, no thyromegaly Respiratory: normal respiratory effort, lungs clear to auscultation Cardiovascular: Rate/Rhythm: regular rate and regular rhythm Extremities: + edema (3+ pretibial edema) Gastrointestinal (Abdomen): normal bowel sounds, soft, nontender, no hepatosplenomegaly Neurologic: not confused Speech / Cognition: normal speech and normal cognition Results & Data ([facility]) Vital Signs (Past 12 Hours) Vital Signs Temp Pulse Resp BP Pulse Ox O2 Del Method O2 Flow Rate 07/18/22 07:31 36.4 C L 59 L 20 157/71 H 96 Nasal Cannula 2 Laboratory Results Laboratory Tests 07/18/22 07/18/22 05:44 05:44 WBC 11.40 H Hgb 8.7 L Hct 27.2 L Plt Count 223 Sodium 143 Potassium 4.9 Chloride 108 H Carbon Dioxide 31 BUN 76 H Creatinine 2.80 H Glucose 151 H PG Care Time/CCT Total # of Minutes Spent Total Time Spent with Patient: Total time spent is greater than 50% in coordination of care (as documented) at patient's floor/unit and/or counseling patient: Coding Level of Care Code 38872 SUB INP/OBS CARE 350MIN Diagnoses Acute kidney injury N17.9 Chronic kidney disease, stage IV (severe) N18.4 Hyperkalemia E87.5 Anemia D64.9
[2022-07-18] MEDS ORDERED: EPOETIN ALFA 10,000 UNITS/ML VIAL SQ ONE (09:00)
[2022-07-18] MEDS: SEMAGLUTIDE INJ SQ SCH (11:25)
--- NOTE | 2022-07-18 12:53 | Heart Failure Progress Note ---
Date of Service July 18, 2022 Assessment & Plan (1) Chronic heart failure with preserved ejection fraction: (2) Atrial flutter, paroxysmal: (3) CKD (chronic kidney disease), stage III: (4) Pulmonary hypertension: (5) Restrictive lung disease: (6) Pneumonia: Plan Chronic HFpEF: NYHA Class III. Patient appears near euvolemic, possibly slightly hypervolemic on exam.CXR with mild pulmonary edema. No ascites on abdominal US. BNP above his baseline at 324. He responded well to Lasix 40 mg PO yesterday. Kidney function above baseline but but stable the past few days. Nephrology on board. Would continue to encourage negative fluid balance. Continue Lasix 40 mg PO daily on discharge. Dailystandingweights recommended. Outpatient dry weight previously 245 lb. He has been trending up as an outpatient so unclear if this is still accurate.Suspect it is like close to 260 lb. Notify HF program of 2+ lb weight gain overnight or 5+ lb in 1 week. Resume low sodium diet, less than 2,000 mg daily. They are familiar with this and have done so in the p ast.Strict I&Os while inpatient. Paroxysmal atrial flutter and fibrillation: Asymptomatic. Rate well controlled. Continue anticoagulation. Anticoagulation: He should remain on anticoagulation, he seems to be doing well on Xarelto and is on the correct dose.. Hypertension: Blood pressure is well controlled. Continue current regimen. Edema of both legs: He has longstanding edema which may be multifactorial including possibly pulmonary hypertension, CHF, venous disease. Continue diuretics as recommended above, elevation, and compression. Pulmonary hypertension: Right heart cath in March 2021 consistent with pulmonary hypertension, possibly from left heart failure. Sleep study negative for GIOVANNY. Continue diuretics. CKD: Follows with Dr. Chaney as outpatient. Asthma/COPD/chronic resp failure: Moderate restriction. Follows with [facility] lung center- Dr. Ewing. Noncompliant with Trelegy. Disposition: Continue close follow up with the heart failure program- within 7 days of discharge. Follow up with Dr. Terrell as scheduled in August. Admission and Anticipated Discharge Date Admission Date: July 09, 2022 Subjective Patient resting comfortably in his bedside chair. Reports he feels improved today, "back to before I had COVID". No concerns with his breathing, saturating well on 2L. States he's been ambulating around his room. Lower extremity edema is improving. Has been net negative on Lasix 40 mg PO. Weight is 266 lb on the standing scale today. Denies chest pain, cough, palpitations. Physical Exam Physical Exam: Gen.: No acute distress. Alert and oriented. Supplemental O2, 2 L HEENT: Anicteric sclera. Mucous membranes dry Neck: No JVD. No HJR. Difficult exam. Cardiac: Regular rate and rhythm. No murmurs. Pulmonary: Normal respiratory effort. Lungs clear to auscultation, no wheezes/crackles. Abdomen: Soft, mildly distended. Obese. Extremities: 2+ bilateral lower extremity edema at the ankles L>R. 2+ pedal edema. No cyanosis. Psychiatric: Affect appears appropriate. Results & Data ([facility]) Vital Signs (Past 12 Hours) Vital Signs Temp Pulse Resp BP Pulse Ox O2 Del Method O2 Flow Rate 07/18/22 11:27 94 07/18/22 07:31 97.5 F L 59 L 20 157/71 H 96 Nasal Cannula 2 PG Care Time/CCT Total # of Minutes Spent Total Time Spent with Patient: Total time spent is greater than 50% in coordination of care (as documented) at patient's floor/unit and/or counseling patient: Coding Level of Care Code 68298 SUB INP/OBS CARE 3/50MIN Diagnoses Chronic heart failure with preserved ejection fraction I50.32 Atrial flutter, paroxysmal I48.92 CKD (chronic kidney disease), stage III N18.3 Pulmonary hypertension I27.20 Restrictive lung disease J98.4 Pneumonia J18.9 Laterality: right Lung location: upper lobe of lung Pneumonia type: due to unspecified organism (1) Pneumonia Laterality: right Lung location: upper lobe of lung Pneumonia type: due to unspecified organism Qualified Code(s): J18.9 - Pneumonia, unspecified organism
[2022-07-18] MEDS: predniSONE 10 MG TABLET PO SCH (15:11)
--- NOTE | 2022-07-18 16:55 | Hospitalist Progress Note ---
Date of Service July 18, 2022 Assessment & Plan (1) Pneumonia: Plan: SARS-CoV-2 positive however suspect lingering positive test from previous infection rather than new acute infection given lack of new acute symptoms Procalcitonin negative however some consolidation noted on admission CT chest. Treated with Unasyn and azithromycin. Blood cultures are negative. Chronic HFpEF: NYHA Class III. Patient appears near euvolemic, possibly slightly hypervolemic on exam.CXR with mild pulmonary edema. No ascites on abdominal US. BNP above his baseline at 324. He responded well to Lasix 40 mg PO yesterday. Kidney function above baseline but but stable the past few days. Nephrology on board. Would continue to encourage negative fluid balance. Would recommend Lasix 40 mg this afternoon. Can likely resume his home regimen of 40 mg PO daily tomorrow if labs stable. Paroxysmal atrial flutter and fibrillation: Asymptomatic. Rate well controlled. Continue anticoagulation. Anticoagulation: He should remain on anticoagulation, he seems to be doing well on Xarelto and is on the correct dose.. Hypertension: Blood pressure is well controlled. Continue current regimen. Edema of both legs: He has longstanding edema which may be multifactorial including possibly pulmonary hypertension, CHF, venous disease. Continue diuretics as recommended above, elevation, and compression. Pulmonary hypertension: Right heart cath in March 2021 consistent with pulmonary hypertension, possibly from left heart failure. Sleep study negative for GIOVANNY. Continue diuretics. (2) Asthma exacerbation: Plan: Acute exacerbation of COPD present on admission. Now resolved. Treated with parenteral steroids and nebulizer treatments . Pt takes chronic prednisone, mepolizumab (3) Acute and chronic respiratory failure: Plan: He is back to his baseline oxygen requirement. Suspected pneumonia present on admission has been treated (4) Pulmonary hypertension: Plan: Aware. No intervention needed at this time (5) Type 2 diabetes mellitus, with long-term current use of insulin: Plan: HbA1C 5.6 in May. ADA diet. Basal insulin therapy. Sliding scale coverage. (6) Hypertension: Plan: Treated with furosemide, metoprolol and diltiazem (7) Chronic kidney disease, stage IV (severe): Plan: Monitor intake and output. Serial labs . Nephrology consult appreciated . They request follow-up in the office in 1 to 2 weeks. (8) Atrial flutter, paroxysmal: Plan: Continue anticoagulation with Xarelto. Continue rhythm control with flecainide. Continue rate control with diltiazem and metorpolol. Telemetry (9) Vitamin B12 deficiency: Plan: Continue vitamin B-12 supplementation (10) Ambulatory dysfunction: Plan: PT/OT Plan Awaiting insurance approval for discharge to inpatient rehab. Otherwise, he will be discharged to home, hopefully tomorrow, July 19 Admission and Anticipated Discharge Date Admission Date: July 09, 2022 Subjective Alert and oriented. Stable overall. Intravenous steroids switch to oral prednisone which she is on at home. [facility]tic[facility]ate [facility] or to home. Overall, he is medically stable. He will need to follow- up with nephrology in 1 to 2 weeks. Creatinine is stable at 2.8. Potassium stable at 4.9. Review of Systems Review of Systems: Constitutional-no fever or chills ENT-no blurred vision, no double vision, no epistaxis, no sore throat Respiratory-no cough, no wheezing, no shortness of breath Cardiac-no palpitations, no chest pain, no syncope GI-no nausea, vomiting, diarrhea, melena, hematochezia -no urinary retention, no urinary incontinence, no dysuria, no hematuria Musculoskeletal-no joint pain, no muscle tenderness Skin-no bruising, no rashes, no pruritus Neuro-no isolated weakness, no paresthesia, no weakness Psych-no depression, no anxiety Physical Exam Physical Exam: General-alert and oriented x3, no fevers, no chills. Morbidly obese HEENT-head atraumatic and normocephalic, pupils equal and reactive to light, extraocular muscles intact Neck-no lymphadenopathy or thyromegaly, trachea midline Chest-clear to auscultation percussion. No rales wheezing or rhonchi Cardiac-regular rate and rhythm, normal S1 and S2 Abdomen-normal bowel sounds, nontender, no hepatosplenomegaly Extremities-chronic bilateral lower extremity edema from chronic venous insufficiency Neuro-cranial nerves II through XII intact, motor and sensory function within normal limits, strength symmetrical , no focal deficits Psych-normal affect, normal mood Results & Data Results & Data ([facility]) Vital Signs (Past 12 Hours) Vital Signs Temp Pulse Resp BP BP Pulse Ox O2 Del Method 07/18/22 14:37 36.3 C L 63 20 130/61 92 Nasal Cannula 07/18/22 13:58 85 L 07/18/22 11:27 94 07/18/22 07:31 36.4 C L 59 L 20 157/71 H 96 Nasal Cannula O2 Flow Rate 07/18/22 14:37 2 07/18/22 13:58 2 07/18/22 11:27 07/18/22 07:31 2 Laboratory Results 07/18/22 05:44 07/18/22 05:44 PG Care Time/CCT Total # of Minutes Spent Total Time Spent with Patient: Total time spent is greater than 50% in coordination of care (as documented) at patient's floor/unit and/or counseling patient: Coding Level of Care Code 53033 SUB INP/OBS CARE 3/50MIN Diagnoses Pneumonia J18.9 Laterality: right Lung location: upper lobe of lung Pneumonia type: due to unspecified organism Asthma exacerbation J45.901 Acute and chronic respiratory failure J96.21 Respiratory failure complication: hypoxia Pulmonary hypertension I27.20 Type 2 diabetes mellitus, with long-term current use of insulin E11.9; Z79.4 Hypertension I10 Hypertension type: essential hypertension Chronic kidney disease, stage IV (severe) N18.4 Atrial flutter, paroxysmal I48.92 Vitamin B12 deficiency E53.8 Ambulatory dysfunction R26.2 (1) Pneumonia Laterality: right Lung location: upper lobe of lung Pneumonia type: due to unspecified organism Qualified Code(s): J18.9 - Pneumonia, unspecified organism (2) Acute and chronic respiratory failure Respiratory failure complication: hypoxia Qualified Code(s): J96.21 - Acute and chronic respiratory failure with hypoxia (3) Hypertension Hypertension type: essential hypertension Qualified Code(s): I10 - Essential (primary) hypertension
[2022-07-18] MEDS: ALFUZOSIN HCL 10 MG TAB PO SCH (17:42)
[2022-07-18] MEDS: RIVAROXABAN 15 MG TAB PO SCH (17:43)
[2022-07-18] MEDS: GABAPENTIN 100 MG CAP PO SCH (21:00)
[2022-07-19] MEDS: GABAPENTIN 100 MG CAP PO SCH (07:05)
[2022-07-19 07:16] LABS: BUN Creatinine Ratio 29.8 (10-20); Est GFR (African American) 26.8 ml/min; Est GFR (Non-African American) 23.1 ml/min; Potassium 4.8 mmol/L (3.5-5.1)
[2022-07-19] MEDS: CYANOCOBALAMIN (B-12) 2,500 MCG TABLET SL SCH (08:39)
[2022-07-19] MEDS: FERROUS SULFATE 325 MG TAB PO SCH (08:39)
[2022-07-19] MEDS: FLECAINIDE ACETATE 100 MG TABLET PO SCH (08:39)
[2022-07-19] MEDS: METOPROLOL SUCC 50MG EXT REL TAB PO SCH (08:39)
[2022-07-19] MEDS: ATORVASTATIN 20 MG TAB PO SCH (08:39)
[2022-07-19] MEDS: CHOLECALCIFEROL 1,000 UNITS 25 MCG TAB PO SCH (08:39)
[2022-07-19] MEDS: predniSONE 10 MG TABLET PO SCH (08:39)
[2022-07-19] MEDS: POLYETHYLENE (MIRALAX) 17 GM PACK PO SCH (08:39)
[2022-07-19] MEDS: FUROSEMIDE 40 MG TAB PO SCH (08:39)
[2022-07-19] MEDS: DOCUSATE SODIUM 100 MG CAP PO SCH (08:39)
[2022-07-19] MEDS: dilTIAZem HCL 180 MG CAPCR PO SCH (08:39)
[2022-07-19] MEDS: FLUTICASONE/VILANTEROL 100/25MCG 14 PUFFS/INHALER INH SCH (08:40)
[2022-07-19] MEDS: UMECLIDINIUM BROMIDE 62.5MCG/BLISTER 7 PUFFS/INHALER INH SCH (08:40)
[2022-07-19] MEDS: INSULIN ASPART PER UNIT SC SCH ×2 (08:43→12:45)
--- NOTE | 2022-07-19 08:58 | Nephrology Progress Note ---
Date of Service July 19, 2022 Assessment & Plan (1) Acute kidney injury: Plan: * Nonoliguric VIOLA likely due to URIEL (CTA) * Cr improved to 2.48 * Continue Furosemide 40 mg po daily * Monitor PRP * Please have patient follow up in my office in 7 - 14 days. Please inform patient that I have placed orders in outpatient EMR for PRP to be completed 24 hours prior to office visit * No further Nephrology evaluation indicated at this time. Will sign off. Please call if further assistance is needed (2) Chronic kidney disease, stage IV (severe): Plan: * Baseline creatinine ~2.0-2.3 mg/dL (3) Hyperkalemia: Plan: * Resolved. Continue low K diet (4) Anemia: Plan: * Tsat 39, ferritin 53 * Epogen 10,000 units x1 administered 07/15/22 Admission and Anticipated Discharge Date Admission Date: July 09, 2022 Subjective Mr. Severino was evaluated in his hospital room this morning. He was breathing comfortably on 2 L/min NC. He reported brisk UO. He voiced no new medical concerns Review of Systems Constitutional: no fever Eyes: no problem reported Ear, Nose, Mouth, Throat: no problem reported Respiratory: no cough and no dyspnea Cardiovascular: no chest pain Gastrointestinal: no abdominal pain Genitourinary: no urinary hesitancy Physical Exam Constitutional: not in distress Eyes: PERRL, conjunctivae normal, anicteric sclerae ENMT: external ear and nose normal, oropharynx normal Neck: trachea midline, no thyromegaly Respiratory: normal respiratory effort, lungs clear to auscultation Cardiovascular: Rate/Rhythm: regular rate and regular rhythm Extremities: + edema (3+ pretibial edema) Gastrointestinal (Abdomen): normal bowel sounds, soft, nontender, no hepatosplenomegaly Neurologic: not confused Speech / Cognition: normal speech and normal cognition Results & Data ([facility]) Vital Signs (Past 12 Hours) Vital Signs Temp Pulse Resp BP Pulse Ox O2 Del Method O2 Flow Rate 07/19/22 08:00 Nasal Cannula 2 07/19/22 07:46 36.5 C 61 16 129/72 96 Nasal Cannula 2 Laboratory Results Laboratory Tests 07/18/22 07/19/22 05:44 06:21 WBC 11.40 H Hgb 8.7 L Hct 27.2 L Plt Count 223 Sodium 145 Potassium 4.8 Chloride 111 H Carbon Dioxide 30 BUN 74 H Creatinine 2.48 H D Glucose 148 H PG Care Time/CCT Total # of Minutes Spent Total Time Spent with Patient: Total time spent is greater than 50% in coordination of care (as documented) at patient's floor/unit and/or counseling patient: Coding Level of Care Code 73308 SUB INP/OBS CARE 3/50MIN Diagnoses Acute kidney injury N17.9 Chronic kidney disease, stage IV (severe) N18.4 Hyperkalemia E87.5 Anemia D64.9
[2022-07-19] MEDS ORDERED: LANTUS PER UNIT CHARGE SQ SCH (09:00)
--- NOTE | 2022-07-19 09:17 | Pharmacy Report ---
Pharmacy Glycemic Short Note 2 - Date of Service July 19, 2022 - Glycemic Short BSG Results (Last 24 hours): 07/18/22 07/18/22 07/18/22 11:56 17:02 20:31 Glucose POC Glucose 137 H 180 H 128 H 07/19/22 07/19/22 06:21 08:14 Glucose 148 H POC Glucose 139 H OUTPATIENT ANTIDIABETIC REGIMEN: * Ozempic 0.5 mg SQ weekly * Lantus 20 units BID * Humalog SSI * HbA1C = 5.6% 06/06/22 ASSESSMENT: 07/19/22: * BSGs have been stable on ~140 units of daily insulin for the past several days. * Steroids were decreased yesterday (SoluMedrol 40mg IV daily --> prednisone 10mg PO daily). * Lantus dose was reduced this morning. Novolog parameters were also loosened in anticipation of reduced insulin requirements with lower steroid dosing. May need to loosen regimen even further to prevent hypoglycemia. Will continue to follow and adjust as indicated. 07/17/22 * Patient received total of 140 units of insulin yesterday, of which 50 units were basal insulin * Fasting BSG trending upward, will increase slightly to 55 units daily * Had loosened CR yesterday due to improvement seen with BSGS, will monitor today and potentially loosen more if BSGs trending down 07/15/22 * BSGs much improved since steroids were tapered to once daily, ranging 137-174 mg/dL yesterday * Received 149 units of insulin (45 units of basal and 104 units of prandial/correctional bolus) * Fasting BSG trending up at 186 mg/dL today - will increase Lantus to 50 units this morning * Continue current Novolog parameters, which seem to be appropriate at this time * Surprisingly, BSG of 303 mg/dL at lunchtime, perhaps uncovered carbs at breakfast/snack? Will not overreact to this anomalous value 07/13/22 * Mr Severino is an 82 y/o M with a PMH of T2DM who presents with pneumonia. Patient was given dexamethasone 10 mg IV in ER then started on Solu-Medrol 40 mg IV BID. * Patient had BSGs in the 300's on 07/10/22 (likely due to steroid induced hyperglycemia) and was started on an insulin drip. * BSGs started trending down the morning of 07/11/22: 198 and 167 mg/dL. * Insulin drip discontinued on 07/11/22 and transitioned to basal and bolus insulin. * Solu-Medrol dose decreased to 40 mg IV daily on 07/12/22 and basal insulin was decreased. * Added midnight BSG check with Novolog coverage as patient is requesting midnight snack per diabetes care and education intern. PLAN FOR INPATIENT GLYCEMIC CONTROL: * Ozempic 0.5mg SQ weekly on Mondays * Dose given yesterday, 07/18 * Basal insulin * Lantus 45 units SQ daily * Bolus insulin * NovoLog per scale ACHS or Q6hrs while NPO * Goal Range: Low 110 mg/dL - High 140 mg/dL * Correction Factor: 10 mg/dL/unit * Nutritional / Prandial insulin per carb ratio of 1 unit per 3 grams CHO consumed
--- NOTE | 2022-07-19 14:22 | Discharge Summary ---
Date of Service July 19, 2022 Admission HPI Per Admitting Provider Ish Severino is an 82 year old male who presents to the ER with increasing weakness over the last 3 days. He was diagnosed with COVID-19 in May and hospitalized from 06/05 - 06/09. He reports never fully recovering since then but was ambulatory on discharge and was discharged home. Due to ongoing shortness of breath he was given prednisone and doxycycline course for 5 days on June 21 with some improvement but since stopping the steroids has been on a progressive decline with worsening hypoxia on exertion and increased heart rate. The last 3 days his has had to place him in a wheelchair around the house given his worsening ambulatory dysfunction. He denies any fever, chills, chest pain, sore throat, sinus pain, abdominal pain or diarrhea. Principal Diagnosis Acute on chronic kidney disease, stage IV, pneumonia, acute exacerbation COPD, acute on chronic hypoxic respiratory failure Discharge Exam General-alert and oriented x3, no fevers, no chills. Morbidly obese HEENT-head atraumatic and normocephalic, pupils equal and reactive to light, extraocular muscles intact Neck-no lymphadenopathy or thyromegaly, trachea midline Chest-clear to auscultation percussion. No rales wheezing or rhonchi Cardiac-regular rate and rhythm, normal S1 and S2 Abdomen-normal bowel sounds, nontender, no hepatosplenomegaly Extremities-chronic bilateral lower extremity edema from chronic venous insufficiency Neuro-cranial nerves II through XII intact, motor and sensory function within normal limits, strength symmetrical , no focal deficits Psych-normal affect, normal mood Discharge Data Allergies Allergy/AdvReac Type Severity Reaction Status Date / Time adhesive Allergy Unknown PLASTIC Verified 05/19/22 11:06 TAPE-SKIN BLISTERS,RASH, IRRITATION latex Allergy Unknown Verified 05/19/22 11:06 sertraline AdvReac Intermediate palpitation Verified 05/19/22 11:06 s Consultations 07/09/22 14:41 ED Decision to Admit Stat 07/12/22 09:36 [facility] [place] Referral Routine 07/13/22 14:16 Consult Nephrology Routine Ordered Studies 07/09/22 13:40 CT chest diagnostic wo con Stat 07/09/22 15:26 CT for pulmonary embolism PE [CT angio chest PE protocol] Stat 07/13/22 14:24 US abdomen ltd ascites Urgent Hospital Course (1) Pneumonia: SARS-CoV-2 positive however suspect lingering positive test from previous infection rather than new acute infection given lack of new acute symptoms Procalcitonin negative however some consolidation noted on admission CT chest. Treated with Unasyn and azithromycin. Blood cultures are negative. Resolved (2) Asthma exacerbation: Acute exacerbation of COPD present on admission. Now resolved. Treated with parenteral steroids and nebulizer treatments . Pt takes chronic prednisone, mepolizumab chronically (3) Acute and chronic respiratory failure: He is back to his baseline oxygen requirement. Suspected pneumonia present on admission has been treated (4) Pulmonary hypertension: Aware. No intervention needed at this time (5) Type 2 diabetes mellitus, with long-term current use of insulin: HbA1C 5.6 in May. ADA diet. Basal insulin therapy. Sliding scale coverage. (6) Hypertension: Treated with furosemide, metoprolol and diltiazem. Controlled and stable (7) Chronic kidney disease, stage IV (severe): Monitor intake and output. Serial labs . Nephrology consult appreciated . They request follow-up in the office in 1 to 2 weeks. (8) Atrial flutter, paroxysmal: Continue anticoagulation with Xarelto. Continue rhythm control with flecainide. Continue rate control with diltiazem and metorpolol. Telemetry (9) Vitamin B12 deficiency: Continue vitamin B-12 supplementation (10) Ambulatory dysfunction: PT/OT Plan Insurance approval for IPR placement has not been forthcoming. The patient has decided to simply go home. He is stable. Total Time Total Time Spent Total Time Spent (In Minutes): 35 minutes Discharge Plan Discharge Items Patient Disposition: Home - Self-Care Reason For Visit: PNEUMONIA, COPD Discharge Diagnosis: Pneumonia, acute on chronic respiratory failure, acute exacerbation COPD, acute on chronic kidney disease, stage IV Non-emergency contact: Primary Care Provider Call non-emergency contact if: you have any medication questions Follow-up/Referrals: Mario Anaya MD [Primary Care Provider] - Christa Reese PA-C [Physician Manager Protein] - 07/25/22 10:30 am Diet: Carb Consistent or DM2 and Heart Healthy Addtl Attending Provider Instructions: All medications remain the same Pending Studies at Discharge: No Stand-Alone Forms: My [employer], Smoking Cessation Medications and DC Order Prescriptions: New furosemide 40 mg Tablet 40 mg PO QAM Qty: 30 0RF Ozempic 1 mg/dose (4 mg/3 mL) Pen Injector 1 ea subcut Mo@0900 Qty: 0 0RF prednisone 10 mg Tablet 10 mg PO DAILY Qty: 0 0RF insulin glargine [Lantus U-100 Insulin] 100 unit/mL Solution 45 unit subcut DAILY Qty: 0 0RF Continued Trelegy Ellipta 100-62.5-25 mcg blister with device 1 inh inhalation DAILY Qty: 3 3RF gabapentin 100 mg capsule 100 - 300 mg PO HS PRN (Reason: restless leg(s)) Qty: 270 0RF Xarelto 15 mg tablet See Rx Instructions .ROUTE .COMPLEX Qty: 90 3RF Dose Instruction: TAKE 1 TABLET DAILY Rx Instructions: TAKE 1 TABLET DAILY alfuzosin 10 mg tablet extended release 24 hr 10 mg PO DAILY Qty: 90 3RF Rx Instructions: Take 1 tablet daily after supper. cyanocobalamin (vitamin B-12) 2,500 mcg tablet 2,500 mcg PO DAILY Qty: 30 8RF metoprolol succinate 100 mg tablet extended release 24 hr 100 mg PO DAILY Qty: 90 3RF diltiazem HCl 180 mg capsule,extended release 24hr 180 mg PO DAILY Qty: 90 3RF atorvastatin 20 mg tablet 20 mg PO DAILY Qty: 90 3RF Ozempic 0.25 mg or 0.5 mg(2 mg/1.5 mL) pen injector 0.5 mg subcut Q7D Qty: 4.5 1RF flecainide 100 mg tablet 100 mg PO Q12H Qty: 180 3RF levalbuterol tartrate [Xopenex HFA] 45 mcg/actuation HFA aerosol inhaler 2 inh INH Q4H PRN (Reason: shortness of breath or wheezing) Qty: 45 3RF levalbuterol HCl 0.63 mg/3 mL solution for nebulization 0.63 mg INH Q4H PRN (Reason: shortness of breath or wheezing) Qty: 540 1RF metolazone 5 mg tablet 5 mg PO DAILY PRN (Reason: SOB, weight gain, dyspnea.) Qty: 30 0RF Rx Instructions: Take as directed by the heart failure program. insulin glargine [Lantus Solostar U-100 Insulin] 100 unit/mL (3 mL) insulin pen 20 unit SQ BID Qty: 45 3RF Rx Instructions: Per patient lorazepam 0.5 mg tablet 0.5 mg PO DAILY PRN (Reason: anxiety) Qty: 10 0RF multivitamin [Daily Multi-Vitamin] tablet 1 tab PO DAILY PreserVision AREDS [id number] capsule 1 cap PO BID omega-3 acid ethyl esters 1 gram capsule 3 cap PO DAILY cholecalciferol (vitamin D3) 25 mcg (1,000 unit) capsule 1,000 unit PO DAILY Nucala 100 mg/mL auto-injector 100 mg subcut .[id number] ferrous sulfate [FeroSul] 325 mg (65 mg iron) tablet 325 mg PO DAILY prednisone 5 mg tablet 5 mg PO DAILY docusate sodium 100 mg Capsule 200 mg PO DAILY insulin lispro [Humalog KwikPen Insulin] 100 unit/mL insulin pen 22 unit subcut DAILY Rx Instructions: this dose was stated by pt. Boost Plus Liquid 1 ea PO BID Rx Instructions: 240 ml twice a day Discontinued dexamethasone 6 mg tablet 6 mg PO DAILY Qty: 7 0RF furosemide 20 mg tablet 40 mg PO QAM Qty: 90 3RF Discharge Orders: Discharge Order (Routine); Ordered 07/19/22 Ordered By: Nain Nye Admission Data Admit Date/Time: 07/09/22 14:47 Attending Provider: Nain Nye Admit Provider: Gerard Wood Primary Care Provider: Mairo Anaya Other Providers: Gerard Wood ; [facility] ; Christa Reese ; Shelton Chowdhury ; [facility] Coding Level of Care Code HOSP INP/OBS DISCH >30 MIN Diagnoses Pneumonia J18.9 Laterality: right Lung location: upper lobe of lung Pneumonia type: due to unspecified organism Asthma exacerbation J45.901 Acute and chronic respiratory failure J96.21 Respiratory failure complication: hypoxia Pulmonary hypertension I27.20 Type 2 diabetes mellitus, with long-term current use of insulin E11.9; Z79.4 Hypertension I10 Hypertension type: essential hypertension Chronic kidney disease, stage IV (severe) N18.4 Atrial flutter, paroxysmal I48.92 Vitamin B12 deficiency E53.8 Ambulatory dysfunction R26.2
== END 2022-07-19 15:40 | disposition home health service (06) | DRG 193 ==
LOC: ED 10:42 → SUATTDRO 14:47 → 3E 14:47